=== PATIENT | male | born 1940 | race Caucasian/White ===

== ENCOUNTER → 2020-10-31 10:16 | Outpatient (BNVA) | payer MEDICARE, OTHER, SELFPAY | PROVIDERS: PCP Internal Medicine; Visit Provider Internal Medicine | DX: I48.0 Paroxysmal atrial fibrillation (principal); I63.512 Cerebral infarction due to unspecified occlusion or stenosis of left middle cerebral artery; R94.39 Abnormal result of other cardiovascular function study | CPT/HCPCS: 99212 ==

== ENCOUNTER → 2020-12-01 11:33 | Outpatient (BNVA) | payer MEDICARE, OTHER, SELFPAY | PROVIDERS: PCP Internal Medicine; Visit Provider Urology | DX: N40.1 Benign prostatic hyperplasia with lower urinary tract symptoms (principal); R35.0 Frequency of micturition; R31.0 Gross hematuria; N20.0 Calculus of kidney | CPT/HCPCS: 81002; 99212 ==

== ENCOUNTER → 2021-05-08 10:42 | Outpatient (BNVA) | payer MEDICARE, OTHER, SELFPAY | PROVIDERS: PCP Internal Medicine; Visit Provider Internal Medicine | DX: I48.0 Paroxysmal atrial fibrillation (principal); I63.512 Cerebral infarction due to unspecified occlusion or stenosis of left middle cerebral artery; R94.39 Abnormal result of other cardiovascular function study | CPT/HCPCS: 93005; 99212 ==

== ENCOUNTER 2021-06-25 07:44 | Emergency (ER) | payer MEDICARE, OTHER, SELFPAY ==
[2021-06-25 07:52] VITALS: BP 144/75; PULSE 73; RESP 18; TEMP 35.6; O2SAT 96
[2021-06-25 08:15] VITALS: BP 123/72; PULSE 59; RESP 17; O2SAT 98; BMI 24.3
[2021-06-25] MEDS: Oxymetazoline HCl 0.05 % Nasal 15 ML SPRAY 2 SPRAY NOSTRIL-B (08:20)
[2021-06-25] MEDS: Cocaine HCl 4 % 4 ML SOLUTION TOPICAL (08:20)
--- NOTE | 2021-06-25 08:20 | PC.NURSE ---
Doctor at bedside examining patient. Aftrin instilled in both nares with packing per doctor. Pt tolerated well
--- NOTE | 2021-06-25 08:25 | ED.EPISTAXIS ---
History of Present Illness General Chief Complaint: Epistaxis Stated Complaint: nose bleed Time Seen by Provider: 06/25/21 08:11 Source: patient Mode of arrival: ambulatory Limitations: no limitations History of Present Illness HPI Narrative: patient on eliquis, started with nose bleed yesterday, now with one today Location: Yes right nares Onset/current episode: Yes hour(s) Duration: Yes constant Pertinent past history: Yes hypertension Context: Yes history of previous nose bleed Related Data Home Medications Medication Instructions Recorded Confirmed gabapentin 300 mg capsule 300 mg PO BEDTIME 10/17/20 05/08/21 levothyroxine 50 mcg tablet 50 mcg PO DAILY 10/17/20 05/08/21 multivitamin 1 tab PO DAILY 10/17/20 05/08/21 tramadol 50 mg tablet 50 mg PO Q6H PRN 10/17/20 05/08/21 Previous Rx's Medication Instructions Recorded metoprolol succinate 25 mg 25 mg PO DAILY #90 tab 01/16/21 tablet,extended release 24 hr finasteride 5 mg tablet 5 mg PO DAILY 90 Days #90 tab 02/06/21 apixaban 5 mg tablet (Eliquis) 5 mg PO BID #180 tab 02/15/21 diclofenac sodium 1 % topical gel 4 g TOPICAL QID #3 tube 04/17/21 (Voltaren Arthritis Pain) atorvastatin 40 mg tablet 40 mg PO DAILY #90 tab 06/05/21 tamsulosin 0.4 mg capsule 0.4 mg PO DAILY #30 cap 06/14/21 Allergies Allergy/AdvReac Type Severity Reaction Status Date / Time No Known Allergies Allergy Verified 05/08/21 11:01 [No Known Allergies*] Review of Systems Constitutional: Constitutional: Reports no additional constitutional complaints Eyes: Eyes: Reports no additional eye complaints ENT: Denies dizziness Cardiovascular: Cardiovascular: Reports no additional cardiovascular complaints Respiratory: Respiratory: Reports as per HPI Gastrointestinal: Gastrointestinal: Reports no additional gastrointestinal complaints Musculoskeletal: Musculoskeletal: Reports no additional musculoskeletal complaints Integumentary/Breasts: Skin/Breast: Denies rash Neurologic: Reports system reviewed and no additional complaints, except as documented, Denies dizziness and Denies Sensory deficit (Neuro) Psychiatric: Psychiatric: Denies anxiety PMFSH Past Medical History Medical History Abnormal stress test Anemia BPH (benign prostatic hyperplasia) Cerebrovascular accident GERD (gastroesophageal reflux disease) Gross hematuria Hypercholesterolemia Hypertension Hypothyroid Idiopathic peripheral autonomic neuropathy Low vitamin D level Paroxysmal atrial fibrillation Peripheral vascular disease Renal cyst Renal stones Right renal stone Small bowel obstruction Surgical History History of arthroplasty of right hip History of inguinal hernia repair History of knee replacement procedure of right knee History of prostate surgery History of removal of cyst Family History Family History Father No problems noted. Mother CVD (cardiovascular disease) Social History Social History Alcohol intake: never Patient Tobacco Use Status: Former Tobacco user Second Hand Smoke Exposure: No Use of substances other than those prescribed or required for medical reasons: No Advance Directives: No Advance Directives Information Provided: No Physical Exam Vital Signs: Vital Signs: Last Vital Signs Temp 96.0 F L 06/25/21 07:52 Pulse 56 06/25/21 10:08 Resp 16 06/25/21 10:08 BP 149/72 H 06/25/21 10:08 Pulse Ox 98 06/25/21 10:08 Body Mass Index 24.3 Const: General: healthy appearing Nutritional Appearance: average body habitus Orientation/consciousness: oriented to person and patient oriented x3 Limitations: no limitations HENMT: Other: right nare bleeding Head: Yes normal to inspection Ears: external ears normal Mouth: Normal oral and palatal mucosa present and oropharynx normal Throat: Yes posterior oropharynx normal Eyes: General: appearance normal, both eyes and all related structures Neck: Other: supple Neck: Yes normal visual inspection Chest: Chest palpation & inspection: normal inspection of the chest Resp: Auscultation: clear to auscultation bilaterally Cardio: Jugular venous distension: no JVD Rate: regular rate Rhythm: regular rhythm Heart sounds: S1 normal heart sound present and S2 normal heart sound present GI: Inspection: Yes normal to inspection Palpation (GI): Soft to palpation, nontender and No hepatosplenomegaly present Auscultation: normal bowel sounds : General: Yes no CVA tenderness Back/Spine/Pelvis: Back: no CVA tenderness Skin: General skin exam: no rashes or lesions noted Neuro: General: oriented to person and patient oriented x3 Cranial nerves: Yes CN's II-XII intact bilaterally Motor exam (neuro): 5/5 motor strength present throughout Sensory Exam: No Sensory deficit (Neuro) Extrem: General: Yes normal to inspection Psych: Appearance: grossly normal Course Reevaluation(s) Reevaluation #1: no further bleeding, HCT normal Time: 10:11 MDM - Epistaxis Lab Data Result diagrams: 06/25/21 09:01 Labs: Lab Results 06/25/21 Range/Units 09:01 WBC 8.4 (4.8-10.8) X10*3/uL RBC 4.67 (4.60-5.80) X10*6/uL Hgb 13.4 L (14.0-18.0) g/dl Hct 41.4 L (42-52) % MCV 88.7 (80-98) fL MCH 28.7 (27.0-33.0) pg MCHC 32.4 (31.0-36.0) g/dl RDW 13.6 (11.0-16.0) % Plt Count 167 (160-400) X10*3/uL MPV 11.0 (9.4-12.4) fL Immature Gran % (Auto) 0.2 (0.0-0.4) % Neut % (Auto) 76.5 H (45-73) % Lymph % (Auto) 15.3 L (20-40) % [place] % (Auto) 7.4 (2-11) % Eos % (Auto) 0.2 (0-4) % Baso % (Auto) 0.4 (0-2) % Lymph # (Auto) 1.3 (1.2-4.9) X10*3/uL [place] # (Auto) 0.6 (0.1-1.2) X10*3/uL Eos # (Auto) 0.0 (0.0-0.4) X10*3/uL Baso # (Auto) 0.0 (0.0-0.2) X10*3/uL Abs Immat Gran (auto) 0.02 (0.00-0.03) X10*3/uL Absolute Neuts (auto) 6.4 (2.0-8.3) X10*3/uL Absolute Nucleated RBC 0.000 (0.0-0.012) X10*3/uL Nucleated RBC % (auto) 0.0 (0.0-0.2) /100WBC Procedures Procedure Narrative Procedure Narrative: rhinorocket placed in right nare, tolerated procedure well. Discharge Plan Discharge Clinical Impression: Epistaxis Patient Disposition: Home, Self-Care Instructions: Nosebleed (ED) Additional Instructions: rhinorocket gets removed by ENT Prescriptions: No Action metoprolol succinate 25 mg tablet extended release 24 hr 25 mg PO DAILY Qty: 90 RF: 3 finasteride 5 mg tablet 5 mg PO DAILY 90 Days Qty: 90 RF: 2 Eliquis 5 mg tablet 5 mg PO BID Qty: 180 RF: 1 atorvastatin 40 mg tablet 40 mg PO DAILY Qty: 90 RF: 2 tamsulosin 0.4 mg capsule 0.4 mg PO DAILY Qty: 30 RF: 6 diclofenac sodium [Voltaren Arthritis Pain] 1 % gel 4 g topical QID Qty: 3 RF: 2 multivitamin Tablet 1 tab PO DAILY RF: 0 gabapentin 300 mg capsule 300 mg PO BEDTIME RF: 0 tramadol 50 mg tablet 50 mg PO Q6H PRNRF: 0 levothyroxine 50 mcg tablet 50 mcg PO DAILY RF: 0 Referrals: Po,Alvin Lucia MD [Primary Care Provider] - 10 days Hernandez Burgos [Physician] - 3 days
--- NOTE | 2021-06-25 08:55 | PC.NURSE ---
Doctor at bedside removing nasal pack from both nares. Pt continues to have bleeding from right nare. Doctor applied a rhino rocket to right nare and inflated with normal saline. Pt tolerated well. Pt rinsed mouth and gargled with cold water with doctor at bedside. No post nasal bleeding noted per doctor.
--- NOTE | 2021-06-25 09:04 | PC.NURSE ---
Doctor at bedside examining patient. Afrin and nasal packing done per md.
[2021-06-25 09:24] LABS: MANUAL DIFF FLAG NO
[2021-06-25 09:26] LABS: Basophils Percent Auto 0.4 % (0-2); Eosinophils Percent Auto 0.2 % (0-4); Hematocrit 41.4 % (42-52); Hemoglobin 13.4 g/dl (14.0-18.0); Imm Gran Abs Auto 0.02 X10*3/uL (0.00-0.03); Imm Gran Pct Auto 0.2 % (0.0-0.4); Lymphocytes Absolute Auto 1.3 X10*3/uL (1.2-4.9); Lymphocytes Percent Auto 15.3 % (20-40); Mean Corpuscular HGB Conc 32.4 g/dl (31.0-36.0); Mean Corpuscular Hemoglobin 28.7 pg (27.0-33.0); Mean Corpuscular Volume 88.7 fL (80-98); Monocytes Absolute Auto 0.6 X10*3/uL (0.1-1.2); Monocytes Percent Auto 7.4 % (2-11); Neutrophils Absolute Auto 6.4 X10*3/uL (2.0-8.3); Neutrophils Percent Auto 76.5 % (45-73); Platelet Count 167 X10*3/uL (160-400); Red Blood Count 4.67 X10*6/uL (4.60-5.80); Red Cell Distribution Width 13.6 % (11.0-16.0); White Blood Count 8.4 X10*3/uL (4.8-10.8)
[2021-06-25 10:08] VITALS: BP 149/72; PULSE 56; RESP 16; O2SAT 98
--- NOTE | 2021-06-25 10:11 | PC.NURSE ---
Patient sitting up in bed in no distress. No bleeding noted on rhino packing.
--- NOTE | 2021-06-25 10:38 | PC.NURSE ---
Discharge instructions given to pt who verbalized understanding and denies any questions. Pt is ambulatory to exit with son in no distress
== END 2021-06-25 10:39 | disposition home or self-care (01) ==
PROVIDERS: Emergency Provider Emergency Medicine; PCP Internal Medicine
DX: R04.0 Epistaxis (principal); Z87.891 Personal history of nicotine dependence; Z79.899 Other long term (current) drug therapy
CPT/HCPCS: 36415; 85025; 99284; C9046

== ENCOUNTER 2021-07-25 08:59 | Outpatient (REF) | payer MEDICARE, OTHER, SELFPAY ==
--- NOTE | ~2021-07-25 | US_ITS ---
EXAMINATION: US RETROPERITONEAL LIMITED (RENAL ONLY) CLINICAL INFORMATION: Cyst of kidney, acquired. COMPARISON: CT abdomen and pelvis 04/12/2020. Renal ultrasound 11/25/2019 and 06/16/2019. KUB 08/19/2018 and 07/22/2018. TECHNIQUE: Real-time imaging of the kidneys. FINDINGS: RIGHT KIDNEY: 10.6 x 5.2 x 5.3 cm (SAG x AP x TRV). The kidney is normal in size, contour, and echogenicity. Renal cortical thickness is normal. No focal parenchymal lesions or hydronephrosis. Small echogenic foci within the right kidney measuring 0.3, 0.5, and 0.4 cm. Findings could represent renal stones which would be new when compared to the CT dated 04/12/2020. Alternatively, findings may represent vascular artifact. LEFT KIDNEY: 10.4 x 5.3 x 6.2 cm (SAG x AP x TRV). The kidney is normal in size, contour, and echogenicity. Renal cortical thickness is normal. No calculi or focal parenchymal lesions. No hydronephrosis. US/US renal BI IMPRESSION: 1. Echogenic foci within the right kidney, which may represent development of nonobstructing renal stones versus vascular artifact. No renal stones seen on the CT dated 04/12/2020. 2. No hydronephrosis. 3. No renal parenchymal lesion.
[2021-07-25 10:29] LABS: MANUAL DIFF FLAG NO
[2021-07-25 10:31] LABS: Basophils Percent Auto 0.5 % (0-2); Eosinophils Percent Auto 0.3 % (0-4); Hematocrit 40.2 % (42-52); Imm Gran Abs Auto 0.02 X10*3/uL (0.00-0.03); Imm Gran Pct Auto 0.3 % (0.0-0.4); Lymphocytes Absolute Auto 1.3 X10*3/uL (1.2-4.9); Lymphocytes Percent Auto 19.9 % (20-40); Mean Corpuscular HGB Conc 32.3 g/dl (31.0-36.0); Mean Corpuscular Hemoglobin 27.9 pg (27.0-33.0); Mean Corpuscular Volume 86.3 fL (80-98); Mean Platelet Volume 10.8 fL (9.4-12.4); Monocytes Absolute Auto 0.5 X10*3/uL (0.1-1.2); Monocytes Percent Auto 8.6 % (2-11); Neutrophils Absolute Auto 4.4 X10*3/uL (2.0-8.3); Neutrophils Percent Auto 70.4 % (45-73); Platelet Count 183 X10*3/uL (160-400); Red Blood Count 4.66 X10*6/uL (4.60-5.80); Red Cell Distribution Width 13.5 % (11.0-16.0); White Blood Count 6.3 X10*3/uL (4.8-10.8)
[2021-07-25 11:12] LABS: Alanine Aminotransferase 23 U/L (0-40); Albumin Level 3.9 g/dL (3.5-5.0); Alkaline Phosphatase 86 U/L (39-117); Anion Gap 8 (12-20); Aspartate Amino Transferase 28 U/L (5-37); Blood Urea Nitrogen 14 mg/dL (9-16); Calcium 9.4 mg/dL (8.4-10.2); Carbon Dioxide 30 mmol/L (22-29); Chloride 108 mmol/L (96-108); Cholesterol 124 mg/dL; Estimated Glomerular Filt Rate > 60; Glucose Random 95 mg/dL (60-115); HDL Cholesterol 48 mg/dL; LDL Cholesterol Calculated 66 mg/dl; Potassium 4.6 mmol/L (3.3-5.1); Sodium 141 mmol/L (135-145); Total Protein 6.6 g/dL (6.5-8.0); Triglycerides 51 mg/dL
[2021-07-25 11:32] LABS: Thyroid Stimulating Hormone 2.34 uIU/mL (0.32-4.0)
[2021-07-25 11:38] LABS: Folate > 20.0 ng/mL (> or = 4.0); Vitamin B12 576 pg/mL (200-900)
== END 2021-07-25 09:00 | disposition home or self-care (01) ==
LOC: HO.US 08:59
PROVIDERS: Absent Provider Urology; PCP Internal Medicine; Visit Provider Urology
DX: Z12.5 Encounter for screening for malignant neoplasm of prostate (principal); N20.0 Calculus of kidney; N28.1 Cyst of kidney, acquired; E78.00 Pure hypercholesterolemia, unspecified; E03.9 Hypothyroidism, unspecified; I48.0 Paroxysmal atrial fibrillation; N13.8 Other obstructive and reflux uropathy; N40.1 Benign prostatic hyperplasia with lower urinary tract symptoms
CPT/HCPCS: 36415; 76775; 80053; 80061; 82607; 82746; 84153; 84439; 84443; 85025

== ENCOUNTER → 2021-08-28 10:54 | Outpatient (BNVA) | payer MEDICARE, OTHER, SELFPAY | PROVIDERS: PCP Internal Medicine; Visit Provider Urology | DX: N40.1 Benign prostatic hyperplasia with lower urinary tract symptoms (principal); R35.0 Frequency of micturition; R31.0 Gross hematuria; N20.0 Calculus of kidney | CPT/HCPCS: Q3014 ==

== ENCOUNTER 2021-09-28 11:56 | Outpatient (REF) | payer MEDICARE, OTHER, SELFPAY ==
[2021-09-28 12:02] LABS: MANUAL DIFF FLAG NO
[2021-09-28 12:17] LABS: Basophils Percent Auto 0.4 % (0-2); Eosinophils Percent Auto 0.4 % (0-4); Hematocrit 43.2 % (42.0-52.0); Hemoglobin 13.9 g/dl (14.0-18.0); Imm Gran Abs Auto 0.02 X10*3/uL (0.00-0.03); Imm Gran Pct Auto 0.3 % (0.0-0.4); Immature Retic Fraction 14.6 % (2.3-13.4); Lymphocytes Absolute Auto 1.9 X10*3/uL (1.2-4.9); Lymphocytes Percent Auto 25.6 % (20-40); Mean Corpuscular HGB Conc 32.2 g/dl (31.0-36.0); Mean Corpuscular Hemoglobin 25.8 pg (27.0-33.0); Mean Corpuscular Volume 80.3 fL (80.0-98.0); Mean Platelet Volume 10.8 fL (9.4-12.4); Monocytes Absolute Auto 0.6 X10*3/uL (0.1-1.2); Monocytes Percent Auto 8.5 % (2-11); Neutrophils Absolute Auto 4.8 x10*3/uL (2.0-8.3); Neutrophils Percent Auto 64.8 % (45-73); Platelet Count 184 X10*3/uL (160-400); Red Blood Count 5.38 X10*6/uL (4.60-5.80); Red Cell Distribution Width 15.9 % (11.0-16.0); Retic HGB Equivalent 29.7 pg (30.0-35.0); Reticulocytes Absolute 0.053 X10*6/uL (0.026-0.095); White Blood Count 7.4 X10*3/uL (4.8-10.8)
[2021-09-28 12:57] LABS: Iron 27 mcg/dL (45-160); Percent Iron Saturation 9 % (15-50); Total Iron Binding Capacity 311 mcg/dL (228-428); Unsaturated Iron Binding 284 ug/dL
[2021-09-28 13:17] LABS: Prostate Specific Antigen 1.25 ng/mL (<0.05-4.0)
[2021-09-28 13:19] LABS: Ferritin 13 ng/mL (20-250)
== END 2021-09-28 11:57 | disposition home or self-care (01) ==
LOC: HO.LAB 11:56
PROVIDERS: Urology; PCP Internal Medicine; Visit Provider Internal Medicine
DX: Z12.5 Encounter for screening for malignant neoplasm of prostate (principal); N13.8 Other obstructive and reflux uropathy; N20.0 Calculus of kidney; N40.1 Benign prostatic hyperplasia with lower urinary tract symptoms; D64.9 Anemia, unspecified
CPT/HCPCS: 36415; 82728; 83540; 84153; 85025; 85045

== ENCOUNTER → 2022-05-23 08:48 | Outpatient (BNVA) | payer MEDICARE, OTHER, SELFPAY | PROVIDERS: PCP Internal Medicine; Referring Provider Internal Medicine; Visit Provider Internal Medicine | DX: I48.0 Paroxysmal atrial fibrillation (principal); R94.39 Abnormal result of other cardiovascular function study; Z86.73 Personal history of transient ischemic attack (TIA), and cerebral infarction without residual deficits; Z79.01 Long term (current) use of anticoagulants | CPT/HCPCS: 93005; 99212 ==

== ENCOUNTER 2022-06-04 12:43 | Outpatient (REF) | payer MEDICARE, OTHER, SELFPAY ==
[2022-06-04 13:02] LABS: MANUAL DIFF FLAG NO
[2022-06-04 13:17] LABS: Basophils Percent Auto 0.3 % (0-2); Eosinophils Percent Auto 0.6 % (0-4); Hematocrit 44.5 % (42.0-52.0); Hemoglobin 14.5 g/dl (14.0-18.0); Imm Gran Abs Auto 0.02 X10*3/uL (0.00-0.03); Imm Gran Pct Auto 0.3 % (0.0-0.4); Lymphocytes Absolute Auto 1.8 X10*3/uL (1.2-4.9); Lymphocytes Percent Auto 26.2 % (20-40); Mean Corpuscular HGB Conc 32.6 g/dl (31.0-36.0); Mean Corpuscular Hemoglobin 27.5 pg (27.0-33.0); Mean Corpuscular Volume 84.4 fL (80.0-98.0); Mean Platelet Volume 10.8 fL (9.4-12.4); Monocytes Absolute Auto 0.6 X10*3/uL (0.1-1.2); Monocytes Percent Auto 8.3 % (2-11); Neutrophils Absolute Auto 4.4 x10*3/uL (2.0-8.3); Neutrophils Percent Auto 64.3 % (45-73); Platelet Count 170 X10*3/uL (160-400); Red Blood Count 5.27 X10*6/uL (4.60-5.80); Red Cell Distribution Width 15.9 % (11.0-16.0); White Blood Count 6.8 X10*3/uL (4.8-10.8)
[2022-06-04 13:42] LABS: Alanine Aminotransferase 23 U/L (0-40); Albumin Level 4.1 g/dL (3.5-5.0); Alkaline Phosphatase 90 U/L (39-117); Anion Gap 9 (12-20); Aspartate Amino Transferase 26 U/L (5-37); Bilirubin Total 1.1 mg/dL (0.0-1.0); Blood Urea Nitrogen 17 mg/dL (9-16); Calcium 8.9 mg/dL (8.4-10.2); Carbon Dioxide 27 mmol/L (22-29); Chloride 109 mmol/L (96-108); Cholesterol 119 mg/dL; Estimated Glomerular Filt Rate > 60; Glucose Random 92 mg/dL (60-115); HDL Cholesterol 42 mg/dL; LDL Cholesterol Calculated 63 mg/dl; Potassium 4.5 mmol/L (3.3-5.1); Sodium 140 mmol/L (135-145); Total Protein 6.8 g/dL (6.5-8.0); Triglycerides 73 mg/dL
[2022-06-04 14:04] LABS: Free T4 (Free Thyroxine) 1.12 ng/dL (0.71-1.85); Thyroid Stimulating Hormone 2.81 uIU/mL (0.32-4.0)
[2022-06-04 14:24] LABS: Folate > 20.0 ng/mL (> or = 4.0); Vitamin B12 435 pg/mL (200-900)
== END 2022-06-04 12:44 | disposition home or self-care (01) ==
LOC: HO.LAB 12:43
PROVIDERS: PCP Internal Medicine; Visit Provider Internal Medicine
DX: I48.0 Paroxysmal atrial fibrillation (principal); E78.00 Pure hypercholesterolemia, unspecified
CPT/HCPCS: 36415; 80053; 80061; 82607; 82746; 84439; 84443; 85025

== ENCOUNTER 2022-08-19 09:04 | Outpatient (REF) | payer MEDICARE, OTHER, SELFPAY ==
--- NOTE | ~2022-08-19 | US_ITS ---
EXAMINATION: US RETROPERITONEAL LIMITED (RENAL ONLY) CLINICAL INFORMATION: Calculus of kidney. Occasional right-sided pain. COMPARISON: Renal ultrasound 07/25/2021 and 12/05/2019. CT abdomen and pelvis 04/12/2020. X-ray abdomen KUB 08/19/2018. TECHNIQUE: Real-time imaging of the kidneys. FINDINGS: RIGHT KIDNEY: 11.0 x 4.6 x 5.1 cm (SAG x AP x TRV). The kidney is normal in size, contour, and echogenicity. Renal cortical thickness is normal. No calculi or focal parenchymal lesions. No hydronephrosis. LEFT KIDNEY: 10.3 x 6.4 x 5.8 cm (SAG x AP x TRV). The kidney is normal in size, contour, and echogenicity. Renal cortical thickness is normal. No calculi or focal parenchymal lesions. No hydronephrosis. The left kidney evaluation is limited due to rib shadow and overlying bowel. US/US renal BI IMPRESSION: Unremarkable renal ultrasound. The evaluation of left kidney is limited due to overlying rib shadow and bowel loops.
[2022-08-19 11:18] LABS: Prostate Specific Antigen 1.08 ng/mL (<0.05-4.0)
== END 2022-08-19 09:05 | disposition home or self-care (01) ==
LOC: HO.US 09:04
PROVIDERS: PCP Internal Medicine; Visit Provider Urology
DX: Z12.5 Encounter for screening for malignant neoplasm of prostate (principal); N20.0 Calculus of kidney; N40.1 Benign prostatic hyperplasia with lower urinary tract symptoms; R35.0 Frequency of micturition
CPT/HCPCS: 36415; 76775; 84153

== ENCOUNTER → 2022-09-19 15:08 | Outpatient (BNVA) | payer MEDICARE, OTHER, SELFPAY | PROVIDERS: PCP Internal Medicine; Visit Provider Urology | DX: N40.1 Benign prostatic hyperplasia with lower urinary tract symptoms (principal); R35.0 Frequency of micturition; N28.1 Cyst of kidney, acquired; N20.0 Calculus of kidney | CPT/HCPCS: 51798; 99212 ==

== ENCOUNTER 2022-10-14 13:14 | Outpatient (REF) | payer MEDICARE, OTHER, SELFPAY ==
[2022-10-14 17:51] LABS: Appearance Urine Turbid; Glucose Urine UA Negative (Negative); Leukocyte Esterase Urine Negative (Negative); Nitrite Urine Negative (Negative); Specific Gravity - Urine >= 1.030 (1.005-1.025); UMIC TRIGGER UA YES; Urine Blood Large (3+) (Negative); Urine Ketones Trace mg/dL (Negative); Urine Protein 100 (2+) mg/dL (Neg-Trace)
[2022-10-14 18:00] LABS: Bacteria Urine 1+ (None Seen); Color Urine RED; RBC Urine >20 /HPF (0-2); Squamous Epithelial Cell Urine 0-2 /HPF (0-2); WBC Urine 21-50 /HPF (0-5)
[2022-10-14 18:01] LABS: Hyaline Casts Urine 0-2 /LPF (0-2)
== END 2022-10-14 13:15 | disposition home or self-care (01) ==
LOC: HO.LAB 13:14
PROVIDERS: PCP Internal Medicine; Visit Provider Urology
DX: R31.0 Gross hematuria (principal)
CPT/HCPCS: 81001; 87086

== ENCOUNTER 2023-05-07 08:52 | Outpatient (REF) | payer MEDICARE, OTHER, SELFPAY ==
[2023-05-07 09:02] LABS: MANUAL DIFF FLAG NO
[2023-05-07 10:08] LABS: Basophils Percent Auto 0.3 % (0-2); Eosinophils Absolute Auto 0.1 X10*3/uL (0.0-0.4); Hematocrit 36.9 % (42.0-52.0); Hemoglobin 11.3 g/dl (14.0-18.0); Imm Gran Abs Auto 0.06 X10*3/uL (0.00-0.03); Lymphocytes Absolute Auto 1.6 X10*3/uL (1.2-4.9); Lymphocytes Percent Auto 25.8 % (20-40); Mean Corpuscular HGB Conc 30.6 g/dl (31.0-36.0); Mean Corpuscular Hemoglobin 23.4 pg (27.0-33.0); Mean Corpuscular Volume 76.6 fL (80.0-98.0); Mean Platelet Volume 10.7 fL (9.4-12.4); Monocytes Absolute Auto 0.6 X10*3/uL (0.1-1.2); Monocytes Percent Auto 10.2 % (2-11); Neutrophils Absolute Auto 3.7 x10*3/uL (2.0-8.3); Neutrophils Percent Auto 61.7 % (45-73); Platelet Count 221 X10*3/uL (160-400); Red Blood Count 4.82 X10*6/uL (4.60-5.80); Red Cell Distribution Width 17.7 % (11.0-16.0)
[2023-05-07 11:21] LABS: B Type Natriuretic Peptide 69 pg/mL (<100)
[2023-05-07 11:37] LABS: Alanine Aminotransferase 19 U/L (0-40); Albumin Level 3.8 g/dL (3.5-5.0); Alkaline Phosphatase 99 U/L (39-117); Anion Gap 13 (12-20); Aspartate Amino Transferase 24 U/L (5-37); Bilirubin Total 0.8 mg/dL (0.0-1.0); Blood Urea Nitrogen 19 mg/dL (9-16); Calcium 9.3 mg/dL (8.4-10.2); Carbon Dioxide 25 mmol/L (22-29); Chloride 107 mmol/L (96-108); Cholesterol 112 mg/dL; Estimated Glomerular Filt Rate > 60; Glucose Random 86 mg/dL (60-115); HDL Cholesterol 45 mg/dL; LDL Cholesterol Calculated 60 mg/dl; Potassium 4.2 mmol/L (3.3-5.1); Sodium 141 mmol/L (135-145); Total Protein 6.7 g/dL (6.5-8.0); Triglycerides 37 mg/dL
[2023-05-07 11:57] LABS: Free T4 (Free Thyroxine) 0.96 ng/dL (0.71-1.85); Thyroid Stimulating Hormone 3.62 uIU/mL (0.32-4.0)
[2023-05-07 11:58] LABS: Folate 15.3 ng/mL (> or = 4.0); Prostate Specific Antigen Scr 1.16 ng/mL (<0.05-4.0); Vitamin B12 407 pg/mL (200-900)
== END 2023-05-07 08:53 | disposition home or self-care (01) ==
LOC: HO.LAB 08:52
PROVIDERS: PCP Internal Medicine; Visit Provider Internal Medicine
DX: I48.0 Paroxysmal atrial fibrillation (principal); E78.00 Pure hypercholesterolemia, unspecified; N40.1 Benign prostatic hyperplasia with lower urinary tract symptoms; R35.0 Frequency of micturition; Z12.5 Encounter for screening for malignant neoplasm of prostate
CPT/HCPCS: 36415; 80053; 80061; 82607; 82746; 83880; 84153; 84439; 84443; 85025

== ENCOUNTER 2023-05-16 14:16 | Outpatient (REF) | payer MEDICARE, OTHER, SELFPAY ==
[2023-05-16 14:46] LABS: MANUAL DIFF FLAG NO
[2023-05-16 15:03] LABS: Basophils Percent Auto 0.5 % (0-2); Eosinophils Percent Auto 0.5 % (0-4); Hematocrit 36.4 % (42.0-52.0); Hemoglobin 11.3 g/dl (14.0-18.0); Imm Gran Abs Auto 0.03 X10*3/uL (0.00-0.03); Imm Gran Pct Auto 0.5 % (0.0-0.4); Lymphocytes Absolute Auto 1.5 X10*3/uL (1.2-4.9); Lymphocytes Percent Auto 22.5 % (20-40); Mean Corpuscular Hemoglobin 23.7 pg (27.0-33.0); Mean Corpuscular Volume 76.3 fL (80.0-98.0); Mean Platelet Volume 10.6 fL (9.4-12.4); Monocytes Absolute Auto 0.6 X10*3/uL (0.1-1.2); Monocytes Percent Auto 9.1 % (2-11); Neutrophils Absolute Auto 4.4 x10*3/uL (2.0-8.3); Neutrophils Percent Auto 66.9 % (45-73); Platelet Count 220 X10*3/uL (160-400); Red Blood Count 4.77 X10*6/uL (4.60-5.80); Red Cell Distribution Width 17.3 % (11.0-16.0); White Blood Count 6.6 X10*3/uL (4.8-10.8)
[2023-05-16 16:00] LABS: Iron 25 mcg/dL (45-160); Percent Iron Saturation 9 % (15-50); Total Iron Binding Capacity 293 mcg/dL (228-428); Unsaturated Iron Binding 268 ug/dL
[2023-05-16 16:15] LABS: Ferritin 11 ng/mL (20-250)
[2023-05-16 16:20] LABS: Vitamin B12 527 pg/mL (200-900)
== END 2023-05-16 14:17 | disposition home or self-care (01) ==
LOC: HO.LAB 14:16
PROVIDERS: PCP Internal Medicine; Visit Provider Internal Medicine
DX: D64.9 Anemia, unspecified (principal)
CPT/HCPCS: 36415; 82607; 82728; 83540; 85025

== ENCOUNTER 2023-06-05 09:04 | Outpatient (AMB) | payer MEDICARE, OTHER, SELFPAY ==
--- NOTE | 2023-06-05 09:08 | MHC.OFFVIS ---
Intake Vital Signs 06/05/23 09:09 Height 6 ft 2 in Weight 188 lb 11.451 oz BMI 24.2 BP 110/70 Blood Pressure Location Lt brachial Position Sitting Pulse 68 Intake Visit Reasons: 1 year follow up Intake Note: 1 year follow up w/ EKG Curbing Stonecutter Required: No Accompanied by: Self / Same As Patient Allergies No Known Allergies [No Known Allergies*] Allergy (Verified 06/05/23 09:12) Medication List - Last Reconciled 06/05/23 by Kishan Casanova MD apixaban (Eliquis) 5 mg PO BID atorvastatin 40 mg PO DAILY diclofenac sodium 1% (Voltaren Arthritis Pain) 4 grams topical QID finasteride 5 mg PO DAILY 90 days gabapentin 300 mg PO BEDTIME levothyroxine 50 mcg PO DAILY metoprolol succinate ER 25 mg PO DAILY multivitamin 1 tab PO DAILY sennosides-docusate sodium 8.6-50 mg (Senna Plus) 2 tab-caps (2 x 8.6-50 mg) PO BEDTIME sertraline 25 mg PO QAM tramadol 50 mg PO Q6H PRN HPI HPI Comments History of Present Illness Details Luis Alberto returns for follow-up regarding atrial fibrillation as well as stroke. To recall, he had a stroke after elective hip surgery. Then sent to [facility] but improved spontaneously. Telemetry then had shown atrial fibrillation. Then, started anticoagulation. Overall, he is doing good. No concerns whatsoever. No cardiac symptoms. Seems to be getting along okay. FORMERLY [facility], 1928–1983 Medical History (Updated 05/06/23 @ 11:13 by Alvin Maher MD) Anemia BPH (benign prostatic hyperplasia) Bruise Cerebrovascular accident Conjunctivitis, left eye GERD (gastroesophageal reflux disease) Gross hematuria Hypercholesterolemia Hypertension Hypothyroid Idiopathic peripheral autonomic neuropathy Low vitamin D level Paroxysmal atrial fibrillation Peripheral vascular disease Renal cyst Renal stones Right renal stone Screening for diabetes mellitus Small bowel obstruction Surgical History History of arthroplasty of right hip History of inguinal hernia repair History of knee replacement procedure of right knee History of prostate surgery History of removal of cyst Family History Father No problems noted. Mother CVD (cardiovascular disease) Social History Housing: House Alcohol intake: never Patient Tobacco Use Status: Former Tobacco user Tobacco use type: Cigarette e-Cigarette/Vaping Use: Never Used Second Hand Smoke Exposure: No Current occupational status: retired Cognitive needs: No Hearing needs: No Vision needs: Yes Review of Systems Const Denies weakness ENT Denies dizziness Card Denies chest pain, Denies chest pain with activity, Denies syncope, Denies rapid heart rate, Denies pedal edema, Denies edema, Denies leg edema, Denies lightheadedness, Denies palpitations, Denies dyspnea, Denies dyspnea on exertion and Denies orthopnea Resp Denies cough, Denies dyspnea and Denies dyspnea on exertion GI Denies hematochezia and Denies change in stool character Musc Denies abnormal gait, Denies muscle cramps, Denies muscle weakness, Denies numbness, Denies radiating pain into limb and Denies tingling Neuro Denies abnormal gait, Denies dizziness, Denies syncope, Denies numbness, Denies tingling and Denies weakness Endo Denies palpitations Physical Exam Vital Signs: Last Vital Signs Pulse 68 06/05/23 09:09 BP 110/70 06/05/23 09:09 BMI result Body Mass Index 24.2 Const General: comfortable and no acute distress Orientation/consciousness: patient oriented x3 HEENT Other: Unremarkable Head: Yes normal to inspection Neck Neck: Yes normal visual inspection Chest Chest palpation & inspection: normal inspection of the chest Resp Auscultation: clear to auscultation bilaterally Cardio Palpation: normal PMI Heart sounds: S1 normal heart sound present, S2 normal heart sound present, no gallops, no murmurs and no rubs GI Palpation (GI): Soft to palpation Back/Spine/Pelvis Other: unremarkable Skin General skin exam: no rashes or lesions noted Neuro General: patient oriented x3 Extrem General: Yes normal to inspection Psych Mental Status: mental status grossly normal Office Procedures EKG Details: EKG with sinus rhythm at 68/Min; no significant ST-T changes and otherwise unremarkable. [place]. [id number], Complete Assessment & Plan Assessment & Plan (1) Paroxysmal atrial fibrillation: Comment: February 2019 Code(s): I48.0 - Paroxysmal atrial fibrillation Plan: Continue metoprolol and Eliquis. As it has been a long time, will check Holter/echocardiogram. (2) Cerebrovascular accident: Code(s): I63.9 - Cerebral infarction, unspecified Qualifiers: CVA mechanism: stenosis Laterality of affected vessel: left Precerebral and cerebral artery: middle cerebral artery Qualified Code(s): I63.512 - Cerebral infarction due to unspecified occlusion or stenosis of left middle cerebral artery Plan: No residual deficits. Continue anticoagulation. (3) Abnormal stress test: Code(s): R94.39 - Abnormal result of other cardiovascular function study Plan: In the past, exercise EKG had shown no ischemic changes at peak exercise, but during recovery, there were frequent PVCs and short run of accelerated idioventricular rhythm. Pharmacological stress test had shown normal perfusion and normal gated LVEF. Echocardiogram was also unremarkable. Clinically, he has got absolutely no symptoms. We will continue to monitor. Plan Total time spent including review of data, counseling, documentation, coordination of care-31 minutes. Orders: Orders CA echo transthoracic complete Today I48.0 - Paroxysmal atrial fibrillation ECG 3 day holter monitor Today I48.0 - Paroxysmal atrial fibrillation Coding Level of Care Code Est Pt Level 4 (54073) Diagnoses Paroxysmal atrial fibrillation I48.0 Cerebrovascular accident I63.512 CVA mechanism: stenosis Laterality of affected vessel: left Precerebral and cerebral artery: middle cerebral artery Abnormal stress test R94.39 CPT Codes EKG - CPT: 02388-[id number], Complete ([id number])
[2023-06-05 09:09] VITALS: BP 110/70; PULSE 68; BMI 24.2
== END 2023-06-05 09:36 | disposition home or self-care (01) ==
PROVIDERS: Visit Provider Internal Medicine
DX: I48.0 Paroxysmal atrial fibrillation (principal); I63.512 Cerebral infarction due to unspecified occlusion or stenosis of left middle cerebral artery; R94.39 Abnormal result of other cardiovascular function study
CPT/HCPCS: 93010; 99214

== ENCOUNTER → 2023-06-05 09:04 | Outpatient (BNVA) | payer MEDICARE, OTHER, SELFPAY | PROVIDERS: Visit Provider Internal Medicine | DX: I48.0 Paroxysmal atrial fibrillation (principal); I63.512 Cerebral infarction due to unspecified occlusion or stenosis of left middle cerebral artery; R94.39 Abnormal result of other cardiovascular function study | CPT/HCPCS: 93005; 99212 ==

== ENCOUNTER 2023-06-17 14:33 | Outpatient (AMB) | payer MEDICARE, OTHER, SELFPAY ==
[2023-06-17 14:42] VITALS: BP 128/70; PULSE 75; O2SAT 98; BMI 23.5
--- NOTE | 2023-06-17 14:42 | MHC.PC.OV ---
Vital Signs 06/17/23 14:42 Height 6 ft 2 in Weight 183 lb BMI 23.5 BP 128/70 Blood Pressure Location Lt brachial Position Sitting Pulse 75 Pulse Source Pulse Oximeter Pulse Oximetry (%) 98 Oxygen Delivery Method Room Air Intake Visit Reasons: Follow Up Intake Note: Coughing up phlegm, can't get food down, ends up choking and then it comes up Allergies No Known Allergies [No Known Allergies*] Allergy (Verified 06/17/23 14:42) Medication List - Last Reconciled 06/17/23 by Alvin Maher MD apixaban (Eliquis) 5 mg PO BID ascorbic acid (vitamin C) 500 mg PO DAILY 90 days atorvastatin 40 mg PO DAILY diclofenac sodium 1% (Voltaren Arthritis Pain) 4 grams topical QID ferrous sulfate (Feosol) 325 mg PO DAILY finasteride 5 mg PO DAILY 90 days gabapentin 300 mg PO BEDTIME levothyroxine 50 mcg PO DAILY metoprolol succinate ER 25 mg PO DAILY multivitamin 1 tab PO DAILY sennosides-docusate sodium 8.6-50 mg (Senna Plus) 2 tab-caps (2 x 8.6-50 mg) PO BEDTIME sertraline 25 mg PO QAM tramadol 50 mg PO Q6H PRN Tobacco use date assessed: 02/03/23 Fall risk assessment: No Falls in past year Last assessed Fall Risk: 06/17/23 Dental Screening Dental Screen Date: 06/17/23 Did you have a dental visit in the last 12 months?: Yes Did you have a dental problem in the last 6 months where you did not have access to dental care?: No Was dental information given to patient?: Patient has dentist HPI Follow Up HPI Details 83-year-old male with hypertension atrial fibrillation hypercholesterolemia BPH GERD hypothyroidism last seen in April 2023 patient is here for follow-up. Patient recently followed up with Cardiology CVA after elective hip surgery seen to have atrial fibrillation on anticoagulation advise echocardiogram. Patient had blood work done showing microcytic anemia with iron deficiency. concern about dysphagia- after eating . Patient would like to have this tested. Otherwise worried about son due to do weight PFSH Medical History Anemia BPH (benign prostatic hyperplasia) Bruise Cerebrovascular accident Conjunctivitis, left eye GERD (gastroesophageal reflux disease) Gross hematuria Hypercholesterolemia Hypertension Hypothyroid Idiopathic peripheral autonomic neuropathy Low vitamin D level Paroxysmal atrial fibrillation Peripheral vascular disease Renal cyst Renal stones Right renal stone Screening for diabetes mellitus Small bowel obstruction Surgical History (Reviewed 06/17/23 @ 14:42 by Carmita Mckeon [facility] [address]) History of arthroplasty of right hip History of inguinal hernia repair History of knee replacement procedure of right knee History of prostate surgery History of removal of cyst Family History (Reviewed 06/17/23 @ 14:42 by Carmita Mckeon [facility] [address]) Father No problems noted. Mother CVD (cardiovascular disease) Social History Housing: House Alcohol intake: never Patient Tobacco Use Status: Former Tobacco user Tobacco use type: Cigarette e-Cigarette/Vaping Use: Never Used Second Hand Smoke Exposure: No Current occupational status: retired Cognitive needs: No Hearing needs: No Vision needs: Yes Questionnaire PHQ-9 Over the last 2 weeks, how often have you been bothered by any of the following problems? 1. Little interest or pleasure in doing things: several days 2. Feeling down, depressed, or hopeless: several days 3. Trouble falling or staying asleep, or sleeping too much: several days 4. Feeling tired or having little energy: several days 5. Poor appetite or overeating: several days 6. Feeling bad about yourself - or that you are a failure or have let yourself or your family down: several days 7. Trouble concentrating on things, such as reading the newspaper or watching television: not at all 8. Moving or speaking so slowly that other people could have noticed. Or the opposite - being so fidgety or restless that you have been moving around a lot more than usual: not at all 9. Thoughts that you would be better off or of hurting yourself in some way: not at all Total score: 6 Depression Screening Interpretation: Negative 48688 - PHQ-9 Billing: Yes Source: Developed by Drs. Heri Sawyer, Esmer Oreilly, Apollo Reza and colleagues, with an educational parish from [employer]. Thrive Questionnaire Date Thrive assessed: 02/03/23 AUDIT C Alcohol Use Questionnaire (AUDIT-C) 1. How often do you have a drink containing alcohol?: Never 3. How often do you have six or more drinks on one occasion?: Never Total Score: 0 Score Reviewed/Action Taken: No BRITNI-7 AMB Questionnaire BRITNI-7 Date BRITNI - 7 assessed: 03/06/23 Source: Developed by Drs. Heri Sawyer, Esmer Oreilly, Apollo Reza and colleagues, with an educational parish from [employer]. Physical exam (Primary Care) Vital Signs: Last Vital Signs Pulse 75 06/17/23 14:42 BP 128/70 06/17/23 14:42 Pulse Ox 98 06/17/23 14:42 Oxygen Delivery Method Room Air 06/17/23 14:42 BMI result Body Mass Index 23.5 Tobacco/Smoking Status: Tobacco use Status Tobacco use date assessed 02/03/23 06/17/23 14:48 Patient Tobacco Use Status Former Tobacco user 06/17/23 14:48 Tobacco use type Cigarette 06/17/23 14:48 e-Cigarette/Vaping Use Never Used 06/17/23 14:48 PHQ-9: PHQ-9 Score PHQ-9: Total score 6 06/17/23 14:48 Depression Screening Interpretation: Negative Thrive Assessment: Date of Thrive Assessment Date Thrive assessed 02/03/23 06/17/23 14:48 Const General: alert; No acute distress Eyes Conjunctivae: conjunctivae normal Resp Auscultation: clear to auscultation bilaterally Cardio Rate: regular rate Rhythm: regular rhythm GI Inspection: Yes normal to inspection Extrem General: Yes normal to inspection and No edema Assessment and Plan Assessment & Plan (1) Paroxysmal atrial fibrillation: Comment: February 2019 Code(s): I48.0 - Paroxysmal atrial fibrillation Plan: Continue with anticoagulation (2) Hypertension: Comment: Echo August 2017, EF 60-65% April 2020 EF 60-65% Code(s): I10 - Essential (primary) hypertension Qualifiers: Hypertension type: essential hypertension Qualified Code(s): I10 - Essential (primary) hypertension Plan: Continue with blood pressure medication. Decrease salt intake and exercise patient is taking metoprolol 25 mg once a day (3) Cerebrovascular accident: Code(s): I63.9 - Cerebral infarction, unspecified Qualifiers: CVA mechanism: stenosis Precerebral and cerebral artery: middle cerebral artery Laterality of affected vessel: left Qualified Code(s): I63.512 - Cerebral infarction due to unspecified occlusion or stenosis of left middle cerebral artery Plan: Control the cholesterol, weight, blood pressure (4) Hypercholesterolemia: Code(s): E78.00 - Pure hypercholesterolemia, unspecified Plan: Avoid fried foods, chicken skin, eggs, butter margarine, pastries and meat. Be it pork or beef they have a lot of cholesterol LDL goal of less than 70 and triglyceride less than 150 (5) BPH (benign prostatic hyperplasia): Comment: [employer] December 2010 Code(s): N40.0 - Benign prostatic hyperplasia without lower urinary tract symptoms Qualifiers: Lower urinary tract symptom presence: symptoms present Lower urinary tract symptom detail: urinary frequency Qualified Code(s): N40.1 - Benign prostatic hyperplasia with lower urinary tract symptoms; R35.0 - Frequency of micturition Plan: Continue with finasteride (6) GERD (gastroesophageal reflux disease): Code(s): K21.9 - Gastro-esophageal reflux disease without esophagitis Qualifiers: Esophagitis presence: without esophagitis Qualified Code(s): K21.9 - Gastro-esophageal reflux disease without esophagitis Plan: Avoid the foods that causes that usually spicy foods, tomato products, juices, coffee, soda and foods that your sensitive to. After eating do not lie down, allow 3-4 hours before in lie down. And keep the head of bed above 30 degrees to avoid the acid from going up. (7) Hypothyroid: Code(s): E03.9 - Hypothyroidism, unspecified Qualifiers: Hypothyroidism type: acquired Qualified Code(s): E03.9 - Hypothyroidism, unspecified Plan: Continue with thyroid medication (8) Iron deficiency anemia: Code(s): D50.9 - Iron deficiency anemia, unspecified Plan: Will prescribe iron and vitamin-C (9) Dysphagia: Code(s): R13.10 - Dysphagia, unspecified Orders: Orders FL upper GI series Today R13.10 - Dysphagia, unspecified Medications: New ferrous sulfate (Feosol) 325 mg PO DAILY 90 tabs 2RF D50.9 - Iron deficiency anemia, unspecified ascorbic acid (vitamin C) 500 mg PO DAILY 90 caps 2RF 90 days D50.9 - Iron deficiency anemia, unspecified Coding Level of Care Code Est Pt Level 4 (72904) Diagnoses Paroxysmal atrial fibrillation I48.0 Hypertension I10 Hypertension type: essential hypertension Cerebrovascular accident I63.512 CVA mechanism: stenosis Precerebral and cerebral artery: middle cerebral artery Laterality of affected vessel: left Hypercholesterolemia E78.00 BPH (benign prostatic hyperplasia) N40.1; R35.0 Lower urinary tract symptom presence: symptoms present Lower urinary tract symptom detail: urinary frequency GERD (gastroesophageal reflux disease) K21.9 Esophagitis presence: without esophagitis Hypothyroid E03.9 Hypothyroidism type: acquired Iron deficiency anemia D50.9 Dysphagia R13.10
== END 2023-06-17 15:35 | disposition home or self-care (01) ==
PROVIDERS: PCP Internal Medicine; Visit Provider Internal Medicine
DX: I48.0 Paroxysmal atrial fibrillation (principal); I10 Essential (primary) hypertension; I63.512 Cerebral infarction due to unspecified occlusion or stenosis of left middle cerebral artery; K21.9 Gastro-esophageal reflux disease without esophagitis; E78.00 Pure hypercholesterolemia, unspecified; N40.1 Benign prostatic hyperplasia with lower urinary tract symptoms; R35.0 Frequency of micturition; E03.9 Hypothyroidism, unspecified; D50.9 Iron deficiency anemia, unspecified; R13.10 Dysphagia, unspecified
CPT/HCPCS: 99214

== ENCOUNTER → 2023-06-26 08:48 | Outpatient (BNV) | payer MEDICARE, OTHER, SELFPAY | PROVIDERS: PCP Internal Medicine; Visit Provider Radiology Diagnostic Radiology | DX: R13.10 Dysphagia, unspecified (principal) | CPT/HCPCS: 74246 ==

== ENCOUNTER 2023-06-26 08:49 | Outpatient (REF) | payer MEDICARE, OTHER, SELFPAY ==
--- NOTE | ~2023-06-26 | FL_ITS ---
EXAMINATION: XR FLUOROSCOPY UPPER GI WITH AIR CLINICAL INFORMATION: 83-year-old male complaining of episodic dysphasia to solids. Patient describes symptoms of food getting stuck in upper esophageal region. Patient describes no issues with liquids. COMPARISON: No priors. TECHNIQUE: Standard dual air contrast upper GI examination was performed using real time fluoroscopic guidance during the ingestion of thick and thin barium. FINDINGS: The oral pharyngeal phase demonstrated tongue pumping but was otherwise grossly normal. The hypopharyngeal phase was complicated by extensive pooling in the vallecula bilaterally, and lesser in the piriform sinuses. There was immediate penetration to the level of the true cords, and subsequent small volume subglottic aspiration on thick barium. The patient did not sense nor feel this, and had no urge to cough. Additional swallow with chin tuck attempt demonstrated continued aspiration subglottic to the level of the pawan. At this point the examination was terminated for safety concerns. The patient had no aspiration sensation or cough reflex. Limited images of the esophagus obtained demonstrate no evidence of gross stricture or mass. Limited images of the stomach and duodenal bulb demonstrate no gross abnormality. Gaseous distention of the splenic flexure of the colon was instantly noted with mild left diaphragmatic elevation. Splenic granulomata were noted. The aorta was moderately calcified. FLUOROSCOPY TIME: 2.4 minutes. 30 spot images were obtained. DOSE AREA PRODUCT: 10.504 uGy-m2 (microgray-meter squared) FL/FL upper GI w air IMPRESSION: 1. Silent subglottic aspiration to the level of the pawan on thick barium, at which point the examination was terminated. 2. Limited images of the esophagus, stomach, and duodenal bulb appear normal.
== END 2023-06-26 08:50 | disposition home or self-care (01) ==
LOC: HO.XRAY 08:49
PROVIDERS: PCP Internal Medicine; Visit Provider Internal Medicine
DX: R13.10 Dysphagia, unspecified (principal)
CPT/HCPCS: 74246

== ENCOUNTER → 2023-08-12 14:48 | Outpatient (REF) | payer MEDICARE, OTHER, SELFPAY ==
--- NOTE | 2023-08-12 14:50 | HM_ITS ---
Conclusion: 1. Patient was monitored for total period of 3 days 2. Baseline was normal sinus rhythm with average heart rate of 54 beats per minute 3. No significant pauses noted 4. Frequent sinus bradycardia noted with 74% of time heart rate below 60 beats per minute 5. Occasional PACs and PVCs noted 6. No patient reported events MTDD
== END ==
LOC: HO.CARD 14:48
PROVIDERS: PCP Internal Medicine; Visit Provider Internal Medicine
DX: I48.0 Paroxysmal atrial fibrillation (principal)
CPT/HCPCS: 93242

== ENCOUNTER → 2023-08-12 14:50 | Outpatient (BNV) | payer MEDICARE, OTHER, SELFPAY | PROVIDERS: PCP Internal Medicine; Visit Provider Internal Medicine Cardiovascular Disease | DX: R00.1 Bradycardia, unspecified (principal) | CPT/HCPCS: 93244 ==

== ENCOUNTER → 2023-08-18 14:51 | Outpatient (REF) | payer MEDICARE, OTHER, SELFPAY ==
--- NOTE | 2023-08-18 14:53 | CA_ITS ---
Transthoracic Echocardiogram Patient (Last, First, Middle): Luis Alberto De Paz R Gender: Male Date of : 1940 Age: 83 Procedure Date: 08/18/2023 Procedure Type: Transthoracic Echocardiogram Location: OP Height: 187.96 cm Weight: 82.56 kg BSA: 2.09 m2 Heart Rate: 56 bpm BP: 138 / 70 mmHg Blanker Operator: DARRIUS Referring MD: Kishan Casanova MD Symptoms: I48.0 - Paroxysmal atrial fibrillation Study Quality: Fair ECG Rhythm: Bradycardia Conclusions: - The left ventricular systolic function is normal. The calculated ejection fraction is 67% by biplane method. - There is mild septal asymmetric hypertrophy. - There is mild calcification of the aortic valve. - There is mild mitral annular calcification. Findings Left Ventricle Normal left ventricular cavity size. The left ventricular systolic function is normal. The calculated ejection fraction is 67% by biplane method. There is no evidence of regional wall motion abnormalities. Evidence suggests grade I (mild) diastolic dysfunction. There is mild septal asymmetric hypertrophy. Right Ventricle Mildly increased right ventricular cavity size. There is normal right ventricular systolic function. Atria Both atria are normal in size. Aortic Valve There is a normal trileaflet aortic valve. There is mild calcification of the aortic valve. There is no aortic valve stenosis. There is no aortic valve regurgitation. Mitral Valve There is mild mitral annular calcification. There is mild mitral valve regurgitation. There is no mitral valve stenosis. Pulmonic Valve The pulmonic valve is likely normal. Tricuspid Valve Normal tricuspid valve structure. There is no tricuspid valve regurgitation. Tricuspid regurgitation envelope is inadequate for calculation of right ventricular systolic pressure. Great Vessels The asc aorta is normal in size. Venous The inferior vena cava is normal in size and collapses greater than 50% with inspiration. Pericardium/Pleural There is no evidence of pericardial effusion. Prior Study Comparison No significant change compared to prior study dated: 04/20/2020. Measurements 2D Linear Measurements IVSd: 1.20 0.6-0.9/0.6-1.0 cm LVIDd: 3.40 3.9-5.3/4.2-5.9 cm LVIDd Index: 1.63 2.4-3.2/2.2-3.1 cm/m2 LVIDs: 2.10 2.0-3.6 cm LVPWd: 0.90 0.7-1.1 cm LA Diam: 3.80 2.7-3.8/3.0-4.0 cm LAIDs Index: 1.82 1.5-2.3 cm/m2 LV Mass: 132.15 67-162/88-224 g LV Mass Index: 63.23 43-95/49-115 g/m2 LVOT Diam: 2.10 3.0+(-)1.3 cm 2D Systolic Function EF 4C: 68.60 >55% EF 2C: 62.30 >55% EF BiP: 66.90 >55% Mitral Valve MV Pk E: 0.54 MV PK A: 0.96 MV Decel Time: 349.00 E/A: 0.60 E'Lateral: 6.74 E'Medial: 6.74 E/E' Med: 8.00 E/E' Lat: 8.00 PHT: 102.00 MVA PHT: 2.16 Decel [place]: 1.53 Aortic Valve AoV Pk [place]: 1.29 AoV Mn [place]: 0.91 AoV VTI: 0.32 AoV Pk Grad: 7.00 Aov Mn Grad: 4.00 TEETEE Cont.VTI: 2.69 LVOT LVOT Pk [place]: 1.15 LVOT Mn [place]: 0.77 LVOT VTI: 0.25 LVOT Pk Grad: 5.00 LVOT Mn Grad: 3.00 LVOT Diam: 2.10 LVOT Area: 3.46 Diastolic Function MV Pk E: 0.54 MV Pk A: 0.96 E/A: 0.60 E'Medial: 6.74 E/E' Med: 8.00 E' Laterial: 6.74 E/E' Lat: 8.00 Right Ventricle TAPSE (mm): 23.20 TVS' [place]: 11.70 Tricuspid Valve TR Pk [place]: 1.50 TR Pk Grad: 9.00 Great Vessels Aorta Sinus of Valsalva: 4.00 2.0-3.5 cm Ao Asc: 3.70 2.1-3.4 cm Updated in Other Vendor System with Status of Final Kishan Casanova MD electronically signed on 08/18/2023 4:00:57 PM with status of Final
== END ==
LOC: HO.CARD 14:51
PROVIDERS: PCP Internal Medicine; Visit Provider Internal Medicine
DX: I48.0 Paroxysmal atrial fibrillation (principal)
CPT/HCPCS: 93306

== ENCOUNTER → 2023-08-18 14:53 | Outpatient (BNV) | payer MEDICARE, OTHER, SELFPAY | PROVIDERS: PCP Internal Medicine; Visit Provider Internal Medicine | DX: I34.0 Nonrheumatic mitral (valve) insufficiency (principal); I48.0 Paroxysmal atrial fibrillation | CPT/HCPCS: 93306 ==

== ENCOUNTER 2023-08-19 14:05 | Emergency (ER) | payer MEDICARE, OTHER, SELFPAY ==
--- NOTE | ~2023-08-19 | XR_ITS ---
EXAMINATION: XR SHOULDER, RIGHT CLINICAL INFORMATION: Pain. Fall. COMPARISON: Right shoulder and humerus x-ray 2014 TECHNIQUE: AP external rotation, Grashey, scapular Y, and axillary views of the right shoulder. FINDINGS: No fracture or dislocation. The humeral head appears high with respect to the glenoid questionable for rotator cuff disease. Bone alignment is otherwise normal. There is arthritis at the glenohumeral and acromioclavicular joints with joint space narrowing and osteophyte formation. Soft tissues are unremarkable. XR/XR shoulder RT min 2V IMPRESSION: No fracture or dislocation. Arthritis. High humeral head questionable for rotator cuff disease.
--- NOTE | 2023-08-19 14:14 | ED.GENADULT ---
HPI - General Adult General Chief complaint: Fall Stated complaint: Fall/Shoulder pain leg pain Time Seen by Provider: 08/19/23 15:15 Source: patient, RN notes reviewed and old records reviewed Mode of arrival: ambulatory History of Present Illness HPI narrative: 83-year-old male with a past medical history of hypertension, proximal AFib Eliquis, HLD, idiopathic peripheral autonomic neuropathy, GERD, hypothyroid, PVD, anemia, presenting to the ED complaining of right shoulder pain s/p mechanical fall while moving riding lawnmower [employer]. Admits did not realize hand cloth cutter was in drive and moved causing him to fall. Denies head trauma or LOC has been ambulatory since the incident. Also reports superficial wound to left knee. Denies headache, neck/back pain, nausea/vomiting, CP/SOB. Denies symptoms prior to fall Related Data Home Medications Medication Instructions Recorded Confirmed gabapentin 300 mg capsule 300 mg PO BEDTIME 10/17/20 06/17/23 multivitamin 1 tab PO DAILY 10/17/20 06/17/23 sertraline 25 mg tablet 25 mg PO QAM 02/03/23 06/17/23 Previous Rx's Medication Instructions Recorded diclofenac sodium 1 % topical gel 4 g topical QID #3 tubes 04/17/21 (Voltaren Arthritis Pain) tramadol 50 mg tablet 50 mg PO Q6H PRN pain #30 tabs 09/28/21 finasteride 5 mg tablet 5 mg PO DAILY 90 days #90 tabs 09/19/22 apixaban 5 mg tablet (Eliquis) 5 mg PO BID #180 tabs 11/13/22 levothyroxine 50 mcg tablet 50 mcg PO DAILY #90 tabs 12/13/22 atorvastatin 40 mg tablet 40 mg PO DAILY #90 tabs 02/13/23 metoprolol succinate 25 mg 25 mg PO DAILY #90 tabs 05/23/23 tablet,extended release 24 hr ascorbic acid (vitamin C) 500 mg 500 mg PO DAILY 90 days #90 caps 06/17/23 capsule ferrous sulfate 325 mg (65 mg 325 mg PO DAILY #90 tabs 06/17/23 iron) tablet (Feosol) sennosides 8.6 mg-docusate sodium 2 tab-cap (2 x 8.6-50 mg) PO 08/12/23 50 mg capsule (Senna Plus) BEDTIME #180 caps Allergies Allergy/AdvReac Type Severity Reaction Status Date / Time No Known Allergies Allergy Verified 08/19/23 14:15 [No Known Allergies*] Review of Systems Review of Systems: Constitutional: No Fever, No Chills ENT/Mouth: No Ear Pain, No Nasal Congestion, No sore throat, No Rhinorrhea, No Swallowing Difficulty Cardiovascular: No Chest Pain, No SOB Respiratory: No Cough, No Sputum, No Wheezing Gastrointestinal: No Nausea, No Vomiting, No Diarrhea, No Constipation, No Abdominal pain Musculoskeletal: + joint pain, No Myalgias, No Joint Swelling Skin: No Skin Lesions, No rash Neuro: No Weakness, No Numbness, No Paresthesias, No head trauma, No LOC Yes all other systems are reviewed and are negative Constitutional: Constitutional: Reports as per [facility] Past Medical History Attestation statement: The following information was validated with the patient. Source: old records reviewed Medical History Screening for diabetes mellitus Conjunctivitis, left eye Bruise Renal cyst Renal stones Gross hematuria Cerebrovascular accident Small bowel obstruction Hypertension Paroxysmal atrial fibrillation Right renal stone Hypercholesterolemia Idiopathic peripheral autonomic neuropathy BPH (benign prostatic hyperplasia) GERD (gastroesophageal reflux disease) Hypothyroid Peripheral vascular disease Low vitamin D level Anemia Surgical History History of arthroplasty of right hip History of removal of cyst History of knee replacement procedure of right knee History of prostate surgery History of inguinal hernia repair Family History Family History Father No problems noted. Mother CVD (cardiovascular disease) Social History Social History Housing: House Alcohol intake: never Patient Tobacco Use Status: Former Tobacco user Tobacco use type: Cigarette e-Cigarette/Vaping Use: Never Used Second Hand Smoke Exposure: No Advance Directives: Yes Advance Directives Information Provided: No Advance Directives on File: No Current occupational status: retired Cognitive needs: No Hearing needs: No Vision needs: Yes Physical Exam ED Vital Signs: Vital Signs - 24 hr 08/19/23 14:15 Temperature 98.2 F Pulse Rate 79 Respiratory Rate 18 Blood Pressure 118/80 Pulse Oximetry 96 Oxygen Delivery Method Room Air BMI result Body Mass Index 23.9 Const General: cooperative, healthy appearing and no acute distress Orientation/consciousness: patient oriented x3 Limitations: no limitations HENMT Head: Yes normal to inspection, Yes atraumatic, No Barriga's sign and No raccoon eyes Ears: hearing grossly normal bilaterally General nose exam: Normal external nose present Face and sinus: Yes normal facial exam Eyes General: appearance normal, both eyes and all related structures EOM: EOMs intact bilaterally Neck Neck: Yes normal visual inspection, Yes no meningeal signs, No anterior neck swelling and No torticollis Resp Effort & Inspection: normal respiratory effort and no respiratory distress Cardio Rate: regular rate Back/Spine/Pelvis Other: No midline cervical/thoracic/lumbar spinous tenderness/step-off or deformity Skin Other: Superficial abrasion noted to left posterior knee. Left knee nontender. Full range of motion intact. Neurovascular intact distally Rashes: no rashes Neuro General: patient oriented x3, tone normal, no meningeal signs, no focal motor deficits and CN's II-XI intact bilaterally Cranial nerves: Yes CN's II-XII intact bilaterally Extrem Other: Left shoulder without deformity. +diffusely tender to palpation. No erythema/warmth. Limited ROM secondary to pain. Neurovascular intact distally Course Course Course Narrative: This is an RME: Additional HPI, ROS, PE not included below will be deferred to primary provider. 83 y o male presenting for evaluation of R shoulder pain and L knee pain s/p mechanical fall today. Not on thinners, denies HS, denies LOC. States he fell directly on the R shoulder. Describes a cut behind the L knee, ambulating well. Denies numbness, tingling, dizziness, chest pain, sob, abd pain Plan -- Imaging, [facility] XR shoulder RT min 2V IMPRESSION: No fracture or dislocation. Arthritis. High humeral head questionable for rotator cuff disease. > sling applied for comfort and stability. Recommended close orthopedic follow-up. Offered PT/Case Management however patient not agreeable Results discussed with patient including worrisome signs and symptoms and strict return precautions, and when to return to the emergency department. They verbalized understanding and feel safe for discharge at this time. Medications Administered Discontinued Medications Generic Name Dose Route Start Last Admin Trade Name Freq PRN Reason Stop Dose Admin Acetaminophen 650 mg 08/19/23 15:32 08/19/23 16:56 Acetaminophen 325 Mg Tablet PO 08/19/23 15:33 Not Given ONCE ONE Medical Decision Making Medical Decision Making MDM Narrative: 83-year-old male with a past medical history of hypertension, proximal AFib Eliquis, HLD, idiopathic peripheral autonomic neuropathy, GERD, hypothyroid, PVD, anemia, presenting to the ED complaining of right shoulder pain s/p mechanical fall while moving riding lawnmower [employer]. On exam vital signs stable, NAD, nontoxic appearing, physical exam as above with right shoulder tenderness and decreased ROM secondary to pain. No appreciable deformity. Superficial abrasion noted to left posterior knee. Concern for fracture versus shoulder separation vs tendon/ligamental injury/rotator cuff vs MSK pain. Low suspicion for ICH Plan: X-rays Please refer to course for remaining clinical decision making, interpretation of labs/imaging results, and discussions with consultants and/or family members. Differential Diagnosis Differential Diagnoses: The differential diagnosis associated with the presentation includes As above Admission/Observation Consideration of admission/observation: Escalation of care including admission/observation considered Independent Interpretation I performed an independent interpretation of an: Plain X-Ray Radiology Impression Discussion of test interpretation with radiology: I have reviewed the radiologist's reading. External Record Review External record reviewed: Inpatient record, Office record, Outpatient record, Prior outpatient labs, Prior outpatient radiology, Primary care record and Outside ED record Tests considered The following testing was considered but not selected: As above Prescription Management I considered prescription management with: Pain Medication Discharge Plan Discharge Clinical Impression: Injury of right shoulder Patient Disposition: Home, Self-Care Instructions: How to Use a Sling (ED) Additional Instructions: Your x-ray does not show a fracture, you do have arthritis. There is also suspicion for rotator cuff disease Wear sling for comfort and stability, take off to shower, you may take off to sleep however would wear otherwise until you see forest fire prevention specialist Ice. Take Tylenol for pain FOLLOW-UP WITH [facility]PLICATIONS ANALYST. CALL TOMORROW TO MAKE AN APPOINTMENT Prescriptions: No Action Eliquis 5 mg tablet 5 mg PO BID Qty: 180 3RF levothyroxine 50 mcg tablet 50 mcg PO DAILY Qty: 90 2RF atorvastatin 40 mg tablet 40 mg PO DAILY Qty: 90 2RF metoprolol succinate 25 mg tablet extended release 24 hr 25 mg PO DAILY Qty: 90 3RF Senna Plus 8.6-50 mg capsule 2 tab-cap PO BEDTIME Qty: 180 2RF diclofenac sodium [Voltaren Arthritis Pain] 1 % gel 4 g topical QID Qty: 3 2RF Rx Instructions: apply to single knee, ankle, foot; for foot includes sole/toes/top of foot multivitamin Tablet 1 tab PO DAILY gabapentin 300 mg capsule 300 mg PO BEDTIME tramadol 50 mg tablet 50 mg PO Q6H PRN (Reason: pain) Qty: 30 1RF sertraline 25 mg tablet 25 mg PO QAM ferrous sulfate [Feosol] 325 mg (65 mg iron) tablet 325 mg PO DAILY Qty: 90 2RF ascorbic acid (vitamin C) 500 mg capsule 500 mg PO DAILY 90 Days Qty: 90 2RF finasteride 5 mg tablet 5 mg PO DAILY 90 Days Qty: 90 3RF [place] [facility] [place] [facility] [place]Provider Group] - 3 days Interventions: ED Discharge Assessment Last Done: 08/19/23 17:00 Discharge Date/Time: 08/19/23 17:03
[2023-08-19 14:15] VITALS: BP 118/80; PULSE 79; RESP 18; TEMP 36.8; O2SAT 96; BMI 23.9
== END 2023-08-19 17:03 | disposition home or self-care (01) ==
PROVIDERS: Emergency Provider Emergency Medicine; PCP Internal Medicine
DX: S49.91XA Unspecified injury of right shoulder and upper arm, initial encounter (principal); S80.212A Abrasion, left knee, initial encounter; W28.XXXA Contact with powered lawn mower, initial encounter; I10 Essential (primary) hypertension; I48.0 Paroxysmal atrial fibrillation; E78.00 Pure hypercholesterolemia, unspecified; Z87.891 Personal history of nicotine dependence; Z79.01 Long term (current) use of anticoagulants; Y93.H2 Activity, gardening and landscaping; Y92.9 Unspecified place or not applicable; Y99.9 Unspecified external cause status
CPT/HCPCS: 73030; 99283

== ENCOUNTER 2023-09-04 08:33 | Outpatient (REF) | payer MEDICARE, OTHER, SELFPAY | END 2023-09-04 08:34 | disposition home or self-care (01) | LOC: HO.XRAY 08:33 | PROVIDERS: PCP Internal Medicine; Visit Provider Internal Medicine | DX: Z13.89 Encounter for screening for other disorder (principal) ==

== ENCOUNTER 2023-09-24 13:07 | Outpatient (AMB) | payer MEDICARE, OTHER, SELFPAY ==
--- NOTE | 2023-09-24 13:16 | A.OFFPC_ITS ---
Vital Signs 09/24/23 13:17 Height 6 ft 2 in Weight 183 lb 8 oz BMI 23.6 BP 120/72 Blood Pressure Location Lt brachial Position Sitting Pulse 66 Pulse Source Pulse Oximeter Pulse Oximetry (%) 99 Oxygen Delivery Method Room Air Intake Visit Reasons: dysphagia Intake Note: Patient is here to follow up on dysphagia. Digester Capper Required: No Subsorter: Not Required per policy Accompanied by: Self / Same As Patient Allergies No Known Allergies [No Known Allergies*] Allergy (Verified 09/24/23 13:17) Medication List - Last Reconciled 09/24/23 by Alvin Maher MD apixaban (Eliquis) 5 mg PO BID ascorbic acid (vitamin C) 500 mg PO DAILY 90 days atorvastatin 40 mg PO DAILY diclofenac sodium 1% (Voltaren Arthritis Pain) 4 grams topical QID ferrous sulfate (Feosol) 325 mg PO DAILY finasteride 5 mg PO DAILY 90 days gabapentin 300 mg PO BEDTIME levothyroxine 50 mcg PO DAILY metoprolol succinate ER 25 mg PO DAILY multivitamin 1 tab PO DAILY sennosides-docusate sodium 8.6-50 mg (Senna Plus) 2 tab-caps (2 x 8.6-50 mg) PO BEDTIME sertraline 25 mg PO QAM tramadol 50 mg PO Q6H PRN Tobacco use date assessed: 09/24/23 Fall risk assessment: 1 Fall in past year Last assessed Fall Risk: 09/24/23 Dental Screening Dental Screen Date: 09/24/23 Did you have a dental visit in the last 12 months?: Yes Did you have a dental problem in the last 6 months where you did not have access to dental care?: No Was dental information given to patient?: Patient has dentist HPI dysphagia HPI Details 83-year-old male with a history of CVA a trial fibrillation hypertension hypercholesterolemia GERD BPH hypothyroidism and iron deficiency anemia last seen in June 2023 patient is here for follow-up. Review of the notes August 2023 ER visit for a fall sustaining right shoulder pain this is while moving a riding lawnmower x-ray did not show fracture. Patient had an echocardiogram August also:he left ventricular systolic function is normal. The calculated ejection fraction is 67% by biplane method. - There is mild septal asymmetric hypert rophy. - There is mild calcification of the aor tic valve. - There is mild mitral annular calcifica tion. Holter done Augustatient was monitored for total period of 3 days 2. Baseline was normal sinus rhythm with average heart rate of 54 beats per minute 3. No significant pauses noted 4. Frequent sinus bradycardia noted with 74% of time heart rate below 60 beats per minute 5. Occasional PACs and PVCs noted 6. No patient reported events Patient has complained to me about dysphagia and had a barium swallow done showing:. Silent subglottic aspiration to the level of the pawan on thick barium, at which point the examination was terminated. 2. Limited images of the esophagus, stom ach, and duodenal bulb appear normal. [facility] Medical History Screening for diabetes mellitus Conjunctivitis, left eye Bruise Renal cyst Renal stones Gross hematuria Cerebrovascular accident Small bowel obstruction Hypertension Paroxysmal atrial fibrillation Right renal stone Hypercholesterolemia Idiopathic peripheral autonomic neuropathy BPH (benign prostatic hyperplasia) GERD (gastroesophageal reflux disease) Hypothyroid Peripheral vascular disease Low vitamin D level Anemia Surgical History History of arthroplasty of right hip History of removal of cyst History of knee replacement procedure of right knee History of prostate surgery History of inguinal hernia repair Family History Father No problems noted. Mother CVD (cardiovascular disease) Social History Housing: House Alcohol intake: never Patient Tobacco Use Status: Former Tobacco user Tobacco use type: Cigarette e-Cigarette/Vaping Use: Never Used Second Hand Smoke Exposure: No Current occupational status: retired Cognitive needs: No Hearing needs: No Vision needs: Yes Questionnaire Thrive Questionnaire Date Thrive assessed: 02/03/23 BRITNI-7 AMB Questionnaire BRITNI-7 Date BRITNI - 7 assessed: 03/06/23 Source: Developed by Drs. Heri Sawyer, Esmer Oreilly, Apollo Reza and colleagues, with an educational parish from [employer]. Physical exam (Primary Care) Vital Signs: Last Vital Signs Pulse 66 09/24/23 13:17 BP 120/72 09/24/23 13:17 Pulse Ox 99 09/24/23 13:17 Oxygen Delivery Method Room Air 09/24/23 13:17 BMI result Body Mass Index 23.6 Tobacco/Smoking Status: Tobacco use Status Tobacco use date assessed 09/24/23 09/24/23 13:24 Patient Tobacco Use Status Former Tobacco user 09/24/23 13:24 Tobacco use type Cigarette 09/24/23 13:24 e-Cigarette/Vaping Use Never Used 09/24/23 13:24 Thrive Assessment: Date of Thrive Assessment Date Thrive assessed 02/03/23 09/24/23 13:24 Const General: alert; No acute distress Eyes Conjunctivae: conjunctivae normal Resp Auscultation: clear to auscultation bilaterally Cardio Rate: regular rate Rhythm: regular rhythm GI Inspection: Yes normal to inspection Extrem General: Yes normal to inspection and No edema Office Procedures Flu Questionnaire Does the patient have a severe egg allergy?: No Does the patient have severe life threatening allergies?: No Does the patient have a fever or illness today?: No Has the patient ever had Guillain-Diana Syndrome?: No Has the patient ever had any past reaction to a flu shot?: No Immunizations flu vacc [id number] 6mos up(PF) 60 mcg(15 mcgx4)/0.5 mL IM syringe Performing Provider: Alvin Maher MD Performing Location: [facility] Administered by: Khurram Matute on 09/24/23 13:32 Dose Route Admin Location Dispensed Lot Number Expiration Date NDC Tab Cutting Machine Operator 0.5 mL IM Right Deltoid 0.5 mL [id number] 05/16/24 53040-024-59 [employer] VIS Given Date VIS Provided VIS Publication Date 09/24/23 Single Vaccine 21 Eligibility Eligibility Date Funding Source Not [facility] Eligible 09/24/23 Private Assessment and Plan Assessment & Plan (1) Dysphagia: Comment: Barium swallow June 2023Silent subglottic aspiration to the level of the pawan on thick barium, at which point the examination was terminated. 2. Limited images of the esophagus, stomach, and duodenal bulb appear normal. Code(s): R13.10 - Dysphagia, unspecified Plan: Patient has a rescheduled test for swallow evaluation (2) Hypertension: Comment: Echo August 2017, EF 60-65% April 2020 EF 60-65% Code(s): I10 - Essential (primary) hypertension Qualifiers: Hypertension type: essential hypertension Qualified Code(s): I10 - E ssential (primary) hypertension Plan: Continue with blood pressure medication. Decrease salt intake and exercise patient is taking metoprolol 25 mg once a day (3) Paroxysmal atrial fibrillation: Comment: February 2019 Code(s): I48.0 - Paroxysmal atrial fibrillation Plan: Continue with anticoagulation Eliquis (4) Hypercholesterolemia: Code(s): E78.00 - Pure hypercholesterolemia, unspecified Plan: Avoid fried foods, chicken skin, eggs, butter margarine, pastries and meat. Be it pork or beef they have a lot of cholesterol LDL goal of less than 70 and triglyceride of less than 150 patient is on atorvastatin 40 mg once a day April 2023 last blood work (5) GERD (gastroesophageal reflux disease): Code(s): K21.9 - Gastro-esophageal reflux disease without esophagitis Qualifiers: Esophagitis presence: without esophagitis Qualified Code(s): K21.9 - Gastro-esophageal reflux disease without esophagitis Plan: Avoid the foods that causes that usually spicy foods, tomato products, juices, coffee, soda and foods that your sensitive to. After eating do not lie down, allow 3-4 hours before in lie down. And keep the head of bed above 30 degrees to avoid the acid from going up. April 2023 last blood work (6) Hypothyroid: Code(s): E03.9 - Hypothyroidism, unspecified Qualifiers: Hypothyroidism type: acquired Qualified Code(s): E03.9 - Hypothyroidism, unspecified Plan: Continue with the thyroid medication (7) Bilateral shoulder pain: Code(s): M25.511 - Pain in right shoulder; M25.512 - Pain in left shoulder Plan: refer to ortho and PT to be done Orders: Orders PT Evaluation and Treatment Today M25.511 - Pain in right shoulder, M25.512 - Pain in left shoulder Complete Blood Count Auto Diff Today D50.9 - Iron deficiency anemia, unspecified Comprehensive Met. Panel Today D50.9 - Iron deficiency anemia, unspecified Influenza [id number] Immunization Today Z23 - Encounter for immunization Ferritin Today D50.9 - Iron deficiency anemia, unspecified IRON PROFILE Today D50.9 - Iron deficiency anemia, unspecified Vitamin B12 and Folate Today D50.9 - Iron deficiency anemia, unspecified Reticulocyte Count Today D50.9 - Iron deficiency anemia, unspecified Referrals Orthopedics Referral M25.511 - Pain in right shoulder, M25.512 - Pain in left shoulder Coding Level of Care Code Est Pt Level 4 (25558) Diagnoses Dysphagia R13.10 Essential hypertension I10 Hypertension type: essential hypertension Paroxysmal atrial fibrillation I48.0 Hypercholesterolemia E78.00 Gastroesophageal reflux disease without esophagitis K21.9 Esophagitis presence: without esophagitis Acquired hypothyroidism E03.9 Hypothyroidism type: acquired Bilateral shoulder pain M25.511; M25.512
[2023-09-24 13:17] VITALS: BP 120/72; PULSE 66; O2SAT 99; BMI 23.6
== END 2023-09-24 13:46 | disposition home or self-care (01) ==
PROVIDERS: PCP Internal Medicine; Visit Provider Internal Medicine
DX: R13.10 Dysphagia, unspecified (principal); I10 Essential (primary) hypertension; I48.0 Paroxysmal atrial fibrillation; E78.00 Pure hypercholesterolemia, unspecified; K21.9 Gastro-esophageal reflux disease without esophagitis; E03.9 Hypothyroidism, unspecified; M25.511 Pain in right shoulder; M25.512 Pain in left shoulder; Z23 Encounter for immunization
CPT/HCPCS: 90471; 90686; 99214

== ENCOUNTER 2023-10-08 08:30 | Outpatient (AMB) | payer MEDICARE, OTHER, SELFPAY ==
--- NOTE | 2023-10-08 08:25 | A.OFFVIS_ITS ---
Intake Intake Visit Reasons: 1Y Follow Up Intake Note: Luis Alberto is an 83 year old male who presnets today VIA telehealth for a 1 year f/u Allergies No Known Allergies [No Known Allergies*] Allergy (Verified 09/24/23 13:17) Medication List - Last Reconciled 10/08/23 by Murtaza Mariscal MD apixaban (Eliquis) 5 mg PO BID ascorbic acid (vitamin C) 500 mg PO DAILY 90 days atorvastatin 40 mg PO DAILY diclofenac sodium 1% (Voltaren Arthritis Pain) 4 grams topical QID ferrous sulfate (Feosol) 325 mg PO DAILY finasteride 5 mg PO DAILY 90 days gabapentin 300 mg PO BEDTIME levothyroxine 50 mcg PO DAILY metoprolol succinate ER 25 mg PO DAILY multivitamin 1 tab PO DAILY sennosides-docusate sodium 8.6-50 mg (Senna Plus) 2 tab-caps (2 x 8.6-50 mg) PO BEDTIME sertraline 25 mg PO QAM tramadol 50 mg PO Q6H PRN HPI HPI Comments History of Present Illness Details Luis Alberto is a very pleasant male. He is a patient of Dr Maher. He is seen for the following urologic conditions - lower urinary tract symptoms with dolly turia - nephrolithiasis Telemedicine Evaluation 15 min Consultation [employer] Demetria Video attempted Effective emptying Does have occasional bleeding when doubled up on Eliquis Continue with finasteride - minimal nocturia 12 month follow-up Lower urinary tract symptoms Prior evaluation for gross hematuria with negative workup and cystoscopy Known friable vessels on prostate Current therapy finasteride No recurrence in bleeding Good control of urination with minimal nocturia PSA - 05/06 1.4, 08/07 1.5 Nephrolithiasis Prior ESWL right side Imaging - 08/07 renal ultrasound was small stones on right side - 09/07 renal ultrasound no evidence of stones PFSH Medical History Screening for diabetes mellitus Conjunctivitis, left eye Bruise Renal cyst Renal stones Gross hematuria Cerebrovascular accident Small bowel obstruction Hypertension Paroxysmal atrial fibrillation Right renal stone Hypercholesterolemia Idiopathic peripheral autonomic neuropathy BPH (benign prostatic hyperplasia) GERD (gastroesophageal reflux disease) Hypothyroid Peripheral vascular disease Low vitamin D level Anemia Surgical History History of arthroplasty of right hip History of removal of cyst History of knee replacement procedure of right knee History of prostate surgery History of inguinal hernia repair Family History Father No problems noted. Mother CVD (cardiovascular disease) Housing: House Alcohol intake: never Patient Tobacco Use Status: Former Tobacco user Tobacco use type: Cigarette e-Cigarette/Vaping Use: Never Used Second Hand Smoke Exposure: No Current occupational status: retired Cognitive needs: No Hearing needs: No Vision needs: Yes Review of Systems Const All systems reviewed & are unremarkable except as noted in HPI and below Reports no additional complaints Resp Reports no additional complaints GI Reports no additional complaints Reports as per HPI Musc Reports no additional complaints Physical Exam Telemedicine evaluation Appropriate responses Regular breathing rate and rhythm HEENT Head: Yes normal to inspection Ears: hearing grossly normal bilaterally Eyes General: appearance normal, both eyes and all related structures Neck Neck: Yes normal visual inspection Chest Chest palpation & inspection: normal inspection of the chest Resp Effort & Inspection: normal respiratory effort and able to speak in complete sentences Assessment & Plan Assessment & Plan (1) BPH (benign prostatic hyperplasia): Comment: [employer] December 2010 Code(s): N40.0 - Benign prostatic hyperplasia without lower urinary tract symptoms Qualifiers: Lower urinary tract symptom presence: symptoms present Lower urinary tract symptom detail: urinary frequency Qualified Code(s): N40.1 - Benign prostatic hyperplasia with lower urinary tract symptoms; R35.0 - Frequency of micturition Plan Twelve month follow-up Medications: Refilled finasteride 5 mg PO DAILY 90 days 90 tabs 3RF N40.1 - Benign prostatic hyperplasia with lower urinary tract symptoms, R35.0 - Frequency of micturition Patient Instructions: Imaging studies, laboratory and physical exam results were discussed and reviewed in detail. No major barriers to patient understanding were identified. An opportunity to ask questions regarding the treatment plan was provided. All questions were answered. The patient expressed understanding and agreement with the above treatment plan. The patient is aware they should contact our office by phone for worsening of their current condition or the appearance of new urologic symptoms. Compliance is encouraged with any medications and followup testing that is ordered. It is a privilege to participate in the urologic care of your patient. If you have any questions or concerns regarding treatment for the above conditions, or other urologic issues, please do not hesitate to contact me. The office telephone contact is [phone]. This note is constructed using voice recognition software. While every effort has been made to ensure accuracy tnt powder worker errors may have been included. Yours sincerely, Dr Murtaza Mariscal MD, [facility] - Urology Providers of Expert, Compassionate Care for the Genitourinary System Telehealth Telehealth Location of provider rendering services: practice address Location of patient: address on file Patient Identification confirmed using: Name, : Yes Telehealth method: video Patient verbally consented to treatment: Yes Patient verbally consented to billing insurance company: Yes Patient informed of any privacy concerns related to visit: Yes Coding Level of Care Code Tele Est Pt Level 4 (17502) Diagnoses Benign prostatic hyperplasia with urinary frequency N40.1; R35.0 Lower urinary tract symptom presence: symptoms present Lower urinary tract symptom detail: urinary frequency
== END 2023-10-08 09:28 | disposition home or self-care (01) ==
LOC: HO.HUSH 08:30
PROVIDERS: PCP Internal Medicine; Visit Provider Urology
DX: N40.1 Benign prostatic hyperplasia with lower urinary tract symptoms (principal); R35.0 Frequency of micturition
CPT/HCPCS: 99213

== ENCOUNTER 2023-10-08 14:05 | Outpatient (REF) | payer MEDICARE, OTHER, SELFPAY ==
--- NOTE | ~2023-10-08 | FL_ITS ---
EXAMINATION: Modified Barium Swallows CLINICAL INFORMATION: Dysphagia COMPARISON: None TECHNIQUE: Modified barium swallow was performed under lateral fluoroscopy with patient in standing position. Different consistency of barium was administered by the speech therapist. FINDINGS: There was trace penetration with honey thick liquid. There was deep penetration with nectar thick liquid. There was aspiration with thin liquid. FLUOROSCOPY TIME: 3 minutes 7 seconds Number of Spot Images: 1 DOSE AREA PRODUCT: 1686 uGy-m2 (microgray-meter squared) FL/FL barium swallow modified IMPRESSION: Laryngeal penetration with honey thick and nectar thick liquid. Aspiration was seen with thin liquid. Refer to the speech therapy report for further clarification This procedure was performed by Max Spann PA-C, and supervised by Dr. Chung
--- NOTE | 2023-10-13 11:10 | MHC.SL.IMP ---
Date of Plan of Treatment: 10/08/23 Onset of Symptoms/Illness: 06/26/23 Date Treatment Started: 10/08/23 Admitting Diagnosis: Dysphagia Primary Speech & Language Diagnosis: R13.12 Oropharyngeal Phase Dysphagia Reason for Today's Visit: 13127 Modified Barium Swallow Study Pre-evaluation Dietary Consistencies: Regular Pre-evaluation Liquid Consistency: Thin Pre-evaluation Medication Administration: Whole with Liquid Medical History: Modified Barium Swallow Study Fluoroscopic Evaluation of Swallowing Function CPT Code 54519 Evaluation Year: 2022 Reason for Study: Pt reporting difficulty swallowing. Referring Physician: Alvin Maher MD Evaluating Clinician: Annie Jaramillo MA, CCC-IRONWORKER MACHINE OPERATOR Study Number: 1 Patient Name: Luis Alberto De Paz Status: Outpatient, Ambulatory Age: 83 Gender: Male Medical History Medical History Screening for diabetes mellitus Conjunctivitis, left eye Bruise Renal cyst Renal stones Gross hematuria Cerebrovascular accident Small bowel obstruction Hypertension Paroxysmal atrial fibrillation Right renal stone Hypercholesterolemia Idiopathic peripheral autonomic neuropathy BPH (benign prostatic hyperplasia) GERD (gastroesophageal reflux disease) Hypothyroid Peripheral vascular disease Low vitamin D level Anemia Surgical History History of arthroplasty of right hip History of removal of cyst History of knee replacement procedure of right knee History of prostate surgery History of inguinal hernia repair Current (pre-evaluation) Intake/Diet: Route: PO Diet Grade: Regular Liquid Consistencies: Thin Pain: None reported at time of study SUBJECTIVE: Pt is an 83 year old male referred for a modified barium swallow study by Alvin Maher MD from [facility] in [place]. Pt had an upper G.I. series here at [facility] on 06/26/23 which showed silent aspiration with thick barium as well as extensive pooling in the valleculae and lesser in the pyriforms. Additional swallow with a chin tuck demonstrated continued aspiration on the exam. Pt reports milk tends to ?build up in [his] throat.? Pt?s history includes gross hematuria, cerebrovascular accident, small bowel obstruction, GERD, anemia, and peripheral vascular disease. Oral Motor Exam Facial Symmetry: Symmetrical Mouth Occlusion: Normal Oral-Facial Teeth Characteristics: Intact/Normal Oral-Facial Lip Pucker Description: Normal Oral-Facial Smile (Lips) Description: Normal Oral-Facial Puff Cheeks Description: Normal Tongue Size: Normal Tongue Excursion Description: Normal Tongue Range of Movement Description: Normal Food and Liquid Trials: Oral Impairment: Lip Closure: 1=Interlabial escape; no progression to anterior tip Oral Impairment: Tongue Control During Bolus Hold: Did not test Oral Impairment: Bolus Preparation/Mastication: 1=Slow prolonged chewing/mashing with complete re-collection Oral Impairment: Bolus Transport/Lingual Motion: 3=Repetitive/disorganized tongue motion Oral Impairment: Oral Residue: 2=Residue collection on oral structures Oral Impairment:Initiation of Pharyngeal Swallow: 3=Bolus head in pyriforms Pharyngeal Impairment: Soft Palate Elevation: 0=No bolus between soft palate (SP)/pharyngeal wall (PW) Pharyngeal Impairment: Laryngeal Elevation: 1=Partial thyroid cartilage/arytenoids to epiglottic petiole movement Pharyngeal Impairment: Anterior Hyoid Excursion: 1=Partial anterior movement Pharyngeal Impairment: Epiglottic Movement: 2=No inversion Pharyngeal Impairment: Laryngeal Vestibular Closure:: 1=Incomplete: narrow column air/contrast in laryngeal vestibule Pharyngeal Impairment: Pharyngeal Stripping Wave: 1=Present: diminished Pharyngeal Impairment: Pharyngeal Contraction: Did not test Pharyngeal Impairment: Pharyngoesophageal Segment Openin=Partial distention/partial duration: partial obstruction of flow Pharyngeal Impairment: Tongue Base (TB) Retraction: 2=Narrow column of contrast/air between TB and posterior PW Pharyngeal Impairment: Pharyngeal Residue: 2=Collection of residue within or on pharyngeal structures Pharyngeal Impairment: Esophageal Clearance Upright Position: Did not test Impressions and Recommendations OBJECTIVE: Time-out: performed at 15:00 Evaluation Start: 14:30; Stop: 14:35 Patient Positioning: Standing Viewing Planes: LATERAL ONLY Contrast: MBSImP? Standardized Protocol using commercially prepared, standardized Barium viscosities, including: Varibar? THIN LIQUID (40% w/v, <15 cps) , Varibar? NECTAR (40% w/v, <150-450 cps) , Varibar? THIN HONEY (40% w/v, <800-1800 cps) , 1/2 Shortbread Cookie (1 x1 x.25 ) MBSImP ID: [id number] MBSImP Results: Lip closure for intraoral bolus containment resulted in interlabial escape, without progression to the anterior lip. Tongue control during bolus hold could not be assessed due to logistical reasons not related to physiologic impairment. Bolus preparation and mastication resulted in slow, prolonged chewing/mashing but with complete re-collection. Bolus transport/lingual motion was with repetitive/disorganized motion of the tongue. Oral residue was a collection on oral structures. Initiation of the pharyngeal swallow occurred when the bolus head was in the pyriform sinuses. Soft palate elevation resulted in no bolus between the soft palate and the pharyngeal wall. Laryngeal elevation was decreased, with partial superior movement of the thyroid cartilage/partial approximation of the arytenoids to the epiglottic petiole. Anterior hyoid excursion demonstrated partial anterior movement. Epiglottic movement resulted in no inversion. Laryngeal vestibular closure was incomplete, with a narrow column of air/contrast noted within the laryngeal vestibule at the height of the swallow. Pharyngeal stripping wave was present, but diminished. Pharyngeal contraction could not be determined due to logistical reasons not related to physiologic impairment. Pharyngoesophageal segment opening demonstrated partial distension/partial duration, with partial obstruction of bolus flow. Tongue base retraction allowed a narrow column of contrast or air between the retracted tongue base and the posterior pharyngeal wall. Pharyngeal residue was a collection of residue within or on pharyngeal structures. Esophageal clearance in the upright position could not be assessed due to logistical reasons not related to physiologic impairment. Oral Impairment Score: 9 (absence of score, component 2) Pharyngeal Impairment Score: 11 (absence of score, component 13) Esophageal Impairment Score: --- (absence of score, component 17) Laryngeal Penetration and Aspiration: Both Penetration and Aspiration were observed in today's study. Honey-thick Contrast entered the airway, remained above the vocal folds, and was ejected from the airway. [place]-thick Contrast entered the airway, contacted the vocal folds, and was ejected from the airway. Thin Contrast entered the airway, passed below the vocal folds, and no effort was made to eject. ASSESSMENT: Clinician Assessment: This exam was performed by the radiologist and the speech pathologist. Pt was standing for lateral view and trialed the following consistencies: thin liquid barium (5 mL), nectar thick liquid barium (via teaspoon and cup), honey thick liquid barium (via teaspoon and cup), pureed solid (applesauce mixed with barium paste), regular solid (Dottie Doone cookie coated with barium paste), whole barium pill tablet with sips of nectar thick barium. There was interlabial escape of contrast, but no progression to anterior lip. Posterior lingual motion was disorganized and slowed, characterized by repetitive tongue pumping movements. Mastication was also slow and prolonged. There was mild residue coating the tongue with intake of solids and liquids, which cleared with subsequent swallows. Pharyngeal swallow trigger was significantly delayed, initiated as the bolus head reached the pyriform sinuses. There was no nasopharyngeal reflux. Incomplete laryngeal elevation. Minimal to no epiglottic inversion. Incomplete laryngeal vestibular closure. There was tracheal aspiration with thin liquid during the swallow, to which pt did not elicit a spontaneous, protective cough. Pt was instructed to cough and there was no clearance of contrast from the trachea with a volitional cough. There was deep penetration at least to the level of the vocal folds evident with nectar thick liquid. Again pt did not produce a spontaneous cough. Pt was cued to cough and clear his throat, which did clear contrast from the airway with increased effort. There was an episode of trace penetration above the vocal folds with honey thick liquid, which subsequently cleared. There was mild to moderate pharyngeal pooling, mostly in the valleculae, and to a lesser degree in the pyriforms, on the tongue base, and on the posterior pharyngeal wall. Pharyngeal residue was reduced with multiple dry swallows. Chin tuck position had minimal effect in reducing pharyngeal residue. Pt swallowed whole barium pill tablet with sips of nectar thick barium. There was hang up of tablet in the pyriform, which eventually cleared with additional sips of liquid. Liquid Intake Recommendation: Honey Thick Liquid Intake Strategies: Small Sips, No Straws, Double Swallow Dietary Recommendations: Chopped/Advanced (NDD3) Medication Administration: Crushed with Puree Please contact the pharmacy regarding appropriate crushable or liquid drug formulations that are available whenever modified delivery is recommended. Compensatory Strategies Recommended: Sitting Upright (90 deg), Double Swallow, No Straw, Liquids from Cup, Liquids from Spoon, Small Bites and Sips, Rate of Ingestion Change, Avoid Specific Foods Supervision during eating and or drinking: None Needed Recommendation for Speech Therapy: Outpatient Speech Therapy Text Comment: Intake Recommendations: Route: PO Diet Grade: Chopped/advanced (NDD3) Liquid Consistencies: Honey Post-Study Functional Oral Intake Scale (FOIS): 5- Total oral intake of multiple consistencies requiring special preparation This exam revealed pt to have compromised airway protection, with minimal to no epiglottic inversion and incomplete laryngeal vestibular closure. There was evidence of aspiration with thin liquid, to which pt did not elicit a spontaneous, protective cough. Deep penetration with nectar thick liquid, which pt was eventually able to clear with coughing and throat clearing as cued by the clinician. There was trace penetration above the vocal folds with honey thick liquid, which subsequently cleared. Mild to moderate pharyngeal retention, mostly in the valleculae, was reduced with multiple dry swallows. Pt is at risk for aspiration. He is recommended a modified diet- CHOPPED/ ADVANCED (NDD3) solids with HONEY THICK liquids, as well as the following aspiration precautions to maximize safety: -Cut food into small, bite size pieces -Ensure food is soft, tender, and easy to chew -Moisten food with sauces/gravies, which are at least honey thick and blended in well with food -Take small bites and chew well -Multiple dry swallows between bites -Avoid mixed consistencies (i.e. cereal with milk, soup with solid ingredients); hard to chew solids; sticky, dry, or crunchy textures -Maintain upright position as close to 90 degrees as possible while eating and drinking and for at least 60 minutes afterwards -Ensure daily oral care routine (before first meal and after each subsequent meal) -Liquid by teaspoon or controlled cup -Avoid the use of straws -Avoid consecutive sips Recommend pt to continue monitoring his dysphagia. If there are any changes or worsening of symptoms, consult with pt?s primary care provider, at which point a re-evaluation may be indicated. Pt is recommended follow-up visits with IRONWORKER MACHINE OPERATOR for continued education regarding observations made during today?s exam, risks of aspiration, recommended dietary textures, and safe eating strategies/aspiration precautions. Therapy Recommendations: Therapy will be continued Frequency per Week: 1 Number of Weeks: 4 Chcf Goals: ? The patient will tolerate the least restrictive diet with a safe/efficient swallow to maintain adequate nutrition and hydration. ? The patient and/or family will participate in further education for swallowing goals. Short Term Goals: ? Diet - The patient will tolerate a chopped/advanced (NDD3) diet with honey thick liquids without signs or symptoms of penetration/aspiration. ? Guidelines - The patient will comply with/recall the following guidelines/strategies with no cuing: Honey-thick Liquid, Bolus Volume Change, Rate of Ingestion Change, Additional Swallow(s) per Bolus, No Straws. ? Education - The patient will verbalize/demonstrate understanding of the results of this evaluation, the above recommendations, and the swallowing guidelines. Frequency/Duration: 1x weekly x 4 weeks Date Range for Service Requested: Timeline to reassess: 12 months Clinician - Supplemental, Miscellaneous Communication: It is important to note MBSS objective studies are snapshots in time and Patient function might vary with factors such as time of day or concomitant medical conditions. For this reason, the final treatment plan for this patient should rest with their medical care team. Additional recommendations should be considered with the totality of the Patient in mind. Thank for the opportunity to participate in the care of this patient. If you have any questions about the content of this report, please contact the [facility] at [facility]. Education: Education regarding findings from today's study and plans for therapy were provided to Patient only through Verbal Instruction. Understanding was expressed by the Patient only. Educational Resource Center Teacher Clinician/Clinical Fellow: No Supervisory Statement: N/A Speech Language Pathologist: Annie Jaramillo M.A., CCC-IRONWORKER MACHINE OPERATOR
== END 2023-10-08 14:06 | disposition home or self-care (01) ==
LOC: HO.XRAY 14:05
PROVIDERS: PCP Internal Medicine; Visit Provider Internal Medicine
DX: R13.10 Dysphagia, unspecified (principal)
CPT/HCPCS: 74230; 92611

== ENCOUNTER → 2023-10-08 14:05 | Outpatient (BNV) | payer MEDICARE, OTHER, SELFPAY | PROVIDERS: PCP Internal Medicine; Visit Provider Radiology Diagnostic Radiology | DX: R13.10 Dysphagia, unspecified (principal) | CPT/HCPCS: 74230 ==

== ENCOUNTER 2023-10-11 15:52 | Inpatient (IN) | payer MEDICARE, OTHER, SELFPAY ==
[2023-10-11] VITALS (7 sets, daily range): BP systolic 105–154; BP diastolic 56–75; PULSE 47–64; RESP 12–18; TEMP 36–36.6; O2SAT 96–98; BMI 23.5; BMI 24.1
--- NOTE | ~2023-10-11 | XR_ITS ---
EXAMINATION: XR ABDOMEN KUB CLINICAL INDICATION: Status post volvulus COMPARISON: Abdomen CT from 10/11/2023. KUB from 10/12/2023 at 1:45 AM TECHNIQUE: AP view of the abdomen. FINDINGS: There is contrast material within the colon. The patient recently underwent modified barium swallow on 10/08/2023. Again noted is gaseous distention of the elongated sigmoid colon. It is difficult to precisely measure the size of the sigmoid. It might measure up to roughly 10 cm maximum transverse diameter. Overall, the gaseous distention of colon is improved compared 10/11/2023. This radiographic examination is unable to exclude any residual or recurrent twisting of the distal sigmoid. There is no interval development of pneumatosis intestinalis or pneumoperitoneum. Incidental noted is [id number] osteoarthritis of the left hip, stable position of components of the partially visualized right hip arthroplasty, and dextroscoliosis of the extensively degenerated lumbar spine. XR/XR KUB IMPRESSION: Although there is persistent abnormal gaseous distention of the sigmoid colon, the degree of distention remains improved compared to 10/11/2023, and there is no evidence of pneumoperitoneum.
--- NOTE | ~2023-10-11 | XR_ITS ---
EXAMINATION: XR ABDOMEN KUB CLINICAL INDICATION: Post volvulus after Fleet enema COMPARISON: 10/11/2023 TECHNIQUE: AP view of the abdomen. FINDINGS: Contrast material is present within much of the colon. Gaseous distention of the colon appears overall mildly decreased compared to prior. Moderate residual stool noted. Limited assessment for free air with supine positioning. Lung bases appear well-aerated. Degenerative changes are noted in the spine. Partially visualized right hip arthroplasty hardware. XR/XR KUB IMPRESSION: Contrast material is present within much of the colon. Gaseous distention of the colon appears overall mildly decreased compared to prior.
--- NOTE | ~2023-10-11 | XR_ITS ---
EXAMINATION: XR ABDOMEN KUB CLINICAL INDICATION: History of sigmoid volvulus COMPARISON: TECHNIQUE: AP view of the abdomen. FINDINGS: On previous study, contrast was seen to the splenic flexure. Contrast is now seen in the descending colon Persistently dilated air-filled colonic loops are seen in the upper abdomen, slightly less prominent than on previous study. Few small bowel loops and appendix also contain contrast. Solid visceral outlines are obscured. Phleboliths. Bones are demineralized with degenerative changes rightward scoliosis. Right total hip replacement. Left hip joint narrowing. XR/XR KUB IMPRESSION: Persistent, albeit slightly improved gaseous distention of noncontrast filled sigmoid colon with interval contrast transit descending colon.
--- NOTE | ~2023-10-11 | CT_ITS ---
EXAMINATION: CT ABDOMEN AND PELVIS WITHOUT CONTRAST CLINICAL INFORMATION: Diffuse abdominal distention, constipation versus small bowel obstruction COMPARISON: 04/12/2020 TECHNIQUE: Multidetector volumetric imaging was performed from the superior aspect of the liver through the pubic symphysis. Sagittal and coronal reformatted images were obtained on the technologist's workstation. Oral contrast into colon is residual from bilateral small study [address] examination was performed using dose optimization techniques as appropriate, variously including the following: *Automated exposure control *Adjustment of mA and/or kV according to patient size (this includes techniques or standardized protocols for targeted exams where dose is matched to indication/reason for exam; i.e. extremities or head) *Use of iterative reconstruction technique DLP: 740 mGy-cm FINDINGS: LUNG BASES: The visualized lung bases are unremarkable. LIVER, GALLBLADDER, AND BILIARY TREE: The liver is normal in size, shape, and attenuation. No focal hepatic lesion or biliary ductal dilatation is present. The gallbladder is unremarkable with no evidence of radiopaque gallstones, gallbladder wall thickening, or obvious pericholecystic inflammatory changes. PANCREAS: Unremarkable. SPLEEN: Unremarkable. ADRENAL GLANDS: Unremarkable. KIDNEYS AND URETERS: The kidneys are normal in size, shape, and attenuation. No hydronephrosis, hydroureter, or calculi seen. No perinephric stranding. BLADDER: Evaluation of urinary bladder limited due to shadowing from residual contrast in the colon and shadowing from right hip prosthesis. GASTROINTESTINAL TRACT: Loops of colon are diffusely distended with residual oral contrast In the distal colon. There is large amount of feces in the ascending colon end decompressed rectum. There is residual fluid in the distended stomach. There is no small bowel obstruction. Normal appendix seen. Cecum is distended and there is most likely sigmoid volvulus present, with vascular swirling around.. ABDOMINAL WALL: No significant hernia is appreciated LYMPH NODES: Normal. VASCULAR: Unremarkable. PELVIC VISCERA: Unremarkable. OSSEOUS STRUCTURES: There are multilevel degenerative changes in lumbar spine with dextroscoliosis and patient is status post right hip arthroplasty. CT/CT abdomen pelvis wo IV con IMPRESSION: Sigmoid volvulus. This critical result was discussed with Dr. Hedrick at 6:30 PM on 10/11/2023 and it was ascertained that the content and urgency of the report was understood at the time of direct communication. Fleischner guidelines were followed.
--- NOTE | 2023-10-11 16:43 | ED.GENADULT ---
HPI - General Adult General Chief complaint: Abdominal Pain Stated complaint: abd pain Time Seen by Provider: 10/11/23 18:15 Source: patient and family (Son, Anselmo) Mode of arrival: ambulatory Limitations: no limitations History of Present Illness HPI narrative: 83-year-old male PMH hypertension, atrial fibrillation on apixaban, GERD, anemia, hypothyroidism who presents emergency department for evaluation of 2 days of abdominal distension and no bowel movement. Patient is complaining abdominal pain and points to his epigastric area. He states the pain is an intermittent, sharp pain which is 6 to 8/10 at its worst. Patient states he has had no bowel movement which is unusual for him. He states he feels very distended. Patient denied fever, chills, chest pain, nausea, vomiting, frequency, urgency or dysuria. Related Data Home Medications Medication Instructions Recorded Confirmed gabapentin 300 mg capsule 300 mg PO BEDTIME 10/17/20 10/08/23 multivitamin 1 tab PO DAILY 10/17/20 10/08/23 sertraline 25 mg tablet 25 mg PO QAM 02/03/23 10/08/23 Previous Rx's Medication Instructions Recorded diclofenac sodium 1 % topical gel 4 g topical QID #3 tubes 04/17/21 (Voltaren Arthritis Pain) tramadol 50 mg tablet 50 mg PO Q6H PRN pain #30 tabs 09/28/21 apixaban 5 mg tablet (Eliquis) 5 mg PO BID #180 tabs 11/13/22 levothyroxine 50 mcg tablet 50 mcg PO DAILY #90 tabs 12/13/22 atorvastatin 40 mg tablet 40 mg PO DAILY #90 tabs 02/13/23 metoprolol succinate 25 mg 25 mg PO DAILY #90 tabs 05/23/23 tablet,extended release 24 hr ascorbic acid (vitamin C) 500 mg 500 mg PO DAILY 90 days #90 caps 06/17/23 capsule ferrous sulfate 325 mg (65 mg 325 mg PO DAILY #90 tabs 06/17/23 iron) tablet (Feosol) sennosides 8.6 mg-docusate sodium 2 tab-cap (2 x 8.6-50 mg) PO 08/12/23 50 mg capsule (Senna Plus) BEDTIME #180 caps finasteride 5 mg tablet 5 mg PO DAILY 90 days #90 tabs 10/08/23 Allergies Allergy/AdvReac Type Severity Reaction Status Date / Time No Known Allergies Allergy Verified 10/11/23 16:46 [No Known Allergies*] Review of Systems Review of Systems: Yes all other systems are reviewed and are negative [facility] Past Medical History Medical History Screening for diabetes mellitus Conjunctivitis, left eye Bruise Renal cyst Renal stones Gross hematuria Cerebrovascular accident Small bowel obstruction Hypertension Paroxysmal atrial fibrillation Right renal stone Hypercholesterolemia Idiopathic peripheral autonomic neuropathy BPH (benign prostatic hyperplasia) GERD (gastroesophageal reflux disease) Hypothyroid Peripheral vascular disease Low vitamin D level Anemia Surgical History History of arthroplasty of right hip History of removal of cyst History of knee replacement procedure of right knee History of prostate surgery History of inguinal hernia repair Family History Family History Father No problems noted. Mother CVD (cardiovascular disease) Social History Household Members: Children Housing: House Do you presently have visiting nurse or other home services: No Unable to assess alcohol history related to: Unknown Alcohol intake: never Patient Tobacco Use Status: Former Tobacco user Tobacco use type: Cigarette Smoked in Last 30 Days: No e-Cigarette/Vaping Use: Never Used Patient Interested in Nicotine Replacement: No Patient Given Instructions on How to Stop Smoking: No Second Hand Smoke Exposure: No Use of substances other than those prescribed or required for medical reasons: No Currently Displaying Signs/Symptoms of Drug Intoxication Withdrawal: No Any prior treatment program specific to substance use: No Have you been hit, kicked, punched, or otherwise hurt by someone within the past year? If so, by whom?: No Do you feel safe in your current relationship?: No Current Relationship Is there a partner from a previous relationship who is making you feel unsafe now?: No Are you made to feel afraid or neglected: No Advance Directives: No Advance Directives Information Provided: No Advance Directives on File: No Do you have thoughts of harming others: None Do you have a plan to hurt others: No Plan Recently lost weight without trying: No Eating poorly because of decreased appetite: No Nutrition Risks: No Nutritional Risk Poor oral hygiene: No Current occupational status: retired Cognitive needs: No Hearing needs: No Vision needs: Yes Physical Exam ED Vital Signs: Vital Signs - 24 hr 10/11/23 16:42 10/11/23 19:17 10/11/23 21:38 Temperature 96.8 F 97.9 F 97.1 F Pulse Rate 47 L 48 L 58 Respiratory Rate 16 12 15 Blood Pressure 154/70 H 143/75 H 116/59 L Pulse Oximetry 98 96 97 Oxygen Delivery Method Room Air Room Air Nasal Cannula Oxygen Flow Rate 2 10/11/23 21:43 Temperature Pulse Rate 56 Respiratory Rate 16 Blood Pressure 119/56 L Pulse Oximetry 98 Oxygen Delivery Method Nasal Cannula Oxygen Flow Rate 2 BMI result Body Mass Index 23.5 Vital signs were normal Exam: General: Awake, alert in no distress Head: Normocephalic, atraumatic EENT: PERRL, Lids normal, sclera normal, conjunctiva normal, nose normal , ears normal, throat without erythema or exudates Neck: Supple, no adenopathy, no trachea midline or C-spine tenderness Lung: breath sounds symmetric, no wheezing, rales or rhonchi Chest: symmetric movement, nontender Heart: regular rate and rhythm, normal S1, S2 no murmurs or rubs Abdomen: soft, distended abdomen, diffuse tenderness, with increased tenderness in the left lower quadrant, normal bowel sounds Rectal: No stool or impaction on digital exam Back: no vertebral tenderness, no CVAT Extremities: no deformities, moves all extremities symmetrically Skin: no rashes, no lesion, normal color and warmth Neuro: Awake, alert, oriented, normal speech, cranial nerves intact, moves all extremities symmetrically Psych: Pleasant, cooperative Course Course Course Narrative: RME:?83 yo male with history of hypertension, paroxysmal atrial fibrillation, CVA, GERD, BPH, hypothyroid, anemia, constipation, tubular adenoma of colon presents w/ diffuse abd pain/ bloating that began today. Has not been taking anything for this at home. Last BM 3 days ago. Not passing flatus. Denies fever, N/V. Denies regular ETOH consumption. Denies history of abdominal surgeries. PE: Abdomen firm, diffusely tender to palpation, more so in the epigastric region. No rebound tenderness. Normoactive bowel sounds x4. Plan: Labs, CT Full HPI, ROS and PE to be performed by the primary ED provider. Medications Administered Generic Name Dose Route Start Last Admin Trade Name Freq PRN Reason Stop Dose Admin Sodium Biphosphate/Sodium Phosphate 133 ml 10/11/23 22:31 10/12/23 00:29 Sodium Phosphate,Ralls-Dibasic 133 Ml [place] 133 ml ONCE PRN Administration Consult order Sodium Chloride 3 ml 10/12/23 00:00 10/12/23 00:40 0.9 % Sodium Chloride Flush 3 Ml Syringe IVFLUSH 3 ml QSHIFT MARIANA Administration Discontinued Medications Generic Name Dose Route Start Last Admin Trade Name Freq PRN Reason Stop Dose Admin Sodium Chloride 1,000 mls @ 999 mls/hr 10/11/23 18:46 10/11/23 20:05 Ns IV 10/11/23 19:46 Infused .Q1H1M STA Infusion Morphine Sulfate 4 mg 10/11/23 18:46 10/11/23 19:01 Morphine Sulfate 4 Mg/Ml Cartridge IVPUSH 10/11/23 18:47 4 mg ONCE STA Administration Protocol Ondansetron HCl 4 mg 10/11/23 18:46 10/11/23 19:01 Ondansetron Hcl 4 Mg/2 Ml Vial IVPUSH 10/11/23 18:47 4 mg ONCE ONE Administration Medical Decision Making Medical Decision Making MDM Narrative: 83-year-old male PMH hypertension, atrial fibrillation on apixaban, GERD, anemia, hypothyroidism who presents emergency department for evaluation of 2 days of abdominal distension and no bowel movement. Patient is complaining abdominal pain and points to his epigastric area. He states the pain is an intermittent, sharp pain which is 6 to 8/10 at its worst. Patient states he has had no bowel movement which is unusual for him. Physical exam in did reveal epigastric tenderness and distended abdomen with diminished bowel sounds. 20:38 Patient's laboratory evaluation was unremarkable. CT scan of the abdomen pelvis was consistent with sigmoid volvulus. Patient was treated with normal saline 1 L IV, morphine 4 mg IV and Zofran 4 mg IV. I did discuss the case with Dr. Santiago and with Dr. Mercedes. Dr. Mercedes is going to take the patient to the operating room for endoscopic decompression of the colon. I will discuss admission with the covering hospitalist as well. Differential Diagnosis Differential Diagnoses: The differential diagnosis associated with the presentation includes Differential diagnosis includes was not limited to constipation, obstipation, bowel obstruction, pancreatitis, diverticulitis Admission/Observation Consideration of admission/observation: Escalation of care including admission/observation considered Lab Data [facility] Lab Attestation statement: I reviewed the patient's lab results. See [facility] for my interpretation 10/11/23 17:22 10/11/23 17:22 Labs: Lab Results 10/11/23 10/11/23 Range/Units 17:22 20:26 WBC 10.3 (4.8-10.8) X10*3/uL RBC 5.57 (4.60-5.80) X10*6/uL Hgb 15.7 D (14.0-18.0) g/dl Hct 47.6 D (42.0-52.0) % MCV 85.5 (80.0-98.0) fL MCH 28.2 (27.0-33.0) pg MCHC 33.0 (31.0-36.0) g/dl RDW 18.3 H (11.0-16.0) % Plt Count 202 (160-400) X10*3/uL MPV 10.9 (9.4-12.4) fL Immature Gran % (Auto) 0.2 (0.0-0.4) % Neut % (Auto) 81.2 H (45-73) % Lymph % (Auto) 12.3 L (20-40) % Ralls % (Auto) 5.7 (2-11) % Eos % (Auto) 0.3 (0-4) % Baso % (Auto) 0.3 (0-2) % Lymph # (Auto) 1.3 (1.2-4.9) X10*3/uL Ralls # (Auto) 0.6 (0.1-1.2) X10*3/uL Eos # (Auto) 0.0 (0.0-0.4) X10*3/uL Baso # (Auto) 0.0 (0.0-0.2) X10*3/uL Abs Immat Gran (auto) 0.02 (0.00-0.03) X10*3/uL Absolute Neuts (auto) 8.4 H (2.0-8.3) x10*3/uL Absolute Nucleated RBC 0.000 (0.0-0.012) X10*3/uL Nucleated RBC % (auto) 0.0 (0.0-0.2) /100WBC PT 13.6 H (11.1-13.3) SEC INR 1.1 (0.9-1.1) Sodium 142 (135-145) mmol/L Potassium 3.8 (3.3-5.1) mmol/L Chloride 107 (96-108) mmol/L Carbon Dioxide 28 (22-29) mmol/L Anion Gap 11 L (12-20) BUN 16 (9-16) mg/dL Creatinine 0.95 (0.5-1.4) mg/dL Estim Creat Clear Calc 67.2 Estimated GFR > 60 Random Glucose 114 (60-115) mg/dL Calcium 9.3 (8.4-10.2) mg/dL Magnesium 2.1 (1.6-2.6) mg/dL Total Bilirubin 0.8 (0.0-1.0) mg/dL AST 27 (5-37) U/L ALT 21 (0-40) U/L Alkaline Phosphatase 110 (39-117) U/L Total Protein 7.5 (6.5-8.0) g/dL Albumin 4.3 (3.5-5.0) g/dL Lipase 12 (8-78) U/L Urine Color Yellow Urine Appearance Cloudy Urine pH 5.0 (5.0-9.0) Ur Specific Riva 1.025 (1.005-1.025) Urine Protein Trace (Neg-Trace) mg/dL Urine Glucose (UA) Negative (Negative) mg/dL Urine Ketones Trace (Negative) mg/dL Urine Blood Negative (Negative) Urine Nitrite Negative (Negative) Ur Leukocyte Esterase Negative (Negative) Radiology Impression Discussion of test interpretation with radiology: I have reviewed the radiologist's reading. Radiologist Impression: EXAMINATION: CT ABDOMEN AND PELVIS WITHOUT CONTRAST CLINICAL INFORMATION: Diffuse abdominal distention, constipation versus small bowel obstruction COMPARISON: 04/12/2020 FINDINGS GASTROINTESTINAL TRACT: Loops of colon are diffusely distended with residual oral contrast In the distal colon. There is large amount of feces in the ascending colon end decompressed rectum. There is residual fluid in the distended stomach. There is no small bowel obstruction. Normal appendix seen. Cecum is distended and there is most likely sigmoid volvulus present, with vascular swirling around.. ABDOMINAL WALL: No significant hernia is appreciated LYMPH NODES: Normal. /CT abdomen pelvis wo IV con IMPRESSION: Sigmoid volvulus. Dictated By: Manolo Griffith MD Critical Care Time Critical Care Time Critical Care Time: Yes Total Critical Care Time: 45 Attestation: Critical Care: The patient was critically ill with a high probability of imminent or life threatening deterioration. I spent greater than 30 minutes of discontinuous time evaluating the patient,delivering critical care at the bedside, discussing and evaluating pertinent data with consultants. Critical care time does not include time spent performing separately billable procedures or teaching. Total time spent performing critical care was 45 minutes. Discharge Plan Discharge Clinical Impression: Sigmoid volvulus Patient Disposition: Admitted As Inpatient Interventions: Admission Worksheet (ED) Last Done: 10/11/23 20:58
[2023-10-11 17:26] LABS: MANUAL DIFF FLAG NO
[2023-10-11 17:27] LABS: Basophils Percent Auto 0.3 % (0-2); Eosinophils Percent Auto 0.3 % (0-4); Hematocrit 47.6 % (42.0-52.0); Hemoglobin 15.7 g/dl (14.0-18.0); Imm Gran Abs Auto 0.02 X10*3/uL (0.00-0.03); Imm Gran Pct Auto 0.2 % (0.0-0.4); Lymphocytes Absolute Auto 1.3 X10*3/uL (1.2-4.9); Lymphocytes Percent Auto 12.3 % (20-40); Mean Corpuscular Hemoglobin 28.2 pg (27.0-33.0); Mean Corpuscular Volume 85.5 fL (80.0-98.0); Mean Platelet Volume 10.9 fL (9.4-12.4); Monocytes Absolute Auto 0.6 X10*3/uL (0.1-1.2); Monocytes Percent Auto 5.7 % (2-11); Neutrophils Absolute Auto 8.4 x10*3/uL (2.0-8.3); Neutrophils Percent Auto 81.2 % (45-73); Platelet Count 202 X10*3/uL (160-400); Red Blood Count 5.57 X10*6/uL (4.60-5.80); Red Cell Distribution Width 18.3 % (11.0-16.0); White Blood Count 10.3 X10*3/uL (4.8-10.8)
[2023-10-11 17:32] LABS: INTERNATIONAL NORM RATIO 1.1 (0.9-1.1); Prothrombin Time 13.6 SEC (11.1-13.3)
[2023-10-11 17:40] LABS: Alanine Aminotransferase 21 U/L (0-40); Albumin Level 4.3 g/dL (3.5-5.0); Alkaline Phosphatase 110 U/L (39-117); Anion Gap 11 (12-20); Aspartate Amino Transferase 27 U/L (5-37); Bilirubin Total 0.8 mg/dL (0.0-1.0); Blood Urea Nitrogen 16 mg/dL (9-16); Calcium 9.3 mg/dL (8.4-10.2); Carbon Dioxide 28 mmol/L (22-29); Chloride 107 mmol/L (96-108); Creatinine Clr Calc Pharmacy 67.2; Estimated Glomerular Filt Rate > 60; Glucose Random 114 mg/dL (60-115); Lipase 12 U/L (8-78); Magnesium 2.1 mg/dL (1.6-2.6); Potassium 3.8 mmol/L (3.3-5.1); Sodium 142 mmol/L (135-145); Total Protein 7.5 g/dL (6.5-8.0)
[2023-10-11] MEDS: 0.9 % Sodium Chloride 1,000 ML 999 ML IV (18:57)
[2023-10-11] MEDS: ondansetron HCL 4 MG/2 ML VIAL IVPUSH (19:01)
[2023-10-11] MEDS: Morphine Sulfate 4 MG/ML CARTRIDGE IVPUSH (19:01)
--- NOTE | 2023-10-11 19:21 | PC.NURSE ---
Urinal provided for urine sample.
--- NOTE | 2023-10-11 20:19 | P.CNGI_ITS ---
History of Present Illness Data of Consult Service Date: 10/11/23 Primary Care Provider: Alvin Maher MD HPI Reason for consult: volvulus 43-year-old male PMH hypertension, atrial fibrillation on apixaban, GERD, anemia, hypothyroidism, hip surgery and BPH who I am seeing for assessment for volvulus Patient presents to the hospital with 2 d of worsening abdominal distention and failure to pass stool or gas. Today he noted diffuse moderate sharp 6/10 abdominal pain without any relieving or exacerbating factors. He has never had this before. He denies fever, chills, chest pain, nausea, vomiting, frequency, urgency or dysuria. IMAGING was done and revealed distended bowel with sigmoid volvulus noted, some contrast in rectum suggesting partial obstruction LABS: nml WCC, HGB, renal function Review of Systems 2 Review of Systems: Constitutional : No Weight loss, No Fever, No Chills ENT/Mouth : No sore throat, No Rhinorrhea Eyes: No Swelling, No Redness Cardiovascular : No Chest Pain, No SOB, No Edema Respiratory : No Cough, No Sputum, No Wheezing Gastrointestinal : see HPI Genitourinary : NO Dysuria, No Urinary Frequency, No Hematuria, No Urgency Musculoskeletal : No joint pain, No Myalgias, No Joint Swelling Skin : No Skin Lesions, No rash Neuro : No Weakness, No Numbness, No Dizziness, No Headache Psych : No Anxiety/Panic, No Depression Heme/Lymph: No Bruising, No Lymphadenopathy Endocrine : No Polyuria, No Polydipsia All other systems reviewed and are negative. Yes all other systems are reviewed and are negative [facility] Past Medical History Medical History Screening for diabetes mellitus Conjunctivitis, left eye Bruise Renal cyst Renal stones Gross hematuria Cerebrovascular accident Small bowel obstruction Hypertension Paroxysmal atrial fibrillation Right renal stone Hypercholesterolemia Idiopathic peripheral autonomic neuropathy BPH (benign prostatic hyperplasia) GERD (gastroesophageal reflux disease) Hypothyroid Peripheral vascular disease Low vitamin D level Anemia Family History Family History Father No problems noted. Mother CVD (cardiovascular disease) Surgical History Surgical History History of arthroplasty of right hip History of removal of cyst History of knee replacement procedure of right knee History of prostate surgery History of inguinal hernia repair Social History Housing: House Alcohol intake: never Patient Tobacco Use Status: Former Tobacco user Tobacco use type: Cigarette Smoked in Last 30 Days: No e-Cigarette/Vaping Use: Never Used Second Hand Smoke Exposure: No Use of substances other than those prescribed or required for medical reasons: No Advance Directives: No Advance Directives Information Provided: No Current occupational status: retired Cognitive needs: No Hearing needs: No Vision needs: Yes Meds Allergies Allergy/AdvReac Type Severity Reaction Status Date / Time No Known Allergies Allergy Verified 10/11/23 16:46 [No Known Allergies*] Home Medications Medication Instructions Recorded Confirmed Last Taken Type gabapentin 300 mg capsule 300 mg PO BEDTIME 10/17/20 10/08/23 Unknown History multivitamin 1 tab PO DAILY 10/17/20 10/08/23 Unknown History sertraline 25 mg tablet 25 mg PO QAM 02/03/23 10/08/23 Unknown History Physical Exam 2 Vital Signs: Vital Signs: Last Vital Signs Temp 97.9 F 10/11/23 19:17 Pulse 48 L 10/11/23 19:17 Resp 12 10/11/23 19:17 BP 143/75 H 10/11/23 19:17 Pulse Ox 96 10/11/23 19:17 O2 Del Method Room Air 10/11/23 19:17 BMI result Body Mass Index 23.5 EXAM: GENERAL: The patient is well developed and nontoxic. VITAL SIGNS:see workflow HEENT: Nonicteric sclerae, PERRLA, EOMI. Oropharynx clear. Moist mucous membranes. Conjunctivae appear well perfused. No thyroid mass. CHEST: Chest wall is nontender. HEART: Regular rate and rhythm without murmurs. LUNGS: Clear to auscultation bilaterally. ABDOMEN: Distended, positive bowel sounds, mildly tender, no organomegaly.no flank tenderness SKIN: No rash, no excessive bruising, petechiae, or purpura. NEUROLOGIC: Cranial nerves II-XII intact without motor/sensory deficit. Psych: Appearance: grossly normal Results Labs 10/11/23 17:22 10/11/23 17:22 Labs: Short CBC 10/11/23 Range/Units 17:22 WBC 10.3 (4.8-10.8) X10*3/uL Hgb 15.7 D (14.0-18.0) g/dl Hct 47.6 D (42.0-52.0) % Plt Count 202 (160-400) X10*3/uL BMP 10/11/23 17:22 Sodium 142 Potassium 3.8 Chloride 107 Carbon Dioxide 28 BUN 16 Creatinine 0.95 Calcium 9.3 Liver Function 10/11/23 Range/Units 17:22 Total Bilirubin 0.8 (0.0-1.0) mg/dL AST 27 (5-37) U/L ALT 21 (0-40) U/L Alkaline Phosphatase 110 (39-117) U/L Albumin 4.3 (3.5-5.0) g/dL Imaging CT scan - abdomen: Attestation: I personally reviewed and interpreted this imaging study as follows: (dilated loops of bowel, transition point and twist seen in mid to distal sigmoid on imaging ) Assessment and Plan (1) Volvulus of sigmoid colon: Status: Acute Plan 1/ sigmoid volvulus, no evidence of ischemia at this time, discussed with surgery outbound sales professional as well, first step would be endoscopic decompression PLAN: 1/plan for sigmoidoscopy with GA 2/ hold eliquis 3/ NPO Procedures Date of Service Date of Service: 10/11/23
--- NOTE | 2023-10-11 20:34 | HO.ANESPROP2 ---
HPI - Anesthesia Eval Consult details Narrative: sigmoid volvulus PMFSH Active Problems Active Problems: All Active Problems (Updated 09/24/23 @ 13:32 by Alvin Maher MD) Bilateral shoulder pain (Acute) Dysphagia (Acute) Iron deficiency anemia (Acute) Adult general medical exam (Acute) Tubular adenoma of colon (Acute) Cognitive impairment (Acute) Constipation (Acute) Anemia (Acute) Knee pain, bilateral (Acute) Renal cyst (Acute) Renal stones (Acute) Gross hematuria (Acute) Cerebrovascular accident (Acute) Hypertension (Acute) Paroxysmal atrial fibrillation (Acute) Hypercholesterolemia (Acute) BPH (benign prostatic hyperplasia) (Acute) GERD (gastroesophageal reflux disease) (Acute) Hypothyroid (Acute) Past Medical History Medical History Screening for diabetes mellitus Conjunctivitis, left eye Bruise Renal cyst Renal stones Gross hematuria Cerebrovascular accident Small bowel obstruction Hypertension Paroxysmal atrial fibrillation Right renal stone Hypercholesterolemia Idiopathic peripheral autonomic neuropathy BPH (benign prostatic hyperplasia) GERD (gastroesophageal reflux disease) Hypothyroid Peripheral vascular disease Low vitamin D level Anemia Family History Family History Father No problems noted. Mother CVD (cardiovascular disease) Family history of problems with anesthesia: Unobtainable Surgical History Surgical History History of arthroplasty of right hip History of removal of cyst History of knee replacement procedure of right knee History of prostate surgery History of inguinal hernia repair History of Problems with Anesthesia: Unobtainable Social History Housing: House Alcohol intake: never Patient Tobacco Use Status: Former Tobacco user Tobacco use type: Cigarette e-Cigarette/Vaping Use: Never Used Second Hand Smoke Exposure: No Current occupational status: retired Cognitive needs: No Hearing needs: No Vision needs: Yes Meds Allergies Allergy/AdvReac Type Severity Reaction Status Date / Time No Known Allergies Allergy Verified 10/11/23 16:46 [No Known Allergies*] Home Medications Medication Instructions Recorded Confirmed Last Taken Type gabapentin 300 mg capsule 300 mg PO BEDTIME 10/17/20 10/08/23 Unknown History multivitamin 1 tab PO DAILY 10/17/20 10/08/23 Unknown History sertraline 25 mg tablet 25 mg PO QAM 02/03/23 10/08/23 Unknown History Exam Height,Weight and Vital Signs: Height 6 ft 2 in Weight 83.2 kg Last Vital Signs Temp 97.9 F 10/11/23 19:17 Pulse 48 L 10/11/23 19:17 Resp 12 10/11/23 19:17 BP 143/75 H 10/11/23 19:17 Pulse Ox 96 10/11/23 19:17 O2 Del Method Room Air 10/11/23 19:17 Pertinent Lab Results Pertinent Lab Results: Laboratory Tests 10/11/23 17:22 WBC 10.3 RBC 5.57 Hgb 15.7 D Hct 47.6 D MCV 85.5 MCH 28.2 MCHC 33.0 RDW 18.3 H Plt Count 202 MPV 10.9 Immature Gran % (Auto) 0.2 Neut % (Auto) 81.2 H Lymph % (Auto) 12.3 L [place] % (Auto) 5.7 Eos % (Auto) 0.3 Baso % (Auto) 0.3 Lymph # (Auto) 1.3 [place] # (Auto) 0.6 Eos # (Auto) 0.0 Baso # (Auto) 0.0 Abs Immat Gran (auto) 0.02 Absolute Neuts (auto) 8.4 H Absolute Nucleated RBC 0.000 Nucleated RBC % (auto) 0.0 PT 13.6 H INR 1.1 Sodium 142 Potassium 3.8 Chloride 107 Carbon Dioxide 28 Anion Gap 11 L BUN 16 Creatinine 0.95 Estim Creat Clear Calc 67.2 Estimated GFR > 60 Random Glucose 114 Calcium 9.3 Magnesium 2.1 Total Bilirubin 0.8 AST 27 ALT 21 Alkaline Phosphatase 110 Total Protein 7.5 Albumin 4.3 Lipase 12 Airway Mallampati Class: II TM Dist: >3cm Neck ROM: Full Loose/Missing/Broken Teeth: No Heart: RRR Lungs: CTA Assessment and Plan Assessment Anesthesia Assessment: Anesthesia Plan Discussed and Chart Reviewed Final Anesthetic Review Family History of Problems with Anesthesia: Unobtainable History of Problems with Anesthesia: Unobtainable NPO: No ASA Class: III and Emergency Final Preanesthetic Review: No Changes in Pt Med Stat, Meds/Allgs Chart Reviewed, Consent Obtained/Reviewed and Anes Risks/Benef Reviewed Patient Risk: High Procedure Risk: Low Anesthetic Plan Anesthetic Plan: GA Disposition: Standard PACU
--- NOTE | 2023-10-11 20:35 | MHC.SHP ---
Pre-Procedural Eval Section A Date of Service: 10/11/23 The patient is an INPATIENT: Yes The History & Physical has been completed within 30 days and I have reviewed it.: Yes Section B Chief Complaint: abd pain Allergies: Allergies Allergy/AdvReac Type Severity Reaction Status Date / Time No Known Allergies Allergy Verified 10/11/23 16:46 [No Known Allergies*] Plan Diagnosis/Plan: Unchanged I have reviewed the history and physical and performed a pertinent physical examination on my patient. No changes have occurred unless specified. Time Spent With Patient Time: Total time managing care of this patient today ____ minutes.
--- NOTE | 2023-10-11 20:35 | W.PM.OPN ---
Operative Note Operative Note Date of Service: 10/11/23 Narrative: Operative Information Procedure Description: sigmoidoscopy Indication: rectal bleeding Anesthesia: GA Sigmoidoscopy Instrument: Pediatric colonoscope Colonoscopy Monitoring: Vital signs and clinical assessment, continuous EKG monitoring, Pulse oximetry, Carbon Dioxide monitoring and blood pressure monitoring were done throughout the procedure. Procedure: The patient was placed in the left lateral decubitis position and pre-procedure medications were administered. After a digital rectal examination of the ano-rectum, the video colonoscope was inserted into the rectum and advanced through the colon to the transverse colon. The scope was slowly withdrawn in a retrograde panoramic fashion and the colon mucosa was carefully examined including a retroflexed view of the rectum. Findings and interventions are described below. Procedure Difficulty: easy Findings: Transverse Colon - hard stool noted and dilated bowel, decompressed and air suctioned Descending Colon: hard stool noted, decompressed and air suctioned Sigmoid Colon: At about 30 cm narrowing noted, scope was advanced thru here and hard lumps of stool were seen, Rectum: Retroflexion not done Anorectum - normal Colon preparation: fair Impression and Post Procedure Diagnosis: volvulus posisbly secondary to constipation Plan: NPO KUB tonight and tomorrow morning, rectal tube to keep bowel decompressed, can give a few fleet enemas first Surgical consult AM Above findings were reviewed with the patient and relevant handouts were provided if indicated.
[2023-10-11 20:36] LABS: Appearance Urine Cloudy; Color Urine Yellow; Glucose Urine UA Negative (Negative); Leukocyte Esterase Urine Negative (Negative); Nitrite Urine Negative (Negative); Specific Gravity - Urine 1.025 (1.005-1.025); Urine Blood Negative (Negative); Urine Ketones Trace mg/dL (Negative); Urine Protein Trace mg/dL (Neg-Trace)
--- NOTE | 2023-10-11 21:42 | PC.NURSE ---
Pt arrived to PACU with undocumented #20 angio to Left AC, insertion time unknown.
--- NOTE | 2023-10-11 23:11 | P.HPHOSP_ITS ---
History of Present Illness Date of Service: 10/11/23 Chief Complaint: Abdominal pain 83-year-old male past medical history of hypertension, paroxysmal AFib, hyperlipidemia, GERD, hypothyroidism, history of constipation, comes into the hospital with complaints of abdominal pain. Patient is oriented to self and place but very poor historian, tells me that he has been having abdominal pain for the past 2 days, cannot give me more detail about that, tells me has nausea no vomiting, unclear if he has been having any bowel movements, denies any fever or chills, no chest pain, no urinary symptoms and no lower extremity edema. On arrival to the ED patient hemodynamically stable with no significant abnormal vitals Labs are significant for WBC count 10.3, labs otherwise unremarkable An abdominal pelvic CT was done in the ED which showed sigmoid volvulus Patient was taken to the OR by GI for decompression, patient did well, was admitted to the floor following decompression. Review of Systems 2 Review of Systems: Yes all other systems are reviewed and are negative [facility] Medical History Screening for diabetes mellitus Conjunctivitis, left eye Bruise Renal cyst Renal stones Gross hematuria Cerebrovascular accident Small bowel obstruction Hypertension Paroxysmal atrial fibrillation Right renal stone Hypercholesterolemia Idiopathic peripheral autonomic neuropathy BPH (benign prostatic hyperplasia) GERD (gastroesophageal reflux disease) Hypothyroid Peripheral vascular disease Low vitamin D level Anemia Family History Father No problems noted. Mother CVD (cardiovascular disease) Surgical History History of arthroplasty of right hip History of removal of cyst History of knee replacement procedure of right knee History of prostate surgery History of inguinal hernia repair Household Members: Children Housing: House Do you presently have visiting nurse or other home services: No Unable to assess alcohol history related to: Unknown Alcohol intake: never Patient Tobacco Use Status: Former Tobacco user Tobacco use type: Cigarette Smoked in Last 30 Days: No e-Cigarette/Vaping Use: Never Used Patient Interested in Nicotine Replacement: No Patient Given Instructions on How to Stop Smoking: No Second Hand Smoke Exposure: No Use of substances other than those prescribed or required for medical reasons: No Currently Displaying Signs/Symptoms of Drug Intoxication Withdrawal: No Any prior treatment program specific to substance use: No Have you been hit, kicked, punched, or otherwise hurt by someone within the past year? If so, by whom?: No Do you feel safe in your current relationship?: No Current Relationship Is there a partner from a previous relationship who is making you feel unsafe now?: No Are you made to feel afraid or neglected: No Advance Directives: No Advance Directives Information Provided: No Advance Directives on File: No Do you have thoughts of harming others: None Do you have a plan to hurt others: No Plan Recently lost weight without trying: No Eating poorly because of decreased appetite: No Nutrition Risks: No Nutritional Risk Poor oral hygiene: No Current occupational status: retired Cognitive needs: No Hearing needs: No Vision needs: Yes Meds Allergies Allergy/AdvReac Type Severity Reaction Status Date / Time No Known Allergies Allergy Verified 10/11/23 16:46 [No Known Allergies*] Active Medications: Current Medications Acetaminophen (Acetaminophen Supp 650 Mg Supp.Rect) 650 mg HI Q6H PRN PRN Reason: Pain, Mild (Pain Scale 1-3) Fentanyl (Fentanyl Citrate/Pf 100 Mcg/2 Ml Vial) 25 mcg IVPUSH Q5M PRN; Protocol PRN Reason: Pain, Moderate(Pain Scale 4-6) Morphine Sulfate (Morphine Sulfate 4 Mg/Ml Cartridge) 4 mg IVPUSH Q4H PRN; Protocol PRN Reason: Pain, Severe (Pain Scale 7-10) Ondansetron HCl (Ondansetron Hcl 4 Mg/2 Ml Vial) 4 mg IVPUSH Q8H PRN PRN Reason: Nausea and Vomiting Sodium Biphosphate/Sodium Phosphate (Sodium Phosphate,[place]-Dibasic 133 Ml Enema) 133 ml HI ONCE PRN PRN Reason: Consult order Sodium Chloride (0.9 % Sodium Chloride Flush 3 Ml Syringe) [address] [facility] [place], [place] Medications Medication Instructions Recorded Confirmed Last Taken Type gabapentin 300 mg capsule 300 mg PO BEDTIME 10/17/20 10/08/23 Unknown History multivitamin 1 tab PO DAILY 10/17/20 10/08/23 Unknown History sertraline 25 mg tablet 25 mg PO QAM 02/03/23 10/08/23 Unknown History Physical Exam 2 Vital Signs and Narrative: Vital Signs: Last Vital Signs Temp 97.8 F 10/11/23 21:52 Pulse 57 10/11/23 22:07 Resp 18 10/11/23 22:07 BP 115/60 10/11/23 22:07 Pulse Ox 97 10/11/23 22:07 O2 Del Method Nasal Cannula 10/11/23 22:07 O2 Flow Rate 2 10/11/23 22:07 BMI result Body Mass Index 23.5 Const: Other: Oriented to self and place but not situation General: cooperative and no acute distress Eyes: General: appearance normal, both eyes and all related structures Resp: Effort & Inspection: normal respiratory effort Auscultation: clear to auscultation bilaterally Cardio: Rate: regular rate Rhythm: regular rhythm GI: Other: Abdomen is soft, nontender, no rebound or guarding Palpation (GI): Soft to palpation Auscultation: normal bowel sounds Skin: General skin exam: no rashes or lesions noted Neuro: Cognition (Neuro): normal cognition Extrem: General: Yes normal to inspection and Yes no pedal edema Results Labs 10/11/23 17:22 10/11/23 17:22 Labs: Laboratory Results - last 24 hr 10/11/23 10/11/23 17:22 20:26 MCV 85.5 MCH 28.2 MCHC 33.0 RDW 18.3 H Plt Count 202 MPV 10.9 Immature Gran % (Auto) 0.2 Neut % (Auto) 81.2 H Lymph % (Auto) 12.3 L [place] % (Auto) 5.7 Eos % (Auto) 0.3 Baso % (Auto) 0.3 Lymph # (Auto) 1.3 [place] # (Auto) 0.6 Eos # (Auto) 0.0 Baso # (Auto) 0.0 Abs Immat Gran (auto) 0.02 Absolute Neuts (auto) 8.4 H Absolute Nucleated RBC 0.000 Nucleated RBC % (auto) 0.0 PT 13.6 H INR 1.1 Anion Gap 11 L Estim Creat Clear Calc 67.2 Estimated GFR > 60 Random Glucose 114 Calcium 9.3 Magnesium 2.1 Total Bilirubin 0.8 AST 27 ALT 21 Alkaline Phosphatase 110 Total Protein 7.5 Albumin 4.3 Lipase 12 Urine Color Yellow Urine Appearance Cloudy Urine pH 5.0 Ur Specific [place] 1.025 Urine Protein Trace Urine Glucose (UA) Negative Urine Ketones Trace Urine Blood Negative Urine Nitrite Negative Ur Leukocyte Esterase Negative Imaging Radiologist's Impressions: Impressions Abdomen/Pelvis CT 10/11/23 17:00 IMPRESSION: Sigmoid volvulus. This critical result was discussed with Dr. Hedrick at 6:30 PM on 10/11/2023 and it was ascertained that the content and urgency of the report was understood at the time of direct communication. Fleischner guidelines were followed. Assessment and Plan (1) Sigmoid volvulus: Status: Acute Plan 83-year-old male past medical history of paroxysmal AFib, hyperlipidemia, hypothyroidism comes into the hospital complaints of abdominal pain found to have sigmoid volvulus status post decompression by GI # acute sigmoid volvulus - status post decompression by accredited legal secretary - plan for KUB post decompression as well as in a.m. - patient now doing well, no abdominal pain, abdomen is soft, nontender, no rebound or guarding - GI also recommended placing a Fleet enema as constipation likely the cause of the volvulus - will keep close monitoring - surgery consulted - NPO # paroxysmal AFib - continue apixaban and metoprolol # hypothyroidism -continue levothyroxine # BPH - continue finasteride # hyperlipidemia - continue statin DVT prophylaxis: Early ambulation Quality Stroke Does the patient have a stroke diagnosis?: No VTE Prior VTE?: No VTE Risk Level:: Medical - moderate - high VTE Device Contraindication: N/A - Device Ordered VTE Drug Contraindication: Treatment Not Indicated
[2023-10-12] MEDS: Sodium Phosphate,Mono-Dibasic 133 ML ENEMA PR ×2 (00:29→01:08)
[2023-10-12] MEDS: 0.9 % Sodium Chloride Flush 3 ML SYRINGE IVFLUSH ×4 (00:40→20:11)
[2023-10-12 00:44] VITALS: BP 118/62; PULSE 50; RESP 16; TEMP 36.1; O2SAT 99
--- NOTE | 2023-10-12 03:01 | PC.NURSE ---
after 2 enemas pt had large liquid brown stool. denies pain at this time, abdomen is soft and + bowel sounds.
[2023-10-12 04:00] VITALS: BP 112/74; PULSE 60; RESP 18; TEMP 36.2; O2SAT 100
[2023-10-12 06:20] LABS: MANUAL DIFF FLAG NO
[2023-10-12 06:40] LABS: Basophils Percent Auto 0.4 % (0-2); Eosinophils Percent Auto 0.3 % (0-4); Hematocrit 42.5 % (42.0-52.0); Hemoglobin 13.7 g/dl (14.0-18.0); Imm Gran Abs Auto 0.05 X10*3/uL (0.00-0.03); Imm Gran Pct Auto 0.5 % (0.0-0.4); Lymphocytes Absolute Auto 1.5 X10*3/uL (1.2-4.9); Lymphocytes Percent Auto 15.4 % (20-40); Mean Corpuscular HGB Conc 32.2 g/dl (31.0-36.0); Mean Corpuscular Volume 86.7 fL (80.0-98.0); Mean Platelet Volume 11.5 fL (9.4-12.4); Monocytes Absolute Auto 0.9 X10*3/uL (0.1-1.2); Monocytes Percent Auto 8.9 % (2-11); Neutrophils Absolute Auto 7.4 x10*3/uL (2.0-8.3); Neutrophils Percent Auto 74.5 % (45-73); Platelet Count 168 X10*3/uL (160-400); Red Cell Distribution Width 18.6 % (11.0-16.0)
[2023-10-12 06:41] LABS: Alanine Aminotransferase 16 U/L (0-40); Albumin Level 3.1 g/dL (3.5-5.0); Alkaline Phosphatase 77 U/L (39-117); Anion Gap 8 (12-20); Aspartate Amino Transferase 21 U/L (5-37); Bilirubin Total 0.6 mg/dL (0.0-1.0); Blood Urea Nitrogen 12 mg/dL (9-16); Calcium 8.2 mg/dL (8.4-10.2); Carbon Dioxide 29 mmol/L (22-29); Chloride 110 mmol/L (96-108); Creatinine Clr Calc Pharmacy 81.9; Estimated Glomerular Filt Rate > 60; Glucose Random 97 mg/dL (60-115); Potassium 3.7 mmol/L (3.3-5.1); Sodium 143 mmol/L (135-145); Total Protein 5.3 g/dL (6.5-8.0)
[2023-10-12 07:38] VITALS: BP 105/58; RESP 18; TEMP 36; O2SAT 96
--- NOTE | 2023-10-12 07:51 | PC.NURSE ---
PT AP HR 45, Asymptomatic, MD Michel notified.
[2023-10-12 07:52] VITALS: PULSE 45
--- NOTE | 2023-10-12 09:14 | PHA.MEDREC ---
Pharmacy Consult ? Medication Reconciliation Pharmacy has completed the medication reconciliation. Spoke with patient to confirm medications however there were a few he was unsure about which I added based off of claim history. He was unsure about sertraline, donepezil, ferrous sulfate, and gabapentin. He has recent claim history for these (also verified with [facility]) however the gabapentin was filled last April and [facility] reported last [facility] picker in . I called his son but he does not know any of his medications either.
--- NOTE | 2023-10-12 11:44 | PC.NURSE ---
message for med rec.
--- NOTE | 2023-10-12 11:53 | HO.POSTANES ---
Post Anesthesia Evaluation Post Anesthesia Evaluation Date of Service: 10/12/23 Vital Signs: Vital Signs Temp Pulse Resp BP Pulse Ox O2 Del Method O2 Flow Rate 10/12/23 07:52 45 L 10/12/23 07:38 96.8 F 18 105/58 L 96 Room Air 10/12/23 04:00 97.2 F 60 18 112/74 100 Room Air 10/12/23 00:44 97 F 50 16 118/62 99 Nasal Cannula 2 Anesthesia: General Endotracheal-GETA Mental Status: Awake Pain Control: Satisfactory Nausea/Vomiting: None Hydration: Adequate Anesthesia-Related Issues: No Anes. Related Issues
--- NOTE | 2023-10-12 12:22 | HO.PM.IMPN ---
Subjective Subjective Date of Service: 10/12/23 Interval History: Feels better this a.m. then on presentation however still with some mild abdominal discomfort Review of Systems Denies chest pain Denies shortness of breath Denies nausea vomiting diarrhea Denies fever chills Physical Exam Vital Signs: Vital Signs: Last Vital Signs Temp 96.8 F 10/12/23 07:38 Pulse 45 L 10/12/23 07:52 Resp 18 10/12/23 07:38 BP 105/58 L 10/12/23 07:38 Pulse Ox 96 10/12/23 07:38 O2 Del Method Room Air 10/12/23 07:38 O2 Flow Rate 2 10/12/23 00:44 BMI result Body Mass Index 24.1 Const: Other: No acute distress. Lying comfortably in bed Resp: Other: Clear to auscultation bilaterally no rales rhonchi or wheezes Cardio: Other: No S4; positive S1-S2; no S3 murmurs rubs or gallops GI: Other: Soft nontender nondistended normoactive bowel sounds Extrem: Other: No edema bilaterally Objective Data Active Medications Acetaminophen (Acetaminophen Supp 650 Mg Supp.Rect) 650 mg NV Q6H PRN PRN Reason: Pain, Mild (Pain Scale 1-3) Fentanyl (Fentanyl Citrate/Pf 100 Mcg/2 Ml Vial) 25 mcg IVPUSH Q5M PRN; Protocol PRN Reason: Pain, Moderate(Pain Scale 4-6) Morphine Sulfate (Morphine Sulfate 4 Mg/Ml Cartridge) 4 mg IVPUSH Q4H PRN; Protocol PRN Reason: Pain, Severe (Pain Scale 7-10) Ondansetron HCl (Ondansetron Hcl 4 Mg/2 Ml Vial) 4 mg IVPUSH Q8H PRN PRN Reason: Nausea and Vomiting Sodium Biphosphate/Sodium Phosphate (Sodium Phosphate,[place]-Dibasic 133 Ml Enema) 133 ml NV ONCE PRN PRN Reason: Consult order Last Admin: 10/12/23 01:08 Dose: 133 ml Documented By: CLEMENCIA Sodium Chloride (0.9 % Sodium Chloride Flush 3 Ml Syringe) 3 ml IVFLUSH [facility] Last Admin: 10/12/23 07:14 Dose: 3 ml Documented By: JACQUES Labs 10/12/23 05:42 10/12/23 05:42 Labs: Laboratory Results - last 24 hr 10/11/23 10/11/23 10/12/23 17:22 20:26 05:42 MCV 85.5 86.7 MCH 28.2 28.0 MCHC 33.0 32.2 RDW 18.3 H 18.6 H Plt Count 202 168 MPV 10.9 11.5 Immature Gran % (Auto) 0.2 0.5 H Neut % (Auto) 81.2 H 74.5 H Lymph % (Auto) 12.3 L 15.4 L [place] % (Auto) 5.7 8.9 Eos % (Auto) 0.3 0.3 Baso % (Auto) 0.3 0.4 Lymph # (Auto) 1.3 1.5 Stephens # (Auto) 0.6 0.9 Eos # (Auto) 0.0 0.0 Baso # (Auto) 0.0 0.0 Abs Immat Gran (auto) 0.02 0.05 H Absolute Neuts (auto) 8.4 H 7.4 Absolute Nucleated RBC 0.000 0.000 Nucleated RBC % (auto) 0.0 0.0 PT 13.6 H INR 1.1 Anion Gap 11 L 8 L Estim Creat Clear Calc 67.2 81.9 Estimated GFR > 60 > 60 Random Glucose 114 97 Calcium 9.3 8.2 L D Magnesium 2.1 Total Bilirubin 0.8 0.6 AST 27 21 ALT 21 16 Alkaline Phosphatase 110 77 Total Protein 7.5 5.3 L Albumin 4.3 3.1 L Lipase 12 Urine Color Yellow Urine Appearance Cloudy Urine pH 5.0 Ur Specific [place] 1.025 Urine Protein Trace Urine Glucose (UA) Negative Urine Ketones Trace Urine Blood Negative Urine Nitrite Negative Ur Leukocyte Esterase Negative Assessment and Plan (1) Volvulus of sigmoid colon: Status: Acute (2) Paroxysmal atrial fibrillation: Status: Acute (3) Hypothyroid: Status: Acute Plan 83-year-old male past medical history of paroxysmal AFib, hyperlipidemia, hypothyroidism comes into the hospital complaints of abdominal pain found to have sigmoid volvulus status post decompression by GI. Improved this a.m. with improvement radiologically as well 1.Acute sigmoid volvulus - status post decompression by director semiconductor last evening -KUB this a.m. with improvement -discussed with GI; will advance diet to clears and add MiraLax -follow clinically 2.Paroxysmal AFib -adequate rate control -continue apixaban and metoprolol 3.Hypothyroidism -continue levothyroxine [place] Full Code Requires ongoing hospitalization for monitoring of response to colonoscopic decompression secondary to sigmoid volvulus Quality Stroke Does the patient have a stroke diagnosis?: No VTE Prior VTE?: No VTE Risk Level:: Medical - moderate - high VTE Device Contraindication: N/A - Device Ordered VTE Drug Contraindication: Treatment Not Indicated
[2023-10-12] MEDS: Apixaban 5 MG TABLET PO ×2 (12:49→20:11)
[2023-10-12] MEDS: Finasteride 5 MG TABLET PO (12:49)
[2023-10-12] MEDS: Sertraline HCL 25 MG TABLET PO (12:49)
[2023-10-12] MEDS: polyethylene glycoL 3350 17 GM POWD.PACK PO (12:50)
--- NOTE | 2023-10-12 13:34 | P.PNGI_ITS ---
Subjective Subjective Date of Service: 10/12/23 Interval History: Passing some stool, no abdominal pain hungry no nausea or vomiting Critical Care Time (minutes): 0 Physical Exam 2 Vital Signs: Vital Signs: Last Vital Signs Temp 96.8 F 10/12/23 07:38 Pulse 45 L 10/12/23 07:52 Resp 18 10/12/23 07:38 BP 105/58 L 10/12/23 07:38 Pulse Ox 96 10/12/23 07:38 O2 Del Method Room Air 10/12/23 07:38 O2 Flow Rate 2 10/12/23 00:44 BMI result Body Mass Index 24.1 EXAM: GENERAL: The patient is well developed and nontoxic. VITAL SIGNS:see workflow HEENT: Nonicteric sclerae, PERRLA, EOMI. Oropharynx clear. Moist mucous membranes. Conjunctivae appear well perfused. No thyroid mass. CHEST: Chest wall is nontender. HEART: Regular rate and rhythm without murmurs. LUNGS: Clear to auscultation bilaterally. ABDOMEN: Soft, positive bowel sounds, nontender, no organomegaly.no flank tenderness SKIN: No rash, no excessive bruising, petechiae, or purpura. NEUROLOGIC: Cranial nerves II-XII intact without motor/sensory deficit. Psych: Appearance: grossly normal Objective Data Labs 10/12/23 05:42 10/12/23 05:42 Labs: Laboratory Results - last 24 hr 10/11/23 10/11/23 10/12/23 17:22 20:26 05:42 WBC 10.3 10.0 RBC 5.57 4.90 Hgb 15.7 D 13.7 L Hct 47.6 D 42.5 MCV 85.5 86.7 MCH 28.2 28.0 MCHC 33.0 32.2 RDW 18.3 H 18.6 H Plt Count 202 168 MPV 10.9 11.5 Immature Gran % (Auto) 0.2 0.5 H Neut % (Auto) 81.2 H 74.5 H Lymph % (Auto) 12.3 L 15.4 L [place] % (Auto) 5.7 8.9 Eos % (Auto) 0.3 0.3 Baso % (Auto) 0.3 0.4 Lymph # (Auto) 1.3 1.5 [place] # (Auto) 0.6 0.9 Eos # (Auto) 0.0 0.0 Baso # (Auto) 0.0 0.0 Abs Immat Gran (auto) 0.02 0.05 H Absolute Neuts (auto) 8.4 H 7.4 Absolute Nucleated RBC 0.000 0.000 Nucleated RBC % (auto) 0.0 0.0 PT 13.6 H INR 1.1 Sodium 142 143 Potassium 3.8 3.7 Chloride 107 110 H Carbon Dioxide 28 29 Anion Gap 11 L 8 L BUN 16 12 Creatinine 0.95 0.78 Estim Creat Clear Calc 67.2 81.9 Estimated GFR > 60 > 60 Random Glucose 114 97 Calcium 9.3 8.2 L D Magnesium 2.1 Total Bilirubin 0.8 0.6 AST 27 21 ALT 21 16 Alkaline Phosphatase 110 77 Total Protein 7.5 5.3 L Albumin 4.3 3.1 L Lipase 12 Urine Color Yellow Urine Appearance Cloudy Urine pH 5.0 Ur Specific [place] 1.025 Urine Protein Trace Urine Glucose (UA) Negative Urine Ketones Trace Urine Blood Negative Urine Nitrite Negative Ur Leukocyte Esterase Negative Imaging Abdominal x-ray: Attestation: I personally reviewed and interpreted this imaging study as follows: (Bowels less distended on KUB, barium noted from prior scan ) Procedures Date of Service Date of Service: 10/12/23 Progress Note: A&P Assessment and plan (1) Sigmoid volvulus: Status: Acute Plan 1/ Sigmoid volvulus, passing some stool, abdomen is soft, allow clears, add miralax and dulcolax, advance diet later today or rtomorrow as tolerated, avodi constipation Time Spent With Patient Time: Total time managing care of this patient today ____ minutes. Quality Stroke Does the patient have a stroke diagnosis?: No VTE Prior VTE?: No VTE Risk Level:: Medical - moderate - high VTE Device Contraindication: N/A - Device Ordered VTE Drug Contraindication: Treatment Not Indicated
--- NOTE | 2023-10-12 14:50 | P.HPGS_ITS ---
History of Present Illness History of Present Illness Date of Service: 10/12/23 Chief complaint: Volvulus Narrative: Luis Alberto De Paz is a 83 year old male who came into the emergency room with his abdomen distended and having diffuse discomfort. Workup revealed CT scan she is showing distended colon consistent with sigmoid volvulus. Patient underwent endoscopy decompression and has been doing well. He denies any abdominal pain discomfort passing gas little bit the stool. He says he has been known to have a long colon and with several colonoscopies in the past they have had a hard time getting all the way through. He denies any history of any polyps or tumors or masses this way. He has never had a volvulus or obstruction before. He denies any trauma to the abdomen over the last few days. Review of Systems Review of Systems: Yes all other systems are reviewed and are negative PMFSH Past Medical History Medical History Screening for diabetes mellitus Conjunctivitis, left eye Bruise Renal cyst Renal stones Gross hematuria Cerebrovascular accident Small bowel obstruction Hypertension Paroxysmal atrial fibrillation Right renal stone Hypercholesterolemia Idiopathic peripheral autonomic neuropathy BPH (benign prostatic hyperplasia) GERD (gastroesophageal reflux disease) Hypothyroid Peripheral vascular disease Low vitamin D level Anemia Family History Family History Father No problems noted. Mother CVD (cardiovascular disease) Surgical History Surgical History History of arthroplasty of right hip History of removal of cyst History of knee replacement procedure of right knee History of prostate surgery History of inguinal hernia repair Social History Household Members: Children Housing: House Do you presently have visiting nurse or other home services: No Unable to assess alcohol history related to: Unknown Alcohol intake: never Patient Tobacco Use Status: Former Tobacco user Tobacco use type: Cigarette e-Cigarette/Vaping Use: Never Used Second Hand Smoke Exposure: No Current occupational status: retired Cognitive needs: No Hearing needs: No Vision needs: Yes Meds Allergies Allergy/AdvReac Type Severity Reaction Status Date / Time No Known Allergies Allergy Verified 10/11/23 16:46 [No Known Allergies*] Active Medications: Current Medications Acetaminophen (Acetaminophen Supp 650 Mg Supp.Rect) 650 mg [place] Q6H PRN PRN Reason: Pain, Mild (Pain Scale 1-3) Apixaban (Apixaban 5 Mg Tablet) 5 mg PO BID [facility] Last Admin: 10/12/23 12:49 Dose: 5 mg Atorvastatin Calcium (Atorvastatin Calcium 40 Mg Tablet) 40 mg PO DAILY [facility] Donepezil HCl (Donepezil Hcl 5 Mg Tablet) 5 mg PO BEDTIME [facility] Fentanyl (Fentanyl Citrate/Pf 100 Mcg/2 Ml Vial) 25 mcg IVPUSH Q5M PRN; Protocol PRN Reason: Pain, Moderate(Pain Scale 4-6) Finasteride (Finasteride 5 Mg Tablet) 5 mg PO DAILY [facility] Last Admin: 10/12/23 12:49 Dose: 5 mg Gabapentin (Gabapentin 300 Mg Capsule) 300 mg PO BEDTIME [facility] Levothyroxine Sodium (Levothyroxine Sodium 50 Mcg Tablet) 50 mcg PO DAILY@0630 [facility] Last Admin: 10/12/23 12:51 Dose: Not Given Metoprolol Succinate (Metoprolol Succinate Er 25 Mg Tab.Er.24h) 25 mg PO DAILY [facility]; Protocol Last Admin: 10/12/23 12:49 Dose: Not Given Morphine Sulfate (Morphine Sulfate 4 Mg/Ml Cartridge) 4 mg IVPUSH Q4H PRN; Protocol PRN Reason: Pain, Severe (Pain Scale 7-10) Multivitamins/Vitamin C (Multivitamin Tablet) 1 tab PO DAILY [facility] Ondansetron HCl (Ondansetron Hcl 4 Mg/2 Ml Vial) 4 mg IVPUSH Q8H PRN PRN Reason: Nausea and Vomiting Polyethylene Glycol (Polyethylene Glycol 3350 17 Gm Powd.Pack) 17 gm PO DAILY [facility] Last Admin: 10/12/23 12:50 Dose: 17 gm Senna/Docusate Sodium (Sennosides/Docusate Sodium Tablet) 2 tab PO BEDTIME [facility] Sertraline HCl (Sertraline Hcl 25 Mg Tablet) 25 mg PO DAILY [facility] Last Admin: 10/12/23 12:49 Dose: 25 mg Sodium Biphosphate/Sodium Phosphate (Sodium Phosphate,[place]-Dibasic 133 Ml Enema) 133 ml MI ONCE PRN PRN Reason: Consult order Last Admin: 10/12/23 01:08 Dose: 133 ml Sodium Chloride (0.9 % Sodium Chloride Flush 3 Ml Syringe) 3 ml IVFLUSH QSHIFT [facility] Last Admin: 10/12/23 07:14 Dose: 3 ml Home Medications Medication Instructions Recorded Confirmed Last Taken Type gabapentin 300 mg capsule 300 mg PO BEDTIME 10/17/20 10/12/23 Unknown History multivitamin 1 tab PO DAILY 10/17/20 10/12/23 Unknown History sertraline 25 mg tablet 25 mg PO DAILY 02/03/23 10/12/23 Unknown History donepezil 5 mg tablet 5 mg PO BEDTIME 10/12/23 10/12/23 Unknown History levothyroxine 50 mcg tablet 50 mcg PO DAILY@0630 10/12/23 10/12/23 Unknown History Physical Exam Vital Signs: Vital Signs: Last Vital Signs Temp 96.8 F 10/12/23 07:38 Pulse 45 L 10/12/23 07:52 Resp 18 10/12/23 07:38 BP 105/58 L 10/12/23 07:38 Pulse Ox 96 10/12/23 07:38 O2 Del Method Room Air 10/12/23 07:38 O2 Flow Rate 2 10/12/23 00:44 BMI result Body Mass Index 24.1 Const: General: cooperative, healthy appearing, comfortable and no acute distress GI: Other: Abdomen is soft nondistended nontender active bowel sounds. Results Results Labs: Short CBC 10/11/23 10/12/23 Range/Units 17:22 05:42 WBC 10.3 10.0 (4.8-10.8) X10*3/uL Hgb 15.7 D 13.7 L (14.0-18.0) g/dl Hct 47.6 D 42.5 (42.0-52.0) % Plt Count 202 168 (160-400) X10*3/uL [facility] 10/11/23 10/12/23 17:22 05:42 Sodium 142 143 Potassium 3.8 3.7 Chloride 107 110 H Carbon Dioxide 28 29 BUN 16 12 Creatinine 0.95 0.78 Calcium 9.3 8.2 L D Liver Function 10/11/23 10/12/23 Range/Units 17:22 05:42 Total Bilirubin 0.8 0.6 (0.0-1.0) mg/dL AST 27 21 (5-37) U/L ALT 21 16 (0-40) U/L Alkaline Phosphatase 110 77 (39-117) U/L Albumin 4.3 3.1 L (3.5-5.0) g/dL Urine 10/11/23 Range/Units 20:26 Urine Color Yellow Urine Appearance Cloudy Urine pH 5.0 (5.0-9.0) Ur Specific [place] 1.025 (1.005-1.025) Urine Protein Trace (Neg-Trace) mg/dL Urine Glucose (UA) Negative (Negative) mg/dL Assessment and Plan (1) Volvulus of sigmoid colon: Status: Acute Plan 83-year-old male with a history of a long redundant colon by 2 previous colonoscopies came in yesterday with sigmoid volvulus no evidence of any ischemia etc.. Successfully decompressed endoscopically. Now abdomen is soft benign doing well. At this point there is no indication for any surgical procedure. It was discussed with him that this is strike 1 and that with his known history of this long redundant colon that there could be another episode. He is anticoagulated for his cardiac AFib but is generally stable. I think at this point he does not want any surgery and there is no indication for any urgent surgery. Will urge him to stay on a bowel regimen have regular bowel movement avoid being constipated. If he has another episode then would try to decompress them and then set him up for more urgent the like dived sigmoid colectomy. He understands and agrees with the above plan. Quality Stroke Does the patient have a stroke diagnosis?: No VTE Prior VTE?: No VTE Risk Level:: Medical - moderate - high VTE Device Contraindication: N/A - Device Ordered VTE Drug Contraindication: Treatment Not Indicated Procedures Date of Service Date of Service: 10/12/23
--- NOTE | 2023-10-12 15:20 | MHC.CM.PN ---
PT REPORTS HE DOES HAVE A SON WHO LIVES IN THE HOME WITH HIM, HOWEVER HE STATES HIS SON WORKS, AND HE IS INDEPENDENT WITH CARE PT REPORTS HE HAS NO SERVICES AND ONLY USES HIS CANE PRN PT SAYS HE DOES HAVE A HCP NAMING HIS SON AND DAUGHTER HIS AGENTS, COPY REQUESTED PCP: ARAMIS EDWARD PT STATES HE IS A AND ELIGIBLE FOR SERVICES BUT IS NOT CURRENTLY CONNE[facility]ED TO THE [facility] HE DOES NOT FEEL HE NEEDS SERVICES CM EXPLAINED IT MAY TAKE TIME TO GET APPTS AND BECOME ESTABLISHED SO PT MAY CONSIDER GETTING CONNECTED NOW IN CASE HE NEEDS IT IN THE FUTURE IMM DELIVERED DCP: HOME NO SERVICES VIA FAMILY TRANSPORT
[2023-10-12 15:35] VITALS: BP 108/58; PULSE 55; RESP 18; TEMP 36.4; O2SAT 98
--- NOTE | 2023-10-12 16:53 | PC.NURSE ---
Pt improving, family at bedside, updated, no c/o pain, resp distress, tolerating PO Clears.
[2023-10-12 20:00] VITALS: BP 108/56; PULSE 52; RESP 18; TEMP 36.3; O2SAT 98
[2023-10-12] MEDS: Gabapentin 300 MG CAPSULE PO (20:11)
[2023-10-12] MEDS: Donepezil HCl 5 MG TABLET PO (20:11)
[2023-10-12] MEDS: Sennosides/Docusate Sodium TABLET 2 TAB PO (20:11)
[2023-10-13 03:37] VITALS: BP 148/71; PULSE 52; RESP 18; TEMP 36.2; O2SAT 97
[2023-10-13] MEDS: Levothyroxine Sodium 50 MCG TABLET PO (05:07)
[2023-10-13 05:56] LABS: MANUAL DIFF FLAG NO
[2023-10-13 06:01] LABS: Basophils Percent Auto 0.4 % (0-2); Eosinophils Absolute Auto 0.1 X10*3/uL (0.0-0.4); Eosinophils Percent Auto 1.2 % (0-4); Hematocrit 43.6 % (42.0-52.0); Hemoglobin 14.2 g/dl (14.0-18.0); Imm Gran Abs Auto 0.02 X10*3/uL (0.00-0.03); Imm Gran Pct Auto 0.3 % (0.0-0.4); Lymphocytes Absolute Auto 1.2 X10*3/uL (1.2-4.9); Lymphocytes Percent Auto 18.4 % (20-40); Mean Corpuscular HGB Conc 32.6 g/dl (31.0-36.0); Mean Corpuscular Hemoglobin 28.1 pg (27.0-33.0); Mean Corpuscular Volume 86.3 fL (80.0-98.0); Mean Platelet Volume 10.6 fL (9.4-12.4); Monocytes Absolute Auto 0.7 X10*3/uL (0.1-1.2); Monocytes Percent Auto 10.3 % (2-11); Neutrophils Absolute Auto 4.7 x10*3/uL (2.0-8.3); Neutrophils Percent Auto 69.4 % (45-73); Platelet Count 146 X10*3/uL (160-400); Red Blood Count 5.05 X10*6/uL (4.60-5.80); Red Cell Distribution Width 18.4 % (11.0-16.0); White Blood Count 6.7 X10*3/uL (4.8-10.8)
[2023-10-13 06:19] LABS: Alanine Aminotransferase 18 U/L (0-40); Albumin Level 3.4 g/dL (3.5-5.0); Alkaline Phosphatase 81 U/L (39-117); Anion Gap 10 (12-20); Aspartate Amino Transferase 26 U/L (5-37); Bilirubin Total 0.9 mg/dL (0.0-1.0); Blood Urea Nitrogen 11 mg/dL (9-16); Calcium 8.5 mg/dL (8.4-10.2); Carbon Dioxide 28 mmol/L (22-29); Chloride 109 mmol/L (96-108); Creatinine Clr Calc Pharmacy 79.9; Estimated Glomerular Filt Rate > 60; Glucose Fasting 87 mg/dL (60-99); Potassium 3.9 mmol/L (3.3-5.1); Sodium 143 mmol/L (135-145); Total Protein 5.8 g/dL (6.5-8.0)
[2023-10-13] MEDS: 0.9 % Sodium Chloride Flush 3 ML SYRINGE IVFLUSH (07:22)
[2023-10-13 07:46] VITALS: BP 139/66; PULSE 51; RESP 20; TEMP 36.1; O2SAT 98
--- NOTE | 2023-10-13 08:34 | P.PNGS_ITS ---
Subjective Subjective Date of Service: 10/17/23 Interval history: History reviewed Patient underwent successful colonoscopy for detorsion or volvulus yesterday Denies any abdominal pain currently Says she feels well Physical Exam 2 Vital Signs: Vital Signs: Last Vital Signs Temp 96.9 F 10/13/23 07:46 Pulse 51 10/13/23 07:46 Resp 20 10/13/23 07:46 BP 139/66 10/13/23 07:46 Pulse Ox 98 10/13/23 07:46 O2 Del Method Room Air 10/13/23 07:46 O2 Flow Rate 2 10/12/23 00:44 BMI result Body Mass Index 24.1 Const: General: comfortable and no acute distress Resp: Effort & Inspection: normal respiratory effort Cardio: Rhythm: abnormal rhythm GI: Inspection: No distended Palpation (GI): Soft to palpation, not firm, nontender and no guarding Objective Data Active Medications Acetaminophen (Acetaminophen Supp 650 Mg Supp.Rect) 650 mg HI Q6H PRN PRN Reason: Pain, Mild (Pain Scale 1-3) Apixaban (Apixaban 5 Mg Tablet) 5 mg PO BID [facility] Last Admin: 10/12/23 20:11 Dose: 5 mg Documented By: FABI Atorvastatin Calcium (Atorvastatin Calcium 40 Mg Tablet) 40 mg PO DAILY [facility] Donepezil HCl (Donepezil Hcl 5 Mg Tablet) 5 mg PO BEDTIME [facility] Last Admin: 10/12/23 20:11 Dose: 5 mg Documented By: FABI Fentanyl (Fentanyl Citrate/Pf 100 Mcg/2 Ml Vial) 25 mcg IVPUSH Q5M PRN; Protocol PRN Reason: Pain, Moderate(Pain Scale 4-6) Finasteride (Finasteride 5 Mg Tablet) 5 mg PO DAILY [facility] Last Admin: 10/12/23 12:49 Dose: 5 mg Documented By: JACQUES Gabapentin (Gabapentin 300 Mg Capsule) 300 mg PO BEDTIME [facility] Last Admin: 10/12/23 20:11 Dose: 300 mg Documented By: FABI Levothyroxine Sodium (Levothyroxine Sodium 50 Mcg Tablet) 50 mcg PO DAILY@0630 [facility] Last Admin: 10/13/23 05:07 Dose: 50 mcg Documented By: FABI Metoprolol Succinate (Metoprolol Succinate Er 25 Mg Tab.Er.24h) 25 mg PO DAILY [facility]; Protocol Last Admin: 10/12/23 12:49 Dose: Not Given Documented By: JACQUES Non-Admin Reason: low HR Morphine Sulfate (Morphine Sulfate 4 Mg/Ml Cartridge) 4 mg IVPUSH Q4H PRN; Protocol PRN Reason: Pain, Severe (Pain Scale 7-10) Multivitamins/Vitamin C (Multivitamin Tablet) 1 tab PO DAILY [facility] Ondansetron HCl (Ondansetron Hcl 4 Mg/2 Ml Vial) 4 mg IVPUSH Q8H PRN PRN Reason: Nausea and Vomiting Polyethylene Glycol (Polyethylene Glycol 3350 17 Gm Powd.Pack) 17 gm PO DAILY [facility] Last Admin: 10/12/23 12:50 Dose: 17 gm Documented By: JACQUES Senna/Docusate Sodium (Sennosides/Docusate Sodium Tablet) 2 tab PO BEDTIME [facility] Last Admin: 10/12/23 20:11 Dose: 2 tab Documented By: CASTALE Sertraline HCl (Sertraline Hcl 25 Mg Tablet) 25 mg PO DAILY [facility] Last Admin: 10/12/23 12:49 Dose: 25 mg Documented By: JACQUES Sodium Biphosphate/Sodium Phosphate (Sodium Phosphate,Coffey-Dibasic 133 Ml Enema) 133 ml HI ONCE PRN PRN Reason: Consult order Last Admin: 10/12/23 01:08 Dose: 133 ml Documented By: CLEMENCIA Sodium Chloride (0.9 % Sodium Chloride Flush 3 Ml Syringe) 3 ml IVFLUSH QSHIFT [facility] Last Admin: 10/13/23 07:22 Dose: 3 ml Documented By: DAVID Labs 10/13/23 05:42 10/13/23 05:42 Labs: Laboratory Results - last 24 hr 10/13/23 05:42 MCV 86.3 MCH 28.1 MCHC 32.6 RDW 18.4 H Plt Count 146 L MPV 10.6 Immature Gran % (Auto) 0.3 Neut % (Auto) 69.4 Lymph % (Auto) 18.4 L [place] % (Auto) 10.3 Eos % (Auto) 1.2 Baso % (Auto) 0.4 Lymph # (Auto) 1.2 [place] # (Auto) 0.7 Eos # (Auto) 0.1 Baso # (Auto) 0.0 Abs Immat Gran (auto) 0.02 Absolute Neuts (auto) 4.7 Absolute Nucleated RBC 0.000 Nucleated RBC % (auto) 0.0 Anion Gap 10 L Estim Creat Clear Calc 79.9 Estimated GFR > 60 Fasting Glucose 87 Calcium 8.5 Total Bilirubin 0.9 AST 26 ALT 18 Alkaline Phosphatase 81 Total Protein 5.8 L Albumin 3.4 L Procedures Date of Service Date of Service: 10/17/23 Progress Note: A&P Assessment and plan (1) Sigmoid volvulus: Status: Inactive Assessment and Plan: Status post colonoscopic detorsion Doing well Abdomen soft, benign Had a long discussion with him about risk of recurrent volvulus I explained option of elective sigmoid resection to prevent this He does not want any surgical procedure at this time He says he understands risks of recurrent volvulus He says that he may consider surgery in the future but not during the holidays Time Spent With Patient Time: Total time managing care of this patient today ____ minutes. Quality Stroke Does the patient have a stroke diagnosis?: No VTE Prior VTE?: No VTE Risk Level:: Medical - moderate - high VTE Device Contraindication: N/A - Device Ordered VTE Drug Contraindication: Treatment Not Indicated
[2023-10-13] MEDS: Atorvastatin Calcium 40 MG TABLET PO (08:57)
[2023-10-13] MEDS: polyethylene glycoL 3350 17 GM POWD.PACK PO (08:57)
[2023-10-13] MEDS: Multivitamin TABLET 1 TAB PO (08:57)
[2023-10-13] MEDS: Sertraline HCL 25 MG TABLET PO (08:57)
[2023-10-13] MEDS: Apixaban 5 MG TABLET PO (08:57)
[2023-10-13] MEDS: Finasteride 5 MG TABLET PO (08:57)
--- NOTE | 2023-10-13 11:54 | PM.DS ---
DS: Providers Provider Date of Service: 10/13/23 Date of admission: 10/11/23 21:46 Date of discharge: 10/13/23 Primary care physician: Alvin Maher MD Consults: 10/12/23 05:58 Consult to General Surgery Routine Consulting Provider: [facility] Reason for consultation: Volvulus Has provider been notified: Yes DS: Diagnosis Discharge Diagnosis (1) Sigmoid volvulus: Status: Acute DS: Summary Hospital Course Hospital Course: 83-year-old male past medical history of hypertension, paroxysmal AFib, hyperlipidemia, GERD, hypothyroidism, history of constipation, comes into the hospital with complaints of abdominal pain. Patient is oriented to self and place but very poor historian, tells me that he has been having abdominal pain for the past 2 days, cannot give me more detail about that, tells me has nausea no vomiting, unclear if he has been having any bowel movements, denies any fever or chills, no chest pain, no urinary symptoms and no lower extremity edema. On arrival to the ED patient hemodynamically stable with no significant abnormal vitals Labs are significant for WBC count 10.3, labs otherwise unremarkable An abdominal pelvic CT was done in the ED which showed sigmoid volvulus Patient was taken to the OR by GI for decompression, patient did well, was admitted to the floor following decompression. Hospital [facility] Patient admitted to hospital floor overnight and tolerated advancement of diet. At this time he is medically acceptable for discharge and has been seen by GI who agrees. He will be discharged home to take daily MiraLax and follow-up with GI as scheduled Time Attestation Discharge coordination time: Greater than 30 minutes Quality: Safe Use of Opioids Does Pt have an Active Cancer Diagnosis on the Problem List?: No Quality: Stroke Does the patient have a stroke diagnosis?: No Physical Exam Vital Signs: Vital Signs: Last Vital Signs Temp 96.9 F 10/13/23 07:46 Pulse 51 10/13/23 07:46 Resp 20 10/13/23 07:46 BP 139/66 10/13/23 07:46 Pulse Ox 98 10/13/23 07:46 O2 Del Method Room Air 10/13/23 07:46 O2 Flow Rate 2 10/12/23 00:44 BMI result Body Mass Index 24.1 Const: Other: No acute distress. Lying comfortably in bed Resp: Other: Clear to auscultation bilaterally no rales rhonchi or wheezes Cardio: Other: No S4; positive S1-S2; no S3 murmurs rubs or gallops GI: Other: Soft nontender nondistended normoactive bowel sounds Extrem: Other: No edema bilaterally DS: Data Data Completed and Pending Labs on day of discharge: Laboratory Results - last 24 hr 10/13/23 05:42 WBC 6.7 RBC 5.05 Hgb 14.2 Hct 43.6 MCV 86.3 MCH 28.1 MCHC 32.6 RDW 18.4 H Plt Count 146 L MPV 10.6 Immature Gran % (Auto) 0.3 Neut % (Auto) 69.4 Lymph % (Auto) 18.4 L [place] % (Auto) 10.3 Eos % (Auto) 1.2 Baso % (Auto) 0.4 Lymph # (Auto) 1.2 [place] # (Auto) 0.7 Eos # (Auto) 0.1 Baso # (Auto) 0.0 Abs Immat Gran (auto) 0.02 Absolute Neuts (auto) 4.7 Absolute Nucleated RBC 0.000 Nucleated RBC % (auto) 0.0 Sodium 143 Potassium 3.9 Chloride 109 H Carbon Dioxide 28 Anion Gap 10 L BUN 11 Creatinine 0.80 Estim Creat Clear Calc 79.9 Estimated GFR > 60 Fasting Glucose 87 Calcium 8.5 Total Bilirubin 0.9 AST 26 ALT 18 Alkaline Phosphatase 81 Total Protein 5.8 L Albumin 3.4 L Discharge Plan Discharge Anticipated Discharge Date/Time: 10/13/23 11:49 Patient Disposition: Home, Self-Care Discharge Diagnosis: sigmoid volvulus Referrals: Nestor Cummings MD [Physician] - 2 Weeks Po,Alvin Lucia MD [Primary Care Provider] - 1 Week Discharge Medications: Continued Eliquis 5 mg tablet 5 mg PO BID Qty: 180 3RF atorvastatin 40 mg tablet 40 mg PO DAILY Qty: 90 2RF metoprolol succinate 25 mg tablet extended release 24 hr 25 mg PO DAILY Qty: 90 3RF Senna Plus 8.6-50 mg capsule 2 tab-cap PO BEDTIME Qty: 180 2RF donepezil 5 mg tablet 5 mg PO BEDTIME levothyroxine 50 mcg tablet 50 mcg PO DAILY@0630 multivitamin Tablet 1 tab PO DAILY gabapentin 300 mg capsule 300 mg PO BEDTIME sertraline 25 mg tablet 25 mg PO DAILY ferrous sulfate [Feosol] 325 mg (65 mg iron) tablet 325 mg PO DAILY Qty: 90 2RF finasteride 5 mg tablet 5 mg PO DAILY 90 Days Qty: 90 3RF Discharge Orders: Discharge Order (Routine); Ordered 10/13/23 Ordered By: Last Michel Diet: Advance to usual diet Activity on Discharge: As tolerated Stand Alone Forms: Patient Portal Discharge page Care Plan Goals: Resume all medications as taken prior to hospital Health Concerns: Add MiraLax 15 g daily to your regimen Plan of Treatment: Follow-up with Gastroenterology in 2-3 weeks Assessment: See discharge summary
--- NOTE | 2023-10-13 11:58 | MHC.CM.PN ---
order for home, self-care. CM acknowledge.
== END 2023-10-13 12:25 | disposition home or self-care (01) | DRG 390 ==
LOC: HO.ED 20:58 → HO.EDOVER 21:52 → HO.S3 21:54
PROVIDERS: Internal Medicine Gastroenterology; Physician Assistant Medical; Admitting Provider Internal Medicine; Emergency Provider Emergency Medicine Emergency Medical Services; PCP Internal Medicine; Visit Provider Hospitalist
PROC: 0DJD8ZZ Inspection of Lower Intestinal Tract, Via Natural or Artificial Opening Endoscopic (ICD-10-PCS; CPT 45378; principal; 2023-10-11 21:00)
DX: K56.2 Volvulus (principal); E03.9 Hypothyroidism, unspecified; I10 Essential (primary) hypertension; I48.0 Paroxysmal atrial fibrillation; K59.00 Constipation, unspecified; N40.0 Benign prostatic hyperplasia without lower urinary tract symptoms; Z87.891 Personal history of nicotine dependence; Z79.01 Long term (current) use of anticoagulants; Z79.890 Hormone replacement therapy; Z79.899 Other long term (current) drug therapy
CPT/HCPCS: 36415; 74018; 74176; 74230; 80053; 81003; 83690; 83735; 85025; 85610; 92611; 99285; J2270; J2405; J2704; J3010

== ENCOUNTER → 2023-10-11 17:06 | Outpatient (BNV) | payer MEDICARE, OTHER, SELFPAY | PROVIDERS: Emergency Provider Emergency Medicine Emergency Medical Services; PCP Internal Medicine; Visit Provider Internal Medicine Gastroenterology | DX: K56.2 Volvulus (principal) | CPT/HCPCS: 45337; 99222; 99232 ==

== ENCOUNTER → 2023-10-11 21:46 | Outpatient (BNV) | payer MEDICARE, OTHER, SELFPAY | PROVIDERS: Admitting Provider Internal Medicine; Emergency Provider Emergency Medicine Emergency Medical Services; PCP Internal Medicine; Visit Provider Surgery | DX: K56.2 Volvulus (principal) | CPT/HCPCS: 99222; 99232 ==

== ENCOUNTER → 2023-10-11 21:46 | Outpatient (BNV) | payer MEDICARE, OTHER, SELFPAY | PROVIDERS: Admitting Provider Internal Medicine; Emergency Provider Emergency Medicine Emergency Medical Services; PCP Internal Medicine; Visit Provider Internal Medicine | DX: K56.2 Volvulus (principal) | CPT/HCPCS: 99222; 99232; 99239 ==

== ENCOUNTER 2023-10-23 09:12 | Outpatient (REF) | payer MEDICARE, OTHER, SELFPAY | END 2023-10-23 09:13 | disposition home or self-care (01) | LOC: HO.HOSX 09:12 | PROVIDERS: Visit Provider Orthopaedic Surgery | DX: Z13.89 Encounter for screening for other disorder (principal) ==

== ENCOUNTER 2023-10-29 08:23 | Outpatient (AMB) | payer MEDICARE, OTHER, SELFPAY ==
--- NOTE | 2023-10-29 08:36 | MHC.PC.OV ---
Vital Signs 10/29/23 08:39 Height 6 ft 2 in Weight 81.647 kg BMI 23.1 BP 110/70 Blood Pressure Location Lt brachial Position Sitting Pulse 55 Pulse Source Pulse Oximeter Pulse Oximetry (%) 99 Oxygen Delivery Method Room Air Int[place] [facility] [place] during colonoscopy Intake Note: Patient is here for hospital discharge follow up. [place] was [place] [facility] [place]. 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 Accompanied by: Daughter Allergies No Known Allergies [No Known Allergies*] Allergy (Verified 10/29/23 13:54) Medication List - Last Reconciled 10/29/23 by ABDIAZIZ Aleman apixaban (Eliquis) 5 mg PO BID atorvastatin 40 mg PO DAILY donepezil 5 mg PO BEDTIME ferrous sulfate (Feosol) 325 mg PO DAILY finasteride 5 mg PO DAILY 90 days gabapentin 300 mg PO BEDTIME levothyroxine 50 mcg PO DAILY@0630 metoprolol succinate ER 25 mg PO DAILY multivitamin 1 tab PO DAILY sertraline 25 mg PO DAILY Tobacco use date assessed: 10/29/23 Fall risk assessment: 1 Fall in past year Last assessed Fall Risk: 10/29/23 Dental Screening Dental Screen Date: 10/29/23 Did you have a dental visit in the last 12 months?: Yes Did you have a dental problem in the last 6 months where you did not have access to dental care?: No Was dental information given to patient?: Patient has dentist HPI HPI Comments History of Present Illness Details A 3 year male with history of hypertension, paroxysmal atrial lesion, hyperlipidemia, GERD, hypothyroidism, history of constipation presents to the office today with his daughter Lesvia, for hospital discharge follow-up. The patient is a limited historian secondary to unspecified dementia. He admitted for complaints of abdominal pain with associated nausea but no vomiting. CT of the abdomen/pelvis while in the ED showed sigmoid volvulus. He was taken to the OR by GI for decompression and patient did well and was admitted to the floor following the decompression. During the sigmoidoscopy for decompression, there was noted to be large amounts of hard stool in the descending colon, transverse colon, and sigmoid colon. It was determined that volvulus was secondary to constipation. Following the decompression, he was able to pass some stool and diet was advanced with bowel regimen added with MiraLax and Dulcolax. He was also evaluated by General surgery and discussion was had about risk of recurrent volvulus and the option of elective sigmoid resection was discussed but patient did not wish to pursue any further surgical procedure at that time. He was discharged home on Senokots and was advised to add MiraLax to his daily regimen. Today, the patient reports he ate is unsure of what constipation meds he is taking. He does have Senokot prescribed and his daughter does not believe he is taking the MiraLax. Despite this, the patient denies any further constipation. States he has been experiencing soft stool and occasional watery diarrhea with fecal incontinence. Has needed to wear briefs. He has not yet set a follow-up appointment with Gastroenterology but does have an appoint with General surgery later today. He denies any fevers, chills, abdominal pain, nausea, vomiting, melena, hematochezia. We did discuss diet. The daughter states he follows very particular diet and is very picky eating only some meats, eggs, bread, about 4 vegetables, and fruit. He does drink a large amount of milk and coffee but limited water. [facility] Medical History Sigmoid volvulus Hypothyroid Volvulus of sigmoid colon Screening for diabetes mellitus Conjunctivitis, left eye Bruise Renal cyst Renal stones Gross hematuria Cerebrovascular accident Small bowel obstruction Hypertension Paroxysmal atrial fibrillation Right renal stone Hypercholesterolemia Idiopathic peripheral autonomic neuropathy BPH (benign prostatic hyperplasia) GERD (gastroesophageal reflux disease) Peripheral vascular disease Low vitamin D level Anemia Surgical History History of arthroplasty of right hip History of removal of cyst History of knee replacement procedure of right knee History of prostate surgery History of inguinal hernia repair Family History Father No problems noted. Mother CVD (cardiovascular disease) Social History Household Members: Children Housing: House Do you presently have visiting nurse or other home services: No Unable to assess alcohol history related to: Unknown Alcohol intake: never Patient Tobacco Use Status: Former Tobacco user Tobacco use type: Cigarette e-Cigarette/Vaping Use: Never Used Second Hand Smoke Exposure: No service: Yes Current occupational status: retired Cognitive needs: No Hearing needs: No Vision needs: Yes (glasses) Questionnaire Thrive Questionnaire Date Thrive assessed: 10/12/23 BRITNI-7 AMB Questionnaire BRITNI-7 Date BRITNI - 7 assessed: 03/06/23 Source: Developed by Drs. Heri Sawyer, Esmer Oreilly, Apollo Reza and colleagues, with an educational parish from [employer]. Review of Systems Const All systems reviewed & are unremarkable except as noted in HPI and below Physical exam (Primary Care) Vital Signs: Last Vital Signs Pulse 55 10/29/23 08:39 BP 110/70 10/29/23 08:39 Pulse Ox 99 10/29/23 08:39 Oxygen Delivery Method Room Air 10/29/23 08:39 BMI result Body Mass Index 23.1 Tobacco/Smoking Status: Tobacco use Status Tobacco use date assessed 10/29/23 10/29/23 08:47 Patient Tobacco Use Status Former Tobacco user 10/29/23 08:47 Tobacco use type Cigarette 10/29/23 08:47 e-Cigarette/Vaping Use Never Used 10/29/23 08:47 Thrive Assessment: Date of Thrive Assessment Date Thrive assessed 10/12/23 10/29/23 08:47 Const Other: Constitutional - Awake and Alert, No apparent distress Eyes - PERRLA, EOMI Cardiovascular - S1S2, RRR, No edema Respiratory - Normal lung expansion, Normal respiratory effort, No respiratory distress, CTA bilaterally Gastrointestinal - NT / ND; +BS; No rebound or guarding Extremities - no calf tenderness bilaterally, no swelling Skin - Warm/Dry Neurological - Alert & oriented ro self and place Psychological - Appropriate affect Results Reviewed Results Reviewed: cbc, bmp, ct abd/pelvis, sigmoidoscopy op report, gi consult, surgery consult Assessment and Plan Assessment & Plan (1) Sigmoid volvulus: Code(s): K56.2 - Volvulus Plan: Resolved following decompression during recent hospitalization. Schedule follow up with gastroenterology for colonoscopy. Follow up with Dr. Cummings later today. (2) Constipation: Code(s): K59.00 - Constipation, unspecified Plan: He has not had recurrence of constipation, now has soft stool and diarrhea. DC senna plus, change to senna 17.2mg nightly. Add miralax prn if no bm in 48 hours. Pt will not eat yogurt for probiotics. Recommend probiotic capsule. Recommend increased water intake to at least 48-64 ounces daily. Trial eliminating milk and coffee. Increase fiber intake. Schedule follow up with GI. Medications: New sennosides 17.2 mg PO BEDTIME 90 tabs 0RF Lactobacillus acidophilus 1,000 mmu cells PO DAILY 90 tabs 0RF polyethylene glycol 3350 (Miralax) Take as needed for constipation if no bowel movement in 48 hours 17 grams PO DAILY PRN 238 grams 0RF constipation Coding Level of Care Code New Pt Level 5 (71963) Diagnoses Sigmoid volvulus K56.2 Constipation K59.00 Time Spent (min) 45 Comment time spent reviewing as above, documenting, and discussion w/ pt and daughter re diet and
[2023-10-29 08:39] VITALS: BP 110/70; PULSE 55; O2SAT 99; BMI 23.1
== END 2023-10-29 09:31 | disposition home or self-care (01) ==
PROVIDERS: PCP Internal Medicine; Visit Provider Physician Assistant
DX: K56.2 Volvulus (principal); K59.00 Constipation, unspecified
CPT/HCPCS: 99215

== ENCOUNTER 2023-10-29 13:41 | Outpatient (AMB) | payer MEDICARE, OTHER, SELFPAY ==
--- NOTE | 2023-10-29 13:43 | A.OFFVIS_ITS ---
Intake Vital Signs 10/29/23 13:44 Height 6 ft 2 in Weight 182 lb BMI 23.4 BP 121/75 Blood Pressure Location Rt brachial Position Sitting Pulse 61 Intake Visit Reasons: Sigmoid volvulus, [facility] [place]patient follow up Intake Note: This patient presents for [facility] inpatient follow-up assessment for sigmoid volvulus. Patient c/o; reports no abdominal pain or cramping, reports diarrhea. High Scaler Required: No Accompanied by: Daughter Allergies No Known Allergies [No Known Allergies*] Allergy (Verified 10/29/23 13:54) Medication List - Last Reconciled 10/29/23 by Nestor Cummings MD apixaban (Eliquis) 5 mg PO BID atorvastatin 40 mg PO DAILY donepezil 5 mg PO BEDTIME ferrous sulfate (Feosol) 325 mg PO DAILY finasteride 5 mg PO DAILY 90 days gabapentin 300 mg PO BEDTIME Lactobacillus acidophilus 1,000 mmu cells PO DAILY levothyroxine 50 mcg PO DAILY@0630 metoprolol succinate ER 25 mg PO DAILY multivitamin 1 tab PO DAILY polyethylene glycol 3350 (Miralax) 17 grams PO DAILY PRN sennosides 17.2 mg PO BEDTIME sertraline 25 mg PO DAILY HPI Sigmoid volvulus, [facility] [place] Inpatient follow up HPI0 Details 83-year-old male here for follow-up for his history of sigmoid volvulus. He was admitted to the hospital abdominal pain last 10/11/2023. His CAT scan showed sigmoid volvulus. Decompression the torsion was done with flexible sigmoidoscopy by Dr. Krueger and he has been doing well since then. He denies any GI complaints. He has good oral intake. He has no problems with bowel movements. Review of his records show that his last colonoscopy was in [address] Castellon. He had multiple small polyps at that time and short interval his next colo noscopy was recommended then. However, the patient's had health issues and subsequently around that time so he was unable to have any repeat colonoscopy. [facility], [facility] Medical History Sigmoid volvulus Hypothyroid Volvulus of sigmoid colon Screening for diabetes mellitus Conjunctivitis, left eye Bruise Renal cyst Renal stones Gross hematuria Cerebrovascular accident Small bowel obstruction Hypertension Paroxysmal atrial fibrillation Right renal stone Hypercholesterolemia Idiopathic peripheral autonomic neuropathy BPH (benign prostatic hyperplasia) GERD (gastroesophageal reflux disease) Peripheral vascular disease Low vitamin D level Anemia Surgical History History of arthroplasty of right hip History of removal of cyst History of knee replacement procedure of right knee History of prostate surgery History of inguinal hernia repair Family History Father No problems noted. Mother CVD (cardiovascular disease) Social History Household Members: Children Housing: House Do you presently have visiting nurse or other home services: No Unable to assess alcohol history related to: Unknown Alcohol intake: never Patient Tobacco Use Status: Former Tobacco user Tobacco use type: Cigarette e-Cigarette/Vaping Use: Never Used Second Hand Smoke Exposure: No service: Yes Current occupational status: retired Cognitive needs: No Hearing needs: No Vision needs: Yes (glasses) Review of Systems Const Denies chills and Denies fever(s) Card Denies chest pain, Denies dyspnea and Denies dyspnea on exertion Resp Denies cough, Denies dyspnea and Denies dyspnea on exertion GI Denies hematochezia and Denies change in bowel habits Denies hematuria and Denies difficulty urinating Musc Denies back pain and Denies limited range of motion Neuro Denies focal weakness and Denies convulsions Psych Denies depression and Denies mood swings Physical Exam Const General: comfortable and no acute distress Orientation/consciousness: patient oriented x3 Neck Neck: Yes no lymphadenopathy Resp Auscultation: clear to auscultation bilaterally Cardio Rhythm: regular rhythm GI Palpation (GI): Soft to palpation, nontender and no guarding Neuro General: patient oriented x3 Assessment & Plan Assessment & Plan (1) Sigmoid volvulus: Code(s): K56.2 - Volvulus Plan: He had been admitted for sigmoid volvulus October 11 and this was successfully detorsed with flexible sigmoidoscopy. He has been doing well since then. I had a long discussion with him and his daughter Juany the option of proceeding with sigmoid resection. I discussed the technique of hand assisted laparoscopic sigmoid resection. I reviewed the risks including but not limited to bleeding, infections, bowel injury, anastomotic leak, injury to other organs, inherent risks of anesthesia His daughter Lesvia had concerns about him going for any surgical intervention at this time in view of the risk-benefit ratio. She states that he had a problem with a stroke after wall being on anesthesia in the past. She is hesitant about him going for sigmoid resection. I did inform them that the risk of recurrence may be over 30% based on most studies. Also, the patient polyps in [address] Castellon had recommended a short-term follow-up. I told them that he should consider another colonoscopy and to touch base with Dr. Castellon with regards to this. The patient and her daughter state that he will talk about his options at this time and will get back to me down the line. Coding Level of Care Code New Pt Level 4 (33322) Diagnoses Sigmoid volvulus K56.2
[2023-10-29 13:44] VITALS: BP 121/75; PULSE 61; BMI 23.4
== END 2023-10-29 14:37 | disposition home or self-care (01) ==
PROVIDERS: PCP Internal Medicine; Visit Provider Surgery
DX: K56.2 Volvulus (principal)
CPT/HCPCS: 99214

== ENCOUNTER → 2023-10-29 13:41 | Outpatient (BNVA) | payer MEDICARE, OTHER, SELFPAY | PROVIDERS: PCP Internal Medicine; Visit Provider Surgery | DX: K56.2 Volvulus (principal) | CPT/HCPCS: 99212 ==

== ENCOUNTER 2023-11-04 10:00 | Outpatient (REF) | payer MEDICARE, OTHER, SELFPAY | END 2023-11-04 10:01 | disposition home or self-care (01) | LOC: HO.HOSX 10:00 | PROVIDERS: Visit Provider Orthopaedic Surgery | DX: M25.511 Pain in right shoulder (principal); M25.512 Pain in left shoulder | CPT/HCPCS: 73030; 99212 ==

== ENCOUNTER 2023-11-04 10:47 | Outpatient (AMB) | payer MEDICARE, OTHER, SELFPAY ==
[2023-11-04 10:51] VITALS: BMI 23.4
--- NOTE | 2023-11-04 10:51 | MHC.OFFVIS ---
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 Patient reports he was suppose ot have right shoulder surgery about 5-6 years ago, he deferred and attended PT. Patient left arm pain presented after a fall a few months ago while trying to move his lawn lower in his shed. Patient reports intermittent discomfort in both of his shoulders. He denies any fevers or chills. He has had cortisone injections in the past which gave him minimal relief. Allergies No Known Allergies [No Known Allergies*] Allergy (Verified 11/04/23 11:06) Medication List - Last Reconciled 11/04/23 by Juan Carlos Rothman MD apixaban (Eliquis) 5 mg PO BID atorvastatin 40 mg PO DAILY donepezil 5 mg PO BEDTIME ferrous sulfate (Feosol) 325 mg PO DAILY finasteride 5 mg PO DAILY 90 days gabapentin 300 mg PO BEDTIME Lactobacillus acidophilus 1,000 mmu cells PO DAILY levothyroxine 50 mcg PO DAILY@0630 metoprolol succinate ER 25 mg PO DAILY multivitamin 1 tab PO DAILY polyethylene glycol 3350 (Miralax) 17 grams PO DAILY PRN sennosides 17.2 mg PO BEDTIME sertraline 25 mg PO DAILY [Shoulder Immobilizer bilateral As directed] [facility] Medical History Sigmoid volvulus Hypothyroid Volvulus of sigmoid colon Screening for diabetes mellitus Conjunctivitis, left eye Bruise Renal cyst Renal stones Gross hematuria Cerebrovascular accident Small bowel obstruction Hypertension Paroxysmal atrial fibrillation Right renal stone Hypercholesterolemia Idiopathic peripheral autonomic neuropathy BPH (benign prostatic hyperplasia) GERD (gastroesophageal reflux disease) Peripheral vascular disease Low vitamin D level Anemia Surgical History History of arthroplasty of right hip History of removal of cyst History of knee replacement procedure of right knee History of prostate surgery History of inguinal hernia repair Family History Father No problems noted. Mother CVD (cardiovascular disease) Social History Household Members: Children Housing: House Do you presently have visiting nurse or other home services: No Unable to assess alcohol history related to: Unknown Alcohol intake: never Patient Tobacco Use Status: Former Tobacco user Tobacco use type: Cigarette e-Cigarette/Vaping Use: Never Used Second Hand Smoke Exposure: No service: Yes Current occupational status: retired Cognitive needs: No Hearing needs: No Vision needs: Yes (glasses) Physical Exam Vital Signs: BMI result Body Mass Index 23.4 Const Other: Well-nourished well-developed very friendly male awake alert and oriented x3 in no acute distress Extrem Other: Bilateral upper extremity examination shows good capillary refill, no skin lesions noted, normal sensation light touch Bilateral shoulder examination shows forward flexion to 90 degrees, external rotation to 20 degrees, internal rotation to his back pocket, 3/5 strength with supraspinatus testing, no instability Results Reviewed Results Reviewed: X-rays of the patient's bilateral shoulder show severe glenohumeral joint degenerative changes as well as high riding humeral heads consistent with rotator cuff tear arthropathy Assessment & Plan Assessment & Plan (1) Bilateral shoulder pain: Code(s): M25.511 - Pain in right shoulder; M25.512 - Pain in left shoulder Plan Mr. De Paz presents with bilateral shoulder pains and weakness due to rotator cuff tear arthropathy. I had a lengthy discussion with the patient regarding the treatment options. He wishes to hold off on total shoulder arthroplasty surgery for now. I have no problem with this. He will follow up with Dr. Godwin if he decides to undergo the surgery. Feel free to call me at any time should questions regarding his orthopedic management arise. Thank you very much for asking me to see this very friendly gentleman. I spent 22 minutes in reviewing the patient's records and imaging studies, seeing the patient and documenting in the medical record. Orders: Orders XR shoulder LT min 2V Today M25.512 - Pain in left shoulder Coding Level of Care Code Est Pt Level 2 (19121) Diagnoses Bilateral shoulder pain M25.511; M25.512
== END 2023-11-04 11:34 | disposition home or self-care (01) ==
PROVIDERS: PCP Internal Medicine; Visit Provider Orthopaedic Surgery
DX: M25.511 Pain in right shoulder (principal); M25.512 Pain in left shoulder
CPT/HCPCS: 99213

== ENCOUNTER 2023-12-31 12:06 | Inpatient (IN) | payer MEDICARE, OTHER, SELFPAY ==
[2023-12-31] VITALS (9 sets, daily range): BP systolic 102–164; BP diastolic 55–75; PULSE 48–56; RESP 16–18; TEMP 36.1–37.1; O2SAT 94–97; BMI 23.1
--- NOTE | ~2023-12-31 | CT_ITS ---
EXAMINATION: CT ABDOMEN AND PELVIS WITH CONTRAST CLINICAL INFORMATION: Abdominal pain and distention. History of volvulus. COMPARISON: Previous CT of the abdomen and pelvis most recent September 2020 TECHNIQUE: Multidetector volumetric images were obtained from the superior aspect of the liver through the pubic symphysis following administration 85 mL of Omnipaque 350 intravenous contrast. Sagittal and coronal reformatted images were obtained on the technologist's workstation. Oral contrast: Yes This CT examination was performed using dose optimization techniques as appropriate, variously including the following: *Automated exposure control *Adjustment of mA and/or kV according to patient size (this includes techniques or standardized protocols for targeted exams where dose is matched to indication/reason for exam; i.e. extremities or head) *Use of iterative reconstruction technique DLP: 653 mGy-cm FINDINGS: LUNG BASES: The visualized lung bases are unremarkable. LIVER, GALLBLADDER, AND BILIARY TREE: The liver is normal in size, shape, and attenuation. No focal hepatic lesion. There is mild intrahepatic biliary duct dilatation. The gallbladder is not seen and has presumably been removed. PANCREAS: Unremarkable. SPLEEN: Small splenic calcifications likely related to old granulomatous ADRENAL GLANDS: Unremarkable. KIDNEYS AND URETERS: The kidneys are normal in size, shape, and attenuation. No hydronephrosis, hydroureter, or calculi seen. Small bilateral renal no imaging follow-up recommended. No perinephric stranding. BLADDER: Unremarkable. GASTROINTESTINAL TRACT: There is a sigmoid volvulus with swirling edematous change of the adjacent bowel mesentery. More proximal colon is dilated and filled suggestive of secondary obstruction. Small bowel nondilated. Appendix not seen. There may be a small esophageal hernia. Trace ascites ABDOMINAL WALL: No significant hernia is appreciated. LYMPH NODES: Normal. VASCULAR: Atherosclerotic disease. No aneurysm. PELVIC VISCERA: Prostate gland enlarged OSSEOUS STRUCTURES: Degenerative changes of the spine lordosis. Right hip replacement. Degenerative changes of the left. CT/CT abdomen pelvis w IV con IMPRESSION: Sigmoid volvulus and secondary large bowel obstruction. Small bowel does not appear dilated. Enlarged prostate gland. Atherosclerotic disease. Mild intrahepatic biliary duct dilatation. Extrahepatic bile ducts do not appear dilated and no mass is seen. This could be better evaluated with MR of liver with MRCP. Fleischner guidelines were followed. Findings were communicated to Dr Tanner on 12/31/2023 at 1631 hours
--- NOTE | 2023-12-31 12:40 | ED.GENADULT ---
HPI - General Adult General Chief complaint: Abdominal Pain Stated complaint: Unsteady Weakness Sent by PCP Time Seen by Provider: 12/31/23 13:37 History of Present Illness HPI narrative: 83 yo male with history of hypertension, paroxysmal atrial fibrillation on apixaban, CVA, GERD, BPH, hypothyroid, anemia, constipation, volvulus who presents emergency department for evaluation of abdominal pain and distention. The patient states he has had abdominal distention and bloating for approximately 1 week. He states his last bowel movement was 1 week prior. He states he has been feeling unsteady on his feet . He complains of occasional pain to his left chest but has difficulty describing the pain or how many episodes she is experienced over the past week. The patient was seen on 10/06 for similar abdominal pain at that time he had sigmoid volvulus, admitted to the hospital and had decompression by GI. Colonoscopy was unremarkable except for constipation hard stool which was thought to be the etiology of the patient's volvulus. Related Data Home Medications Medication Instructions Recorded Confirmed gabapentin 300 mg capsule 300 mg PO BEDTIME 10/17/20 12/31/23 multivitamin 1 tab PO DAILY 10/17/20 12/31/23 sertraline 25 mg tablet 25 mg PO DAILY 02/03/23 12/31/23 donepezil 5 mg tablet 5 mg PO BEDTIME 10/12/23 12/31/23 levothyroxine 50 mcg tablet 50 mcg PO DAILY@0630 10/12/23 12/31/23 sennosides 8.6 mg-docusate sodium 2 tab PO BEDTIME 12/31/23 12/31/23 50 mg tablet (Senexon-S) Previous Rx's Medication Instructions Recorded metoprolol succinate 25 mg 25 mg PO DAILY #90 tabs 05/23/23 tablet,extended release 24 hr ferrous sulfate 325 mg (65 mg 325 mg PO DAILY #90 tabs 06/17/23 iron) tablet (Feosol) finasteride 5 mg tablet 5 mg PO DAILY 90 days #90 tabs 10/08/23 Shoulder Immobilizer bilateral #1 ea 10/29/23 atorvastatin 40 mg tablet 40 mg PO DAILY #90 tabs 10/29/23 polyethylene glycol 3350 17 17 g PO DAILY PRN constipation 10/29/23 gram/dose oral powder (Miralax) #238 grams apixaban 5 mg tablet (Eliquis) 5 mg PO BID #180 tabs 12/03/23 Allergies Allergy/AdvReac Type Severity Reaction Status Date / Time No Known Allergies Allergy Verified 12/31/23 12:37 [No Known Allergies*] Review of Systems Review of Systems: Yes all other systems are reviewed and are negative FOR[facility]LY [facility] Past Medical History FOR[facility] Narrative: Social history: He denies tobacco, alcohol and drug use. He is here in the emergency department with his son, Dawood. Medical History Sigmoid volvulus Hypothyroid Volvulus of sigmoid colon Screening for diabetes mellitus Conjunctivitis, left eye Bruise Renal cyst Renal stones Gross hematuria Cerebrovascular accident Small bowel obstruction Hypertension Paroxysmal atrial fibrillation Right renal stone Hypercholesterolemia Idiopathic peripheral autonomic neuropathy BPH (benign prostatic hyperplasia) GERD (gastroesophageal reflux disease) Peripheral vascular disease Low vitamin D level Anemia Surgical History History of arthroplasty of right hip History of removal of cyst History of knee replacement procedure of right knee History of prostate surgery History of inguinal hernia repair Family History Family History Father No problems noted. Mother CVD (cardiovascular disease) Social History Social History Household Members: Family Household Members Other:: son Housing: House Do you presently have visiting nurse or other home services: No Unable to assess alcohol history related to: Unknown Alcohol intake: never Patient Tobacco Use Status: Never used Tobacco Tobacco use type: Cigarette e-Cigarette/Vaping Use: Never Used Second Hand Smoke Exposure: No service: Yes Current occupational status: retired Cognitive needs: No Hearing needs: No Vision needs: Yes (glasses) Physical Exam ED Vital Signs: Vital Signs - 24 hr 12/31/23 12:37 12/31/23 15:25 12/31/23 15:57 Temperature 97 F 97.7 F Pulse Rate 55 56 Respiratory Rate 18 16 16 Blood Pressure 144/67 H 164/75 H Pulse Oximetry 95 97 Oxygen Delivery Method Room Air Room Air 12/31/23 17:52 Temperature 97.8 F Pulse Rate 52 Respiratory Rate 16 Blood Pressure 133/62 Pulse Oximetry 97 Oxygen Delivery Method Room Air BMI result Body Mass Index 23.1 Vital signs were no Exam: General: Awake, alert in no distress Head: Normocephalic, atraumatic EENT: PERRL, Lids normal, sclera normal, conjunctiva normal, nose normal , ears normal, throat without erythema or exudates Neck: Supple, no adenopathy Lung: breath sounds symmetric, no wheezing, rales or rhonchi Chest: symmetric movement, nontender Heart: regular rate and rhythm, normal S1, S2 no murmurs or rubs Abdomen: Distended, tympanitic, diminished bowel sounds mild to moderate diffuse tenderness with no localizing tenderness Rectal: Normal external exam, normal sphincter tone, no impaction, loose stool in the rectum which was brown and Hemoccult Back: no vertebral tenderness, no CVAT Extremities: no deformities, moves all extremities symmetrically Neuro: Awake, alert, oriented, normal speech, cranial nerves intact, moves all extremities symmetrically Psych: Pleasant, cooperative Course Course Course Narrative: Patient complains of worsening abdominal pain over past 3 days He has been constipated for past 3 days He also complains of intermittent chest pain over several weeks but he also has had several episodes in the past 3 days Labs are ordered, EKG ordered This is rapid medical exam done in triage pending full evaluation and dispo by ER provider Medications Administered Generic Name Dose Route Start Last Admin Trade Name Ryanq PRN Reason Stop Dose Admin Atorvastatin Calcium 40 mg 01/01/24 09:00 01/01/24 09:05 Atorvastatin Calcium 40 Mg Tablet PO 40 mg DAILY MARIANA Administration Donepezil HCl 5 mg 12/31/23 21:00 12/31/23 23:20 Donepezil Hcl 5 Mg Tablet PO 5 mg BEDTIME MARIANA Administration Finasteride 5 mg 01/01/24 09:00 01/01/24 09:05 Finasteride 5 Mg Tablet PO 5 mg DAILY MARIANA Administration Gabapentin 300 mg 12/31/23 21:00 12/31/23 23:20 Gabapentin 300 Mg Capsule PO 300 mg BEDTIME MARIANA Administration Sodium Chloride 1,000 mls @ 100 mls/hr 12/31/23 19:00 01/01/24 06:23 Ns IVCONT Not Given .Q10H MARIANA Levothyroxine Sodium 50 mcg 01/01/24 06:00 01/01/24 06:20 Levothyroxine Sodium 50 Mcg Tablet PO 50 mcg DAILY@0600 MARIANA Administration Multivitamins/Vitamin C 1 tab 01/01/24 09:00 01/01/24 09:05 Multivitamin Tablet PO 1 tab DAILY MARIANA Administration Pantoprazole Sodium 40 mg 12/31/23 21:37 01/01/24 06:20 Pantoprazole Sodium 40 Mg/10 Ml Vial IVPUSH 40 mg BID@0630,1630 MARIANA Administration Sertraline HCl 25 mg 01/01/24 09:00 01/01/24 09:05 Sertraline Hcl 25 Mg Tablet PO 25 mg DAILY MARIANA Administration Sodium Chloride 3 ml 01/01/24 00:00 01/01/24 08:20 0.9 % Sodium Chloride Flush 3 Ml Syringe IVFLUSH Not Given QSHIFT MARIANA Discontinued Medications Generic Name Dose Route Start Last Admin Trade Name Freq PRN Reason Stop Dose Admin Sodium Chloride 1,000 mls @ 999 mls/hr 12/31/23 14:26 12/31/23 17:51 Ns IV 12/31/23 15:26 Infused .Q1H1M STA Infusion Prothrombin Complex Concent ( 80 mls @ 480 mls/hr 01/01/24 10:14 01/01/24 10:46 Human) 2,000 unit/ IV IV 01/01/24 10:23 480 mls/hr Miscellaneous Supplies .Q10M ONE Administration Iohexol 100 ml 12/31/23 16:08 12/31/23 16:08 Iohexol 350 Mg/Ml 100 Ml Infus..Btl IV 12/31/23 16:09 85 ml ONCE ONE Administration Metoprolol Succinate 25 mg 01/01/24 09:00 01/01/24 08:20 Metoprolol Succinate Er 25 Mg Tab.Er.24h PO Not Given DAILY MARIANA Protocol Morphine Sulfate 4 mg 12/31/23 14:26 12/31/23 15:57 Morphine Sulfate 4 Mg/Ml Cartridge IVPUSH 12/31/23 14:27 4 mg ONCE STA Administration Protocol Ondansetron HCl 4 mg 12/31/23 14:26 12/31/23 15:58 Ondansetron Hcl 4 Mg/2 Ml Vial IVPUSH 12/31/23 14:27 4 mg ONCE ONE Administration Medical Decision Making Medical Decision Making MDM Narrative: 83 yo male with history of hypertension, paroxysmal atrial fibrillation on apixaban, CVA, GERD, BPH, hypothyroid, anemia, constipation, volvulus who presents emergency department for evaluation of abdominal pain and distention with no bowel movement x1 week. Patient had similar presentation 10/11/2023 and was diagnosed with sigmoid volvulus secondary to constipation and required GI decompression. Vital signs were normal. Abdominal exam did reveal distension with diffuse tenderness and rectal exam revealed no impaction with loose stool which was Hemoccult negative. Differential diagnosis: Includes but is not limited to volvulus, small constipation, pancreatitis, myocardial ischemia, myocardial infarction Following evaluation was ordered: CBC, BMP, liver panel, lipase, urinalysis, EKG, troponin, CT scan of the abdomen pelvis with IV contrast Patient was treated with the following: Normal saline x1 L, morphine 4 mg IV and Zofran 4 mg IV 18:24 My independent interpretation patient's laboratory evaluation is as follows: CBC is normal, glucose elevated 145, LFTs normal. Lipase normal . Troponin was detectable at 2.[address] scan is consistent with sigmoid volvulus. I did discuss the patient's presentation over tiger text with the covering lobsterman, Dr. Castellon who will evaluate the patient in the emergency depart and discuss decompression. 18:02 Dr. Martinez did evaluate the patient in the emergency department for General surgery and discuss the need for surgery to prevent recurrent volvulus. The patient is on Eliquis and will need to be off this medication prior to any consider surgical procedure. I did discuss patient's presentation with Dr. Boswell over tiger text and the admitted to the hospital service 18:50 Patient does have gross hematuria, patient will have a Owusu catheter placed when he comes back from surgical procedure I ordered a PT, INR, PTT and type and screen Admission/Observation Consideration of admission/observation: Escalation of care including admission/observation considered Consult Healthcare Provider Management of the patient was discussed with: Hospitalist (Dr. Boswell) and Research Quality Assurance Specialist (Dr. Castellon and Dr. Cummings) Lab Data MDM Lab Attestation statement: I reviewed the patient's lab results. 01/01/24 08:07 01/01/24 08:07 Labs: Lab Results 12/31/23 12/31/23 12/31/23 Range/Units 13:26 18:50 18:51 WBC 8.2 (4.8-10.8) X10*3/uL RBC 5.61 (4.60-5.80) X10*6/uL Hgb 16.4 (14.0-18.0) g/dl Hct 49.4 (42.0-52.0) % MCV 88.1 (80.0-98.0) fL MCH 29.2 (27.0-33.0) pg MCHC 33.2 (31.0-36.0) g/dl RDW 17.6 H (11.0-16.0) % Plt Count 157 L (160-400) X10*3/uL MPV 11.2 (9.4-12.4) fL Immature Gran % (Auto) 0.2 (0.0-0.4) % Neut % (Auto) 90.4 H (45-73) % Lymph % (Auto) 5.2 L (20-40) % [place] % (Auto) 4.0 (2-11) % Eos % (Auto) 0.0 (0-4) % Baso % (Auto) 0.2 (0-2) % Lymph # (Auto) 0.4 L (1.2-4.9) X10*3/uL [place] # (Auto) 0.3 (0.1-1.2) X10*3/uL Eos # (Auto) 0.0 (0.0-0.4) X10*3/uL Baso # (Auto) 0.0 (0.0-0.2) X10*3/uL Abs Immat Gran (auto) 0.02 (0.00-0.03) X10*3/uL Absolute Neuts (auto) 7.4 (2.0-8.3) x10*3/uL Absolute Nucleated RBC 0.000 (0.0-0.012) X10*3/uL Nucleated RBC % (auto) 0.0 (0.0-0.2) /100WBC Smear Tech's Comments VERIFIED PT 14.5 H (11.1-13.3) SEC INR 1.2 H (0.9-1.1) APTT 33.1 (26.0-36.8) SEC Sodium 144 (135-145) mmol/L Potassium 3.8 (3.3-5.1) mmol/L Chloride 109 H (96-108) mmol/L Carbon Dioxide 27 (22-29) mmol/L Anion Gap 12 (12-20) BUN 19 H (9-16) mg/dL Creatinine 1.09 (0.5-1.4) mg/dL Estim Creat Clear Calc 58.1 Estimated GFR > 60 Random Glucose 145 H (60-115) mg/dL Calcium 9.6 D (8.4-10.2) mg/dL Total Bilirubin 1.1 H (0.0-1.0) mg/dL Direct Bilirubin 0.5 (0.0-0.5) mg/dL AST 33 (5-37) U/L ALT 28 (0-40) U/L Alkaline Phosphatase 96 (39-117) U/L Troponin I High Sens 2.7 (<3.5-35.0) ng/L Total Protein 7.6 (6.5-8.0) g/dL Albumin 4.3 (3.5-5.0) g/dL Lipase 9 (8-78) U/L Urine Color Red A Urine Appearance Turbid Urine pH CONCRETE PIPE MACHINE OPERATOR Ur Specific [place] CONCRETE PIPE MACHINE OPERATOR Urine Protein See Note (Neg-Trace) mg/dL Urine Glucose (UA) See Note (Negative) mg/dL Urine Ketones See Note (Negative) mg/dL Urine Blood See Note (Negative) Urine Nitrite See Note (Negative) Ur Leukocyte Esterase See Note (Negative) Urine RBC >20 H (0-2) /HPF Urine WBC 0-5 (0-5) /HPF Ur Squamous Epith Cells 0-2 (0-2) /HPF Urine Bacteria None Seen (None Seen) Hyaline Casts 0-2 (0-2) /LPF COVID-19 ([place]) Negative (Negative) COVID-19 Clin Com See Note Blood Type O Negative Antibody Screen NEGATIVE Independent Interpretation I performed an independent interpretation of an: EKG Interpretation: My independent interpretation patient's 12 EKG done at 13:19 hours is as follows: Bradycardia with a rate of 50, normal DE interval, prolonged QRS of milliseconds, normal QTC, inverted T-wave of 3, AVF, V1. ST segment depression V2 through V4 compared to EKG dated 01/26/2019 Q-wave abnormalities and 3 and F, new and ST segment depression V2 through V6 are new. Radiology Impression Discussion of test interpretation with radiology: I discussed test interpretation with the radiologist and I have reviewed the radiologist's reading. Radiologist Impression: EXAMINATION: CT ABDOMEN AND PELVIS WITH CONTRAST CLINICAL INFORMATION: Abdominal pain and distention. History of volvulus. COMPARISON: Previous CT of the abdomen and pelvis most recent September 2020 FINDINGS: ..... GASTROINTESTINAL TRACT: There is a sigmoid volvulus with swirling edematous change of the adjacent bowel mesentery. More proximal colon is dilated and filled suggestive of secondary obstruction. Small bowel nondilated. Appendix not seen. There may be a small esophageal hernia. Trace ascites IMPRESSION: Sigmoid volvulus and secondary large bowel obstruction. Small bowel does not appear dilated. Enlarged prostate gland. Atherosclerotic disease. Mild intrahepatic biliary duct dilatation. Extrahepatic bile ducts do not appear dilated and no mass is seen. This could be better evaluated with MR of liver with MRCP. Fleischner guidelines were followed. Findings were communicated to Dr Tanner on 12/31/2023 at 1631 hours Dictated By: Ariana Orellana MD Independent Historian Clinical information obtained from an independent historian. History obtained from or confirmed by: Other (Son) External Record Review External record reviewed: Inpatient record Chronic Conditions Patient?s care impacted by: Hypertension and Other (Chronic atrial fibrillation) Critical Care Time Critical Care Time Critical Care Time: Yes Total Critical Care Time: 45 Attestation: Critical Care: The patient was critically ill with a high probability of imminent or life threatening deterioration. I spent greater than 30 minutes of discontinuous time evaluating the patient,delivering critical care at the bedside, discussing and evaluating pertinent data with consultants. Critical care time does not include time spent performing separately billable procedures or teaching. Total time spent performing critical care was 45 minutes. Discharge Plan Discharge Clinical Impression: Sigmoid volvulus Patient Disposition: Admitted As Inpatient Interventions: Admission Worksheet (ED) Last Done: 01/01/24 07:15 Discharge Date/Time: 12/31/23 18:24
--- NOTE | 2023-12-31 12:44 | ECG_ITS ---
Test Reason : pain Blood Pressure : / mmHG Vent. Rate : 050 BPM Atrial Rate : 050 BPM P-R Int : 188 ms QRS Dur : 100 ms QT Int : 454 ms P-R-T Axes : 052 001 -08 degrees QTc Int : 413 ms Sinus bradycardia with Fusion complexes ST & T wave abnormality, consider inferior ischemia Abnormal ECG When compared with ECG of 29-JAN-2019 10:16, Fusion complexes are now Present Premature atrial complexes are no longer Present Questionable change in QRS axis T wave inversion now evident in Inferior leads Referred By: Blake Pollard Electronically Signed By:Rudi Flynn
[2023-12-31 13:37] LABS: Basophils Percent Auto 0.2 % (0-2); Hematocrit 49.4 % (42.0-52.0); Hemoglobin 16.4 g/dl (14.0-18.0); Imm Gran Abs Auto 0.02 X10*3/uL (0.00-0.03); Imm Gran Pct Auto 0.2 % (0.0-0.4); Lymphocytes Absolute Auto 0.4 X10*3/uL (1.2-4.9); Lymphocytes Percent Auto 5.2 % (20-40); MANUAL DIFF FLAG SCAN; Mean Corpuscular HGB Conc 33.2 g/dl (31.0-36.0); Mean Corpuscular Hemoglobin 29.2 pg (27.0-33.0); Mean Corpuscular Volume 88.1 fL (80.0-98.0); Mean Platelet Volume 11.2 fL (9.4-12.4); Monocytes Absolute Auto 0.3 X10*3/uL (0.1-1.2); Neutrophils Absolute Auto 7.4 x10*3/uL (2.0-8.3); Neutrophils Percent Auto 90.4 % (45-73); Platelet Count 157 X10*3/uL (160-400); Red Blood Count 5.61 X10*6/uL (4.60-5.80); Red Cell Distribution Width 17.6 % (11.0-16.0); SCAN SMEAR FLAG 1; White Blood Count 8.2 X10*3/uL (4.8-10.8)
[2023-12-31 13:47] LABS: COVID-19 Test Negative (Negative); IDNOW Serial# 152EDE1D
[2023-12-31 13:52] LABS: Alanine Aminotransferase 28 U/L (0-40); Albumin Level 4.3 g/dL (3.5-5.0); Alkaline Phosphatase 96 U/L (39-117); Anion Gap 12 (12-20); Aspartate Amino Transferase 33 U/L (5-37); Bilirubin Direct 0.5 mg/dL (0.0-0.5); Bilirubin Total 1.1 mg/dL (0.0-1.0); Blood Urea Nitrogen 19 mg/dL (9-16); Calcium 9.6 mg/dL (8.4-10.2); Carbon Dioxide 27 mmol/L (22-29); Chloride 109 mmol/L (96-108); Creatinine Clr Calc Pharmacy 58.1; Estimated Glomerular Filt Rate > 60; Glucose Random 145 mg/dL (60-115); Lipase 9 U/L (8-78); Potassium 3.8 mmol/L (3.3-5.1); Sodium 144 mmol/L (135-145); Total Protein 7.6 g/dL (6.5-8.0)
[2023-12-31 13:59] LABS: Troponin-I High Sensitivity 2.7 ng/L (<3.5-35.0)
[2023-12-31 14:02] LABS: SLIDE REVIEW VERIFIED
[2023-12-31] MEDS: Morphine Sulfate 4 MG/ML CARTRIDGE IVPUSH (15:57)
[2023-12-31] MEDS: 0.9 % Sodium Chloride 1,000 ML 999 ML IV (15:57)
[2023-12-31] MEDS: ondansetron HCL 4 MG/2 ML VIAL IVPUSH (15:58)
[2023-12-31] MEDS: iohexoL 350 MG/ML 100 ML INFUS..BTL IV (16:08)
--- NOTE | 2023-12-31 18:01 | PM.CNGS ---
History of Present Illness Consult details Consult date: 12/31/23 Narrative: 83-year-old male with multiple medical problems including atrial fibrillation, on Eliquis, brought to the ER because of abdominal pain and distention for about 1 week. He does have a history of sigmoid volvulus and underwent endoscopic detorsion with Dr. Mercedes last September,. His family had wanted to hold off on sigmoid resection thereafter He denies any vomiting. He does state that this last good bowel movement may be about a week ago. He is on Eliquis for atrial fib, and his last dose was last night. Review of Systems Constitutional: Constitutional: Denies chills and Denies fever(s) Cardiovascular: Cardiovascular: Denies chest pain, Denies dyspnea and Denies dyspnea on exertion Respiratory: Respiratory: Denies cough, Denies dyspnea and Denies dyspnea on exertion Gastrointestinal: Gastrointestinal: Denies hematochezia, Denies change in bowel habits and Reports constipation Genitourinary: Genitourinary: Denies hematuria and Denies difficulty urinating Musculoskeletal: Musculoskeletal: Denies back pain and Denies limited range of motion Neurologic: Denies focal weakness and Denies convulsions Psychiatric: Psychiatric: Denies depression and Denies mood swings [facility] Past Medical History Medical History Sigmoid volvulus Hypothyroid Volvulus of sigmoid colon Screening for diabetes mellitus Conjunctivitis, left eye Bruise Renal cyst Renal stones Gross hematuria Cerebrovascular accident Small bowel obstruction Hypertension Paroxysmal atrial fibrillation Right renal stone Hypercholesterolemia Idiopathic peripheral autonomic neuropathy BPH (benign prostatic hyperplasia) GERD (gastroesophageal reflux disease) Peripheral vascular disease Low vitamin D level Anemia Family History Family History Father No problems noted. Mother CVD (cardiovascular disease) Surgical History Surgical History History of arthroplasty of right hip History of removal of cyst History of knee replacement procedure of right knee History of prostate surgery History of inguinal hernia repair Social History Social History Household Members: Family Household Members Other:: son Housing: House Do you presently have visiting nurse or other home services: No Unable to assess alcohol history related to: Unknown Alcohol intake: never Patient Tobacco Use Status: Never used Tobacco Tobacco use type: Cigarette e-Cigarette/Vaping Use: Never Used Second Hand Smoke Exposure: No service: No Current occupational status: retired Cognitive needs: No Hearing needs: No Vision needs: Yes (glasses) Meds Allergies Allergy/AdvReac Type Severity Reaction Status Date / Time No Known Allergies Allergy Verified 12/31/23 12:37 [No Known Allergies*] Home Medications Medication Instructions Recorded Confirmed Last Taken Type gabapentin 300 mg capsule 300 mg PO BEDTIME 10/17/20 12/31/23 Unknown History multivitamin 1 tab PO DAILY 10/17/20 12/31/23 Unknown History sertraline 25 mg tablet 25 mg PO DAILY 02/03/23 12/31/23 Unknown History donepezil 5 mg tablet 5 mg PO BEDTIME 10/12/23 12/31/23 Unknown History levothyroxine 50 mcg tablet 50 mcg PO DAILY@0630 10/12/23 12/31/23 Unknown History sennosides 8.6 mg-docusate sodium 2 tab PO BEDTIME 12/31/23 12/31/23 Unknown History 50 mg tablet (Senexon-S) Physical Exam Vital Signs: Vital Signs: Last Vital Signs Temp 97.8 F 12/31/23 17:52 Pulse 52 12/31/23 17:52 Resp 16 12/31/23 17:52 BP 133/62 12/31/23 17:52 Pulse Ox 97 12/31/23 17:52 O2 Del Method Room Air 12/31/23 17:52 BMI result Body Mass Index 23.1 Const: Other: Actually appears comfortable General: no acute distress Resp: Effort & Inspection: normal respiratory effort Cardio: Rate: regular rate GI: Other: Distended but soft, no guarding or rebound Extrem: General: Yes normal to inspection Results Labs 01/01/24 08:07 01/01/24 08:07 Labs: Abnormal lab results 12/31/23 Range/Units 13:26 RDW 17.6 H (11.0-16.0) % Plt Count 157 L (160-400) X10*3/uL Neut % (Auto) 90.4 H (45-73) % Lymph % (Auto) 5.2 L (20-40) % Lymph # (Auto) 0.4 L (1.2-4.9) X10*3/uL Chloride 109 H (96-108) mmol/L BUN 19 H (9-16) mg/dL Random Glucose 145 H (60-115) mg/dL Total Bilirubin 1.1 H (0.0-1.0) mg/dL Short CBC 12/31/23 Range/Units 13:26 WBC 8.2 (4.8-10.8) X10*3/uL Hgb 16.4 (14.0-18.0) g/dl Hct 49.4 (42.0-52.0) % Plt Count 157 L (160-400) X10*3/uL BMP 12/31/23 13:26 Sodium 144 Potassium 3.8 Chloride 109 H Carbon Dioxide 27 BUN 19 H Creatinine 1.09 Calcium 9.6 D Liver Function 12/31/23 Range/Units 13:26 Total Bilirubin 1.1 H (0.0-1.0) mg/dL Direct Bilirubin 0.5 (0.0-0.5) mg/dL AST 33 (5-37) U/L ALT 28 (0-40) U/L Alkaline Phosphatase 96 (39-117) U/L Albumin 4.3 (3.5-5.0) g/dL All other labs normal. Assessment and Plan (1) Sigmoid volvulus: Status: Acute He comes in because of abdominal distention and some pain for about a week. I have reviewed his CAT scan. This does show sigmoid volvulus again. He has had this problem last September 2023 and he had undergone colonoscopic detorsion at that time Dr. Castellon is going to attempt another detorsion and decompression tonight. He has been on Eliquis so if possible, I would hold off on doing sigmoid resection until after tomorrow. We will hold his Eliquis for now. His exam is otherwise benign and he does not appear toxic. I explained to him and the son that a more permanent treatment would be sigmoid resection with likely stoma in view of his age and multiple comorbidities. He seems to understand the plan well. His son is also at bedside with him. Procedures Date of Service Date of Service: 01/01/24
--- NOTE | 2023-12-31 18:12 | PM.EVENT ---
Event Note Date of Service: 12/31/23 Event Note: GI Consult-Full note dictated-History from patient and son, as well as from the EMR Imp: Recurrent sigmoid volvulus with proximal colonic obstruction in an 83 yo male on Eliquis with chronic constipation and a known redundant sigmoid colon on his previous colonoscopies. Rec: Urgent colonoscopy this evening to attempt decompression. I would recommend eventual surgical intervention during this hospitalization for definitive treatment to hopefully prevent further episodes. Full consent obtained for the colonoscopy, including risks of bleeding and perforation. D/W patient and son, Dawood, in detail. They are comfortable with this plan. D/W Dr. Cummings as well. Thanks. Time Spent With Patient Time: Total time managing care of this patient today ____ minutes.
--- NOTE | 2023-12-31 18:19 | MHC.SHP ---
Pre-Procedural Eval Section A - 24 Hr Update-Section A only Date of Service: 12/31/23 The patient is an INPATIENT: Yes The patient has been examined within 24 hours of the surgical procedure. The History & Physical has been completed within 30 days and I have reviewed it.: Yes Section B - Complete if H&P > 30 days Chief Complaint: Unsteady Weakness Sent by PCP Allergies: Allergies Allergy/AdvReac Type Severity Reaction Status Date / Time No Known Allergies Allergy Verified 12/31/23 12:37 [No Known Allergies*] Plan I have reviewed the history and physical and performed a pertinent physical examination on my patient. No changes have occurred unless specified. Time Spent With Patient Time: Total time managing care of this patient today ____ minutes.
--- NOTE | 2023-12-31 18:28 | HO.ANESPROP2 ---
HPI - Anesthesia Eval Consult details Narrative: Sigmoid volvulus PMF Active Problems Active Problems: All Active Problems (Updated 12/31/23 @ 18:21 by Adama Tanner MD) Sigmoid volvulus (Acute) Sigmoid volvulus (Acute) Constipation (Acute) Hypothyroid (Acute) Left shoulder pain (Acute) Bilateral shoulder pain (Acute) Dysphagia (Acute) Iron deficiency anemia (Acute) Adult general medical exam (Acute) Tubular adenoma of colon (Acute) Cognitive impairment (Acute) Anemia (Acute) Knee pain, bilateral (Acute) Renal cyst (Acute) Renal stones (Acute) Gross hematuria (Acute) Cerebrovascular accident (Acute) Hypertension (Acute) Hypercholesterolemia (Acute) BPH (benign prostatic hyperplasia) (Acute) GERD (gastroesophageal reflux disease) (Acute) Past Medical History Medical History Sigmoid volvulus Hypothyroid Volvulus of sigmoid colon Screening for diabetes mellitus Conjunctivitis, left eye Bruise Renal cyst Renal stones Gross hematuria Cerebrovascular accident Small bowel obstruction Hypertension Paroxysmal atrial fibrillation Right renal stone Hypercholesterolemia Idiopathic peripheral autonomic neuropathy BPH (benign prostatic hyperplasia) GERD (gastroesophageal reflux disease) Peripheral vascular disease Low vitamin D level Anemia Family History Family History Father No problems noted. Mother CVD (cardiovascular disease) Family history of problems with anesthesia: Unobtainable Surgical History Surgical History History of arthroplasty of right hip History of removal of cyst History of knee replacement procedure of right knee History of prostate surgery History of inguinal hernia repair History of Problems with Anesthesia: Unobtainable Social History Social History Household Members: Children Housing: House Do you presently have visiting nurse or other home services: No Unable to assess alcohol history related to: Unknown Alcohol intake: never Patient Tobacco Use Status: Former Tobacco user Tobacco use type: Cigarette e-Cigarette/Vaping Use: Never Used Second Hand Smoke Exposure: No service: Yes Current occupational status: retired Cognitive needs: No Hearing needs: No Vision needs: Yes (glasses) Meds Allergies Allergy/AdvReac Type Severity Reaction Status Date / Time No Known Allergies Allergy Verified 12/31/23 12:37 [No Known Allergies*] Home Medications Medication Instructions Recorded Confirmed Last Taken Type gabapentin 300 mg capsule 300 mg PO BEDTIME 10/17/20 12/31/23 Unknown History multivitamin 1 tab PO DAILY 10/17/20 12/31/23 Unknown History sertraline 25 mg tablet 25 mg PO DAILY 02/03/23 12/31/23 Unknown History donepezil 5 mg tablet 5 mg PO BEDTIME 10/12/23 12/31/23 Unknown History levothyroxine 50 mcg tablet 50 mcg PO DAILY@0630 10/12/23 12/31/23 Unknown History sennosides 8.6 mg-docusate sodium 2 tab PO BEDTIME 12/31/23 12/31/23 Unknown History 50 mg tablet (Senexon-S) Exam Height,Weight and Vital Signs: Height 6 ft 2 in Weight 81.5 kg Last Vital Signs Temp 97.8 F 12/31/23 17:52 Pulse 52 12/31/23 17:52 Resp 16 12/31/23 17:52 BP 133/62 12/31/23 17:52 Pulse Ox 97 12/31/23 17:52 O2 Del Method Room Air 12/31/23 17:52 Pertinent Lab Results Pertinent Lab Results: Laboratory Tests 12/31/23 13:26 WBC 8.2 RBC 5.61 Hgb 16.4 Hct 49.4 MCV 88.1 MCH 29.2 MCHC 33.2 RDW 17.6 H Plt Count 157 L MPV 11.2 Immature Gran % (Auto) 0.2 Neut % (Auto) 90.4 H Lymph % (Auto) 5.2 L [place] % (Auto) 4.0 Eos % (Auto) 0.0 Baso % (Auto) 0.2 Lymph # (Auto) 0.4 L [place] # (Auto) 0.3 Eos # (Auto) 0.0 Baso # (Auto) 0.0 Abs Immat Gran (auto) 0.02 Absolute Neuts (auto) 7.4 Absolute Nucleated RBC 0.000 Nucleated RBC % (auto) 0.0 Smear Tech's Comments VERIFIED Sodium 144 Potassium 3.8 Chloride 109 H Carbon Dioxide 27 Anion Gap 12 BUN 19 H Creatinine 1.09 Estim Creat Clear Calc 58.1 Estimated GFR > 60 Random Glucose 145 H Calcium 9.6 D Total Bilirubin 1.1 H Direct Bilirubin 0.5 AST 33 ALT 28 Alkaline Phosphatase 96 Troponin I High Sens 2.7 Total Protein 7.6 Albumin 4.3 Lipase 9 COVID-19 ([place]) Negative COVID-19 Clin Com See Note Airway Mallampati Class: II TM Dist: >3cm Neck ROM: Full Loose/Missing/Broken Teeth: No Heart: RRR Lungs: CTA Assessment and Plan Assessment Anesthesia Assessment: Anesthesia Plan Discussed and Chart Reviewed Final Anesthetic Review Family History of Problems with Anesthesia: Unobtainable History of Problems with Anesthesia: Unobtainable NPO: Yes ASA Class: III and Emergency Final Preanesthetic Review: No Changes in Pt Med Stat, Meds/Allgs Chart Reviewed, Consent Obtained/Reviewed and Anes Risks/Benef Reviewed Patient Risk: High Procedure Risk: Low Anesthetic Plan Anesthetic Plan: GA Disposition: Standard PACU
--- NOTE | 2023-12-31 19:01 | P.HPHOSP_ITS ---
History of Present Illness Date of Service: 12/31/23 Attending physician on admission: Rob Sow Chief Complaint: abd pain, constipation 83-year-old male with history of paroxysmal atrial fibrillation anticoagulated with Eliquis, hypertension, hyperlipidemia, BPH, idiopathic peripheral neuropathy, history of CVA, hypothyroidism, history of sigmoid volvulus s/p decompression 09/2023 presented to the ED earlier today with his son, Dawood, for evaluation of abdominal distention and pain ongoing for about 1 week. Reports last bowel movement was also about 1 week ago. Pt is oriented to self and place but is a very vague historian. He is on bowel regimen with MiraLax, Senokot. He denies any fevers, chills, nausea, vomiting, melena, hematochezia, dysuria, increased urinary frequency, urgency, shortness of breath. He is reporting intermittent left-sided chest pain that has been ongoing for about a week without any associated shortness of breath, lightheadedness, diaphoresis. He also reports hematuria that started this morning. On arrival, vital signs stable. No leukocytosis. No anemia. Platelets 157. PT/INR pending. Renal function baseline, electrolyte levels normal. Troponin 2.7. Urinalysis pending. Negative for COVID-19. Type and screen pending. EKG shows sinus bradycardia with fusion complexes, rate 50, t wave inversions noted in III, V1, no ROSALVA or depressions. CT abd/pelvis shows sigmoid volvulus and secondary large bowel obstruction. Also seen are enlarged prostate, atherosclerosis, mild intrahepatic biliary duct dilatation. Seen in ED by general surgery recommending admission to hospitalist service. GI to take pt to OR this evening for decompression. Review of Systems 2 Review of Systems: General: No fevers, malaise, unintentional weight loss HEENT: No blurred vision, diplopia. No sore throat, nasal congestion, rhinorrhea, sinus pain, ear pain Cardiovascular: No chest pain, palpitations, or leg edema Respiratory: No shortness of breath, wheezing, cough GI: +abd pain, +abd distension, +constipation. No nausea, vomiting, diarrhea, melena, hematochezia : +hematuria. No dysuria, increased urinary frequency, decreased urinary output MSK: No myalgia, back pain Neuro: No headaches, weakness, paresthesias Skin: No rashes or lesions PMFSH Medical History Sigmoid volvulus Hypothyroid Volvulus of sigmoid colon Screening for diabetes mellitus Conjunctivitis, left eye Bruise Renal cyst Renal stones Gross hematuria Cerebrovascular accident Small bowel obstruction Hypertension Paroxysmal atrial fibrillation Right renal stone Hypercholesterolemia Idiopathic peripheral autonomic neuropathy BPH (benign prostatic hyperplasia) GERD (gastroesophageal reflux disease) Peripheral vascular disease Low vitamin D level Anemia Family History Father No problems noted. Mother CVD (cardiovascular disease) Surgical History History of arthroplasty of right hip History of removal of cyst History of knee replacement procedure of right knee History of prostate surgery History of inguinal hernia repair Social History Household Members: Children Housing: House Do you presently have visiting nurse or other home services: No Unable to assess alcohol history related to: Unknown Alcohol intake: never Patient Tobacco Use Status: Former Tobacco user Tobacco use type: Cigarette e-Cigarette/Vaping Use: Never Used Second Hand Smoke Exposure: No Advance Directives: No Advance Directives Information Provided: Yes Nutrition Risks: Acute nausea or vomiting x1 week service: Yes Current occupational status: retired Cognitive needs: No Hearing needs: No Vision needs: Yes (glasses) Meds Allergies Allergy/AdvReac Type Severity Reaction Status Date / Time No Known Allergies Allergy Verified 12/31/23 12:37 [No Known Allergies*] Home Medications Medication Instructions Recorded Confirmed Last Taken Type gabapentin 300 mg capsule 300 mg PO BEDTIME 10/17/20 12/31/23 Unknown History multivitamin 1 tab PO DAILY 10/17/20 12/31/23 Unknown History sertraline 25 mg tablet 25 mg PO DAILY 02/03/23 12/31/23 Unknown History donepezil 5 mg tablet 5 mg PO BEDTIME 10/12/23 12/31/23 Unknown History levothyroxine 50 mcg tablet 50 mcg PO DAILY@0630 10/12/23 12/31/23 Unknown History sennosides 8.6 mg-docusate sodium 2 tab PO BEDTIME 12/31/23 12/31/23 Unknown History 50 mg tablet (Senexon-S) Physical Exam 2 Vital Signs and Narrative: Vital Signs: Last Vital Signs Temp 97.8 F 12/31/23 17:52 Pulse 52 12/31/23 17:52 Resp 16 12/31/23 17:52 BP 133/62 12/31/23 17:52 Pulse Ox 97 12/31/23 17:52 O2 Del Method Room Air 12/31/23 17:52 BMI result Body Mass Index 23.1 Constitutional - Awake and Alert, No apparent distress Eyes - PERRLA, EOMI Cardiovascular - S1S2, RRR, No edema Respiratory - Normal lung expansion, Normal respiratory effort, No respiratory distress, CTA bilaterally Gastrointestinal - significant lower abd distension with mild ttp across lower abd no guarding or rebound. Hypoactive bowel soungs Genitourinary - kushal hematuria without clots noted in urinal Extremities - no calf tenderness bilaterally, no swelling Skin - Warm/Dry Neurological - Alert & oriented to self and place Psychological - Appropriate affect Results Labs 12/31/23 13:26 12/31/23 13:26 Labs: Laboratory Results - last 24 hr 12/31/23 13:26 MCV 88.1 MCH 29.2 MCHC 33.2 RDW 17.6 H Plt Count 157 L MPV 11.2 Immature Gran % (Auto) 0.2 Neut % (Auto) 90.4 H Lymph % (Auto) 5.2 L [place] % (Auto) 4.0 Eos % (Auto) 0.0 Baso % (Auto) 0.2 Lymph # (Auto) 0.4 L [place] # (Auto) 0.3 Eos # (Auto) 0.0 Baso # (Auto) 0.0 Abs Immat Gran (auto) 0.02 Absolute Neuts (auto) 7.4 Absolute Nucleated RBC 0.000 Nucleated RBC % (auto) 0.0 Smear Tech's Comments VERIFIED Anion Gap 12 Estim Creat Clear Calc 58.1 Estimated GFR > 60 Random Glucose 145 H Calcium 9.6 D Total Bilirubin 1.1 H Direct Bilirubin 0.5 AST 33 ALT 28 Alkaline Phosphatase 96 Troponin I High Sens 2.7 Total Protein 7.6 Albumin 4.3 Lipase 9 COVID-19 ([place]) Negative COVID-19 Clin Com See Note Imaging Radiologist's Impressions: Impressions Abdomen/Pelvis CT 12/31/23 16:18 IMPRESSION: Sigmoid volvulus and secondary large bowel obstruction. Small bowel does not appear dilated. Enlarged prostate gland. Atherosclerotic disease. Mild intrahepatic biliary duct dilatation. Extrahepatic bile ducts do not appear dilated and no mass is seen. This could be better evaluated with MR of liver with MRCP. Fleischner guidelines were followed. Findings were communicated to Dr Tanner on 12/31/2023 at 1631 hours Assessment and Plan (1) Sigmoid volvulus: Status: Acute (2) Gross hematuria: Status: Acute Plan 83-year-old male with history of paroxysmal atrial fibrillation anticoagulated with Eliquis, hypertension, hyperlipidemia, BPH, idiopathic peripheral neuropathy, history of CVA, hypothyroidism, history of sigmoid volvulus s/p decompression 09/2023 admitted for recurrent sigmoid volvulus. #Sigmoid volvulus -recurrent, causing large bowel obstruction -GI to decompress in OR this evening -KUB post decompression post-operatively -general surgery consult -keep NPO for now -hold eliquis #Kushal hematuria -UA with red urine, pigment obscured remainder of results -no clots, enlarged prostate as well as sigmoid volvulus on ct -dawn catheter placed -urology consult -hold eliquis. follow cbc. t&s and INR pending # paroxysmal AFib - continue metoprolol -hold apixiban # hypothyroidism -continue levothyroxine # BPH - continue finasteride # hyperlipidemia - continue statin DVT prophylaxis: Early ambulation, SCPs. Hold eliquis due to above Full code Pt requires inpt stay at least 2 midnight sfor management of sigmoid volvulus with large bowel obstruction requiring decompression and possible sigmoid resection with expert consultation. Quality Stroke Does the patient have a stroke diagnosis?: No VTE Prior VTE?: No VTE Risk Level:: Medical - moderate - high VTE Device Contraindication: N/A - Device Ordered VTE Drug Contraindication: Treatment Not Indicated
[2023-12-31 19:11] LABS: INTERNATIONAL NORM RATIO 1.2 (0.9-1.1); Prothrombin Time 14.5 SEC (11.1-13.3)
[2023-12-31 19:13] LABS: Partial Thromboplastin Time 33.1 SEC (26.0-36.8)
[2023-12-31 19:22] LABS: Appearance Urine Turbid; Color Urine Red
--- NOTE | 2023-12-31 19:22 | PC.NURSE ---
Pt brought to OR, admitting provider at bedside with OR staff.
--- NOTE | 2023-12-31 19:34 | PHA.MEDREC ---
Pharmacy Consult ? Medication Reconciliation Pharmacy has completed the medication reconciliation. Confirmed medicaitons with patient's son. He beleives patient is on donepezil but not 100% sure. Quin Luna, PharmD
--- NOTE | 2023-12-31 19:38 | PM.EVENT ---
Event Note Date of Service: 01/01/24 Event Note: successful colonoscopic detorsion and decompression done by Dr Castellon pt tolerated the procedure well abd soft, not distended anymore Fr [address] in the sigmoid to hopefully prevent re-volvulus I had a long discussion again with son Dawood about sigmoid resection likely stoma as more permanent treatment I explained the risks including but not limited to bleeding, infections, staple line leak with anastomosis, OK, CVA Dawood says he will talke to the rest of the family tonight and we will revisit in AM Hold Marina valerio does was last night Time Spent With Patient Time: Total time managing care of this patient today ____ minutes.
[2023-12-31 19:39] LABS: Bacteria Urine None Seen (None Seen); Hyaline Casts Urine 0-2 /LPF (0-2); RBC Urine >20 /HPF (0-2); Squamous Epithelial Cell Urine 0-2 /HPF (0-2); UACC Culture Trigger NO; UMIC TRIGGER UACC YES; WBC Urine 0-5 /HPF (0-5)
--- NOTE | 2023-12-31 19:46 | P.BOP_ITS ---
Brief Operative Note Date of Service: 12/31/23 Pre-op diagnosis: Sigmoid volvulus Post-op diagnosis: same Procedure: Flexible sigmoidoscopy with decompression of colon with placement of an 18Fr NG tube to just past the sigmoid twist Surgeon: Heri Castellon MD Anesthesia: MAC Was an [employer]ing Machinist used for this Procedure?: No Estimated blood loss (mL): 0 Pathology: none sent Condition: stable Disposition: PACU
--- NOTE | 2023-12-31 19:49 | PM.EVENT ---
Event Note Date of Service: 12/31/23 Event Note: GI-Full note dictated Findings: 1. Sigmoid Twist at between 20-25cm. Tissue appeared pink and viable. 2. Scope passed easily into the proximal, very dilated colon with solid and thick liquid stool. Tissue appeared pink and viable as well. Sucked out as much air as possible with good effect on the abdominal exam with significant decrease in distention. 3. I passed an 18Fr NG alongside the scope until I saw the end go past the sigmoid twist . The scope was removed, leaving the NG tube in place. 4. Abdominal exam was much softer, NT, and no longer tympanitic after the procedure. Dr. Cummings was present and is aware of the findings. Plan: Observe overnight, NPO, supportive care, probable surgery tomorrow for sigmoid resection. D/W son, Dawood, in detail. Thanks Time Spent With Patient Time: Total time managing care of this patient today ____ minutes.
[2023-12-31 20:50] LABS: MANUAL DIFF FLAG NO
[2023-12-31 20:53] LABS: Hematocrit 42.2 % (42.0-52.0); Hemoglobin 13.8 g/dl (14.0-18.0); Imm Gran Abs Auto 0.03 X10*3/uL (0.00-0.03); Imm Gran Pct Auto 0.4 % (0.0-0.4); Lymphocytes Absolute Auto 0.7 X10*3/uL (1.2-4.9); Lymphocytes Percent Auto 9.1 % (20-40); Mean Corpuscular HGB Conc 32.7 g/dl (31.0-36.0); Mean Corpuscular Volume 88.7 fL (80.0-98.0); Mean Platelet Volume 10.6 fL (9.4-12.4); Monocytes Absolute Auto 0.5 X10*3/uL (0.1-1.2); Monocytes Percent Auto 5.7 % (2-11); Neutrophils Absolute Auto 6.7 x10*3/uL (2.0-8.3); Neutrophils Percent Auto 84.8 % (45-73); Platelet Count 131 X10*3/uL (160-400); Red Blood Count 4.76 X10*6/uL (4.60-5.80); Red Cell Distribution Width 17.5 % (11.0-16.0); White Blood Count 7.9 X10*3/uL (4.8-10.8)
--- NOTE | 2023-12-31 20:53 | CONS_ITS ---
DATE OF SERVICE: 12/31/2023 REASON FOR CONSULTATION: Sigmoid volvulus. HISTORY OF PRESENT ILLNESS: This has been obtained from the patient, his son, and the medical record. The patient is an 83-year-old male, well known to me from previous colonoscopies. He has had previous colonoscopies with me, with most recent one back in 2017, for removal of multiple polyps. His colonoscopies have always been difficult due to a redundant sigmoid colon. He has had a longstanding history of chronic constipation. This past September, he developed a sigmoid volvulus that was decompressed by Dr. Mercedes. At that time, Dr. Cummings had recommended surgery, but the patient opted to hold off on that. The patient presents to the ER today with increasing abdominal distention and some discomfort. He has not had a bowel movement in about a week. His abdomen has been progressively distended. There has been no vomiting. There has been no hematochezia nor melena. He denies any urinary symptoms. At the present time, he has some discomfort if he pushes on the abdomen, but denies any pain otherwise. MEDICATIONS: At home include; Eliquis, atorvastatin, donepezil, iron, finasteride, gabapentin, levothyroxine, metoprolol, multivitamins, MiraLAX, Senokot and sertraline. PAST MEDICAL HISTORY: Right knee replacement. They think, he had some type of hip surgery. Colon polyps. Sigmoid volvulus as above. History of a TIA. Kidney stones. Hyperlipidemia. Autonomic neuropathy. Enlarged prostate. Gastroesophageal reflux. Hypothyroidism. Peripheral vascular disease. Hypertension. Paroxysmal atrial fibrillation. Chronic constipation. SOCIAL HISTORY: He is a . He lives with a son. He does not smoke nor use any significant amounts of alcohol. FAMILY HISTORY: Noncontributory. REVIEW OF SYSTEMS: CONSTITUTIONAL: He has been eating fairly well at home up until this problem. CARDIAC: No chest pain. PULMONARY: No coughing or hemoptysis. GI: As above. URINARY: No dysuria. No hematuria. NEUROLOGIC: No headache or seizures. PHYSICAL EXAMINATION: GENERAL: The patient is a pleasant, alert, elderly male, in no distress. SKIN: Warm and dry. Nonjaundiced. HEENT: Anicteric sclerae. Moist mucous membranes. NECK: Supple without lymphadenopathy. CARDIAC: Normal S1, S2. ABDOMEN: Obviously distended. Bowel sounds are diminished. There is some mild diffuse tenderness but without mass, rebound, or guarding. The abdomen is tympanitic. EXTREMITIES: Reveal some mild pedal edema. LABORATORY DATA: Normal CBC including white blood cell count of 8.2, hemoglobin 16.4, platelet count of 157,000. Normal electrolytes. BUN 19, creatinine 1.1. Normal LFTs and lipase. CT scan of his abdomen and pelvis from this afternoon describes a sigmoid volvulus with a swirling, edematous change in the bowel mesentery with proximal colon dilatation. The small bowel appeared to be nondilated. IMPRESSION: Given the patient's clinical history and workup, this seems quite consistent with a recurrent sigmoid volvulus in relation to his known redundant sigmoid colon and chronic constipation. Given the urgency of the situation, he will undergo colonoscopy this evening, despite him having taken Eliquis up until last night to try to decompress the colon and hopefully prevent any ischemia. Full consent has been obtained from the patient and his son for this, including risks of bleeding and perforation. I would recommend eventual surgical treatment of the problem, so as to prevent further episodes. I did advise the patient and his son to definitively think about this, such that it would be best to do it during this hospitalization. Full consent has been obtained for the colonoscopy, including risks of bleeding and perforation. The procedure will be done with monitored anesthesia care. This has been discussed in detail with the patient and his son, Dawood. They are comfortable with the plan. Dr. Cummings has seen the patient as well. Thank you for the consultation. MD TANYA Villagran/JOSTIN / [id number]
--- NOTE | 2023-12-31 22:08 | OP_ITS ---
DATE OF SERVICE: 12/31/2023 SURGEON: Heri Castlelon MD INDICATIONS: The patient presents for evaluation of sigmoid volvulus. Full consent has been obtained from the patient and his son for the procedure, including risks of bleeding and perforation. PREOPERATIVE DIAGNOSIS: Sigmoid volvulus. POSTOPERATIVE DIAGNOSIS: Sigmoid volvulus. PROCEDURE PERFORMED: Flexible sigmoidoscopy to 40 cm. ESTIMATED BLOOD LOSS: COMPLICATIONS: ANESTHESIA: Monitored anesthesia care. ASSISTANTS: SPECIMENS: DESCRIPTION OF PROCEDURE: The patient was placed in the left lateral decubitus position. The digital rectal exam revealed some external hemorrhoids. The Olympus video pediatric colonoscope was entered into the rectum and advanced to approximately 20 cm. At this level, I could see a distinct puckering and twist of the colonic folds. The tissue was pink and viable. The scope easily passed this into the more proximal bowel, which was extremely dilated and full of liquid and thick stool. There was no bleeding. The tissue looked viable in this area as well. I sucked out as much air as possible, which led to good decompression with a much improved abdominal exam as well. I could not advance much further than 40 cm due to all the retained stool. I tried to suck as much air as possible. I then passed an 18-[place] NG tube alongside the scope until I could see it come into the area just beyond the sigmoid twist. The scope was then slowly withdrawn leaving the NG tube in place. All the tissue distal to the sigmoid twist appeared pink and viable as well. The scope was withdrawn from the patient. The abdominal exam remained soft, less tympanitic, and nontender. He was transferred to the recovery area in stable condition. IMPRESSION: Sigmoid volvulus. PLAN: The patient will be observed overnight. He will be kept n.p.o. He will remain on supportive care. He most likely will have surgery tomorrow for sigmoid resection given that this is the 2nd episode within a short time span and this most certainly would continue to recur in the future without more definitive treatment. This has been discussed with the son, Dawood, in detail. This has been discussed with Dr. Cummings as well. MD TANYA Villagran/JOSTIN / [id number]
[2023-12-31] MEDS: 0.9 % Sodium Chloride 1,000 ML 100 ML IVCONT (23:20)
[2023-12-31] MEDS: Pantoprazole Sodium 40 MG/10 ML VIAL IVPUSH (23:20)
[2023-12-31] MEDS: Donepezil HCl 5 MG TABLET PO (23:20)
[2023-12-31] MEDS: Gabapentin 300 MG CAPSULE PO (23:20)
[2024-01-01] VITALS (16 sets, daily range): BP systolic 101–131; BP diastolic 50–60; PULSE 39–54; RESP 16–18; TEMP 36.2–37.1; O2SAT 92–100
[2024-01-01] MEDS: Pantoprazole Sodium 40 MG/10 ML VIAL IVPUSH ×2 (06:20→17:23)
[2024-01-01] MEDS: Levothyroxine Sodium 50 MCG TABLET PO (06:20)
--- NOTE | 2024-01-01 08:36 | PM.EVENT ---
Event Note Date of Service: 01/01/24 Event Note: Patient comfortable No events overnight However, his heart rate goes down to the high 30s when he is sleeping Abdomen soft and benign I had a long discussion with him about his volvulus This is his 2nd admission requiring endoscopic decompression and detorsion I explained to him and his family that the permanent treatment would be sigmoid resection but he will likely have a colostomy I explained the technique of this procedure - laparotomy, sigmoid resection, end colostomy I reviewed the risks including but not limited to bleeding, infections, bowel injury, staple line leak with an anastomosis, blood clots, pneumonia, CVA, heart attack, as well as the benefits and alternatives The patient says that he is giving his consent I have discussed this with his son Dawood as well who states that he agrees to proceed I have talked to Dr. Rodo Bearden about his hematuria and she states that she will see him Plan has been discussed with the hospitalist service - he is medically stable to proceed Last dose of Eliquis was Friday night Time Spent With Patient Time: Total time managing care of this patient today ____ minutes.
--- NOTE | 2024-01-01 09:01 | HO.PM.IMPN ---
Subjective Subjective Date of Service: 01/01/24 Interval History: abd pain improving, gross hematuria Physical Exam Vital Signs: Vital Signs: Last Vital Signs Temp 97.8 F 01/01/24 07:05 Pulse 39 L 01/01/24 07:05 Resp 18 01/01/24 07:05 BP 119/60 01/01/24 07:05 Pulse Ox 96 01/01/24 07:05 O2 Del Method Room Air 01/01/24 07:05 BMI result Body Mass Index 23.1 General: AO X 3, no acute distress Resp: CTA bilateral, no accessory muscles used CVS: S1,S2,RRR GI: soft, some tenderness, non distended Neuro: motor grossly intact, alert Psych: appropriate affect, appropriate insight gross hematuria in dawn Objective Data Active Medications Acetaminophen (Acetaminophen 325 Mg Tablet) 650 mg PO Q6H PRN PRN Reason: Pain, Mild (Pain Scale 1-3) Atorvastatin Calcium (Atorvastatin Calcium 40 Mg Tablet) 40 mg PO DAILY [facility] Donepezil HCl (Donepezil Hcl 5 Mg Tablet) 5 mg PO BEDTIME [facility] Last Admin: 12/31/23 23:20 Dose: 5 mg Documented By: YAYO Finasteride (Finasteride 5 Mg Tablet) 5 mg PO DAILY [facility] Gabapentin (Gabapentin 300 Mg Capsule) 300 mg PO BEDTIME [facility] Last Admin: 12/31/23 23:20 Dose: 300 mg Documented By: YAYO Sodium Chloride (Ns) 1,000 mls @ 100 mls/hr IVCONT .Q10H [facility] Last Admin: 01/01/24 06:23 Dose: Not Given Documented By: YAYO Non-Admin Reason: IV Running Levothyroxine Sodium (Levothyroxine Sodium 50 Mcg Tablet) 50 mcg PO DAILY@0600 [facility] Last Admin: 01/01/24 06:20 Dose: 50 mcg Documented By: YAYO Multivitamins/Vitamin C (Multivitamin Tablet) 1 tab PO DAILY [facility] Ondansetron HCl (Ondansetron Hcl 4 Mg/2 Ml Vial) 4 mg IVPUSH Q8H PRN PRN Reason: Nausea and Vomiting Ondansetron HCl (Ondansetron Hcl 4 Mg/2 Ml Vial) 4 mg IVPUSH ONCE PRN PRN Reason: Nausea and Vomiting Pantoprazole Sodium (Pantoprazole Sodium 40 Mg/10 Ml Vial) 40 mg IVPUSH BID@0630,1630 [facility] Last Admin: 01/01/24 06:20 Dose: 40 mg Documented By: YAYO Polyethylene Glycol (Polyethylene Glycol 3350 17 Gm Powd.Pack) 17 gm PO DAILY PRN PRN Reason: constipation Senna (Sennosides 8.6 Mg Tablet) 17.2 mg PO BEDTIME PRN PRN Reason: Constipation Sertraline HCl (Sertraline Hcl 25 Mg Tablet) 25 mg PO DAILY [facility] Sodium Chloride (0.9 % Sodium Chloride Flush 3 Ml Syringe) 3 ml IVFLUSH QSHIFT [facility] Last Admin: 01/01/24 08:20 Dose: Not Given Documented By: LAURIE Non-Admin Reason: IV Running Labs 12/31/23 20:42 12/31/23 13:26 Labs: Laboratory Results - last 24 hr 12/31/23 12/31/23 12/31/23 13:26 18:50 18:51 MCV 88.1 MCH 29.2 MCHC 33.2 RDW 17.6 H Plt Count 157 L MPV 11.2 Immature Gran % (Auto) 0.2 Neut % (Auto) 90.4 H Lymph % (Auto) 5.2 L [place] % (Auto) 4.0 Eos % (Auto) 0.0 Baso % (Auto) 0.2 Lymph # (Auto) 0.4 L [place] # (Auto) 0.3 Eos # (Auto) 0.0 Baso # (Auto) 0.0 Abs Immat Gran (auto) 0.02 Absolute Neuts (auto) 7.4 Absolute Nucleated RBC 0.000 Nucleated RBC % (auto) 0.0 Smear Tech's Comments VERIFIED PT 14.5 H INR 1.2 H APTT 33.1 Anion Gap 12 Estim Creat Clear Calc 58.1 Estimated GFR > 60 Random Glucose 145 H Calcium 9.6 D Total Bilirubin 1.1 H Direct Bilirubin 0.5 AST 33 ALT 28 Alkaline Phosphatase 96 Troponin I High Sens 2.7 Total Protein 7.6 Albumin 4.3 Lipase 9 Urine Color Red A Urine Appearance Turbid Urine pH [employer]LOADER Ur Specific [place] [employer] Urine Protein See Note Urine Glucose (UA) See Note Urine Ketones See Note Urine Blood See Note Urine Nitrite See Note Ur Leukocyte Esterase See Note Urine RBC >20 H Urine WBC 0-5 Ur Squamous Epith Cells 0-2 Urine Bacteria None Seen Hyaline Casts 0-2 COVID-19 ([place]) Negative COVID-19 Clin Com See Note Blood Type O Negative Antibody Screen NEGATIVE 12/31/23 20:42 MCV 88.7 MCH 29.0 MCHC 32.7 RDW 17.5 H Plt Count 131 L MPV 10.6 Immature Gran % (Auto) 0.4 Neut % (Auto) 84.8 H Lymph % (Auto) 9.1 L [place] % (Auto) 5.7 Eos % (Auto) 0.0 Baso % (Auto) 0.0 Lymph # (Auto) 0.7 L [place] # (Auto) 0.5 Eos # (Auto) 0.0 Baso # (Auto) 0.0 Abs Immat Gran (auto) 0.03 Absolute Neuts (auto) 6.7 Absolute Nucleated RBC 0.000 Nucleated RBC % (auto) 0.0 Smear Tech's Comments PT INR APTT Anion Gap Estim Creat Clear Calc Estimated GFR Random Glucose Calcium Total Bilirubin Direct Bilirubin AST ALT Alkaline Phosphatase Troponin I High Sens Total Protein Albumin Lipase Urine Color Urine Appearance Urine pH Ur Specific [place] Urine Protein Urine Glucose (UA) Urine Ketones Urine Blood Urine Nitrite Ur Leukocyte Esterase Urine RBC Urine WBC Ur Squamous Epith Cells Urine Bacteria Hyaline Casts COVID-19 ([facility]) COVID-19 Clin Com Blood Type Antibody Screen Assessment and Plan (1) Sigmoid volvulus: Status: Acute Plan 83M PMH paroxysmal afib, htn, hld, bph, history of cva, hypothryoid, sigmoid volvulus, alzheimers dementia presented with abd pain, 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, also noted to have gross hematuria acute recurrent sigmoid volvulus plan for surgery acute hematuria holding eliquis continue dawn gu eval monitot hgb paroxysmal afib complicated by sinus bradycardia holding metoprolol and aricept asymptomatic to yandel holding eliquis monitor hypothryoid synthroid bph proscar hld statin dvt prophylaxis - mechanical due to hematuria full code reason for continued hospitalization:hematuria, plan for surgery Quality Stroke Does the patient have a stroke diagnosis?: No VTE Prior VTE?: No VTE Risk Level:: Medical - moderate - high VTE Device Contraindication: N/A - Device Ordered VTE Drug Contraindication: Treatment Not Indicated
[2024-01-01 09:04] LABS: MANUAL DIFF FLAG NO
[2024-01-01] MEDS: Atorvastatin Calcium 40 MG TABLET PO (09:05)
[2024-01-01] MEDS: Multivitamin TABLET 1 TAB PO (09:05)
[2024-01-01] MEDS: Sertraline HCL 25 MG TABLET PO (09:05)
[2024-01-01] MEDS: Finasteride 5 MG TABLET PO (09:05)
[2024-01-01 09:08] LABS: Basophils Percent Auto 0.2 % (0-2); Eosinophils Percent Auto 0.1 % (0-4); Hemoglobin 13.9 g/dl (14.0-18.0); Imm Gran Abs Auto 0.03 X10*3/uL (0.00-0.03); Imm Gran Pct Auto 0.3 % (0.0-0.4); Lymphocytes Absolute Auto 0.9 X10*3/uL (1.2-4.9); Lymphocytes Percent Auto 8.8 % (20-40); Mean Corpuscular HGB Conc 33.1 g/dl (31.0-36.0); Mean Corpuscular Hemoglobin 29.1 pg (27.0-33.0); Mean Corpuscular Volume 88.1 fL (80.0-98.0); Mean Platelet Volume 11.7 fL (9.4-12.4); Monocytes Percent Auto 8.9 % (2-11); Neutrophils Absolute Auto 8.7 x10*3/uL (2.0-8.3); Neutrophils Percent Auto 81.7 % (45-73); Platelet Count 126 X10*3/uL (160-400); Red Blood Count 4.77 X10*6/uL (4.60-5.80); Red Cell Distribution Width 17.7 % (11.0-16.0); White Blood Count 10.6 X10*3/uL (4.8-10.8)
[2024-01-01 09:20] LABS: Anion Gap 11 (12-20); Blood Urea Nitrogen 15 mg/dL (9-16); Calcium 8.7 mg/dL (8.4-10.2); Carbon Dioxide 25 mmol/L (22-29); Chloride 112 mmol/L (96-108); Creatinine Clr Calc Pharmacy 82.3; Estimated Glomerular Filt Rate > 60; Glucose Random 82 mg/dL (60-115); Potassium 3.5 mmol/L (3.3-5.1); Sodium 144 mmol/L (135-145)
--- NOTE | 2024-01-01 09:44 | P.CONAN_ITS ---
HPI - Anesthesia Eval Consult details Narrative: 83 yo male patient for exploratory laparotomy, sigmoid resection, colostomy PMFSH Active Problems Active Problems: All Active Problems (Updated 01/01/24 @ 09:55 by Carmel Farfan MD) Recurrent Sigmoid volvulus. S/p detorsion 09/2023 and 12/31/2023 Constipation (Acute) Hypothyroid (Acute) Left shoulder pain (Acute) Bilateral shoulder pain (Acute) Dysphagia (Acute) Iron deficiency anemia (Acute) Adult general medical exam (Acute) Tubular adenoma of colon (Acute) Cognitive impairment (Acute) Anemia (Acute) Knee pain, bilateral (Acute) Renal cyst (Acute) Renal stones (Acute) Gross hematuria (Acute) H/o TIA about 4 years ago Hypertension (Acute) Hypercholesterolemia (Acute) BPH (benign prostatic hyperplasia) (Acute) GERD (gastroesophageal reflux disease) (Acute) PVD Past Medical History Medical History Sigmoid volvulus Hypothyroid Volvulus of sigmoid colon Screening for diabetes mellitus Conjunctivitis, left eye Bruise Renal cyst Renal stones Gross hematuria Cerebrovascular accident Small bowel obstruction Hypertension Paroxysmal atrial fibrillation Right renal stone Hypercholesterolemia Idiopathic peripheral autonomic neuropathy BPH (benign prostatic hyperplasia) GERD (gastroesophageal reflux disease) Peripheral vascular disease Low vitamin D level Anemia Family History Family History Father No problems noted. Mother CVD (cardiovascular disease) Family history of problems with anesthesia: No Surgical History Surgical History History of arthroplasty of right hip History of removal of cyst History of knee replacement procedure of right knee History of prostate surgery History of inguinal hernia repair History of Problems with Anesthesia: No Social History Social History Household Members: Family Household Members Other:: son Housing: House Do you presently have visiting nurse or other home services: No Unable to assess alcohol history related to: Unknown Alcohol intake: never Patient Tobacco Use Status: Former Tobacco user Tobacco use type: Cigarette e-Cigarette/Vaping Use: Never Used Second Hand Smoke Exposure: No service: Yes Current occupational status: retired Cognitive needs: No Hearing needs: No Vision needs: Yes (glasses) Meds Allergies Allergy/AdvReac Type Severity Reaction Status Date / Time No Known Allergies Allergy Verified 12/31/23 12:37 [No Known Allergies*] Active Medications: Current Medications Acetaminophen (Acetaminophen 325 Mg Tablet) 650 mg PO Q6H PRN PRN Reason: Pain, Mild (Pain Scale 1-3) Atorvastatin Calcium (Atorvastatin Calcium 40 Mg Tablet) 40 mg PO DAILY [facility] Last Admin: 01/01/24 09:05 Dose: 40 mg Donepezil HCl (Donepezil Hcl 5 Mg Tablet) 5 mg PO BEDTIME [facility] Last Admin: 12/31/23 23:20 Dose: 5 mg Finasteride (Finasteride 5 Mg Tablet) 5 mg PO DAILY [facility] Last Admin: 01/01/24 09:05 Dose: 5 mg Gabapentin (Gabapentin 300 Mg Capsule) 300 mg PO BEDTIME [facility] Last Admin: 12/31/23 23:20 Dose: 300 mg Sodium Chloride (Ns) 1,000 mls @ 100 mls/hr IVCONT .Q10H [facility] Last Admin: 01/01/24 06:23 Dose: Not Given Levothyroxine Sodium (Levothyroxine Sodium 50 Mcg Tablet) 50 mcg PO DAILY@0600 [facility] Last Admin: 01/01/24 06:20 Dose: 50 mcg Multivitamins/Vitamin C (Multivitamin Tablet) 1 tab PO DAILY [facility] Last Admin: 01/01/24 09:05 Dose: 1 tab Ondansetron HCl (Ondansetron Hcl 4 Mg/2 Ml Vial) 4 mg IVPUSH Q8H PRN PRN Reason: Nausea and Vomiting Ondansetron HCl (Ondansetron Hcl 4 Mg/2 Ml Vial) 4 mg IVPUSH ONCE PRN PRN Reason: Nausea and Vomiting Pantoprazole Sodium (Pantoprazole Sodium 40 Mg/10 Ml Vial) 40 mg IVPUSH BID@0630,1630 [facility] Last Admin: 01/01/24 06:20 Dose: 40 mg Polyethylene Glycol (Polyethylene Glycol 3350 17 Gm Powd.Pack) 17 gm PO DAILY PRN PRN Reason: constipation Senna (Sennosides 8.6 Mg Tablet) 17.2 mg PO BEDTIME PRN PRN Reason: Constipation Sertraline HCl (Sertraline Hcl 25 Mg Tablet) 25 mg PO DAILY [facility] Last Admin: 01/01/24 09:05 Dose: 25 mg Sodium Chloride (0.9 % Sodium Chloride Flush 3 Ml Syringe) 3 ml IVFLUSH QSHIFT [facility] Last Admin: 01/01/24 08:20 Dose: Not Given Home Medications Medication Instructions Recorded Confirmed Last Taken Type gabapentin 300 mg capsule 300 mg PO BEDTIME 10/17/20 12/31/23 Unknown History multivitamin 1 tab PO DAILY 10/17/20 12/31/23 Unknown History sertraline 25 mg tablet 25 mg PO DAILY 02/03/23 12/31/23 Unknown History donepezil 5 mg tablet 5 mg PO BEDTIME 10/12/23 12/31/23 Unknown History levothyroxine 50 mcg tablet 50 mcg PO DAILY@0630 10/12/23 12/31/23 Unknown History sennosides 8.6 mg-docusate sodium 2 tab PO BEDTIME 12/31/23 12/31/23 Unknown History 50 mg tablet (Senexon-S) Exam Height,Weight and Vital Signs: Height 6 ft 2 in Weight 81.5 kg Last Vital Signs Temp 97.8 F 01/01/24 07:05 Pulse 39 L 01/01/24 07:05 Resp 18 01/01/24 07:05 BP 119/60 01/01/24 07:05 Pulse Ox 96 01/01/24 07:05 O2 Del Method Room Air 01/01/24 07:05 Temp Pulse Resp BP Pulse Ox O2 Del Method 98.8 F 50 16 106/57 L 95 Room Air 01/01/24 10:20 01/01/24 10:20 01/01/24 10:20 01/01/24 10:20 01/01/24 10:20 01/01/24 10:20 Pertinent Lab Results Pertinent Lab Results: Laboratory Tests 12/31/23 12/31/23 12/31/23 13:26 18:50 18:51 WBC 8.2 RBC 5.61 Hgb 16.4 Hct 49.4 MCV 88.1 MCH 29.2 MCHC 33.2 RDW 17.6 H Plt Count 157 L MPV 11.2 Immature Gran % (Auto) 0.2 Neut % (Auto) 90.4 H Lymph % (Auto) 5.2 L [place] % (Auto) 4.0 Eos % (Auto) 0.0 Baso % (Auto) 0.2 Lymph # (Auto) 0.4 L [place] # (Auto) 0.3 Eos # (Auto) 0.0 Baso # (Auto) 0.0 Abs Immat Gran (auto) 0.02 Absolute Neuts (auto) 7.4 Absolute Nucleated RBC 0.000 Nucleated RBC % (auto) 0.0 Smear Tech's Comments VERIFIED PT 14.5 H INR 1.2 H APTT 33.1 Sodium 144 Potassium 3.8 Chloride 109 H Carbon Dioxide 27 Anion Gap 12 BUN 19 H Creatinine 1.09 Estim Creat Clear Calc 58.1 Estimated GFR > 60 Random Glucose 145 H Calcium 9.6 D Total Bilirubin 1.1 H Direct Bilirubin 0.5 AST 33 ALT 28 Alkaline Phosphatase 96 Troponin I High Sens 2.7 Total Protein 7.6 Albumin 4.3 Lipase 9 Urine Color Red A Urine Appearance Turbid Urine pH PHYSICIAN OFFICE NURSE Ur Specific [place] PHYSICIAN OFFICE NURSE Urine Protein See Note Urine Glucose (UA) See Note Urine Ketones See Note Urine Blood See Note Urine Nitrite See Note Ur Leukocyte Esterase See Note Urine RBC >20 H Urine WBC 0-5 Ur Squamous Epith Cells 0-2 Urine Bacteria None Seen Hyaline Casts 0-2 COVID-19 ([place]) Negative COVID-19 Clin Com See Note Blood Type O Negative Antibody Screen NEGATIVE 12/31/23 01/01/24 20:42 08:07 WBC 7.9 10.6 RBC 4.76 4.77 Hgb 13.8 L 13.9 L Hct 42.2 42.0 MCV 88.7 88.1 MCH 29.0 29.1 MCHC 32.7 33.1 RDW 17.5 H 17.7 H Plt Count 131 L 126 L MPV 10.6 11.7 Immature Gran % (Auto) 0.4 0.3 Neut % (Auto) 84.8 H 81.7 H Lymph % (Auto) 9.1 L 8.8 L [place] % (Auto) 5.7 8.9 Eos % (Auto) 0.0 0.1 Baso % (Auto) 0.0 0.2 Lymph # (Auto) 0.7 L 0.9 L [place] # (Auto) 0.5 1.0 Eos # (Auto) 0.0 0.0 Baso # (Auto) 0.0 0.0 Abs Immat Gran (auto) 0.03 0.03 Absolute Neuts (auto) 6.7 8.7 H Absolute Nucleated RBC 0.000 0.000 Nucleated RBC % (auto) 0.0 0.0 Smear Tech's Comments PT INR APTT Sodium 144 Potassium 3.5 Chloride 112 H Carbon Dioxide 25 Anion Gap 11 L BUN 15 Creatinine 0.77 Estim Creat Clear Calc 82.3 Estimated GFR > 60 Random Glucose 82 Calcium 8.7 D Total Bilirubin Direct Bilirubin AST ALT Alkaline Phosphatase Troponin I High Sens Total Protein Albumin Lipase Urine Color Urine Appearance Urine pH Ur Specific [place] Urine Protein Urine Glucose (UA) Urine Ketones Urine Blood Urine Nitrite Ur Leukocyte Esterase Urine RBC Urine WBC Ur Squamous Epith Cells Urine Bacteria Hyaline Casts COVID-19 ([facility]) COVID-19 Clin Com Blood Type Antibody Screen Airway Mallampati Class: II TM Dist: >3cm Neck ROM: Full Loose/Missing/Broken Teeth: Yes (Denies broken or loose teeth) Heart: RRR Lungs: CTAB Assessment and Plan Assessment Anesthesia Assessment: Anesthesia Plan Discussed and Chart Reviewed Final Anesthetic Review Family History of Problems with Anesthesia: No History of Problems with Anesthesia: No NPO: Yes ASA Class: III and Emergency Final Preanesthetic Review: No Changes in Pt Med Stat, Meds/Allgs Chart Reviewed, Consent Obtained/Reviewed and Anes Risks/Benef Reviewed Patient Risk: Intermediate Procedure Risk: Intermediate Assessment/Block/Sedation in SS: Assess/Block/Sedation-SS Anesthetic Plan Anesthetic Plan: GA Disposition: Standard PACU and Inp. Admit - Standard Bed
--- NOTE | 2024-01-01 10:15 | PM.UROCN ---
History of Present Illness Consult details Consult date: 01/01/24 Requesting physician: Nestor Cummings Narrative: 83 yo male with history of hypertension, paroxysmal atrial fibrillation on apixaban, CVA, GERD, BPH, hypothyroid, anemia, constipation, volvulus who presents emergency department for evaluation of abdominal pain and distention. The patient states he has had abdominal distention and bloating for approximately 1 week. He states his last bowel movement was 1 week prior. The patient has been followed by Dr. Mariscal for BPH and is on proscar, last visit 09/2023. 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 Patient is also on blood thinner. The patient is reported to have had gross hematuria after dawn insertion. CTAP: KIDNEYS AND URETERS: The kidneys are normal in size, shape, and attenuation. No hydronephrosis, hydroureter, or calculi seen. Small bilateral renal no imaging follow-up recommended. No perinephric stranding. BLADDER: Unremarkable. Review of Systems Review of Systems: 10 point ROS negative other than stated in [facility] Past Medical History Medical History Sigmoid volvulus Hypothyroid Volvulus of sigmoid colon Screening for diabetes mellitus Conjunctivitis, left eye Bruise Renal cyst Renal stones Gross hematuria Cerebrovascular accident Small bowel obstruction Hypertension Paroxysmal atrial fibrillation Right renal stone Hypercholesterolemia Idiopathic peripheral autonomic neuropathy BPH (benign prostatic hyperplasia) GERD (gastroesophageal reflux disease) Peripheral vascular disease Low vitamin D level Anemia Family History Family History Father No problems noted. Mother CVD (cardiovascular disease) Surgical History Surgical History History of arthroplasty of right hip History of removal of cyst History of knee replacement procedure of right knee History of prostate surgery History of inguinal hernia repair Social History Social History Household Members: Family Household Members Other:: son Housing: House Do you presently have visiting nurse or other home services: No Unable to assess alcohol history related to: Unknown Alcohol intake: never Patient Tobacco Use Status: Former Tobacco user Tobacco use type: Cigarette e-Cigarette/Vaping Use: Never Used Second Hand Smoke Exposure: No service: Yes Current occupational status: retired Cognitive needs: No Hearing needs: No Vision needs: Yes (glasses) Meds Allergies Allergy/AdvReac Type Severity Reaction Status Date / Time No Known Allergies Allergy Verified 12/31/23 12:37 [No Known Allergies*] Active Medications: Current Medications Acetaminophen (Acetaminophen 325 Mg Tablet) 650 mg PO Q6H PRN PRN Reason: Pain, Mild (Pain Scale 1-3) Atorvastatin Calcium (Atorvastatin Calcium 40 Mg Tablet) 40 mg PO DAILY COUNT INCLUDES THE [facility] Last Admin: 01/01/24 09:05 Dose: 40 mg Donepezil HCl (Donepezil Hcl 5 Mg Tablet) 5 mg PO BEDTIME COUNT INCLUDES THE [facility] Last Admin: 12/31/23 23:20 Dose: 5 mg Finasteride (Finasteride 5 Mg Tablet) 5 mg PO DAILY COUNT INCLUDES THE [facility] Last Admin: 01/01/24 09:05 Dose: 5 mg Gabapentin (Gabapentin 300 Mg Capsule) 300 mg PO BEDTIME COUNT INCLUDES THE [facility] Last Admin: 12/31/23 23:20 Dose: 300 mg Sodium Chloride (Ns) 1,000 mls @ 100 mls/hr IVCONT .Q10H COUNT INCLUDES THE [facility] Last Admin: 01/01/24 06:23 Dose: Not Given Prothrombin Complex Concent ( Human) 2,000 unit/ IV Miscellaneous Supplies 80 mls @ 480 mls/hr IV .Q10M ONE Stop: 01/01/24 10:23 Levothyroxine Sodium (Levothyroxine Sodium 50 Mcg Tablet) 50 mcg PO DAILY@0600 COUNT INCLUDES THE [facility] Last Admin: 01/01/24 06:20 Dose: 50 mcg Multivitamins/Vitamin C (Multivitamin Tablet) 1 tab PO DAILY COUNT INCLUDES THE [facility] Last Admin: 01/01/24 09:05 Dose: 1 tab Ondansetron HCl (Ondansetron Hcl 4 Mg/2 Ml Vial) 4 mg IVPUSH Q8H PRN PRN Reason: Nausea and Vomiting Ondansetron HCl (Ondansetron Hcl 4 Mg/2 Ml Vial) 4 mg IVPUSH ONCE PRN PRN Reason: Nausea and Vomiting Pantoprazole Sodium (Pantoprazole Sodium 40 Mg/10 Ml Vial) 40 mg IVPUSH BID@0630,1630 COUNT INCLUDES THE [facility] Last Admin: 01/01/24 06:20 Dose: 40 mg Polyethylene Glycol (Polyethylene Glycol 3350 17 Gm Powd.Pack) 17 gm PO DAILY PRN PRN Reason: constipation Senna (Sennosides 8.6 Mg Tablet) 17.2 mg PO BEDTIME PRN PRN Reason: Constipation Sertraline HCl (Sertraline Hcl 25 Mg Tablet) 25 mg PO DAILY COUNT INCLUDES THE [facility] Last Admin: 01/01/24 09:05 Dose: 25 mg Sodium Chloride (0.9 % Sodium Chloride Flush 3 Ml Syringe) 3 ml IVFLUSH QSHIFT COUNT INCLUDES THE [facility] Last Admin: 01/01/24 08:20 Dose: Not Given Home Medications Medication Instructions Recorded Confirmed Last Taken Type gabapentin 300 mg capsule 300 mg PO BEDTIME 10/17/20 12/31/23 Unknown History multivitamin 1 tab PO DAILY 10/17/20 12/31/23 Unknown History sertraline 25 mg tablet 25 mg PO DAILY 02/03/23 12/31/23 Unknown History donepezil 5 mg tablet 5 mg PO BEDTIME 10/12/23 12/31/23 Unknown History levothyroxine 50 mcg tablet 50 mcg PO DAILY@0630 10/12/23 12/31/23 Unknown History sennosides 8.6 mg-docusate sodium 2 tab PO BEDTIME 12/31/23 12/31/23 Unknown History 50 mg tablet (Senexon-S) Physical Exam Vital Signs: Vital Signs: Last Vital Signs Temp 97.8 F 01/01/24 07:05 Pulse 39 L 01/01/24 07:05 Resp 18 01/01/24 07:05 BP 119/60 01/01/24 07:05 Pulse Ox 96 01/01/24 07:05 O2 Del Method Room Air 01/01/24 07:05 BMI result Body Mass Index 23.1 Const: General: healthy appearing, no acute distress and well developed Orientation/consciousness: patient oriented x3 HEENT: Head: Yes normocephalic and Yes atraumatic Eyes: Conjunctivae: conjunctivae normal Neck: Neck: Yes normal visual inspection Chest: Chest palpation & inspection: normal inspection of the chest Resp: Effort & Inspection: normal respiratory effort GI: Inspection: Yes normal to inspection Palpation (GI): Soft to palpation : Other: dawn in place, gross hematuria no clots Penis: normal penis Scrotum: scrotum normal Skin: General skin exam: no rashes or lesions noted Neuro: General: patient oriented x3 Extrem: General: No pedal edema Psych: Appearance: grossly normal Affect: normal affect Results Labs 01/01/24 08:07 01/01/24 08:07 Labs: Abnormal lab results 12/31/23 12/31/23 12/31/23 Range/Units 13:26 18:50 20:42 Hgb 13.8 L (14.0-18.0) g/dl RDW 17.6 H 17.5 H (11.0-16.0) % Plt Count 157 L 131 L (160-400) X10*3/uL Neut % (Auto) 90.4 H 84.8 H (45-73) % Lymph % (Auto) 5.2 L 9.1 L (20-40) % Lymph # (Auto) 0.4 L 0.7 L (1.2-4.9) X10*3/uL Absolute Neuts (auto) (2.0-8.3) x10*3/uL PT 14.5 H (11.1-13.3) SEC INR 1.2 H (0.9-1.1) Chloride 109 H (96-108) mmol/L Anion Gap (12-20) BUN 19 H (9-16) mg/dL Random Glucose 145 H (60-115) mg/dL Total Bilirubin 1.1 H (0.0-1.0) mg/dL Urine Color Red A Urine RBC >20 H (0-2) /HPF 01/01/24 Range/Units 08:07 Hgb 13.9 L (14.0-18.0) g/dl RDW 17.7 H (11.0-16.0) % Plt Count 126 L (160-400) X10*3/uL Neut % (Auto) 81.7 H (45-73) % Lymph % (Auto) 8.8 L (20-40) % Lymph # (Auto) 0.9 L (1.2-4.9) X10*3/uL Absolute Neuts (auto) 8.7 H (2.0-8.3) x10*3/uL PT (11.1-13.3) SEC INR (0.9-1.1) Chloride 112 H (96-108) mmol/L Anion Gap 11 L (12-20) BUN (9-16) mg/dL Random Glucose (60-115) mg/dL Total Bilirubin (0.0-1.0) mg/dL Urine Color Urine RBC (0-2) /HPF Short CBC 12/31/23 12/31/23 01/01/24 Range/Units 13:26 20:42 08:07 WBC 8.2 7.9 10.6 (4.8-10.8) X10*3/uL Hgb 16.4 13.8 L 13.9 L (14.0-18.0) g/dl Hct 49.4 42.2 42.0 (42.0-52.0) % Plt Count 157 L 131 L 126 L (160-400) X10*3/uL BMP 12/31/23 01/01/24 13:26 08:07 Sodium 144 144 Potassium 3.8 3.5 Chloride 109 H 112 H Carbon Dioxide 27 25 BUN 19 H 15 Creatinine 1.09 0.77 Calcium 9.6 D 8.7 D Liver Function 12/31/23 Range/Units 13:26 Total Bilirubin 1.1 H (0.0-1.0) mg/dL Direct Bilirubin 0.5 (0.0-0.5) mg/dL AST 33 (5-37) U/L ALT 28 (0-40) U/L Alkaline Phosphatase 96 (39-117) U/L Albumin 4.3 (3.5-5.0) g/dL Urine 12/31/23 Range/Units 18:50 Urine Color Red A Urine Appearance Turbid Urine pH CARDIAC NURSE PRACTITIONER Ur Specific [place] CARDIAC NURSE PRACTITIONER Urine Protein See Note (Neg-Trace) mg/dL Urine Glucose (UA) See Note (Negative) mg/dL Imaging Abdomen CT scan report/results: report reviewed and image reviewed CT scan - pelvis: report reviewed and image reviewed Additional studies: Date of Service: 12/31/23 EXAMINATION: CT ABDOMEN AND PELVIS WITH CONTRAST CLINICAL INFORMATION: Abdominal pain and distention. History of volvulus. COMPARISON: Previous CT of the abdomen and pelvis most recent September 2020 TECHNIQUE: Multidetector volumetric images were obtained from the superior aspect of the liver through the pubic symphysis following administration 85 mL of Omnipaque 350 intravenous contrast. Sagittal and coronal reformatted images were obtained on the technologist's workstation. Oral contrast: Yes This CT examination was performed using dose optimization techniques as appropriate, variously including the following: *Automated exposure control *Adjustment of mA and/or kV according to patient size (this includes techniques or standardized protocols for targeted exams where dose is matched to indication/reason for exam; i.e. extremities or head) *Use of iterative reconstruction technique DLP: 653 mGy-cm FINDINGS: LUNG BASES: The visualized lung bases are unremarkable. LIVER, GALLBLADDER, AND BILIARY TREE: The liver is normal in size, shape, and attenuation. No focal hepatic lesion. There is mild intrahepatic biliary duct dilatation. The gallbladder is not seen and has presumably been removed. PANCREAS: Unremarkable. SPLEEN: Small splenic calcifications likely related to old granulomatous ADRENAL GLANDS: Unremarkable. KIDNEYS AND URETERS: The kidneys are normal in size, shape, and attenuation. No hydronephrosis, hydroureter, or calculi seen. Small bilateral renal no imaging follow-up recommended. No perinephric stranding. BLADDER: Unremarkable. GASTROINTESTINAL TRACT: There is a sigmoid volvulus with swirling edematous change of the adjacent bowel mesentery. More proximal colon is dilated and filled suggestive of secondary obstruction. Small bowel nondilated. Appendix not seen. There may be a small esophageal hernia. Trace ascites ABDOMINAL WALL: No significant hernia is appreciated. LYMPH NODES: Normal. VASCULAR: Atherosclerotic disease. No aneurysm. PELVIC VISCERA: Prostate gland enlarged OSSEOUS STRUCTURES: Degenerative changes of the spine lordosis. Right hip replacement. Degenerative changes of the left. IMPRESSION: Sigmoid volvulus and secondary large bowel obstruction. Small bowel does not appear dilated. Enlarged prostate gland. Atherosclerotic disease. Mild intrahepatic biliary duct dilatation. Extrahepatic bile ducts do not appear dilated and no mass is seen. This could be better evaluated with MR of liver with MRCP. Fleischner guidelines were followed. Assessment and Plan (1) BPH (benign prostatic hyperplasia): Status: Acute (2) Gross hematuria: Status: Acute (3) Prostate varices: Status: Acute Plan No contraindication for General surgery procedure While under anesthesia, cystoscopy fulguration, evaluate and evacuate blood clots as needed discussed with the patient. Consent obtained. Procedures Date of Service Date of Service: 01/01/24
--- NOTE | 2024-01-01 10:30 | PC.NURSE ---
Patient in preop. Last dose of eliquis was yesterday morning at around 9am per patient as he took his meds before coming to the ED. Dr. Cummings and Dr. Naheed goode.
--- NOTE | 2024-01-01 10:44 | PM.EVENT ---
Event Note Date of Service: 01/01/24 Event Note: pt seen by Urology for kushal hematuria - cystoscopy after sigmoid resection planned nurse reported that last dose of Eliquis was yesterday morning - will give Kcentra Colonoscopic detorsion last night seen - it appears that the sigmoid seemed to re-volvulize while the scope was being withdrawn at level 20 cm pt says he understands the planned procedure as well as the risks involved I reviewed the above with his daughter Katerina at [phone] and son Dawood who is at bedside they state that they understand the plan well they understand the risks of bleeding, infections, CVA, MS, bloodclots, pneumonia They understand that he has mutiple comorbid conditions which impact his perioperative risks Time Spent With Patient Time: Total time managing care of this patient today ____ minutes.
[2024-01-01] MEDS: Hum Prothrombin Cplx(PCC)4Fact 2,000 UNIT in Container,Empty 0 ML 480 UNIT IV (10:46)
--- NOTE | 2024-01-01 12:08 | HO.POSTANES ---
Post Anesthesia Evaluation Post Anesthesia Evaluation Date of Service: 01/01/24 Vital Signs: Vital Signs Temp Pulse Resp BP Pulse Ox O2 Del Method 01/01/24 10:20 98.8 F 50 16 106/57 L 95 Room Air 01/01/24 07:05 97.8 F 39 L 18 119/60 96 Room Air 01/01/24 03:11 98.6 F 46 L 18 101/55 L 96 Room Air Anesthesia: Monitored Mental Status: Awake Pain Control: Satisfactory (Uncomfortable in lower abdomen ) Nausea/Vomiting: None Hydration: Adequate Anesthesia-Related Issues: No Anes. Related Issues
--- NOTE | 2024-01-01 12:24 | P.OP_ITS ---
Operative Note Operative Note Date of Service: 01/01/24 Narrative: Preop diagnosis: Sigmoid volvulus Postop diagnosis: Sigmoid volvulus Procedure: Laparotomy via low midline incision, sigmoid resection, end colostomy Surgeon: Nestor Cummings MD executive sales assistant: ABDIAZIZ Mojica The patient is an 83-year-old male was had recurrent sigmoid volvulus and actually was admitted last night because of another episode. He underwent successful colonoscopic detorsion and decompression with Dr. Castellon. I then schedule him for sigmoid resection today with end-colostomy. He understood the technique of the procedure as well as the risks, benefits, and alternatives. His family was involved with the decision making He was brought to the operating room. He was placed supine under general anesthesia via endotracheal tube. The abdomen was prepped and draped in the usual sterile fashion. A surgical time-out was done. The patient received Cefotan 2 g IV preoperatively. The patient already had a catheter was of his gross hematuria I made the short low midline incision using a blade 15. This was carried down through the full-thickness of the skin subcutaneous fat down to the fascia. The fascia was incised. The peritoneum was entered. Hunter retractors were applied on the abdominal wall. Immediately, we noted the very distended sigmoid. This was actually still volvulized. I gradually placed my left hand under and the entire mobilize long segment of sigmoid and by doing so, as able to lift this entire segment up into the field. This was a very long redundant sigmoid. It was still twisted so I had to detorse this. This entire segment was very edematous. The accompanying mesentery was very edematous as well. I chose my point of transection proximal distal. I chose the distal sigmoid as my point of transection so we did not have to do anymore mobilization of the rectosigmoid. I incised the peritoneum and created a mesenteric window. This part of the colon was actually very edematous with distension as well so I used the MARIELENA 80 mm stapler. I positioned the MARIELENA 80 mm stapler across this and this was fired to transect the distal sigmoid. I chose my point point of transection in the proximal sigmoid as well. I created a mesenteric of the window and this was transected using a MARIELENA 60 mm stapler. I marked the planned line of transection along the accompanying mesentery with electrocautery. I used the LigaSure to divide across the mesentery all the way until the entire long segment was completely transected. This measured more than 2 ft approximately. I chose the location of the stoma opening on the left lower quadrant avoiding any skin creases. I excised a discoid piece of skin. I carried down the incision through the subcutaneous fat and incised the anterior rectus sheath. I used muscle-splitting and divided the posterior sheath. I dilated this stoma opening to accommodate 3 fingers. I pulled up the proximal sigmoid through the stoma opening using a Kwabena. I had to mobilize more of the proximal sigmoid by dividing its attachments along the white line of Toldt in the left pelvis. I made sure that there was no twisting of this stoma limb. I then proceeded to examine the pelvis in the area of dissection. There was note of good hemostasis along the divided mesentery as well as the staple lines. There was 1 point of the staple line at the rectosigmoid pouch that had some oozing so I placed a [id number] stitch on this area for hemostasis Once hemostasis was confirmed, I proceeded then irrigate. I suctioned out the irrigant fluid. Again we continue to observe and there was no bleeding seen. There was no evidence of any bowel injury and the surrounding small bowel loops I then proceeded to close the fascia with running Maxon 1 stitch Skin closure was achieved with skin hamilton I then proceeded to mature the colostomy. The stoma limb appeared viable and well vascularized. I excised the staple line with electrocautery. I applied a circumferential row of Polysorb 3-0 sutures to the thickness of the wall of the colon to the subdermal layer. Multiple sutures were placed I then inserted my finger through the stoma and I was able to go past the fascial level without any difficulty confirming patency The area was infiltrated with Marcaine 0.5% for postop analgesia. The stoma appliance was positioned. Dressings were applied. The procedure was completed The patient tolerated procedure well. There were no immediate complications. Initial and final counts of sponges and instruments were correct. Estimated blood loss was about 75 cc. The patient was then positioned for the cystoscopy to be done by Dr. Eve Bearden in view of his kushal hematuria. That procedure will be dictated separately.
--- NOTE | 2024-01-01 13:29 | W.PM.OPN ---
Operative Note Operative Note Date of Service: 01/01/24 Narrative: PREOP DIAGNOSIS: GROSS HEMATURIA POSTOP DIAGNOSIS: GROSS HEMATURIA, PROSTATIC VARICES PROCEDURE: CYSTOSCOPY EVACUATION BLADDER CLOTS, FULGURATION SURGEON: Jose Nelson MD ANESTHESIA: General Findings: Bladder- no suspicious lesions, bleeding at the prostate near the bladder neck, Details of procedure: The patient was brought into the operating room and had a sigmoid resection and colostomy with Dr. Cummings which will be dictated separately. The patient was stable and under anesthesia, he was repositioned into lithotomy position, prepped and draped in the usual sterile fashion. Time-out was done per protocol. Antibiotics were administered previously and was verified. The 22 fr cystoscope was passed under direct visualization. The bulbous urethra was within normal limits. The prostatic urethra was noted to have trilobar enlargement with brisk bleeding noted at the right lateral lobe of the prostate near the bladder neck and minimal bleeding/oozing at the 6 'oclock position of the bladder neck. The bladder had clots. The Ellik evacuator was used to irrigate out significant clot material. The 24 fr resectoscope was then passed under direct visualization. The roller ball attachement was used to fulgurate the bleeding areas. A [address] catheter 30 cc balloon was passed without difficulty. CBI was started in the OR with normal saline. The patient was brought out of anesthesia and taken to recovery in stable condition. Complications: None Drains: [address] catheter 40 mL sterile water placed into the balloon, dawn placed on minimal tension in the OR.
--- NOTE | 2024-01-01 13:36 | MHC.CM.PN ---
IMM 01/01. Pt self-care, lives at home with his son. Pts son will transport him home. Pt would like a HCP made, started filling one out, but pt needed to get his daughters number and address, will revisit pt after his procedure to finish filling HCP out with him. PCP: Dr. Esquivel Po
[2024-01-01] MEDS: HYDROmorphone HCl 0.5 MG/0.5 ML SYRINGE IVPUSH (14:35)
[2024-01-01] MEDS: 0.9 % Sodium Chloride 1,000 ML 100 ML IVCONT (15:37)
--- NOTE | 2024-01-01 16:32 | PM.EVENT ---
Event Note Date of Service: 01/02/24 Event Note: s/p sigmoid resection, colostomy seen postop seems to have good pain control stoma viable urine output clear - had cystoscopy as well CBI running pain mgt family updated Time Spent With Patient Time: Total time managing care of this patient today ____ minutes.
[2024-01-01] MEDS: Acetaminophen 1,000 MG/100 ML PIGGYBACK 400 MG IV (18:02)
[2024-01-01] MEDS: Donepezil HCl 5 MG TABLET PO (20:27)
[2024-01-01] MEDS: Gabapentin 300 MG CAPSULE PO (20:28)
[2024-01-01] MEDS: oxyCODONE HCl Immed Release 5 MG TABLET 10 MG PO (20:34)
[2024-01-02] VITALS (7 sets, daily range): BP systolic 94–165; BP diastolic 51–81; PULSE 53–76; RESP 14–19; TEMP 35.8–36.8; O2SAT 96–99
[2024-01-02] MEDS: Acetaminophen 1,000 MG/100 ML PIGGYBACK 400 MG IV (02:09)
[2024-01-02] MEDS: 0.9 % Sodium Chloride 1,000 ML 100 ML IVCONT ×2 (02:09→12:19)
[2024-01-02 06:24] LABS: Hematocrit 39.8 % (42.0-52.0); Hemoglobin 13.4 g/dl (14.0-18.0); Mean Corpuscular HGB Conc 33.7 g/dl (31.0-36.0); Mean Corpuscular Hemoglobin 29.3 pg (27.0-33.0); Mean Corpuscular Volume 87.1 fL (80.0-98.0); Mean Platelet Volume 11.6 fL (9.4-12.4); Platelet Count 117 X10*3/uL (160-400); Red Blood Count 4.57 X10*6/uL (4.60-5.80); Red Cell Distribution Width 17.6 % (11.0-16.0); White Blood Count 10.8 X10*3/uL (4.8-10.8)
[2024-01-02 06:28] LABS: Anion Gap 9 (12-20); Blood Urea Nitrogen 14 mg/dL (9-16); Carbon Dioxide 26 mmol/L (22-29); Chloride 109 mmol/L (96-108); Creatinine Clr Calc Pharmacy 85.6; Estimated Glomerular Filt Rate > 60; Glucose Fasting 101 mg/dL (60-99); Potassium 3.7 mmol/L (3.3-5.1); Sodium 140 mmol/L (135-145)
[2024-01-02] MEDS: Pantoprazole Sodium 40 MG/10 ML VIAL IVPUSH ×2 (06:28→15:56)
[2024-01-02] MEDS: Levothyroxine Sodium 50 MCG TABLET PO (06:28)
[2024-01-02] MEDS: Atorvastatin Calcium 40 MG TABLET PO (07:49)
[2024-01-02] MEDS: Finasteride 5 MG TABLET PO (07:49)
[2024-01-02] MEDS: Multivitamin TABLET 1 TAB PO (07:49)
[2024-01-02] MEDS: Sertraline HCL 25 MG TABLET PO (07:49)
[2024-01-02] MEDS: 0.9 % Sodium Chloride Flush 3 ML SYRINGE IVFLUSH ×3 (07:50→20:08)
--- NOTE | 2024-01-02 08:15 | P.PNUR_ITS ---
Subjective Subjective Date of Service: 01/02/24 Patient reports: no new complaints Interval history: s/p cysto evacuation of blood clots fulguration of bleeding varices, prostate urine clear, CBI stopped this AM Physical Exam 2 Vital Signs: Vital Signs: Last Vital Signs Temp 96.5 F L 01/02/24 07:00 Pulse 53 01/02/24 07:00 Resp 18 01/02/24 07:00 BP 119/58 L 01/02/24 07:00 Pulse Ox 96 01/02/24 07:00 O2 Del Method Room Air 01/02/24 07:00 O2 Flow Rate 5 01/01/24 14:31 BMI result Body Mass Index 23.1 Urology Results Labs 01/02/24 05:41 01/02/24 05:41 Labs: Laboratory Results - last 24 hr 01/01/24 01/02/24 08:07 05:41 WBC 10.6 10.8 RBC 4.77 4.57 L Hgb 13.9 L 13.4 L Hct 42.0 39.8 L MCV 88.1 87.1 MCH 29.1 29.3 MCHC 33.1 33.7 RDW 17.7 H 17.6 H Plt Count 126 L 117 L MPV 11.7 11.6 Immature Gran % (Auto) 0.3 Neut % (Auto) 81.7 H Lymph % (Auto) 8.8 L [place] % (Auto) 8.9 Eos % (Auto) 0.1 Baso % (Auto) 0.2 Lymph # (Auto) 0.9 L [place] # (Auto) 1.0 Eos # (Auto) 0.0 Baso # (Auto) 0.0 Abs Immat Gran (auto) 0.03 Absolute Neuts (auto) 8.7 H Absolute Nucleated RBC 0.000 0.000 Nucleated RBC % (auto) 0.0 0.0 Sodium 144 140 Potassium 3.5 3.7 Chloride 112 H 109 H Carbon Dioxide 25 26 Anion Gap 11 L 9 L BUN 15 14 Creatinine 0.77 0.74 Estim Creat Clear Calc 82.3 85.6 Estimated GFR > 60 > 60 Random Glucose 82 Fasting Glucose 101 H Calcium 8.7 D 8.0 L D Progress Note: A&P Assessment and plan (1) Prostate varices: Status: Acute (2) BPH (benign prostatic hyperplasia): Status: Acute (3) Gross hematuria: Status: Acute Plan Hematuria resolved D/C CBI pt is on proscar. Recommend add flomax 0.4 mg daily recommend voiding trial tomorrow I spoke with the pt's son and daughter this morning regarding urology plan Time Spent With Patient Time: Total time managing care of this patient today ____ minutes. Progress Note: Quality Stroke Does the patient have a stroke diagnosis?: No
--- NOTE | 2024-01-02 08:25 | PM.PNGS ---
Subjective Subjective Date of Service: 01/02/24 <Hattie Mojica PA-C - Last Filed: 01/02/24 08:29> 01/02/24 <Nestor Cummings MD - Last Filed: 01/02/24 09:59> Interval history: Feels ok. Sore at incision site. Tolerating sips of water. Has not been OOB yet. <Hattie Mojica PA-C - Last Filed: 01/02/24 08:29> Physical Exam Vital Signs: Vital Signs: Last Vital Signs Temp 96.5 F L 01/02/24 07:00 Pulse 53 01/02/24 07:00 Resp 18 01/02/24 07:00 BP 119/58 L 01/02/24 07:00 Pulse Ox 96 01/02/24 07:00 O2 Del Method Room Air 01/02/24 07:00 O2 Flow Rate 5 01/01/24 14:31 BMI result Body Mass Index 23.1 <Hattie Mojica PA-C - Last Filed: 01/02/24 08:29> Const: General: comfortable, no acute distress and alert <Hattie Mojica PA-C - Last Filed: 01/02/24 08:29> Orientation/consciousness: patient oriented x3 <Hattie Mojica PA-C - Last Filed: 01/02/24 08:29> Resp: Effort & Inspection: normal respiratory effort <Hattie Mojica PA-C - Last Filed: 01/02/24 08:29> GI: Other: ostomy pink <Hattie Mojica PA-C - Last Filed: 01/02/24 08:29> Inspection: No distended and Yes incision (dressing c/d/i) <SUMI Prakash Last Filed: 01/02/24 08:29> Palpation (GI): Soft to palpation, Tenderness to palpation present (GI) (mild incisional), no guarding and not rigid <SUMI Prakash Last Filed: 01/02/24 08:29> : Other: CBI in place, urine straw colored <SUMI Prakash Last Filed: 01/02/24 08:29> Skin: General skin exam: no rashes or lesions noted and no jaundice <Hattie Mojica PA-C - Last Filed: 01/02/24 08:29> Neuro: General: patient oriented x3 and moves all extremities <Hattie Mojica PA-C - Last Filed: 01/02/24 08:29> Objective Data Active Medications Acetaminophen (Acetaminophen 325 Mg Tablet) 650 mg PO Q6H PRN PRN Reason: Pain, Mild (Pain Scale 1-3) Atorvastatin Calcium (Atorvastatin Calcium 40 Mg Tablet) 40 mg PO DAILY [facility] Last Admin: 01/02/24 07:49 Dose: 40 mg Documented By: COREY Donepezil HCl (Donepezil Hcl 5 Mg Tablet) 5 mg PO BEDTIME [facility] Last Admin: 01/01/24 20:27 Dose: 5 mg Documented By: YAYO Finasteride (Finasteride 5 Mg Tablet) 5 mg PO DAILY [facility] Last Admin: 01/02/24 07:49 Dose: 5 mg Documented By: COREY Gabapentin (Gabapentin 300 Mg Capsule) 300 mg PO BEDTIME [facility] Last Admin: 01/01/24 20:28 Dose: 300 mg Documented By: YAYO Hydromorphone HCl (Hydromorphone Hcl 0.5 Mg/0.5 Ml Syringe) 0.5 mg IVPUSH Q5M PRN; Protocol PRN Reason: Pain, Severe (Pain Scale 7-10) Last Admin: 01/01/24 14:35 Dose: 0.5 mg Documented By: ILIANA Sodium Chloride (Ns) 1,000 mls @ 100 mls/hr IVCONT .Q10H [facility] Last Admin: 01/02/24 02:09 Dose: 100 mls/hr Documented By: YAYO Levothyroxine Sodium (Levothyroxine Sodium 50 Mcg Tablet) 50 mcg PO DAILY@0600 [facility] Last Admin: 01/02/24 06:28 Dose: 50 mcg Documented By: RAMÍREZ Morphine Sulfate (Morphine Sulfate 4 Mg/Ml Cartridge) 3 mg IVPUSH Q3H PRN; Protocol PRN Reason: Pain, Severe (Pain Scale 7-10) Multivitamins/Vitamin C (Multivitamin Tablet) 1 tab PO DAILY [facility] Last Admin: 01/02/24 07:49 Dose: 1 tab Documented By: COREY Ondansetron HCl (Ondansetron Hcl 4 Mg/2 Ml Vial) 4 mg IVPUSH Q8H PRN PRN Reason: Nausea and Vomiting Ondansetron HCl (Ondansetron Hcl 4 Mg/2 Ml Vial) 4 mg IVPUSH ONCE PRN PRN Reason: Nausea and Vomiting Oxycodone HCl (Oxycodone Hcl Immed Release 5 Mg Tablet) 10 mg PO Q4H PRN PRN Reason: Pain, Moderate(Pain Scale 4-6) Last Admin: 01/01/24 20:34 Dose: 10 mg Documented By: YAYO Pantoprazole Sodium (Pantoprazole Sodium 40 Mg/10 Ml Vial) 40 mg IVPUSH BID@0630,1630 [facility] Last Admin: 01/02/24 06:28 Dose: 40 mg Documented By: RAMÍREZ Polyethylene Glycol (Polyethylene Glycol 3350 17 Gm Powd.Pack) 17 gm PO DAILY PRN PRN Reason: constipation Senna (Sennosides 8.6 Mg Tablet) 17.2 mg PO BEDTIME PRN PRN Reason: Constipation Sertraline HCl (Sertraline Hcl 25 Mg Tablet) 25 mg PO DAILY [facility] Last Admin: 01/02/24 07:49 Dose: 25 mg Documented By: COREY Sodium Chloride (0.9 % Sodium Chloride Flush 3 Ml Syringe) 3 ml IVFLUSH QSHIFT [facility] Last Admin: 01/02/24 07:50 Dose: 3 ml Documented By: COREY <Hattie Mojica PA-C - Last Filed: 01/02/24 08:29> Labs CBC & Chem 7: 01/02/24 05:41 01/02/24 05:41 <Hattie Mojica PA-C - Last Filed: 01/02/24 08:29> Labs: Laboratory Results - last 24 hr 01/01/24 01/02/24 08:07 05:41 MCV 88.1 87.1 MCH 29.1 29.3 MCHC 33.1 33.7 RDW 17.7 H 17.6 H Plt Count 126 L 117 L MPV 11.7 11.6 Immature Gran % (Auto) 0.3 Neut % (Auto) 81.7 H Lymph % (Auto) 8.8 L [place] % (Auto) 8.9 Eos % (Auto) 0.1 Baso % (Auto) 0.2 Lymph # (Auto) 0.9 L [place] # (Auto) 1.0 Eos # (Auto) 0.0 Baso # (Auto) 0.0 Abs Immat Gran (auto) 0.03 Absolute Neuts (auto) 8.7 H Absolute Nucleated RBC 0.000 0.000 Nucleated RBC % (auto) 0.0 0.0 Anion Gap 11 L 9 L Estim Creat Clear Calc 82.3 85.6 Estimated GFR > 60 > 60 Random Glucose 82 Fasting Glucose 101 H Calcium 8.7 D 8.0 L D <Hattie Mojica PA-C - Last Filed: 01/02/24 08:29> Procedures Date of Service Date of Service: 01/02/24 <Hattie Mojica PA-C - Last Filed: 01/02/24 08:29> 01/02/24 <Nestor Cummings MD - Last Filed: 01/02/24 09:59> Progress Note: A&P Assessment and plan (1) Sigmoid volvulus: Status: Acute <Hattie Mojica PA-C - Last Filed: 01/02/24 08:29> Assessment and Plan: comfortable good pain control stoma viable, no stools yet clear liquids OOB incentive spirometry looks well seen and examined independently Dawn in, urine clear - Urology ffup family updated <Nestor Cummings MD - Last Filed: 01/02/24 09:59> Assessment and Plan: POD #1 s/p Laparotomy via low midline incision, sigmoid resection, end colostomy for sigmoid volvulus. Doing well post op. VSS. Abd exam benign with appropriate post op tenderness, ostomy viable appearing. Cont clear liquids for now until evidence of GI function. Strongly encouraged OOB/ambulation and IS use. Patient comfortable with plan. Hematuria resolved, s/p CYSTOSCOPY EVACUATION BLADDER CLOTS, FULGURATION. Will discuss with urology timeline for dawn. <Hattie Mojica PA-C - Last Filed: 01/02/24 08:29> Time Spent With Patient Time: Total time managing care of this patient today ____ minutes. <Hattie Mojica PA-C - Last Filed: 01/02/24 08:29> Quality Stroke Does the patient have a stroke diagnosis?: No <Hattie Mojica PA-C - Last Filed: 01/02/24 08:29> VTE Prior VTE?: No <Hattie Mojica PA-C - Last Filed: 01/02/24 08:29> VTE Risk Level:: Medical - moderate - high <Hattie Mojica PA-C - Last Filed: 01/02/24 08:29> VTE Device Contraindication: N/A - Device Ordered <Hattie Mojica PA-C - Last Filed: 01/02/24 08:29> VTE Drug Contraindication: Treatment Not Indicated <Hattie Mojica PA-C - Last Filed: 01/02/24 08:29>
--- NOTE | 2024-01-02 08:45 | HO.POSTANES ---
Post Anesthesia Evaluation Post Anesthesia Evaluation Date of Service: 01/02/24 Vital Signs: Vital Signs Temp Pulse Resp BP Pulse Ox O2 Del Method 01/02/24 07:00 96.5 F L 53 18 119/58 L 96 Room Air 01/02/24 03:55 98.2 F 57 14 94/51 L 01/01/24 23:42 97.6 F 51 16 104/52 L 92 Anesthesia: General Endotracheal-GETA Mental Status: Awake Pain Control: Satisfactory Nausea/Vomiting: None Hydration: Adequate Anesthesia-Related Issues: No Anes. Related Issues
--- NOTE | 2024-01-02 10:29 | HO.PM.IMPN ---
Subjective Subjective Date of Service: 01/02/24 Interval History: minimal pain, no stool yet, hematuria resolved Physical Exam Vital Signs: Vital Signs: Last Vital Signs Temp 96.5 F L 01/02/24 07:00 Pulse 53 01/02/24 07:00 Resp 18 01/02/24 07:00 BP 119/58 L 01/02/24 07:00 Pulse Ox 96 01/02/24 07:00 O2 Del Method Room Air 01/02/24 07:00 O2 Flow Rate 5 01/01/24 14:31 BMI result Body Mass Index 23.1 Const: General: comfortable, no acute distress and alert Orientation/consciousness: patient oriented x3 Resp: Effort & Inspection: normal respiratory effort GI: Other: ostomy pink Inspection: No distended and Yes incision (dressing c/d/i) Palpation (GI): Soft to palpation, Tenderness to palpation present (GI) (mild incisional), no guarding and not rigid : Other: CBI in place, urine straw colored Skin: General skin exam: no rashes or lesions noted and no jaundice Neuro: General: patient oriented x3 and moves all extremities Objective Data Active Medications Acetaminophen (Acetaminophen 325 Mg Tablet) 650 mg PO Q6H PRN PRN Reason: Pain, Mild (Pain Scale 1-3) Atorvastatin Calcium (Atorvastatin Calcium 40 Mg Tablet) 40 mg PO DAILY [facility] Last Admin: 01/02/24 07:49 Dose: 40 mg Documented By: COREY Donepezil HCl (Donepezil Hcl 5 Mg Tablet) 5 mg PO BEDTIME [facility] Last Admin: 01/01/24 20:27 Dose: 5 mg Documented By: YAYO Finasteride (Finasteride 5 Mg Tablet) 5 mg PO DAILY [facility] Last Admin: 01/02/24 07:49 Dose: 5 mg Documented By: COREY Gabapentin (Gabapentin 300 Mg Capsule) 300 mg PO BEDTIME [facility] Last Admin: 01/01/24 20:28 Dose: 300 mg Documented By: YAYO Hydromorphone HCl (Hydromorphone Hcl 0.5 Mg/0.5 Ml Syringe) 0.5 mg IVPUSH Q5M PRN; Protocol PRN Reason: Pain, Severe (Pain Scale 7-10) Last Admin: 01/01/24 14:35 Dose: 0.5 mg Documented By: ILIANA Sodium Chloride (Ns) 1,000 mls @ 100 mls/hr IVCONT .Q10H [facility] Last Admin: 01/02/24 02:09 Dose: 100 mls/hr Documented By: YAYO Levothyroxine Sodium (Levothyroxine Sodium 50 Mcg Tablet) 50 mcg PO DAILY@0600 [facility] Last Admin: 01/02/24 06:28 Dose: 50 mcg Documented By: RAMÍREZ Morphine Sulfate (Morphine Sulfate 4 Mg/Ml Cartridge) 3 mg IVPUSH Q3H PRN; Protocol PRN Reason: Pain, Severe (Pain Scale 7-10) Multivitamins/Vitamin C (Multivitamin Tablet) 1 tab PO DAILY [facility] Last Admin: 01/02/24 07:49 Dose: 1 tab Documented By: COREY Ondansetron HCl (Ondansetron Hcl 4 Mg/2 Ml Vial) 4 mg IVPUSH Q8H PRN PRN Reason: Nausea and Vomiting Ondansetron HCl (Ondansetron Hcl 4 Mg/2 Ml Vial) 4 mg IVPUSH ONCE PRN PRN Reason: Nausea and Vomiting Oxycodone HCl (Oxycodone Hcl Immed Release 5 Mg Tablet) 10 mg PO Q4H PRN PRN Reason: Pain, Moderate(Pain Scale 4-6) Last Admin: 01/01/24 20:34 Dose: 10 mg Documented By: YAYO Pantoprazole Sodium (Pantoprazole Sodium 40 Mg/10 Ml Vial) 40 mg IVPUSH BID@0630,1630 [facility] Last Admin: 01/02/24 06:28 Dose: 40 mg Documented By: RAMÍREZ Polyethylene Glycol (Polyethylene Glycol 3350 17 Gm Powd.Pack) 17 gm PO DAILY PRN PRN Reason: constipation Senna (Sennosides 8.6 Mg Tablet) 17.2 mg PO BEDTIME PRN PRN Reason: Constipation Sertraline HCl (Sertraline Hcl 25 Mg Tablet) 25 mg PO DAILY [facility] Last Admin: 01/02/24 07:49 Dose: 25 mg Documented By: COREY Sodium Chloride (0.9 % Sodium Chloride Flush 3 Ml Syringe) 3 ml IVFLUSH QSHIFT [facility] Last Admin: 01/02/24 07:50 Dose: 3 ml Documented By: HO.WILLIAC Labs 01/02/24 05:41 01/02/24 05:41 Labs: Laboratory Results - last 24 hr 01/02/24 05:41 MCV 87.1 MCH 29.3 MCHC 33.7 RDW 17.6 H Plt Count 117 L MPV 11.6 Absolute Nucleated RBC 0.000 Nucleated RBC % (auto) 0.0 Anion Gap 9 L Estim Creat Clear Calc 85.6 Estimated GFR > 60 Fasting Glucose 101 H Calcium 8.0 L D Assessment and Plan (1) Sigmoid volvulus: Status: Acute Plan 83M PMH paroxysmal afib, htn, hld, bph, 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), hypothryoid, sigmoid volvulus, alzheimers dementia presented with abd pain, 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, also noted to have gross hematuria 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 clears management per surgery acute hematuria resolved holding eliquis s/p cystoscopy 01/01/24 gu following monitot hgb paroxysmal afib complicated by sinus bradycardia holding metoprolol and aricept asymptomatic to yandel holding eliquis monitor hypothryoid synthroid bph proscar hld statin dvt prophylaxis - mechanical due to hematuria full code reason for continued hospitalization: awaiting return of gi function Quality Stroke Does the patient have a stroke diagnosis?: No VTE Prior VTE?: No VTE Risk Level:: Medical - moderate - high VTE Device Contraindication: N/A - Device Ordered VTE Drug Contraindication: Treatment Not Indicated
--- NOTE | 2024-01-02 11:13 | MHC.CM.PN ---
HCP completed with pt, now on file.
[2024-01-02] MEDS: Acetaminophen 325 MG TABLET 650 MG PO (11:47)
--- NOTE | 2024-01-02 11:48 | MHC.CM.PN ---
EMR reviewed and per MD rounds, pt is not medically cleared for D/C as pt still acute. PT evaluated pt and recommended STR. This CM met with pt and his daughter/HCP Lesvia at bedside to discuss. Their first choice is [facility], they state they've had very good experiences there in the past. They would not like [facility]. Pts daughter Lesvia would like to be updated with D/C plan. Referral placed to [facility] in [facility]. CM will continue to follow.
--- NOTE | 2024-01-02 14:23 | PM.NEUROCN ---
History of Present Illness Data of Consult Service Date: 01/02/24 Primary Care Provider: Alvin Maher MD HPI Reason for consult: Hand weakness 83 years old man with underlying history of left middle cerebral artery stenosis, dementia, and atrial fibrillation who was going through some abdominal surgery. Apparently his daughter noted that he had difficulty using his left hand and arm and this consultation was requested. He stated that he was doing fine. He had bilateral rotator cuff type of problems and difficulty using his shoulders. There was no new numbness or tingling. Review of Systems Review of Systems: No neck pain numbness or tingling. [facility] Past Medical History Medical History Sigmoid volvulus Hypothyroid Volvulus of sigmoid colon Screening for diabetes mellitus Conjunctivitis, left eye Bruise Renal cyst Renal stones Gross hematuria Cerebrovascular accident Small bowel obstruction Hypertension Paroxysmal atrial fibrillation Right renal stone Hypercholesterolemia Idiopathic peripheral autonomic neuropathy BPH (benign prostatic hyperplasia) GERD (gastroesophageal reflux disease) Peripheral vascular disease Low vitamin D level Anemia Family History Family History Father No problems noted. Mother CVD (cardiovascular disease) Surgical History Surgical History History of arthroplasty of right hip History of removal of cyst History of knee replacement procedure of right knee History of prostate surgery History of inguinal hernia repair Social History Social History Household Members: Family Household Members Other:: son Housing: House Do you presently have visiting nurse or other home services: No Unable to assess alcohol history related to: Unknown Alcohol intake: never Patient Tobacco Use Status: Never used Tobacco Tobacco use type: Cigarette e-Cigarette/Vaping Use: Never Used Second Hand Smoke Exposure: No service: No Current occupational status: retired Cognitive needs: No Hearing needs: No Vision needs: Yes (glasses) Meds Allergies Allergy/AdvReac Type Severity Reaction Status Date / Time No Known Allergies Allergy Verified 12/31/23 12:37 [No Known Allergies*] Active Medications: Current Medications Acetaminophen (Acetaminophen 325 Mg Tablet) 650 mg PO Q6H PRN PRN Reason: Pain, Mild (Pain Scale 1-3) Last Admin: 01/02/24 11:47 Dose: 650 mg Atorvastatin Calcium (Atorvastatin Calcium 40 Mg Tablet) 40 mg PO DAILY [facility] Last Admin: 01/02/24 07:49 Dose: 40 mg Donepezil HCl (Donepezil Hcl 5 Mg Tablet) 5 mg PO BEDTIME [facility] Last Admin: 01/01/24 20:27 Dose: 5 mg Finasteride (Finasteride 5 Mg Tablet) 5 mg PO DAILY [facility] Last Admin: 01/02/24 07:49 Dose: 5 mg Gabapentin (Gabapentin 300 Mg Capsule) 300 mg PO BEDTIME [facility] Last Admin: 01/01/24 20:28 Dose: 300 mg Hydromorphone HCl (Hydromorphone Hcl 0.5 Mg/0.5 Ml Syringe) 0.5 mg IVPUSH Q5M PRN; Protocol PRN Reason: Pain, Severe (Pain Scale 7-10) Last Admin: 01/01/24 14:35 Dose: 0.5 mg Sodium Chloride (Ns) 1,000 mls @ 100 mls/hr IVCONT .Q10H [facility] Last Admin: 01/02/24 12:19 Dose: 100 mls/hr Levothyroxine Sodium (Levothyroxine Sodium 50 Mcg Tablet) 50 mcg PO DAILY@0600 [facility] Last Admin: 01/02/24 06:28 Dose: 50 mcg Morphine Sulfate (Morphine Sulfate 4 Mg/Ml Cartridge) 3 mg IVPUSH Q3H PRN; Protocol PRN Reason: Pain, Severe (Pain Scale 7-10) Multivitamins/Vitamin C (Multivitamin Tablet) 1 tab PO DAILY [facility] Last Admin: 01/02/24 07:49 Dose: 1 tab Ondansetron HCl (Ondansetron Hcl 4 Mg/2 Ml Vial) 4 mg IVPUSH Q8H PRN PRN Reason: Nausea and Vomiting Ondansetron HCl (Ondansetron Hcl 4 Mg/2 Ml Vial) 4 mg IVPUSH ONCE PRN PRN Reason: Nausea and Vomiting Oxycodone HCl (Oxycodone Hcl Immed Release 5 Mg Tablet) 10 mg PO Q4H PRN PRN Reason: Pain, Moderate(Pain Scale 4-6) Last Admin: 01/01/24 20:34 Dose: 10 mg Pantoprazole Sodium (Pantoprazole Sodium 40 Mg/10 Ml Vial) 40 mg IVPUSH BID@0630,1630 [facility] Last Admin: 01/02/24 06:28 Dose: 40 mg Polyethylene Glycol (Polyethylene Glycol 3350 17 Gm Powd.Pack) 17 gm PO DAILY PRN PRN Reason: constipation Senna (Sennosides 8.6 Mg Tablet) 17.2 mg PO BEDTIME PRN PRN Reason: Constipation Sertraline HCl (Sertraline Hcl 25 Mg Tablet) 25 mg PO DAILY [facility] Last Admin: 01/02/24 07:49 Dose: 25 mg Sodium Chloride (0.9 % Sodium Chloride Flush 3 Ml Syringe) 3 ml IVFLUSH QSHIFT [facility] Last Admin: 01/02/24 07:50 Dose: 3 ml Home Medications Medication Instructions Recorded Confirmed Last Taken Type gabapentin 300 mg capsule 300 mg PO BEDTIME 10/17/20 12/31/23 Unknown History multivitamin 1 tab PO DAILY 10/17/20 12/31/23 Unknown History sertraline 25 mg tablet 25 mg PO DAILY 02/03/23 12/31/23 Unknown History donepezil 5 mg tablet 5 mg PO BEDTIME 10/12/23 12/31/23 Unknown History levothyroxine 50 mcg tablet 50 mcg PO DAILY@0630 10/12/23 12/31/23 Unknown History sennosides 8.6 mg-docusate sodium 2 tab PO BEDTIME 12/31/23 12/31/23 Unknown History 50 mg tablet (Senexon-S) Physical Exam Vital Signs: Vital Signs: Last Vital Signs Temp 97.7 F 01/02/24 11:12 Pulse 76 01/02/24 11:24 Resp 18 01/02/24 11:12 BP 128/60 01/02/24 11:24 Pulse Ox 99 01/02/24 11:24 O2 Del Method Room Air 01/02/24 11:12 O2 Flow Rate 5 01/01/24 14:31 BMI result Body Mass Index 23.1 Neuro: Other: He is alert and awake with normal spontaneity of speech fluency comprehension and affect. We knew each other and he recognize me right away. Face was symmetrical. Visual carbone are full. There was no pronator drift. He was not able to lift his arms beyond 90 degrees complaining of shoulder discomfort. Hand strength was full. Arthritic changes were noted in hands. Deep tendon reflexes are absent with flexor plantars. Results Labs 01/02/24 05:41 01/02/24 05:41 Labs: Short CBC 01/02/24 Range/Units 05:41 WBC 10.8 (4.8-10.8) X10*3/uL Hgb 13.4 L (14.0-18.0) g/dl Hct 39.8 L (42.0-52.0) % Plt Count 117 L (160-400) X10*3/uL BMP 01/02/24 05:41 Sodium 140 Potassium 3.7 Chloride 109 H Carbon Dioxide 26 BUN 14 Creatinine 0.74 Calcium 8.0 L D Assessment and Plan (1) Hand weakness: Status: Acute 83 years old man with underlying history of left middle cerebral artery stenosis and atrial fibrillation also has bilateral shoulder syndrome resulting in decrease in range of motion and pain was noted to have left arm and hand weakness yesterday. Today he was doing fine with no change in his baseline hand or arm function. He might have another transient ischemic attack or and ischemic lesion but in overall scheme of things, I would continue treating him in the same manner and address to his medical issues. Overall description and presentation was not suggestive of peripheral nerve problem. Procedures Date of Service Date of Service: 01/02/24
--- NOTE | 2024-01-02 15:33 | PM.EVENT ---
Event Note Date of Service: 01/02/24 Event Note: Seen on afternoon rounds States he is comfortable Good urine output -nonbloody Abdomen soft Stoma viable but no significant output he had He had been out of bed to the recliner Incentive spirometry Pain management Clear liquids Okay to restart anticoagulation 48 hours after surgery if okay with Urology Time Spent With Patient Time: Total time managing care of this patient today ____ minutes.
[2024-01-02] MEDS: Donepezil HCl 5 MG TABLET PO (20:08)
[2024-01-02] MEDS: Gabapentin 300 MG CAPSULE PO (20:08)
[2024-01-02] MEDS: oxyCODONE HCl Immed Release 5 MG TABLET 10 MG PO (20:08)
[2024-01-03] VITALS (7 sets, daily range): BP systolic 124–160; BP diastolic 63–82; PULSE 55–68; RESP 16–18; TEMP 36.1–36.5; O2SAT 93–97; BMI 23.1
[2024-01-03] MEDS: oxyCODONE HCl Immed Release 5 MG TABLET 10 MG PO ×4 (02:37→20:07)
[2024-01-03] MEDS: Pantoprazole Sodium 40 MG/10 ML VIAL IVPUSH ×2 (05:53→16:55)
[2024-01-03] MEDS: Levothyroxine Sodium 50 MCG TABLET PO (05:53)
[2024-01-03 07:40] LABS: Hemoglobin 14.1 g/dl (14.0-18.0); Mean Corpuscular HGB Conc 33.6 g/dl (31.0-36.0); Mean Corpuscular Hemoglobin 29.2 pg (27.0-33.0); Mean Platelet Volume 11.3 fL (9.4-12.4); Platelet Count 128 X10*3/uL (160-400); Red Blood Count 4.83 X10*6/uL (4.60-5.80); Red Cell Distribution Width 17.4 % (11.0-16.0); White Blood Count 8.1 X10*3/uL (4.8-10.8)
[2024-01-03 07:47] LABS: Anion Gap 9 (12-20); Blood Urea Nitrogen 10 mg/dL (9-16); Calcium 7.9 mg/dL (8.4-10.2); Carbon Dioxide 27 mmol/L (22-29); Chloride 108 mmol/L (96-108); Creatinine Clr Calc Pharmacy 86.8; Estimated Glomerular Filt Rate > 60; Glucose Fasting 78 mg/dL (60-99); Potassium 3.6 mmol/L (3.3-5.1); Sodium 140 mmol/L (135-145)
[2024-01-03] MEDS: Atorvastatin Calcium 40 MG TABLET PO (07:52)
[2024-01-03] MEDS: 0.9 % Sodium Chloride Flush 3 ML SYRINGE IVFLUSH ×3 (07:52→20:08)
[2024-01-03] MEDS: Multivitamin TABLET 1 TAB PO (07:52)
[2024-01-03] MEDS: Sertraline HCL 25 MG TABLET PO (07:52)
[2024-01-03] MEDS: Finasteride 5 MG TABLET PO (07:52)
--- NOTE | 2024-01-03 09:15 | P.PNIM_ITS ---
Subjective Subjective Date of Service: 01/03/24 Interval History: no complaints Physical Exam 2 Vital Signs: Vital Signs: Last Vital Signs Temp 97.3 F 01/03/24 07:24 Pulse 57 01/03/24 07:24 Resp 16 01/03/24 07:24 BP 160/79 H 01/03/24 07:24 Pulse Ox 95 01/03/24 07:24 O2 Del Method Room Air 01/03/24 07:24 O2 Flow Rate 5 01/01/24 14:31 BMI result Body Mass Index 23.1 Neuro: Other: He is alert and awake with normal spontaneity of speech fluency comprehension and affect. We knew each other and he recognize me right away. Face was symmetrical. Visual carbone are full. There was no pronator drift. He was not able to lift his arms beyond 90 degrees complaining of shoulder discomfort. Hand strength was full. Arthritic changes were noted in hands. Deep tendon reflexes are absent with flexor plantars. Objective Data Active Medications Acetaminophen (Acetaminophen 325 Mg Tablet) 650 mg PO Q6H PRN PRN Reason: Pain, Mild (Pain Scale 1-3) Last Admin: 01/02/24 11:47 Dose: 650 mg Documented By: COREY Atorvastatin Calcium (Atorvastatin Calcium 40 Mg Tablet) 40 mg PO DAILY [facility] Last Admin: 01/03/24 07:52 Dose: 40 mg Documented By: PRAMOD Donepezil HCl (Donepezil Hcl 5 Mg Tablet) 5 mg PO BEDTIME [facility] Last Admin: 01/02/24 20:08 Dose: 5 mg Documented By: JAMI Finasteride (Finasteride 5 Mg Tablet) 5 mg PO DAILY [facility] Last Admin: 01/03/24 07:52 Dose: 5 mg Documented By: PRAMOD Gabapentin (Gabapentin 300 Mg Capsule) 300 mg PO BEDTIME [facility] Last Admin: 01/02/24 20:08 Dose: 300 mg Documented By: JAMI Hydromorphone HCl (Hydromorphone Hcl 0.5 Mg/0.5 Ml Syringe) 0.5 mg IVPUSH Q5M PRN; Protocol PRN Reason: Pain, Severe (Pain Scale 7-10) Last Admin: 01/01/24 14:35 Dose: 0.5 mg Documented By: ILIANA Levothyroxine Sodium (Levothyroxine Sodium 50 Mcg Tablet) 50 mcg PO DAILY@0600 [facility] Last Admin: 01/03/24 05:53 Dose: 50 mcg Documented By: LEANN Morphine Sulfate (Morphine Sulfate 4 Mg/Ml Cartridge) 3 mg IVPUSH Q3H PRN; Protocol PRN Reason: Pain, Severe (Pain Scale 7-10) Multivitamins/Vitamin C (Multivitamin Tablet) 1 tab PO DAILY [facility] Last Admin: 01/03/24 07:52 Dose: 1 tab Documented By: PRAMOD Ondansetron HCl (Ondansetron Hcl 4 Mg/2 Ml Vial) 4 mg IVPUSH Q8H PRN PRN Reason: Nausea and Vomiting Ondansetron HCl (Ondansetron Hcl 4 Mg/2 Ml Vial) 4 mg IVPUSH ONCE PRN PRN Reason: Nausea and Vomiting Oxycodone HCl (Oxycodone Hcl Immed Release 5 Mg Tablet) 10 mg PO Q4H PRN PRN Reason: Pain, Moderate(Pain Scale 4-6) Last Admin: 01/03/24 07:52 Dose: 10 mg Documented By: PRAMOD Pantoprazole Sodium (Pantoprazole Sodium 40 Mg/10 Ml Vial) 40 mg IVPUSH BID@0630,1630 [facility] Last Admin: 01/03/24 05:53 Dose: 40 mg Documented By: LEANN Polyethylene Glycol (Polyethylene Glycol 3350 17 Gm Powd.Pack) 17 gm PO DAILY PRN PRN Reason: constipation Senna (Sennosides 8.6 Mg Tablet) 17.2 mg PO BEDTIME PRN PRN Reason: Constipation Sertraline HCl (Sertraline Hcl 25 Mg Tablet) 25 mg PO DAILY [facility] Last Admin: 01/03/24 07:52 Dose: 25 mg Documented By: PRAMOD Sodium Chloride (0.9 % Sodium Chloride Flush 3 Ml Syringe) 3 ml IVFLUSH QSHIFT [facility] Last Admin: 01/03/24 07:52 Dose: 3 ml Documented By: PRAMOD Labs 01/03/24 07:07 01/03/24 07:07 Labs: Laboratory Results - last 24 hr 01/03/24 07:07 MCV 87.0 MCH 29.2 MCHC 33.6 RDW 17.4 H Plt Count 128 L MPV 11.3 Absolute Nucleated RBC 0.000 Nucleated RBC % (auto) 0.0 Anion Gap 9 L Estim Creat Clear Calc 86.8 Estimated GFR > 60 Fasting Glucose 78 Calcium 7.9 L Assessment and Plan (1) Sigmoid volvulus: Status: Acute Plan 83M PMH paroxysmal afib, htn, hld, bph, 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), hypothryoid, sigmoid volvulus, alzheimers dementia presented with abd pain, 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, also noted to have gross hematuria 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 on clears management per surgery acute hematuria resolved holding eliquis on more day s/p cystoscopy 01/01/24 now off cbi voiding trial paroxysmal afib complicated by sinus bradycardia holding metoprolol and aricept asymptomatic to yandel holding eliquis - restart 01/04/24 monitor hypothryoid synthroid bph proscar hld statin dvt prophylaxis - mechanical due to hematuria full code reason for continued hospitalization: awaiting return of gi function Quality Stroke Does the patient have a stroke diagnosis?: No VTE Prior VTE?: No VTE Risk Level:: Medical - moderate - high VTE Device Contraindication: N/A - Device Ordered VTE Drug Contraindication: Treatment Not Indicated
--- NOTE | 2024-01-03 09:32 | P.PNGS_ITS ---
Subjective Subjective Date of Service: 01/03/24 Interval history: He says he feels well Pain well controlled Good urine output No events reported Denies nausea or vomiting Physical Exam 2 Vital Signs: Vital Signs: Last Vital Signs Temp 97.3 F 01/03/24 07:24 Pulse 57 01/03/24 07:24 Resp 16 01/03/24 07:24 BP 160/79 H 01/03/24 07:24 Pulse Ox 95 01/03/24 07:24 O2 Del Method Room Air 01/03/24 07:24 O2 Flow Rate 5 01/01/24 14:31 BMI result Body Mass Index 23.1 Const: General: comfortable and no acute distress Resp: Effort & Inspection: normal respiratory effort Cardio: Rate: regular rate GI: Other: Stoma viable, no stool or gas yet Palpation (GI): Soft to palpation, not firm and no guarding Objective Data Active Medications Acetaminophen (Acetaminophen 325 Mg Tablet) 650 mg PO Q6H PRN PRN Reason: Pain, Mild (Pain Scale 1-3) Last Admin: 01/02/24 11:47 Dose: 650 mg Documented By: COREY Atorvastatin Calcium (Atorvastatin Calcium 40 Mg Tablet) 40 mg PO DAILY [facility] Last Admin: 01/03/24 07:52 Dose: 40 mg Documented By: PRAMOD Donepezil HCl (Donepezil Hcl 5 Mg Tablet) 5 mg PO BEDTIME [facility] Last Admin: 01/02/24 20:08 Dose: 5 mg Documented By: JAMI Finasteride (Finasteride 5 Mg Tablet) 5 mg PO DAILY [facility] Last Admin: 01/03/24 07:52 Dose: 5 mg Documented By: PRAMOD Gabapentin (Gabapentin 300 Mg Capsule) 300 mg PO BEDTIME [facility] Last Admin: 01/02/24 20:08 Dose: 300 mg Documented By: JAMI Hydromorphone HCl (Hydromorphone Hcl 0.5 Mg/0.5 Ml Syringe) 0.5 mg IVPUSH Q5M PRN; Protocol PRN Reason: Pain, Severe (Pain Scale 7-10) Last Admin: 01/01/24 14:35 Dose: 0.5 mg Documented By: ILIANA Levothyroxine Sodium (Levothyroxine Sodium 50 Mcg Tablet) 50 mcg PO DAILY@0600 [facility] Last Admin: 01/03/24 05:53 Dose: 50 mcg Documented By: LEANN Morphine Sulfate (Morphine Sulfate 4 Mg/Ml Cartridge) 3 mg IVPUSH Q3H PRN; Protocol PRN Reason: Pain, Severe (Pain Scale 7-10) Multivitamins/Vitamin C (Multivitamin Tablet) 1 tab PO DAILY [facility] Last Admin: 01/03/24 07:52 Dose: 1 tab Documented By: PRAMOD Ondansetron HCl (Ondansetron Hcl 4 Mg/2 Ml Vial) 4 mg IVPUSH Q8H PRN PRN Reason: Nausea and Vomiting Ondansetron HCl (Ondansetron Hcl 4 Mg/2 Ml Vial) 4 mg IVPUSH ONCE PRN PRN Reason: Nausea and Vomiting Oxycodone HCl (Oxycodone Hcl Immed Release 5 Mg Tablet) 10 mg PO Q4H PRN PRN Reason: Pain, Moderate(Pain Scale 4-6) Last Admin: 01/03/24 07:52 Dose: 10 mg Documented By: PRAMOD Pantoprazole Sodium (Pantoprazole Sodium 40 Mg/10 Ml Vial) 40 mg IVPUSH BID@0630,1630 [facility] Last Admin: 01/03/24 05:53 Dose: 40 mg Documented By: LEANN Polyethylene Glycol (Polyethylene Glycol 3350 17 Gm Powd.Pack) 17 gm PO DAILY PRN PRN Reason: constipation Senna (Sennosides 8.6 Mg Tablet) 17.2 mg PO BEDTIME PRN PRN Reason: Constipation Sertraline HCl (Sertraline Hcl 25 Mg Tablet) 25 mg PO DAILY [facility] Last Admin: 01/03/24 07:52 Dose: 25 mg Documented By: PRAMOD Sodium Chloride (0.9 % Sodium Chloride Flush 3 Ml Syringe) 3 ml IVFLUSH QSHIFT [facility] Last Admin: 01/03/24 07:52 Dose: 3 ml Documented By: PRAMOD Labs 01/03/24 07:07 01/03/24 07:07 Labs: Laboratory Results - last 24 hr 01/03/24 07:07 MCV 87.0 MCH 29.2 MCHC 33.6 RDW 17.4 H Plt Count 128 L MPV 11.3 Absolute Nucleated RBC 0.000 Nucleated RBC % (auto) 0.0 Anion Gap 9 L Estim Creat Clear Calc 86.8 Estimated GFR > 60 Fasting Glucose 78 Calcium 7.9 L Procedures Date of Service Date of Service: 01/03/24 Progress Note: A&P Assessment and plan (1) Sigmoid volvulus: Status: Acute Assessment and Plan: Status post sigmoid resection, colostomy Clinically looks well Tolerating clear liquids No significant output from colostomy yet Will put on a trial of full liquids Out of bed to chair Good urine output Time Spent With Patient Time: Total time managing care of this patient today ____ minutes. Quality Stroke Does the patient have a stroke diagnosis?: No VTE Prior VTE?: No VTE Risk Level:: Medical - moderate - high VTE Device Contraindication: N/A - Device Ordered VTE Drug Contraindication: Treatment Not Indicated
--- NOTE | 2024-01-03 15:29 | PC.NURSE ---
Dr caballero contacted via tiger text at 15:26 about pt with serosanguinous urine output after Dr. Cummings made an observation. No clots visible at this time. Dr Caballero aware will continue with clamped CBI.
--- NOTE | 2024-01-03 15:43 | PM.EVENT ---
Event Note Date of Service: 01/03/24 Event Note: he says he feels well has been on recliner abd soft stoma viable but not stool yet on full liquids urine with clots, blood will restart IVF nurse instructed to update Urology family updated Time Spent With Patient Time: Total time managing care of this patient today ____ minutes.
[2024-01-03] MEDS: Lactated Ringers 1,000 ML 60 ML IVCONT (15:56)
--- NOTE | 2024-01-03 16:14 | PC.NURSE ---
Per Dr Cummings verbal order at 1545 CBI was restarted on pt after being clamped throughout day. Urology notified per Dr. Cummings request.
[2024-01-03] MEDS: Gabapentin 300 MG CAPSULE PO (20:07)
[2024-01-03] MEDS: Donepezil HCl 5 MG TABLET PO (20:07)
[2024-01-04 03:51] VITALS: BP 157/74; PULSE 53; RESP 14; TEMP 36.6; O2SAT 98
[2024-01-04] MEDS: oxyCODONE HCl Immed Release 5 MG TABLET 10 MG PO ×3 (05:39→17:44)
[2024-01-04] MEDS: Levothyroxine Sodium 50 MCG TABLET PO (05:39)
[2024-01-04 07:08] LABS: Hemoglobin 14.7 g/dl (14.0-18.0); PLT CLUMP 1
[2024-01-04 07:10] LABS: Hematocrit 43.9 % (42.0-52.0); Mean Corpuscular HGB Conc 33.5 g/dl (31.0-36.0); Mean Corpuscular Volume 86.6 fL (80.0-98.0); Mean Platelet Volume 10.9 fL (9.4-12.4); Red Blood Count 5.07 X10*6/uL (4.60-5.80); Red Cell Distribution Width 17.1 % (11.0-16.0)
[2024-01-04 07:11] LABS: Platelet Count 139 X10*3/uL (160-400); White Blood Count 6.8 X10*3/uL (4.8-10.8)
[2024-01-04 07:14] VITALS: BP 143/73; PULSE 53; RESP 18; TEMP 36.2; O2SAT 97
[2024-01-04 07:20] LABS: Anion Gap 10 (12-20); Blood Urea Nitrogen 10 mg/dL (9-16); Calcium 8.1 mg/dL (8.4-10.2); Carbon Dioxide 27 mmol/L (22-29); Chloride 106 mmol/L (96-108); Creatinine Clr Calc Pharmacy 94.3; Estimated Glomerular Filt Rate > 60; Glucose Fasting 82 mg/dL (60-99); Potassium 3.5 mmol/L (3.3-5.1); Sodium 139 mmol/L (135-145)
[2024-01-04] MEDS: Atorvastatin Calcium 40 MG TABLET PO (08:58)
[2024-01-04] MEDS: Acetaminophen 325 MG TABLET 650 MG PO ×2 (08:58→21:33)
[2024-01-04] MEDS: Multivitamin TABLET 1 TAB PO (08:58)
[2024-01-04] MEDS: Sertraline HCL 25 MG TABLET PO (08:58)
[2024-01-04] MEDS: Lactated Ringers 1,000 ML 60 ML IVCONT (08:59)
[2024-01-04] MEDS: 0.9 % Sodium Chloride Flush 3 ML SYRINGE IVFLUSH (08:59)
[2024-01-04] MEDS: Finasteride 5 MG TABLET PO (08:59)
--- NOTE | 2024-01-04 09:09 | HO.PM.IMPN ---
Subjective Subjective Date of Service: 01/04/24 Interval History: hematuria yesterday, cleared with cbi no stool Physical Exam Vital Signs: Vital Signs: Last Vital Signs Temp 97.2 F 01/04/24 07:14 Pulse 53 01/04/24 07:14 Resp 18 01/04/24 07:14 BP 143/73 H 01/04/24 07:14 Pulse Ox 97 01/04/24 07:14 O2 Del Method Room Air 01/04/24 07:14 O2 Flow Rate 5 01/01/24 14:31 BMI result Body Mass Index 23.1 Const: General: comfortable and no acute distress Resp: Effort & Inspection: normal respiratory effort Cardio: Rate: regular rate GI: Other: Stoma viable, no stool or gas yet Palpation (GI): Soft to palpation, not firm and no guarding Objective Data Active Medications Acetaminophen (Acetaminophen 325 Mg Tablet) 650 mg PO Q6H PRN PRN Reason: Pain, Mild (Pain Scale 1-3) Last Admin: 01/04/24 08:58 Dose: 650 mg Documented By: PRAMOD Atorvastatin Calcium (Atorvastatin Calcium 40 Mg Tablet) 40 mg PO DAILY [facility] Last Admin: 01/04/24 08:58 Dose: 40 mg Documented By: PRAMOD Donepezil HCl (Donepezil Hcl 5 Mg Tablet) 5 mg PO BEDTIME [facility] Last Admin: 01/03/24 20:07 Dose: 5 mg Documented By: TANNER Finasteride (Finasteride 5 Mg Tablet) 5 mg PO DAILY [facility] Last Admin: 01/04/24 08:59 Dose: 5 mg Documented By: PRAMOD Gabapentin (Gabapentin 300 Mg Capsule) 300 mg PO BEDTIME [facility] Last Admin: 01/03/24 20:07 Dose: 300 mg Documented By: TANNER Hydromorphone HCl (Hydromorphone Hcl 0.5 Mg/0.5 Ml Syringe) 0.5 mg IVPUSH Q5M PRN; Protocol PRN Reason: Pain, Severe (Pain Scale 7-10) Last Admin: 01/01/24 14:35 Dose: 0.5 mg Documented By: ILIANA Lactated Ringer's (Lr) 1,000 mls @ 60 mls/hr IVCONT .[id number] [facility] Last Admin: 02/18/24 08:59 Dose: 60 mls/hr Documented By: PRAMOD Levothyroxine Sodium (Levothyroxine Sodium 50 Mcg Tablet) 50 mcg PO DAILY@0600 [facility] Last Admin: 01/04/24 05:39 Dose: 50 mcg Documented By: GABE Morphine Sulfate (Morphine Sulfate 4 Mg/Ml Cartridge) 3 mg IVPUSH Q3H PRN; Protocol PRN Reason: Pain, Severe (Pain Scale 7-10) Multivitamins/Vitamin C (Multivitamin Tablet) 1 tab PO DAILY [facility] Last Admin: 01/04/24 08:58 Dose: 1 tab Documented By: PRAMOD Ondansetron HCl (Ondansetron Hcl 4 Mg/2 Ml Vial) 4 mg IVPUSH Q8H PRN PRN Reason: Nausea and Vomiting Ondansetron HCl (Ondansetron Hcl 4 Mg/2 Ml Vial) 4 mg IVPUSH ONCE PRN PRN Reason: Nausea and Vomiting Oxycodone HCl (Oxycodone Hcl Immed Release 5 Mg Tablet) 10 mg PO Q4H PRN PRN Reason: Pain, Moderate(Pain Scale 4-6) Last Admin: 01/04/24 05:39 Dose: 10 mg Documented By: GABE Polyethylene Glycol (Polyethylene Glycol 3350 17 Gm Powd.Pack) 17 gm PO DAILY PRN PRN Reason: constipation Senna (Sennosides 8.6 Mg Tablet) 17.2 mg PO BEDTIME PRN PRN Reason: Constipation Sertraline HCl (Sertraline Hcl 25 Mg Tablet) 25 mg PO DAILY [facility] Last Admin: 01/04/24 08:58 Dose: 25 mg Documented By: PRAMOD Sodium Chloride (0.9 % Sodium Chloride Flush 3 Ml Syringe) 3 ml IVFLUSH QSHIFT [facility] Last Admin: 01/04/24 08:59 Dose: 3 ml Documented By: PRAMOD Labs 01/04/24 06:47 01/04/24 06:47 Labs: Laboratory Results - last 24 hr 01/04/24 06:47 MCV 86.6 MCH 29.0 MCHC 33.5 RDW 17.1 H Plt Count 139 L MPV 10.9 Absolute Nucleated RBC 0.000 Nucleated RBC % (auto) 0.0 Anion Gap 10 L Estim Creat Clear Calc 94.3 Estimated GFR > 60 Fasting Glucose 82 Calcium 8.1 L Assessment and Plan (1) Sigmoid volvulus: Status: Acute Plan 83M PMH paroxysmal afib, htn, hld, bph, 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), hypothryoid, sigmoid volvulus, alzheimers dementia presented with abd pain, 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, also noted to have gross hematuria 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 on liquids management per surgery acute hematuria recurred 01/03/24, now cleared after cbi hold cbi will hold off on restarting eliquis for now s/p cystoscopy 01/01/24 paroxysmal afib complicated by sinus bradycardia holding metoprolol and aricept asymptomatic to yandel holding eliquis monitor hypothryoid synthroid bph proscar hld statin dvt prophylaxis - mechanical due to hematuria full code reason for continued hospitalization: awaiting return of gi function Quality Stroke Does the patient have a stroke diagnosis?: No VTE Prior VTE?: No VTE Risk Level:: Medical - moderate - high VTE Device Contraindication: N/A - Device Ordered VTE Drug Contraindication: Treatment Not Indicated
--- NOTE | 2024-01-04 10:01 | PC.NURSE ---
Dr Sow gave verbal order @ approximately 0900 to clamp cbi.
--- NOTE | 2024-01-04 10:39 | P.PNGS_ITS ---
Subjective Subjective Date of Service: 01/04/24 Interval history: He states he feels well Good pain control Tolerating full liquids Physical Exam 2 Vital Signs: Vital Signs: Last Vital Signs Temp 97.2 F 01/04/24 07:14 Pulse 53 01/04/24 07:14 Resp 18 01/04/24 07:14 BP 143/73 H 01/04/24 07:14 Pulse Ox 97 01/04/24 07:14 O2 Del Method Room Air 01/04/24 07:14 O2 Flow Rate 5 01/01/24 14:31 BMI result Body Mass Index 23.1 Const: Other: Looks well General: comfortable and no acute distress Resp: Effort & Inspection: normal respiratory effort Cardio: Rate: regular rate GI: Other: Incision clean and dry Stoma viable but no significant output yet Inspection: No distended Palpation (GI): Soft to palpation, not firm and no guarding Objective Data Active Medications Acetaminophen (Acetaminophen 325 Mg Tablet) 650 mg PO Q6H PRN PRN Reason: Pain, Mild (Pain Scale 1-3) Last Admin: 01/04/24 08:58 Dose: 650 mg Documented By: PRAMOD Atorvastatin Calcium (Atorvastatin Calcium 40 Mg Tablet) 40 mg PO DAILY [facility] Last Admin: 01/04/24 08:58 Dose: 40 mg Documented By: PRAMOD Donepezil HCl (Donepezil Hcl 5 Mg Tablet) 5 mg PO BEDTIME [facility] Last Admin: 01/03/24 20:07 Dose: 5 mg Documented By: TANNER Finasteride (Finasteride 5 Mg Tablet) 5 mg PO DAILY [facility] Last Admin: 01/04/24 08:59 Dose: 5 mg Documented By: PRAMOD Gabapentin (Gabapentin 300 Mg Capsule) 300 mg PO BEDTIME [facility] Last Admin: 01/03/24 20:07 Dose: 300 mg Documented By: TANNER Hydromorphone HCl (Hydromorphone Hcl 0.5 Mg/0.5 Ml Syringe) 0.5 mg IVPUSH Q5M PRN; Protocol PRN Reason: Pain, Severe (Pain Scale 7-10) Last Admin: 01/01/24 14:35 Dose: 0.5 mg Documented By: ILIANA Lactated Ringer's (Lr) 1,000 mls @ 60 mls/hr IVCONT .[id number] [facility] Last Admin: 01/04/24 08:59 Dose: 60 mls/hr Documented By: PRAMOD Levothyroxine Sodium (Levothyroxine Sodium 50 Mcg Tablet) 50 mcg PO DAILY@0600 [facility] Last Admin: 01/04/24 05:39 Dose: 50 mcg Documented By: GABE Morphine Sulfate (Morphine Sulfate 4 Mg/Ml Cartridge) 3 mg IVPUSH Q3H PRN; Protocol PRN Reason: Pain, Severe (Pain Scale 7-10) Multivitamins/Vitamin C (Multivitamin Tablet) 1 tab PO DAILY [facility] Last Admin: 01/04/24 08:58 Dose: 1 tab Documented By: PRAMOD Ondansetron HCl (Ondansetron Hcl 4 Mg/2 Ml Vial) 4 mg IVPUSH Q8H PRN PRN Reason: Nausea and Vomiting Ondansetron HCl (Ondansetron Hcl 4 Mg/2 Ml Vial) 4 mg IVPUSH ONCE PRN PRN Reason: Nausea and Vomiting Oxycodone HCl (Oxycodone Hcl Immed Release 5 Mg Tablet) 10 mg PO Q4H PRN PRN Reason: Pain, Moderate(Pain Scale 4-6) Last Admin: 01/04/24 05:39 Dose: 10 mg Documented By: GABE Polyethylene Glycol (Polyethylene Glycol 3350 17 Gm Powd.Pack) 17 gm PO DAILY PRN PRN Reason: constipation Senna (Sennosides 8.6 Mg Tablet) 17.2 mg PO BEDTIME PRN PRN Reason: Constipation Sertraline HCl (Sertraline Hcl 25 Mg Tablet) 25 mg PO DAILY [facility] Last Admin: 01/04/24 08:58 Dose: 25 mg Documented By: PRAMOD Sodium Chloride (0.9 % Sodium Chloride Flush 3 Ml Syringe) 3 ml IVFLUSH QSHIFT [facility] Last Admin: 01/04/24 08:59 Dose: 3 ml Documented By: PRAMOD Labs 01/04/24 06:47 01/04/24 06:47 Labs: Laboratory Results - last 24 hr 01/04/24 06:47 MCV 86.6 MCH 29.0 MCHC 33.5 RDW 17.1 H Plt Count 139 L MPV 10.9 Absolute Nucleated RBC 0.000 Nucleated RBC % (auto) 0.0 Anion Gap 10 L Estim Creat Clear Calc 94.3 Estimated GFR > 60 Fasting Glucose 82 Calcium 8.1 L Procedures Date of Service Date of Service: 01/04/24 Progress Note: A&P Assessment and plan (1) Sigmoid volvulus: Status: Acute Assessment and Plan: Status post sigmoid resection, colostomy Clinically doing very well No significant output from stoma yet Will keep on full liquid diet Await return of GI function Exam very benign Urine was bloody yesterday but this seems to have cleared up - anticoagulation held for now Family updated Encouraged to get out of bed Time Spent With Patient Time: Total time managing care of this patient today ____ minutes. Quality Stroke Does the patient have a stroke diagnosis?: No VTE Prior VTE?: No VTE Risk Level:: Medical - moderate - high VTE Device Contraindication: N/A - Device Ordered VTE Drug Contraindication: Treatment Not Indicated
[2024-01-04 11:08] VITALS: BP 143/71; PULSE 56; RESP 18; TEMP 36.6; O2SAT 96
[2024-01-04 15:24] VITALS: BP 121/66; PULSE 56; RESP 17; TEMP 36.2; O2SAT 95
[2024-01-04 20:00] VITALS: BP 154/73; PULSE 68; RESP 18; TEMP 36.6; O2SAT 95
[2024-01-04] MEDS: Donepezil HCl 5 MG TABLET PO (21:29)
[2024-01-04] MEDS: Gabapentin 300 MG CAPSULE PO (21:29)
[2024-01-04 23:06] VITALS: BP 140/74; PULSE 55; RESP 18; TEMP 36.5; O2SAT 95
[2024-01-05] MEDS: 0.9 % Sodium Chloride Flush 3 ML SYRINGE IVFLUSH ×4 (01:21→19:39)
[2024-01-05] MEDS: Lactated Ringers 1,000 ML 60 ML IVCONT (01:23)
[2024-01-05 04:00] VITALS: BP 155/78; PULSE 55; RESP 18; TEMP 36.5; O2SAT 95
[2024-01-05] MEDS: Levothyroxine Sodium 50 MCG TABLET PO (06:09)
[2024-01-05 07:10] LABS: Hematocrit 47.9 % (42.0-52.0); Hemoglobin 16.4 g/dl (14.0-18.0); Mean Corpuscular HGB Conc 34.2 g/dl (31.0-36.0); Mean Corpuscular Hemoglobin 29.3 pg (27.0-33.0); Mean Corpuscular Volume 85.7 fL (80.0-98.0); Mean Platelet Volume 10.8 fL (9.4-12.4); Platelet Count 173 X10*3/uL (160-400); Red Blood Count 5.59 X10*6/uL (4.60-5.80); Red Cell Distribution Width 16.6 % (11.0-16.0); White Blood Count 7.1 X10*3/uL (4.8-10.8)
[2024-01-05 07:20] LABS: Anion Gap 12 (12-20); Blood Urea Nitrogen 8 mg/dL (9-16); Calcium 8.8 mg/dL (8.4-10.2); Carbon Dioxide 27 mmol/L (22-29); Chloride 105 mmol/L (96-108); Creatinine Clr Calc Pharmacy 86.4; Estimated Glomerular Filt Rate > 60; Glucose Fasting 87 mg/dL (60-99); Potassium 3.5 mmol/L (3.3-5.1); Sodium 140 mmol/L (135-145)
[2024-01-05 07:37] VITALS: BP 139/79; PULSE 78; RESP 20; TEMP 36.2; O2SAT 98
--- NOTE | 2024-01-05 08:41 | PM.PNGS ---
Subjective Subjective Date of Service: 01/05/24 Interval history: feels well tolerating full liquids denies signfiicant pain no events reported Physical Exam Vital Signs: Vital Signs: Last Vital Signs Temp 97.1 F 01/05/24 07:37 Pulse 78 01/05/24 07:37 Resp 20 01/05/24 07:37 BP 139/79 01/05/24 07:37 Pulse Ox 98 01/05/24 07:37 O2 Del Method Room Air 01/05/24 07:37 O2 Flow Rate 5 01/01/24 14:31 BMI result Body Mass Index 23.1 Const: Other: looks well General: comfortable and no acute distress Resp: Effort & Inspection: normal respiratory effort Cardio: Rate: regular rate GI: Other: stoma viable, no signficant output yet Inspection: No distended Palpation (GI): Soft to palpation, not firm, nontender and no guarding Objective Data Active Medications Acetaminophen (Acetaminophen 325 Mg Tablet) 650 mg PO Q6H PRN PRN Reason: Pain, Mild (Pain Scale 1-3) Last Admin: 01/04/24 21:33 Dose: 650 mg Documented By: LALA Atorvastatin Calcium (Atorvastatin Calcium 40 Mg Tablet) 40 mg PO DAILY [facility] Last Admin: 01/04/24 08:58 Dose: 40 mg Documented By: PRAMOD Donepezil HCl (Donepezil Hcl 5 Mg Tablet) 5 mg PO BEDTIME [facility] Last Admin: 01/04/24 21:29 Dose: 5 mg Documented By: LALA Finasteride (Finasteride 5 Mg Tablet) 5 mg PO DAILY [facility] Last Admin: 01/04/24 08:59 Dose: 5 mg Documented By: PRAMOD Gabapentin (Gabapentin 300 Mg Capsule) 300 mg PO BEDTIME [facility] Last Admin: 01/04/24 21:29 Dose: 300 mg Documented By: LALA Hydromorphone HCl (Hydromorphone Hcl 0.5 Mg/0.5 Ml Syringe) 0.5 mg IVPUSH Q5M PRN; Protocol PRN Reason: Pain, Severe (Pain Scale 7-10) Last Admin: 01/01/24 14:35 Dose: 0.5 mg Documented By: ILIANA Lactated Ringer's (Lr) 1,000 mls @ 60 mls/hr IVCONT .[id number] [facility] Last Admin: 01/05/24 01:23 Dose: 60 mls/hr Documented By: ROHIT Levothyroxine Sodium (Levothyroxine Sodium 50 Mcg Tablet) 50 mcg PO DAILY@0600 [facility] Last Admin: 01/05/24 06:09 Dose: 50 mcg Documented By: ROHIT Morphine Sulfate (Morphine Sulfate 4 Mg/Ml Cartridge) 3 mg IVPUSH Q3H PRN; Protocol PRN Reason: Pain, Severe (Pain Scale 7-10) Multivitamins/Vitamin C (Multivitamin Tablet) 1 tab PO DAILY [facility] Last Admin: 01/04/24 08:58 Dose: 1 tab Documented By: PRAMOD Ondansetron HCl (Ondansetron Hcl 4 Mg/2 Ml Vial) 4 mg IVPUSH Q8H PRN PRN Reason: Nausea and Vomiting Ondansetron HCl (Ondansetron Hcl 4 Mg/2 Ml Vial) 4 mg IVPUSH ONCE PRN PRN Reason: Nausea and Vomiting Oxycodone HCl (Oxycodone Hcl Immed Release 5 Mg Tablet) 10 mg PO Q4H PRN PRN Reason: Pain, Moderate(Pain Scale 4-6) Last Admin: 01/04/24 17:44 Dose: 10 mg Documented By: PRAMOD Polyethylene Glycol (Polyethylene Glycol 3350 17 Gm Powd.Pack) 17 gm PO DAILY PRN PRN Reason: constipation Senna (Sennosides 8.6 Mg Tablet) 17.2 mg PO BEDTIME PRN PRN Reason: Constipation Sertraline HCl (Sertraline Hcl 25 Mg Tablet) 25 mg PO DAILY [facility] Last Admin: 01/04/24 08:58 Dose: 25 mg Documented By: PRAMOD Sodium Chloride (0.9 % Sodium Chloride Flush 3 Ml Syringe) 3 ml IVFLUSH QSHIFT [facility] Last Admin: 01/05/24 01:21 Dose: 3 ml Documented By: ROHIT Labs 01/05/24 06:37 01/05/24 06:37 Labs: Laboratory Results - last 24 hr 01/05/24 06:37 MCV 85.7 MCH 29.3 MCHC 34.2 RDW 16.6 H Plt Count 173 MPV 10.8 Absolute Nucleated RBC 0.000 Nucleated RBC % (auto) 0.0 Anion Gap 12 Estim Creat Clear Calc 86.4 Estimated GFR > 60 Fasting Glucose 87 Calcium 8.8 D Procedures Date of Service Date of Service: 01/05/24 Progress Note: A&P Assessment and plan (1) Sigmoid volvulus: Status: Acute Assessment and Plan: s/p sigmoid resection, colostomy looks well abd remains very benign still no output from stoma await return of GI function urine a little blood tinged today OOB to recliner stay on full liquids for now family updated Time Spent With Patient Time: Total time managing care of this patient today ____ minutes. Quality Stroke Does the patient have a stroke diagnosis?: No VTE Prior VTE?: No VTE Risk Level:: Medical - moderate - high VTE Device Contraindication: N/A - Device Ordered VTE Drug Contraindication: Treatment Not Indicated
[2024-01-05] MEDS: Sertraline HCL 25 MG TABLET PO (09:11)
[2024-01-05] MEDS: Atorvastatin Calcium 40 MG TABLET PO (09:11)
[2024-01-05] MEDS: Finasteride 5 MG TABLET PO (09:11)
[2024-01-05] MEDS: Multivitamin TABLET 1 TAB PO (09:11)
--- NOTE | 2024-01-05 09:53 | HO.PM.IMPN ---
Subjective Subjective Date of Service: 01/05/24 Interval History: a bit of hematuria, no stool Physical Exam Vital Signs: Vital Signs: Last Vital Signs Temp 97.1 F 01/05/24 07:37 Pulse 78 01/05/24 07:37 Resp 20 01/05/24 07:37 BP 139/79 01/05/24 07:37 Pulse Ox 98 01/05/24 07:37 O2 Del Method Room Air 01/05/24 07:37 O2 Flow Rate 5 01/01/24 14:31 BMI result Body Mass Index 23.1 Const: Other: looks well General: comfortable and no acute distress Resp: Effort & Inspection: normal respiratory effort Cardio: Rate: regular rate GI: Other: stoma viable, no signficant output yet Inspection: No distended Palpation (GI): Soft to palpation, not firm, nontender and no guarding Objective Data Active Medications Acetaminophen (Acetaminophen 325 Mg Tablet) 650 mg PO Q6H PRN PRN Reason: Pain, Mild (Pain Scale 1-3) Last Admin: 01/04/24 21:33 Dose: 650 mg Documented By: LALA Atorvastatin Calcium (Atorvastatin Calcium 40 Mg Tablet) 40 mg PO DAILY [facility] Last Admin: 01/05/24 09:11 Dose: 40 mg Documented By: VANE Donepezil HCl (Donepezil Hcl 5 Mg Tablet) 5 mg PO BEDTIME [facility] Last Admin: 01/04/24 21:29 Dose: 5 mg Documented By: LALA Finasteride (Finasteride 5 Mg Tablet) 5 mg PO DAILY [facility] Last Admin: 01/05/24 09:11 Dose: 5 mg Documented By: VANE Gabapentin (Gabapentin 300 Mg Capsule) 300 mg PO BEDTIME [facility] Last Admin: 01/04/24 21:29 Dose: 300 mg Documented By: LALA Hydromorphone HCl (Hydromorphone Hcl 0.5 Mg/0.5 Ml Syringe) 0.5 mg IVPUSH Q5M PRN; Protocol PRN Reason: Pain, Severe (Pain Scale 7-10) Last Admin: 01/01/24 14:35 Dose: 0.5 mg Documented By: ILIANA Lactated Ringer's (Lr) 1,000 mls @ 60 mls/hr IVCONT .[id number] [facility] Last Admin: 01/05/24 01:23 Dose: 60 mls/hr Documented By: ROHIT Levothyroxine Sodium (Levothyroxine Sodium 50 Mcg Tablet) 50 mcg PO DAILY@0600 [facility] Last Admin: 01/05/24 06:09 Dose: 50 mcg Documented By: ROHIT Morphine Sulfate (Morphine Sulfate 4 Mg/Ml Cartridge) 3 mg IVPUSH Q3H PRN; Protocol PRN Reason: Pain, Severe (Pain Scale 7-10) Multivitamins/Vitamin C (Multivitamin Tablet) 1 tab PO DAILY [facility] Last Admin: 01/05/24 09:11 Dose: 1 tab Documented By: VANE Ondansetron HCl (Ondansetron Hcl 4 Mg/2 Ml Vial) 4 mg IVPUSH Q8H PRN PRN Reason: Nausea and Vomiting Ondansetron HCl (Ondansetron Hcl 4 Mg/2 Ml Vial) 4 mg IVPUSH ONCE PRN PRN Reason: Nausea and Vomiting Oxycodone HCl (Oxycodone Hcl Immed Release 5 Mg Tablet) 10 mg PO Q4H PRN PRN Reason: Pain, Moderate(Pain Scale 4-6) Last Admin: 01/04/24 17:44 Dose: 10 mg Documented By: PRAMOD Polyethylene Glycol (Polyethylene Glycol 3350 17 Gm Powd.Pack) 17 gm PO DAILY PRN PRN Reason: constipation Senna (Sennosides 8.6 Mg Tablet) 17.2 mg PO BEDTIME PRN PRN Reason: Constipation Sertraline HCl (Sertraline Hcl 25 Mg Tablet) 25 mg PO DAILY [facility] Last Admin: 01/05/24 09:11 Dose: 25 mg Documented By: VANE Sodium Chloride (0.9 % Sodium Chloride Flush 3 Ml Syringe) 3 ml IVFLUSH QSHIFT [facility] Last Admin: 01/05/24 09:11 Dose: 3 ml Documented By: VANE Labs 01/05/24 06:37 01/05/24 06:37 Labs: Laboratory Results - last 24 hr 01/05/24 06:37 MCV 85.7 MCH 29.3 MCHC 34.2 RDW 16.6 H Plt Count 173 MPV 10.8 Absolute Nucleated RBC 0.000 Nucleated RBC % (auto) 0.0 Anion Gap 12 Estim Creat Clear Calc 86.4 Estimated GFR > 60 Fasting Glucose 87 Calcium 8.8 D Assessment and Plan (1) Sigmoid volvulus: Status: Acute Plan 83M PMH paroxysmal afib, htn, hld, bph, 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), hypothryoid, sigmoid volvulus, alzheimers dementia presented with abd pain, 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, also noted to have gross hematuria 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 on liquids management per surgery acute hematuria on and off will hold off on restarting eliquis for now s/p cystoscopy 01/01/24 - prostatic varices paroxysmal afib complicated by sinus bradycardia holding metoprolol and aricept asymptomatic to yandel holding eliquis monitor hypothryoid synthroid bph proscar hld statin dvt prophylaxis - mechanical due to hematuria full code reason for continued hospitalization: awaiting return of gi function Quality Stroke Does the patient have a stroke diagnosis?: No VTE Prior VTE?: No VTE Risk Level:: Medical - moderate - high VTE Device Contraindication: N/A - Device Ordered VTE Drug Contraindication: Treatment Not Indicated
[2024-01-05] MEDS: oxyCODONE HCl Immed Release 5 MG TABLET 10 MG PO (10:31)
[2024-01-05 11:06] VITALS: BP 140/78; PULSE 69; RESP 20; TEMP 36.6; O2SAT 96
--- NOTE | 2024-01-05 13:17 | PC.NURSE ---
remove dawn per md lovett, patient due to void 01/05 1900
--- NOTE | 2024-01-05 13:50 | P.PNUR_ITS ---
Subjective Subjective Date of Service: 01/05/24 Patient reports: no new complaints Interval history: S/P cysto evacuation of blood clots fulguration of bleeding varices, prostate 01/01/24. urine clear, off CBI. Physical Exam 2 Vital Signs: Vital Signs: Last Vital Signs Temp 97.8 F 01/05/24 11:06 Pulse 69 01/05/24 11:06 Resp 20 01/05/24 11:06 BP 140/78 H 01/05/24 11:06 Pulse Ox 96 01/05/24 11:06 O2 Del Method Room Air 01/05/24 07:37 O2 Flow Rate 5 01/01/24 14:31 BMI result Body Mass Index 23.1 Const: Other: sitting up in a chair General: cooperative, healthy appearing, comfortable and no acute distress Orientation/consciousness: oriented to person and oriented to place HEENT: Head: Yes normal to inspection Neck: Neck: Yes normal visual inspection Resp: Effort & Inspection: normal respiratory effort Cardio: Jugular venous distension: no JVD Neuro: General: oriented to person and oriented to place Extrem: General: Yes no pedal edema Urology Results Labs 01/05/24 06:37 01/05/24 06:37 Labs: Laboratory Results - last 24 hr 01/05/24 06:37 WBC 7.1 RBC 5.59 Hgb 16.4 Hct 47.9 MCV 85.7 MCH 29.3 MCHC 34.2 RDW 16.6 H Plt Count 173 MPV 10.8 Absolute Nucleated RBC 0.000 Nucleated RBC % (auto) 0.0 Sodium 140 Potassium 3.5 Chloride 105 Carbon Dioxide 27 Anion Gap 12 BUN 8 L Creatinine 0.72 Estim Creat Clear Calc 86.4 Estimated GFR > 60 Fasting Glucose 87 Calcium 8.8 D Progress Note: A&P Assessment and plan (1) Prostate varices: Status: Acute (2) BPH (benign prostatic hyperplasia): Status: Acute (3) Gross hematuria: Status: Acute Plan Hematuria resolved D/C CBI pt is on proscar. Recommend add flomax 0.4 mg daily recommend voiding trial Time Spent With Patient Time: Total time managing care of this patient today ____ minutes. Progress Note: Quality Stroke Does the patient have a stroke diagnosis?: No
[2024-01-05 16:00] VITALS: BP 124/70; PULSE 65; RESP 20; TEMP 36.8; O2SAT 96
[2024-01-05] MEDS: HYDROmorphone HCl 0.5 MG/0.5 ML SYRINGE IVPUSH (18:07)
[2024-01-05] MEDS: Gabapentin 300 MG CAPSULE PO (19:38)
[2024-01-05] MEDS: Tamsulosin HCL 0.4 MG CAPSULE PO (19:38)
[2024-01-05] MEDS: Donepezil HCl 5 MG TABLET PO (19:38)
[2024-01-05] MEDS: Morphine Sulfate 4 MG/ML CARTRIDGE 3 MG IVPUSH (19:44)
[2024-01-05 20:00] VITALS: BP 111/74; PULSE 72; RESP 18; TEMP 36.2; O2SAT 97
[2024-01-05 23:22] VITALS: BP 150/74; PULSE 54; RESP 18; TEMP 36.8; O2SAT 97
[2024-01-06] VITALS (8 sets, daily range): BP systolic 132–145; BP diastolic 64–80; PULSE 56–80; RESP 16–20; TEMP 36.1–37.1; O2SAT 93–98
[2024-01-06 06:42] LABS: Hematocrit 45.2 % (42.0-52.0); Hemoglobin 15.4 g/dl (14.0-18.0); Mean Corpuscular HGB Conc 34.1 g/dl (31.0-36.0); Mean Corpuscular Hemoglobin 29.1 pg (27.0-33.0); Mean Corpuscular Volume 85.3 fL (80.0-98.0); Mean Platelet Volume 10.6 fL (9.4-12.4); Platelet Count 195 X10*3/uL (160-400); Red Cell Distribution Width 16.6 % (11.0-16.0); White Blood Count 5.9 X10*3/uL (4.8-10.8)
[2024-01-06] MEDS: Levothyroxine Sodium 50 MCG TABLET PO (06:47)
[2024-01-06 06:57] LABS: Anion Gap 12 (12-20); Blood Urea Nitrogen 10 mg/dL (9-16); Calcium 8.7 mg/dL (8.4-10.2); Carbon Dioxide 25 mmol/L (22-29); Chloride 106 mmol/L (96-108); Creatinine Clr Calc Pharmacy 91.5; Estimated Glomerular Filt Rate > 60; Glucose Fasting 91 mg/dL (60-99); Potassium 3.5 mmol/L (3.3-5.1); Sodium 139 mmol/L (135-145)
--- NOTE | 2024-01-06 08:33 | HO.PM.IMPN ---
Subjective Subjective Date of Service: 01/06/24 Interval History: no stool reported through stoma successful voiding trial with punch colored urine Physical Exam Vital Signs: Vital Signs: Last Vital Signs Temp 97.1 F 01/06/24 07:13 Pulse 60 01/06/24 07:13 Resp 20 01/06/24 07:13 BP 145/77 H 01/06/24 07:13 Pulse Ox 97 01/06/24 07:13 O2 Del Method Room Air 01/06/24 07:13 O2 Flow Rate 5 01/01/24 14:31 BMI result Body Mass Index 23.1 General: AO X 3, no acute distress Resp: CTA bilateral, no accessory muscles used CVS: S1,S2,RRR Neuro: motor grossly intact, alert Psych: appropriate affect, appropriate insight Objective Data Active Medications Acetaminophen (Acetaminophen 325 Mg Tablet) 650 mg PO Q6H PRN PRN Reason: Pain, Mild (Pain Scale 1-3) Last Admin: 01/04/24 21:33 Dose: 650 mg Documented By: LALA Atorvastatin Calcium (Atorvastatin Calcium 40 Mg Tablet) 40 mg PO DAILY [facility] Last Admin: 01/05/24 09:11 Dose: 40 mg Documented By: VANE Donepezil HCl (Donepezil Hcl 5 Mg Tablet) 5 mg PO BEDTIME [facility] Last Admin: 01/05/24 19:38 Dose: 5 mg Documented By: TANNER Finasteride (Finasteride 5 Mg Tablet) 5 mg PO DAILY [facility] Last Admin: 01/05/24 09:11 Dose: 5 mg Documented By: VANE Gabapentin (Gabapentin 300 Mg Capsule) 300 mg PO BEDTIME [facility] Last Admin: 01/05/24 19:38 Dose: 300 mg Documented By: TANNER Hydromorphone HCl (Hydromorphone Hcl 0.5 Mg/0.5 Ml Syringe) 0.5 mg IVPUSH Q5M PRN; Protocol PRN Reason: Pain, Severe (Pain Scale 7-10) Last Admin: 01/05/24 18:07 Dose: 0.5 mg Documented By: VANE Levothyroxine Sodium (Levothyroxine Sodium 50 Mcg Tablet) 50 mcg PO DAILY@0600 [facility] Last Admin: 01/06/24 06:47 Dose: 50 mcg Documented By: HO.ARMSTRH Morphine Sulfate (Morphine Sulfate 4 Mg/Ml Cartridge) 3 mg IVPUSH Q3H PRN; Protocol PRN Reason: Pain, Severe (Pain Scale 7-10) Last Admin: 01/05/24 19:44 Dose: 3 mg Documented By: TANNER Multivitamins/Vitamin C (Multivitamin Tablet) 1 tab PO DAILY [facility] Last Admin: 01/05/24 09:11 Dose: 1 tab Documented By: VANE Ondansetron HCl (Ondansetron Hcl 4 Mg/2 Ml Vial) 4 mg IVPUSH Q8H PRN PRN Reason: Nausea and Vomiting Ondansetron HCl (Ondansetron Hcl 4 Mg/2 Ml Vial) 4 mg IVPUSH ONCE PRN PRN Reason: Nausea and Vomiting Oxycodone HCl (Oxycodone Hcl Immed Release 5 Mg Tablet) 10 mg PO Q4H PRN PRN Reason: Pain, Moderate(Pain Scale 4-6) Last Admin: 01/05/24 10:31 Dose: 10 mg Documented By: VANE Polyethylene Glycol (Polyethylene Glycol 3350 17 Gm Powd.Pack) 17 gm PO DAILY PRN PRN Reason: constipation Senna (Sennosides 8.6 Mg Tablet) 17.2 mg PO BEDTIME PRN PRN Reason: Constipation Sertraline HCl (Sertraline Hcl 25 Mg Tablet) 25 mg PO DAILY [facility] Last Admin: 01/05/24 09:11 Dose: 25 mg Documented By: VANE Sodium Chloride (0.9 % Sodium Chloride Flush 3 Ml Syringe) [address] [facility] Last Admin: 01/05/24 19:39 Dose: 3 ml Documented By: TANNER Tamsulosin HCl (Tamsulosin Hcl 0.4 Mg Capsule) 0.4 mg PO BEDTIME [facility] Last Admin: 01/05/24 19:38 Dose: 0.4 mg Documented By: TANNER Labs 01/06/24 05:58 01/06/24 05:58 Labs: Laboratory Results - last 24 hr 01/06/24 05:58 MCV 85.3 MCH 29.1 MCHC 34.1 RDW 16.6 H Plt Count 195 MPV 10.6 Absolute Nucleated RBC 0.000 Nucleated RBC % (auto) 0.0 Anion Gap 12 Estim Creat Clear Calc 91.5 Estimated GFR > 60 Fasting Glucose 91 Calcium 8.7 Assessment and Plan (1) Sigmoid volvulus: Status: Acute Plan 83M PMH paroxysmal afib, htn, hld, bph, 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), hypothryoid, sigmoid volvulus, alzheimers dementia presented with abd pain, 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, also noted to have gross hematuria 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 on full liquids no stool yet management per surgery acute hematuria s/p cystoscopy 01/01/24 - evacuation of blood clots fulguration of bleeding varices successful voiding trial 01/05/24 holding eliquis, follow up to determine when to rechallenge with eliquis paroxysmal afib complicated by sinus bradycardia holding metoprolol and aricept asymptomatic to yandel holding eliquis monitor hypothryoid synthroid bph proscar hld statin dvt prophylaxis - mechanical due to hematuria full code reason for continued hospitalization: awaiting return of gi function Quality Stroke Does the patient have a stroke diagnosis?: No VTE Prior VTE?: No VTE Risk Level:: Medical - moderate - high VTE Device Contraindication: N/A - Device Ordered VTE Drug Contraindication: Treatment Not Indicated
--- NOTE | 2024-01-06 08:40 | P.PNGS_ITS ---
Subjective Subjective Date of Service: 01/06/24 <Hattie Mojica PA-C - Last Filed: 01/06/24 08:44> 01/06/24 <Nestor Cummings MD - Last Filed: 01/06/24 09:06> Interval history: Tolerating full liquids. OOB and ambulating with walker. Ostomy now with output. <Hattie Mojica PA-C - Last Filed: 01/06/24 08:44> Physical Exam 2 Vital Signs: Vital Signs: Last Vital Signs Temp 97.1 F 01/06/24 07:13 Pulse 60 01/06/24 07:13 Resp 20 01/06/24 07:13 BP 145/77 H 01/06/24 07:13 Pulse Ox 97 01/06/24 07:13 O2 Del Method Room Air 01/06/24 07:13 O2 Flow Rate 5 01/01/24 14:31 BMI result Body Mass Index 23.1 <Hattie Mojica PA-C - Last Filed: 01/06/24 08:44> Const: General: comfortable, no acute distress and alert <Hattie Mojica PA-C - Last Filed: 01/06/24 08:44> Orientation/consciousness: patient oriented x3 <Hattie Mojica PA-C - Last Filed: 01/06/24 08:44> Resp: Effort & Inspection: normal respiratory effort <Hattie Mojica PA-C - Last Filed: 01/06/24 08:44> GI: Other: ostomy pink, now with soft stool output <Hattie Mojica PA-C - Last Filed: 01/06/24 08:44> Inspection: No distended and Yes incision (clean) <Hattie Mojica PA-C - Last Filed: 01/06/24 08:44> Palpation (GI): Soft to palpation, Tenderness to palpation present (GI) (mild incisional), no guarding and not rigid <SUMI Prakash Last Filed: 01/06/24 08:44> Percussion: Yes normal to percussion <Hattie Mojica PA-C - Last Filed: 01/06/24 08:44> Skin: General skin exam: no rashes or lesions noted <Hattie Mojica PA-C - Last Filed: 01/06/24 08:44> Neuro: General: patient oriented x3 <Hattie Mojica PA-C - Last Filed: 01/06/24 08:44> Objective Data Active Medications Acetaminophen (Acetaminophen 325 Mg Tablet) 650 mg PO Q6H PRN PRN Reason: Pain, Mild (Pain Scale 1-3) Last Admin: 01/04/24 21:33 Dose: 650 mg Documented By: LALA Atorvastatin Calcium (Atorvastatin Calcium 40 Mg Tablet) 40 mg PO DAILY [facility] Last Admin: 01/05/24 09:11 Dose: 40 mg Documented By: VANE Donepezil HCl (Donepezil Hcl 5 Mg Tablet) 5 mg PO BEDTIME [facility] Last Admin: 01/05/24 19:38 Dose: 5 mg Documented By: TANNER Finasteride (Finasteride 5 Mg Tablet) 5 mg PO DAILY [facility] Last Admin: 01/05/24 09:11 Dose: 5 mg Documented By: VANE Gabapentin (Gabapentin 300 Mg Capsule) 300 mg PO BEDTIME [facility] Last Admin: 01/05/24 19:38 Dose: 300 mg Documented By: TANNER Hydromorphone HCl (Hydromorphone Hcl 0.5 Mg/0.5 Ml Syringe) 0.5 mg IVPUSH Q5M PRN; Protocol PRN Reason: Pain, Severe (Pain Scale 7-10) Last Admin: 01/05/24 18:07 Dose: 0.5 mg Documented By: VANE Levothyroxine Sodium (Levothyroxine Sodium 50 Mcg Tablet) 50 mcg PO DAILY@0600 [facility] Last Admin: 01/06/24 06:47 Dose: 50 mcg Documented By: EDINSON Morphine Sulfate (Morphine Sulfate 4 Mg/Ml Cartridge) 3 mg IVPUSH Q3H PRN; Protocol PRN Reason: Pain, Severe (Pain Scale 7-10) Last Admin: 01/05/24 19:44 Dose: 3 mg Documented By: TANNER Multivitamins/Vitamin C (Multivitamin Tablet) 1 tab PO DAILY [facility] Last Admin: 01/05/24 09:11 Dose: 1 tab Documented By: VANE Ondansetron HCl (Ondansetron Hcl 4 Mg/2 Ml Vial) 4 mg IVPUSH Q8H PRN PRN Reason: Nausea and Vomiting Ondansetron HCl (Ondansetron Hcl 4 Mg/2 Ml Vial) 4 mg IVPUSH ONCE PRN PRN Reason: Nausea and Vomiting Oxycodone HCl (Oxycodone Hcl Immed Release 5 Mg Tablet) 10 mg PO Q4H PRN PRN Reason: Pain, Moderate(Pain Scale 4-6) Last Admin: 01/05/24 10:31 Dose: 10 mg Documented By: VANE Polyethylene Glycol (Polyethylene Glycol 3350 17 Gm Powd.Pack) 17 gm PO DAILY PRN PRN Reason: constipation Senna (Sennosides 8.6 Mg Tablet) 17.2 mg PO BEDTIME PRN PRN Reason: Constipation Sertraline HCl (Sertraline Hcl 25 Mg Tablet) 25 mg PO DAILY [facility] Last Admin: 01/05/24 09:11 Dose: 25 mg Documented By: VANE Sodium Chloride (0.9 % Sodium Chloride Flush 3 Ml Syringe) [facility] Last Admin: 01/05/24 19:39 Dose: 3 ml Documented By: TANNER Tamsulosin HCl (Tamsulosin Hcl 0.4 Mg Capsule) 0.4 mg PO BEDTIME [facility] Last Admin: 01/05/24 19:38 Dose: 0.4 mg Documented By: TANNER <Hattie Mojica PA-C - Last Filed: 01/06/24 08:44> Labs CBC & Chem 7: 01/06/24 05:58 01/06/24 05:58 <Hattie Mojica PA-C - Last Filed: 01/06/24 08:44> Labs: Laboratory Results - last 24 hr 01/06/24 05:58 MCV 85.3 MCH 29.1 MCHC 34.1 RDW 16.6 H Plt Count 195 MPV 10.6 Absolute Nucleated RBC 0.000 Nucleated RBC % (auto) 0.0 Anion Gap 12 Estim Creat Clear Calc 91.5 Estimated GFR > 60 Fasting Glucose 91 Calcium 8.7 <Hattie Mojica PA-C - Last Filed: 01/06/24 08:44> Procedures Date of Service Date of Service: 01/06/24 <Hattie Mojica PA-C - Last Filed: 01/06/24 08:44> 01/06/24 <Nestor Cummings MD - Last Filed: 01/06/24 09:06> Progress Note: A&P Assessment and plan (1) Sigmoid volvulus: Status: Acute <Hattie Mojica PA-C - Last Filed: 01/06/24 08:44> Assessment and Plan: feels well looks comfortable sitting on recliner abd soft stoma with some stool says he is passing small amounts of flatus via stoma diet as tolerated seen and examined independently <Nestor Cummings MD - Last Filed: 01/06/24 09:06> Assessment and Plan: s/p sigmoid resection, colostomy for recurrent sigmoid volvulus Doing well post op, now with colostomy output Advance to solid diet OOB/ambulation, PT <Hattie Mojica PA-C - Last Filed: 01/06/24 08:44> Time Spent With Patient Time: Total time managing care of this patient today ____ minutes. <Hattie Mojica PA-C - Last Filed: 01/06/24 08:44> Quality Stroke Does the patient have a stroke diagnosis?: No <Hattie Mojica PA-C - Last Filed: 01/06/24 08:44> VTE Prior VTE?: No <Hattie Mojica PA-C - Last Filed: 01/06/24 08:44> VTE Risk Level:: Medical - moderate - high <Hattie Mojica PA-C - Last Filed: 01/06/24 08:44> VTE Device Contraindication: N/A - Device Ordered <Hattie Mojica PA-C - Last Filed: 01/06/24 08:44> VTE Drug Contraindication: Treatment Not Indicated <Hattie Mojica PA-C - Last Filed: 01/06/24 08:44>
[2024-01-06] MEDS: Sertraline HCL 25 MG TABLET PO (09:38)
[2024-01-06] MEDS: 0.9 % Sodium Chloride Flush 3 ML SYRINGE IVFLUSH ×3 (09:38→19:58)
[2024-01-06] MEDS: Multivitamin TABLET 1 TAB PO (09:38)
[2024-01-06] MEDS: Finasteride 5 MG TABLET PO (09:38)
[2024-01-06] MEDS: Atorvastatin Calcium 40 MG TABLET PO (09:38)
--- NOTE | 2024-01-06 10:37 | MHC.CM.PN ---
EMR reviewed and per MD rounds, pt is not medically cleared for D/C due to awaiting return of bowel functions. [facility] continues to follow for pts D/C. Per pts daughter/HCP Lesvia's request, this CM called and provided an updated to her.
--- NOTE | 2024-01-06 16:38 | HO.OSTOMY ---
Wound Consult: Initial 84yr old?male admitted to [facility] on 12/31/23 18:57 - See progress notes and H&P for detailed history.? Ostomy consult placed for new colostomy creation assessment and teaching. Patient agreeable to assessment and photo documentation.? Colostomy creation on 01/01/[address] Cummings. Red moist stoma with crease noted at 11m o'clock and flush stoma Arrival to patients room his son is visiting and both are agreeable to teaching. Upon entry into patient's room, He is sitting in he recliner chair, he alert and awake but appears confused and is referring to being in the kitchen and cooking. His son reports he was watching cooking shows and is confused. He reports he and his sister are concerned with him coming back home as he lived with his son Dawood and is alone most of the day while he is at work. Currently the patient is set for d/c when appropriate to Residential Facility both children are aware of this. The patient offers no complaints and denies pain at this time. ?We began by discussing general knowledge about the Colostomy and questions they had. ?The patient is not appropriate for teaching as there is concern for understanding and retention however his son was able to listen and ask questions and the patient did participate at different times. The patient did follow along with the conversation and asked appropriate questions at times such as inquiring where he would obtain supplies for home when he is ready for discharge - we discussed home delivery that Dr. Cummings office would help set up at that time. We discussed opening and closing the ostomy pouch. He was able to independently provide a return demonstration on an empty pouch after practicing a few times. ?He had not yet emptied his pouch. ?We discussed the importance of emptying pouch when 1/3 to 1/2 full, how to empty pouch. With an empty Coloplast pouch he performed a second demonstration. ? He and his son were educated on when to contact quality control assessor/Dr Cummings's office/seek emergency medical treatment. Reviewed some of the written education with patient and son and left at bedside for further review. Son will bring to his home and he and his sister will review. Pouch was assessed, he was noted to be leaking at 9 o'clock with thick pasty black-brown stool. He was agreeable to a pouch change. The patient was educated on the importance of cutting the appropriate pouch size. The peristomal tissue is noted for mild scattered pink erythema no warmth noted and remains intact. ? Midline incision is clean and VIVIEN - no oozing or dehiscence noted. ?He was changed into a Coloplast # [id number], 1 Piece cut to fit (35 x 25 Oval), MCJ intact, Stoma red / pink and moist. Stoma is flush to the skin and will benefit from Convex pouching in the future. ?He is noted to have a crease at 11 o'clock which when sitting likely puckers the pouch and I suspect will lead to more frequent leaking since his stoma is nearly flush to his abd. Convexity pouches not available inpatient however patient and son instructed how to obtain samples from suppliers such as coloplast and [facility]. He observed the pouch change but did not participate today. ?They had some questions that led to further discussion. ?After the pouch was changed he was able to open close on the pouch attached to his abdomen with some coaching. ?He reported having no questions at this time. ?He will need continued teaching which will be provided overtime through the facility he goes to. ?All questions and concerns addressed at this time. Next teaching session goals: Demonstrate when to empty - 1/3 - 1/2 full Demonstrate open and close independently Assist in Emptying Pouch when appropriate We discussed the following steps: 1. Empty pouch before pouch change 2. Remove pouch using push/pull technique from top to bottom 3. Cleanse stoma and skin with tap water only - no soap or baby wipes 4. Pat dry 5. Measure stoma and cut new pouch no more than 1/8 inch larger than stoma and no smaller than stoma 6. Press the new pouch into place and hold for several minutes (close pouch tail) 7. Empty pouch when 1/3 to 1/2 full 8. Change pouch twice weekly on a schedule (for example, every Friday and ) and as needed for any leaking (feels like intense itch or burn at edge of stoma) 9. May order pre-cut pouches (already cut to size of stoma) once stoma measures the same size consistently after approximately 12 weeks. ?
[2024-01-06] MEDS: oxyCODONE HCl Immed Release 5 MG TABLET 10 MG PO (19:58)
[2024-01-06] MEDS: Donepezil HCl 5 MG TABLET PO (19:58)
[2024-01-06] MEDS: Tamsulosin HCL 0.4 MG CAPSULE PO (19:58)
[2024-01-06] MEDS: Acetaminophen 325 MG TABLET 650 MG PO (19:58)
[2024-01-06] MEDS: Gabapentin 300 MG CAPSULE PO (19:58)
[2024-01-07 03:52] VITALS: BP 150/83; PULSE 54; RESP 18; TEMP 37.1; O2SAT 98
[2024-01-07] MEDS: Levothyroxine Sodium 50 MCG TABLET PO (05:22)
[2024-01-07 07:48] VITALS: BP 133/71; PULSE 59; RESP 18; TEMP 36.7; O2SAT 98
--- NOTE | 2024-01-07 08:40 | PM.PNGS ---
Subjective Subjective Date of Service: 01/07/24 Interval history: feels well tolerating diet stoma with good output urine a little tinged Physical Exam Vital Signs: Vital Signs: Last Vital Signs Temp 98.0 F 01/07/24 07:48 Pulse 59 01/07/24 07:48 Resp 18 01/07/24 07:48 BP 133/71 01/07/24 07:48 Pulse Ox 98 01/07/24 07:48 O2 Del Method Room Air 01/07/24 07:48 O2 Flow Rate 5 01/01/24 14:31 BMI result Body Mass Index 23.1 Const: General: comfortable and no acute distress Resp: Effort & Inspection: normal respiratory effort Cardio: Rate: regular rate GI: Other: colostomy functioning well incision clean Palpation (GI): Soft to palpation, not firm, Tenderness to palpation present (GI) and no guarding Objective Data Active Medications Acetaminophen (Acetaminophen 325 Mg Tablet) 650 mg PO Q6H PRN PRN Reason: Pain, Mild (Pain Scale 1-3) Last Admin: 01/06/24 19:58 Dose: 650 mg Documented By: JAMI Atorvastatin Calcium (Atorvastatin Calcium 40 Mg Tablet) 40 mg PO DAILY [facility] Last Admin: 01/06/24 09:38 Dose: 40 mg Documented By: EMILY Donepezil HCl (Donepezil Hcl 5 Mg Tablet) 5 mg PO BEDTIME [facility] Last Admin: 01/06/24 19:58 Dose: 5 mg Documented By: JAMI Finasteride (Finasteride 5 Mg Tablet) 5 mg PO DAILY [facility] Last Admin: 01/06/24 09:38 Dose: 5 mg Documented By: EMILY Gabapentin (Gabapentin 300 Mg Capsule) 300 mg PO BEDTIME [facility] Last Admin: 01/06/24 19:58 Dose: 300 mg Documented By: JAMI Hydromorphone HCl (Hydromorphone Hcl 0.5 Mg/0.5 Ml Syringe) 0.5 mg IVPUSH Q5M PRN; Protocol PRN Reason: Pain, Severe (Pain Scale 7-10) Last Admin: 01/05/24 18:07 Dose: 0.5 mg Documented By: VANE Levothyroxine Sodium (Levothyroxine Sodium 50 Mcg Tablet) 50 mcg PO DAILY@0600 [facility] Last Admin: 01/07/24 05:22 Dose: 50 mcg Documented By: JAMI Morphine Sulfate (Morphine Sulfate 4 Mg/Ml Cartridge) 3 mg IVPUSH Q3H PRN; Protocol PRN Reason: Pain, Severe (Pain Scale 7-10) Last Admin: 01/05/24 19:44 Dose: 3 mg Documented By: TANNER Multivitamins/Vitamin C (Multivitamin Tablet) 1 tab PO DAILY [facility] Last Admin: 01/06/24 09:38 Dose: 1 tab Documented By: EMILY Ondansetron HCl (Ondansetron Hcl 4 Mg/2 Ml Vial) 4 mg IVPUSH Q8H PRN PRN Reason: Nausea and Vomiting Ondansetron HCl (Ondansetron Hcl 4 Mg/2 Ml Vial) 4 mg IVPUSH ONCE PRN PRN Reason: Nausea and Vomiting Oxycodone HCl (Oxycodone Hcl Immed Release 5 Mg Tablet) 10 mg PO Q4H PRN PRN Reason: Pain, Moderate(Pain Scale 4-6) Last Admin: 01/06/24 19:58 Dose: 10 mg Documented By: JAMI Polyethylene Glycol (Polyethylene Glycol 3350 17 Gm Powd.Pack) 17 gm PO DAILY PRN PRN Reason: constipation Senna (Sennosides 8.6 Mg Tablet) 17.2 mg PO BEDTIME PRN PRN Reason: Constipation Sertraline HCl (Sertraline Hcl 25 Mg Tablet) 25 mg PO DAILY [facility] Last Admin: 01/06/24 09:38 Dose: 25 mg Documented By: EMILY Sodium Chloride (0.9 % Sodium Chloride Flush 3 Ml Syringe) [facility] Last Admin: 01/06/24 19:58 Dose: 3 ml Documented By: JAMI Tamsulosin HCl (Tamsulosin Hcl 0.4 Mg Capsule) 0.4 mg PO BEDTIME [facility] Last Admin: 01/06/24 19:58 Dose: 0.4 mg Documented By: JAMI Labs 01/06/24 05:58 01/06/24 05:58 Procedures Date of Service Date of Service: 01/07/24 Progress Note: A&P Assessment and plan (1) Sigmoid volvulus: Status: Acute Assessment and Plan: s/p sigmoid resection, colostomy good stoma output tolerating diet ok to dc to SNF from surgical standpoint plan to dc hamilton in office Urology ffup Time Spent With Patient Time: Total time managing care of this patient today ____ minutes. Quality Stroke Does the patient have a stroke diagnosis?: No VTE Prior VTE?: No VTE Risk Level:: Medical - moderate - high VTE Device Contraindication: N/A - Device Ordered VTE Drug Contraindication: Treatment Not Indicated
[2024-01-07] MEDS: Multivitamin TABLET 1 TAB PO (09:04)
[2024-01-07] MEDS: Sertraline HCL 25 MG TABLET PO (09:04)
[2024-01-07] MEDS: 0.9 % Sodium Chloride Flush 3 ML SYRINGE IVFLUSH (09:04)
[2024-01-07] MEDS: Finasteride 5 MG TABLET PO (09:04)
[2024-01-07] MEDS: Atorvastatin Calcium 40 MG TABLET PO (09:05)
--- NOTE | 2024-01-07 09:18 | MHC.CM.PN ---
Second IMM given 01/07. Pt is medically [facility] at 1pm. Pt and his daughter/HCP aware and in agreement with plan.
--- NOTE | 2024-01-07 12:31 | P.DS_ITS ---
DS: Providers Provider Date of Service: 01/07/24 Date of admission: 12/31/23 18:57 Primary care physician: Alvin Maher MD Consults: 12/31/23 18:19 Consult to Gastroenterology Stat Consulting Provider: Heri Castellon Reason for consultation: Sigmoid volvulus Has provider been notified: Yes Consult to General Surgery Stat Consulting Provider: [facility] [place] General Surgeons Reason for consultation: Sigmoid volvulus Has provider been notified: Yes 12/31/23 18:52 Consult to Urology Routine Consulting Provider: Jose Nelson Reason for consultation: kushal hematuria 12/31/23 18:57 Consult to Gastroenterology Routine Consulting Provider: Heri Castellon Reason for consultation: volvulus Consult to General Surgery Routine Consulting Provider: [facility] General Surgeons Reason for consultation: volvulus 01/02/24 10:16 Consult to Neurology Stat Consulting Provider: [facility] Reason for consultation: pt daughter concerned that patient is not using L hand as usual, Hx of CVA Has provider been notified: Yes 01/06/24 13:34 Consult to Ostomy Care Routine DS: Diagnosis Discharge Diagnosis (1) Sigmoid volvulus: Status: Acute (2) Hand weakness: Status: Acute (3) Prostate varices: Status: Acute (4) BPH (benign prostatic hyperplasia): Status: Acute (5) Hematuria: Status: Acute DS: Summary Hospital Course Hospital Course: Admission note HPI 83-year-old male with history of paroxysmal atrial fibrillation anticoagulated with Eliquis, hypertension, hyperlipidemia, BPH, idiopathic peripheral neuropathy, history of CVA, hypothyroidism, history of sigmoid volvulus s/p decompression 09/2023 presented to the ED earlier today with his son, Dawood, for evaluation of abdominal distention and pain ongoing for about 1 week. Reports last bowel movement was also about 1 week ago. Pt is oriented to self and place but is a very vague historian. He is on bowel regimen with MiraLax, Senokot. He denies any fevers, chills, nausea, vomiting, melena, hematochezia, dysuria, increased urinary frequency, urgency, shortness of breath. He is reporting intermittent left-sided chest pain that has been ongoing for about a week without any associated shortness of breath, lightheadedness, diaphoresis. He also reports hematuria that started this morning. On arrival, vital signs stable. No leukocytosis. No anemia. Platelets 157. PT/INR pending. Renal function baseline, electrolyte levels normal. Troponin 2.7. Urinalysis pending. Negative for COVID-19. Type and screen pending. EKG shows sinus bradycardia with fusion complexes, rate 50, t wave inversions noted in III, V1, no ROSALVA or depressions. CT abd/pelvis shows sigmoid volvulus and secondary large bowel obstruction. Also seen are enlarged prostate, atherosclerosis, mild intrahepatic biliary duct dilatation. Seen in ED by gen eral surgery recommending admission to hospitalist service. GI to take pt to OR this evening for decompression. Hospital course # Acute recurrent sigmoid volvulus he underwent surgery with dr Cummings. s/p colostomy 01/01/24 and started on full liquids that was upgraded to regular diet. no stool yet management per surgery # Acute hematuria seen by dr Nelson from Urology who did cystoscopy 01/01/24 - evacuation of blood clots fulguration of bleeding prostatic varices. successful voiding trial 01/05/24 and removal of dawn. holding eliquis until next Friday per urology. Urine clearing up. follow up as oupateint. # paroxysmal afib complicated by sinus bradycardia responded partially to holding MEtoprolol as HR improved to 60s. No pauses noted. was asymptomatic to yandel. To follow with surgery as outpaitent with dr Cummings Restart Eliquis after 2 days Discontinue Metoprolol XL , monitor heart rate at home To follow with Urology as needed for blood in urine The patient will likely need less than 30 days in SNF. Time Attestation Discharge coordination time: Greater than 30 minutes Quality: Safe Use of Opioids Does Pt have an Active Cancer Diagnosis on the Problem List?: No Quality: Stroke Does the patient have a stroke diagnosis?: No Physical Exam Vital Signs: Vital Signs: Last Vital Signs Temp 98.0 F 01/07/24 07:48 Pulse 59 01/07/24 07:48 Resp 18 01/07/24 07:48 BP 133/71 01/07/24 07:48 Pulse Ox 98 01/07/24 07:48 O2 Del Method Room Air 01/07/24 07:48 O2 Flow Rate 5 01/01/24 14:31 BMI result Body Mass Index 23.1 Const: Other: General: AO X 3, no acute distress Resp: CTA bilateral, no accessory muscles used CVS: S1,S2,RRR Neuro: motor grossly intact, alert Psych: appropriate affect, appropriate insight DS: Data Data Completed and Pending Completed studies during hospitalization [Text1]: Pending at discharge 01/01/24 12:15 Surgical [PTH] Routine Procedures Drainage of Descending Colon with Drainage Device, Via Natural or Artificial Opening Endoscopic (10/11/23) Drainage of Transverse Colon with Drainage Device, Via Natural or Artificial Opening Endoscopic (10/11/23) Imaging Chest x-ray: Radiologist's impression: ITS Impressions Abdomen/Pelvis CT 12/31/23 16:18 IMPRESSION: Sigmoid volvulus and secondary large bowel obstruction. Small bowel does not appear dilated. Enlarged prostate gland. Atherosclerotic disease. Mild intrahepatic biliary duct dilatation. Extrahepatic bile ducts do not appear dilated and no mass is seen. This could be better evaluated with MR of liver with MRCP. Fleischner guidelines were followed. Findings were communicated to Dr Tanner on 12/31/2023 at 1631 hours Discharge Plan Discharge Anticipated Discharge Date/Time: 01/07/24 12:04 Patient Disposition: Xfer SNF Discharge Diagnosis: Hand weakness Sigmoid volvulus Referrals: [facility] [Outside] - 1 Week Nestor Cummings MD [Physician] - 2 Weeks Po,Alvin Lucia MD [Primary Care Provider] - 1 Week Discharge Medications: New tamsulosin 0.4 mg Capsule 0.4 mg PO BEDTIME Qty: 90 0RF Continued atorvastatin 40 mg tablet 40 mg PO DAILY Qty: 90 2RF (DME) Shoulder Immobilizer bilateral See Rx Instructions .Route .MEDSUPPLY Qty: 1 0RF Rx Instructions: As directed donepezil 5 mg tablet 5 mg PO BEDTIME levothyroxine 50 mcg tablet 50 mcg PO DAILY@0630 sennosides-docusate sodium [Senexon-S] 8.6-50 mg tablet 2 tab PO BEDTIME multivitamin Tablet 1 tab PO DAILY gabapentin 300 mg capsule 300 mg PO BEDTIME sertraline 25 mg tablet 25 mg PO DAILY ferrous sulfate [Feosol] 325 mg (65 mg iron) tablet 325 mg PO DAILY Qty: 90 2RF polyethylene glycol 3350 [Miralax] 17 gram/dose powder 17 g PO DAILY PRN (Reason: constipation) Qty: 238 0RF Rx Instructions: Take as needed for constipation if no bowel movement in 48 hours finasteride 5 mg tablet 5 mg PO DAILY 90 Days Qty: 90 3RF Held Eliquis 5 mg tablet 5 mg PO BID Qty: 180 3RF Hold Instructions: Resume on 01/10/24. Discontinued metoprolol succinate 25 mg tablet extended release 24 hr 25 mg PO DAILY Qty: 90 3RF Discharge Orders: Discharge Order (Routine); Ordered 01/07/24 Ordered By: Concepcion Stanford Diet: Advance to usual diet Activity on Discharge: As tolerated Stand Alone Forms: Patient Portal Discharge page Activity Restrictions/Additional Instructions: If the incision area is tender, you may apply an ice pack for short intervals (No more than 20 minutes on, followed by at least 20 minutes off). Do not apply heat. Do not use creams, lotions, or topical antibiotics. These can cause infec tion or allergic reaction. Ok to shower. You have hamilton closing your incision and these will be removed approximately 10-14 days after surgery. NO HEAVY LIFTING (>10lbs) or strenuous activity. Follow up in office in 2 weeks. ([phone]) COLOSTOMY CARE: coloplast #[id number] apply to colostomy every 3-4 days and as needed. Call Your Doctor If: -Your temperature exceeds 101.5? F -You experience excessive pain or swelling -You have an unexpected reaction to medication -You have excessive bleeding -You experience continued vomiting/nausea -Your incision begins to separate -Your incision shows signs of infection such as increased redness, swelling, excessive pain, drainage (light blood or clear fluid is normal) or heat Care Plan Goals: Read below Health Concerns: Read below Plan of Treatment: Read below Assessment: To follow with surgery as outpaitent with dr Emiliano Gray after 2 days Discontinue Metoprolol XL , monitor heart rate at home To follow with Urology as needed for blood in urine
== END 2024-01-07 13:11 | disposition skilled nursing facility (03) | DRG 330 ==
LOC: HO.ED 14:08 → HO.SSS 18:24 → HO.EDOVER 19:07 → HO.IMC 19:47
PROVIDERS: Internal Medicine; Physician Assistant Medical; Surgery; Urology; Admitting Provider Physician Assistant; Emergency Provider Emergency Medicine Emergency Medical Services; PCP Internal Medicine; Visit Provider Student in an Organized Health Care Education/Training Program
PROC: 0DJD8ZZ Inspection of Lower Intestinal Tract, Via Natural or Artificial Opening Endoscopic (ICD-10-PCS; CPT 45378; principal; 2023-12-31 18:30)
PROC: 0D1N0Z4 Bypass Sigmoid Colon to Cutaneous, Open Approach (ICD-10-PCS; CPT 49000; principal; 2024-01-01 10:30)
PROC: 0W3R8ZZ Control Bleeding in Genitourinary Tract, Via Natural or Artificial Opening Endoscopic (ICD-10-PCS; 2024-01-01 10:30)
DX: K56.2 Volvulus (principal); Q43.8 Other specified congenital malformations of intestine; I48.0 Paroxysmal atrial fibrillation; R31.0 Gross hematuria; E78.5 Hyperlipidemia, unspecified; N40.0 Benign prostatic hyperplasia without lower urinary tract symptoms; I86.8 Varicose veins of other specified sites; R00.1 Bradycardia, unspecified; G60.9 Hereditary and idiopathic neuropathy, unspecified; K59.09 Other constipation; E03.9 Hypothyroidism, unspecified; I10 Essential (primary) hypertension; Z20.822 Contact with and (suspected) exposure to COVID-19; Z79.01 Long term (current) use of anticoagulants; Z79.890 Hormone replacement therapy; Z79.899 Other long term (current) drug therapy
CPT/HCPCS: 36415; 74177; 80048; 80076; 81001; 81003; 83690; 84484; 85025; 85027; 85610; 85730; 86850; 86900; 86901; 87635; 88307; 93005; 97116; 97162; 99285; C1758; C9113; J0131; J0665; J1100; J1170; J1596; J2270; J2405; J2704; J3010; J7120; J7168; Q9967

== ENCOUNTER → 2023-12-31 12:44 | Outpatient (BNV) | payer MEDICARE, OTHER, SELFPAY | PROVIDERS: Admitting Provider Physician Assistant; Emergency Provider Emergency Medicine Emergency Medical Services; PCP Internal Medicine; Visit Provider Internal Medicine Cardiovascular Disease | DX: R07.9 Chest pain, unspecified (principal) | CPT/HCPCS: 93010 ==

== ENCOUNTER → 2023-12-31 18:57 | Outpatient (BNV) | payer MEDICARE, OTHER, SELFPAY | PROVIDERS: Admitting Provider Physician Assistant; Emergency Provider Emergency Medicine Emergency Medical Services; PCP Internal Medicine; Visit Provider Surgery | DX: K56.2 Volvulus (principal) | CPT/HCPCS: 44143; 99024; 99223; 99499 ==

== ENCOUNTER → 2023-12-31 18:57 | Outpatient (BNV) | payer MEDICARE, OTHER, SELFPAY | PROVIDERS: Admitting Provider Physician Assistant; Emergency Provider Emergency Medicine Emergency Medical Services; PCP Internal Medicine; Visit Provider Psychiatry & Neurology Neurology | DX: R29.898 Other symptoms and signs involving the musculoskeletal system (principal) | CPT/HCPCS: 99222 ==

== ENCOUNTER → 2023-12-31 18:57 | Outpatient (BNV) | payer MEDICARE, OTHER, SELFPAY | PROVIDERS: Admitting Provider Physician Assistant; Emergency Provider Emergency Medicine Emergency Medical Services; PCP Internal Medicine; Visit Provider Urology | DX: I86.8 Varicose veins of other specified sites (principal); N40.0 Benign prostatic hyperplasia without lower urinary tract symptoms; R31.0 Gross hematuria | CPT/HCPCS: 52001; 99222; 99232 ==

== ENCOUNTER → 2023-12-31 18:57 | Outpatient (BNV) | payer MEDICARE, OTHER, SELFPAY | PROVIDERS: Admitting Provider Physician Assistant; Emergency Provider Emergency Medicine Emergency Medical Services; PCP Internal Medicine; Visit Provider Physician Assistant | DX: K56.2 Volvulus (principal); R31.0 Gross hematuria; R29.898 Other symptoms and signs involving the musculoskeletal system; I86.8 Varicose veins of other specified sites; N40.0 Benign prostatic hyperplasia without lower urinary tract symptoms | CPT/HCPCS: 99223; 99232; 99233; 99238 ==

== ENCOUNTER 2024-01-22 11:59 | Outpatient (AMB) | payer MEDICARE, OTHER, SELFPAY ==
--- NOTE | 2024-01-22 12:48 | MHC.OFFVIS ---
Intake Vital Signs 01/22/24 13:01 Weight 166 lb BP 118/71 Blood Pressure Location Rt brachial Position Sitting Pulse 61 Intake Visit Reasons: post sigmoid resection, end colostomy Intake Note: This patient presents for a post-op assessment status post laparotomy via low midline incision, sigmoid resection and end colostomy. Pt c/o; reports no complaints at this time. DOS: 01/01/2024 laparotomy via low midline incision, sigmoid resection and end colostomy. Senior Branch Manager Required: No Accompanied by: Son Allergies No Known Allergies [No Known Allergies*] Allergy (Verified 01/22/24 13:02) HPI post sigmoid resection, end colostomy HPI Details 84-year-old male here for a postop visit. He would underwent sigmoid resection with an end-colostomy for sigmoid volvulus last January 01, 2024. He is doing well postoperatively. He has good oral intake. He has good stoma function. He admits to still having periodic hematuria. He still is a long term. [facility] Medical History (Updated 01/22/24 @ 13:14 by Nestor Cummings MD) Sigmoid volvulus Prostate varices BPH (benign prostatic hyperplasia) Hypothyroid Volvulus of sigmoid colon Screening for diabetes mellitus Conjunctivitis, left eye Bruise Renal cyst Renal stones Gross hematuria Cerebrovascular accident Small bowel obstruction Hypertension Paroxysmal atrial fibrillation Right renal stone Hypercholesterolemia Idiopathic peripheral autonomic neuropathy BPH (benign prostatic hyperplasia) GERD (gastroesophageal reflux disease) Peripheral vascular disease Low vitamin D level Anemia Surgical History Hx of surgical procedure (~01/01/24) History of arthroplasty of right hip History of removal of cyst History of knee replacement procedure of right knee History of prostate surgery History of inguinal hernia repair Family History Father No problems noted. Mother CVD (cardiovascular disease) Social History Household Members: Family Household Members Other:: son Housing: House Do you presently have visiting nurse or other home services: No Unable to assess alcohol history related to: Unknown Alcohol intake: never Patient Tobacco Use Status: Never used Tobacco Tobacco use type: Cigarette e-Cigarette/Vaping Use: Never Used Second Hand Smoke Exposure: No service: No Current occupational status: retired Cognitive needs: No Hearing needs: No Vision needs: Yes (glasses) Review of Systems Const Denies chills and Denies fever(s) Card Denies chest pain, Denies dyspnea and Denies dyspnea on exertion Resp Denies cough, Denies dyspnea and Denies dyspnea on exertion GI Details: Has colostomy Denies hematochezia and Denies change in bowel habits Reports hematuria and Denies difficulty urinating Musc Denies back pain and Denies limited range of motion Neuro Denies focal weakness and Denies convulsions Psych Denies depression and Denies mood swings Physical Exam Vital Signs: Last Vital Signs Pulse 61 01/22/24 13:01 BP 118/71 01/22/24 13:01 Const Other: Using walker General: comfortable and no acute distress Resp Effort & Inspection: normal respiratory effort GI Other: Colostomy in the left side, midline incision well healed Palpation (GI): Soft to palpation, not firm and nontender Assessment & Plan Assessment & Plan (1) Sigmoid volvulus: Code(s): K56.2 - Volvulus Plan: Status post sigmoid resection, end colostomy for sigmoid volvulus. He is doing very well postoperatively. His incision is well healed. I removed all his skin hamilton. He stoma is functioning well. He still has some recurrent hematuria so I instructed him to make sure he has a follow-up with Dr. Mariscal of Urology. He can follow-up with us on a p.r.n. basis. His son was with him during the visit. Coding Level of Care Code Global (84782) Diagnoses Sigmoid volvulus K56.2
[2024-01-22 13:01] VITALS: BP 118/71; PULSE 61
== END 2024-01-22 13:08 | disposition home or self-care (01) ==
PROVIDERS: PCP Internal Medicine; Visit Provider Surgery
DX: K56.2 Volvulus (principal)
CPT/HCPCS: 99024

== ENCOUNTER → 2024-01-22 11:59 | Outpatient (BNVA) | payer MEDICARE, OTHER, SELFPAY | PROVIDERS: PCP Internal Medicine; Visit Provider Surgery | DX: Z09 Encounter for follow-up examination after completed treatment for conditions other than malignant neoplasm (principal); Z87.19 Personal history of other diseases of the digestive system; Z98.890 Other specified postprocedural states | CPT/HCPCS: 99212 ==

== ENCOUNTER 2024-02-03 10:12 | Outpatient (AMB) | payer MEDICARE, OTHER, SELFPAY ==
[2024-02-03 10:17] VITALS: BP 118/78; PULSE 67; O2SAT 99; BMI 21.3
--- NOTE | 2024-02-03 10:17 | A.OFFPC_ITS ---
Vital Signs 02/03/24 10:17 Height 6 ft 2 in Weight 166 lb 0.4 oz BMI 21.3 BP 118/78 Blood Pressure Location Lt brachial Position Sitting Pulse 67 Pulse Source Pulse Oximeter Pulse Oximetry (%) 99 Oxygen Delivery Method Room Air Intake Visit Reasons: Left rehab AMA Intake Note: Patient is here for hospital discharge follow up. [facility] due to post surgery s/p new colostomy on 01/08/24 and was discharged 02/02/24 Machine Set Up Operator Required: No Allergies No Known Allergies [No Known Allergies*] Allergy (Verified 02/03/24 10:17) Tobacco use date assessed: 02/03/24 Fall risk assessment: No Falls in past year Last assessed Fall Risk: 02/03/24 Dental Screening Dental Screen Date: 02/03/24 HPI Left rehab AMA HPI Details 84-year-old male with a history of hyper tension atrial fibrillation hypercholesterolemia GERD hypothyroid last seen in September 2023. Patient was in the hospital in December 2023 for sigmoid volvulus had colonic detorsion and decompression then had sigmoid resection Review of the notes has seen the surgeon post sigmoid resection end colostomy for sigmoid volvulus 01/01/2024. Concern about hematuria. Patient also had bilateral shoulder pain seen by orthopedics due to rotator cuff tear arthropathy option of surgery being held off. Patient was seen here in the office in October for follow-up. Sigmoid volvulus secondary to constipation.. September notes also Urology follow-up for hematuria nephrolithiasis history of ESWL under urology.. Patient wishes to get the colostomy reversed but I think was told to him that they are not going for that procedure. Discussed with the patient to get in touch with the surgeon on this problem. But otherwise he is doing fine the just needs some help on the colostomy management. [facility] Medical History (Updated 02/03/24 @ 10:45 by Alvin Maher MD) Paroxysmal atrial fibrillation Sigmoid volvulus Prostate varices BPH (benign prostatic hyperplasia) Hypothyroid Volvulus of sigmoid colon Screening for diabetes mellitus Conjunctivitis, left eye Bruise Renal cyst Renal stones Gross hematuria Cerebrovascular accident Small bowel obstruction Hypertension Right renal stone Hypercholesterolemia Idiopathic peripheral autonomic neuropathy BPH (benign prostatic hyperplasia) GERD (gastroesophageal reflux disease) Peripheral vascular disease Low vitamin D level Anemia Surgical History Hx of surgical procedure (~01/01/24) History of arthroplasty of right hip History of removal of cyst History of knee replacement procedure of right knee History of prostate surgery History of inguinal hernia repair Family History Father No problems noted. Mother CVD (cardiovascular disease) Social History Household Members: Family Household Members Other:: son Housing: House Do you presently have visiting nurse or other home services: No Unable to assess alcohol history related to: Unknown Alcohol intake: never Patient Tobacco Use Status: Never used Tobacco Tobacco use type: Cigarette e-Cigarette/Vaping Use: Never Used Second Hand Smoke Exposure: No service: No Current occupational status: retired Cognitive needs: No Hearing needs: No Vision needs: Yes (glasses) Questionnaire Thrive Questionnaire Date Thrive assessed: 01/01/24 AUDIT C Alcohol Use Questionnaire (AUDIT-C) 1. How often do you have a drink containing alcohol?: Never 3. How often do you have six or more drinks on one occasion?: Never Total Score: 0 Score Reviewed/Action Taken: No BRITNI-7 AMB Questionnaire BRITNI-7 Date BRITNI - 7 assessed: 02/03/24 Source: Developed by Drs. Heri Sawyer, Esmer Oreilly, Apollo Reza and colleagues, with an educational parish from [employer]. Physical exam (Primary Care) Vital Signs: Last Vital Signs Pulse 67 02/03/24 10:17 BP 118/78 02/03/24 10:17 Pulse Ox 99 02/03/24 10:17 Oxygen Delivery Method Room Air 02/03/24 10:17 BMI result Body Mass Index 21.3 Tobacco/Smoking Status: Tobacco use Status Tobacco use date assessed 02/03/24 02/03/24 10:18 Patient Tobacco Use Status Never used Tobacco 02/03/24 10:18 Tobacco use type Cigarette 02/03/24 10:18 e-Cigarette/Vaping Use Never Used 02/03/24 10:18 Thrive Assessment: Date of Thrive Assessment Date Thrive assessed 01/01/24 02/03/24 10:18 Const General: alert; No acute distress Eyes Conjunctivae: conjunctivae normal Resp Auscultation: clear to auscultation bilaterally Cardio Rate: regular rate Rhythm: regular rhythm GI Other: Soft Nontender on exam of abdomen right lower quadrant with ostomy site Extrem General: Yes normal to inspection and No edema Assessment and Plan Assessment & Plan (1) Sigmoid volvulus: Comment: Dr. Cummings sigmoid resection end colostomy Code(s): K56.2 - Volvulus Plan: Patient continues to follow-up with Gastroenterology and the surgeon. (2) Hematuria: Code(s): R31.9 - Hematuria, unspecified Plan: Patient has a history of nephrolithiasis and follows up with urology (3) Hypothyroid: Code(s): E03.9 - Hypothyroidism, unspecified Qualifiers: Hypothyroidism type: acquired Qualified Code(s): E03.9 - Hypothyroidism, unspecified Plan: Continue with thyroid medication (4) Constipation: Code(s): K59.00 - Constipation, unspecified Plan: Three rules for constipation 1. Diet need to have a high fiber diet less of meat 2. Increase oral fluids 3. Exercise (5) Bilateral shoulder pain: Code(s): M25.511 - Pain in right shoulder; M25.512 - Pain in left shoulder Plan: Patient follows up with orthopedics planned surgery also. (6) Hypercholesterolemia: Code(s): E78.00 - Pure hypercholesterolemia, unspecified Plan: Avoid fried foods, chicken skin, eggs, butter margarine, pastries and meat. Be it pork or beef they have a lot of cholesterol LDL goal of less than 70 and triglyceride of less than 150. (7) BPH (benign prostatic hyperplasia): Comment: [employer] December 2010 Code(s): N40.0 - Benign prostatic hyperplasia without lower urinary tract symptoms Qualifiers: Lower urinary tract symptom presence: symptoms present Lower urinary tract symptom detail: urinary frequency Qualified Code(s): N40.1 - Benign prostatic hyperplasia with lower urinary tract symptoms; R35.0 - Frequency of micturition Plan: Follows up with urology on finasteride and tamsulosin (8) GERD (gastroesophageal reflux disease): Code(s): K21.9 - Gastro-esophageal reflux disease without esophagitis Qualifiers: Esophagitis presence: without esophagitis Qualified Code(s): K21.9 - Gastro-esophageal reflux disease without esophagitis Plan: Avoid the foods that causes that usually spicy foods, tomato products, juices, coffee, soda and foods that your sensitive to. After eating do not lie down, allow 3-4 hours before in lie down. And keep the head of bed above 30 degrees to avoid the acid from going up. (9) Paroxysmal atrial fibrillation: Comment: February 2019 Code(s): I48.0 - Paroxysmal atrial fibrillation Plan: Continuing on anticoagulation Orders: Orders Comprehensive Met. Panel 3 Months E78.00 - Pure hypercholesterolemia, unspecified Free T4 (Free Thyroxine) 3 Months E78.00 - Pure hypercholesterolemia, unspecified Thyroid Stimulating Hormone 3 Months E78.00 - Pure hypercholesterolemia, unspecified AMB Urinalysis Automated Today R31.9 - Hematuria, unspecified, Z13.9 - Encounter for screening, unspecified Complete Blood Count Auto Diff 3 Months E78.00 - Pure hypercholesterolemia, unspecified Lipid Panel 3 Months E78.00 - Pure hypercholesterolemia, unspecified Vitamin B12 and Folate 3 Months E78.00 - Pure hypercholesterolemia, unspecified Coding Level of Care Code Est Pt Level 4 (61661) Diagnoses Sigmoid volvulus K56.2 Hematuria R31.9 Acquired hypothyroidism E03.9 Hypothyroidism type: acquired Constipation K59.00 Bilateral shoulder pain M25.511; M25.512 Hypercholesterolemia E78.00 Benign prostatic hyperplasia with urinary frequency N40.1; R35.0 Lower urinary tract symptom presence: symptoms present Lower urinary tract symptom detail: urinary frequency Gastroesophageal reflux disease without esophagitis K21.9 Esophagitis presence: without esophagitis Paroxysmal atrial fibrillation I48.0
== END 2024-02-03 11:14 | disposition home or self-care (01) ==
PROVIDERS: PCP Internal Medicine; Visit Provider Internal Medicine
DX: K56.2 Volvulus (principal); R31.9 Hematuria, unspecified; E03.9 Hypothyroidism, unspecified; I48.0 Paroxysmal atrial fibrillation; K59.00 Constipation, unspecified; M25.511 Pain in right shoulder; M25.512 Pain in left shoulder; E78.00 Pure hypercholesterolemia, unspecified; N40.1 Benign prostatic hyperplasia with lower urinary tract symptoms; R35.0 Frequency of micturition; K21.9 Gastro-esophageal reflux disease without esophagitis
CPT/HCPCS: 81003; 99214

== ENCOUNTER 2024-02-05 18:49 | Emergency (ER) | payer MEDICARE, OTHER, SELFPAY ==
--- NOTE | 2024-02-05 19:03 | ED.GENADULT ---
HPI - General Adult General Chief complaint: General Medical Stated complaint: colostomy bag leaking Time Seen by Provider: 02/05/24 19:42 Source: patient, family, RN notes reviewed and old records reviewed Mode of arrival: ambulatory Limitations: no limitations History of Present Illness HPI narrative: 84-year-old male presents for evaluation of ?my colostomy is leaking. ? Patient had a laparotomy with sigmoid resection and end colostomy on 01/01/2024 He was recently discharged home from rehab back home Apparently the patient has run out of colostomy supplies He denies any abdominal pain, rectal pain, fevers, chills His colostomy appears to be working properly Related Data Home Medications Medication Instructions Recorded Confirmed gabapentin 300 mg capsule 300 mg PO BEDTIME 10/17/20 12/31/23 multivitamin 1 tab PO DAILY 10/17/20 12/31/23 sertraline 25 mg tablet 25 mg PO DAILY 02/03/23 12/31/23 donepezil 5 mg tablet 5 mg PO BEDTIME 10/12/23 12/31/23 levothyroxine 50 mcg tablet 50 mcg PO DAILY@0630 10/12/23 12/31/23 sennosides 8.6 mg-docusate sodium 2 tab PO BEDTIME 12/31/23 12/31/23 50 mg tablet (Senexon-S) Previous Rx's Medication Instructions Recorded ferrous sulfate 325 mg (65 mg 325 mg PO DAILY #90 tabs 06/17/23 iron) tablet (Feosol) finasteride 5 mg tablet 5 mg PO DAILY 90 days #90 tabs 10/08/23 Shoulder Immobilizer bilateral #1 ea 10/29/23 atorvastatin 40 mg tablet 40 mg PO DAILY #90 tabs 10/29/23 polyethylene glycol 3350 17 17 g PO DAILY PRN constipation 10/29/23 gram/dose oral powder (Miralax) #238 grams apixaban 5 mg tablet (Eliquis) 5 mg PO BID #180 tabs 12/03/23 tamsulosin 0.4 mg capsule 0.4 mg PO BEDTIME #90 caps 01/07/24 Allergies Allergy/AdvReac Type Severity Reaction Status Date / Time No Known Allergies Allergy Verified 02/05/24 19:05 [No Known Allergies*] Review of Systems Constitutional: Constitutional: Denies chills and Denies fever(s) ENT: Denies sore throat Cardiovascular: Cardiovascular: Denies chest pain and Denies dyspnea Respiratory: Respiratory: Denies cough and Denies dyspnea Gastrointestinal: Gastrointestinal: Denies abdominal pain Musculoskeletal: Musculoskeletal: Denies back pain Integumentary/Breasts: Skin/Breast: Denies rash PMFSH Past Medical History Medical History (Updated 02/05/24 @ 19:57 by Max Otero) Paroxysmal atrial fibrillation Sigmoid volvulus Prostate varices BPH (benign prostatic hyperplasia) Hypothyroid Volvulus of sigmoid colon Screening for diabetes mellitus Conjunctivitis, left eye Bruise Renal cyst Renal stones Gross hematuria Cerebrovascular accident Small bowel obstruction Hypertension Right renal stone Hypercholesterolemia Idiopathic peripheral autonomic neuropathy BPH (benign prostatic hyperplasia) GERD (gastroesophageal reflux disease) Peripheral vascular disease Low vitamin D level Anemia Surgical History Hx of surgical procedure (~01/01/24) History of arthroplasty of right hip History of removal of cyst History of knee replacement procedure of right knee History of prostate surgery History of inguinal hernia repair Family History Family History Father No problems noted. Mother CVD (cardiovascular disease) Social History Social History Household Members: Family Household Members Other:: son Housing: House Do you presently have visiting nurse or other home services: No Unable to assess alcohol history related to: Unknown Alcohol intake: never Patient Tobacco Use Status: Never used Tobacco Tobacco use type: Cigarette e-Cigarette/Vaping Use: Never Used Second Hand Smoke Exposure: No Advance Directives: Yes Advance Directives on File: Yes Advance Directives Date on File: 01/08/24 service: No Current occupational status: retired Cognitive needs: No Hearing needs: No Vision needs: Yes (glasses) Physical Exam ED Vital Signs: Vital Signs - 24 hr 02/05/24 19:05 Temperature 97.8 F Pulse Rate 57 Respiratory Rate 18 Blood Pressure 142/77 H Pulse Oximetry 97 Oxygen Delivery Method Room Air BMI result Body Mass Index 21.3 Const General: healthy appearing, comfortable, no acute distress, alert and awake Nutritional Appearance: well nourished Orientation/consciousness: patient oriented x3 HENMT Head: Yes normocephalic and Yes atraumatic Eyes Eyelids: Yes eyelids normal Conjunctivae: conjunctivae normal Sclerae: sclerae normal Corneas: corneas normal Pupils: Equal, round and reactive pupils present EOM: EOMs intact bilaterally Neck Neck: Yes full ROM Resp Effort & Inspection: normal respiratory effort, able to speak in complete sentences and not labored GI Other: Healthy-appearing stoma in the left lower quadrant Inspection: No distended Palpation (GI): Soft to palpation, not firm, nontender, no guarding and not rigid Skin General skin exam: elasticity normal Neuro General: patient oriented x3 Cranial nerves: Yes CN's II-XII intact bilaterally, Yes Equal, round and reactive pupils present and Yes Bilaterally intact EOM present Cognition (Neuro): normal cognition Extrem Other: Moving all extremities well without any obvious deformities Course Course Course Narrative: This is an RME: Additional HPI, ROS, PE not included below will be deferred to primary provider. 84 yo m hx of cognative impariment, anemia, gerd, bph presenting w/ Leaking colostomy bag, no supplies at home. Medical Decision Making Medical Decision Making MDM Narrative: Patient has no complaints but is seeking a replacement for his colostomy bag. He will have a colostomy bag applied. The area was cleaned. He will be discharged to follow-up with outpatient providers. 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 Differential Diagnosis Differential Diagnoses: The differential diagnosis associated with the presentation includes Colostomy Hardware failure Sigmoid volvulus Discharge Plan Discharge Clinical Impression: Colostomy care Patient Disposition: Home, Self-Care Instructions: Colostomy Care (ED) Additional Instructions: Follow-up with your general surgeon as needed Return for new or worsening symptoms Prescriptions: No Action atorvastatin 40 mg tablet 40 mg PO DAILY Qty: 90 2RF (DME) Shoulder Immobilizer bilateral See Rx Instructions .Route .MEDSUPPLY Qty: 1 0RF Rx Instructions: As directed Eliquis 5 mg tablet 5 mg PO BID Qty: 180 3RF Hold Instructions: Resume on 01/10/24. donepezil 5 mg tablet 5 mg PO BEDTIME levothyroxine 50 mcg tablet 50 mcg PO DAILY@0630 sennosides-docusate sodium [Senexon-S] 8.6-50 mg tablet 2 tab PO BEDTIME tamsulosin 0.4 mg Capsule 0.4 mg PO BEDTIME Qty: 90 0RF multivitamin Tablet 1 tab PO DAILY gabapentin 300 mg capsule 300 mg PO BEDTIME sertraline 25 mg tablet 25 mg PO DAILY ferrous sulfate [Feosol] 325 mg (65 mg iron) tablet 325 mg PO DAILY Qty: 90 2RF polyethylene glycol 3350 [Miralax] 17 gram/dose powder 17 g PO DAILY PRN (Reason: constipation) Qty: 238 0RF Rx Instructions: Take as needed for constipation if no bowel movement in 48 hours finasteride 5 mg tablet 5 mg PO DAILY 90 Days Qty: 90 3RF
[2024-02-05 19:05] VITALS: BP 142/77; PULSE 57; RESP 18; TEMP 36.6; O2SAT 97; BMI 21.3
[2024-02-05 20:28] VITALS: BP 00/00; PULSE 0; RESP 16; TEMP -17.7; TEMP 0
== END 2024-02-05 20:29 | disposition home or self-care (01) ==
PROVIDERS: Emergency Provider Internal Medicine; PCP Internal Medicine
DX: K94.03 Colostomy malfunction (principal)
CPT/HCPCS: 99282

== ENCOUNTER 2024-03-10 13:48 | Outpatient (AMB) | payer MEDICARE, OTHER, SELFPAY ==
[2024-03-10 13:50] VITALS: BP 112/72; PULSE 65; O2SAT 97; BMI 21.1
--- NOTE | 2024-03-10 13:50 | A.OFFVIS_ITS ---
Intake Vital Signs 03/10/24 13:50 Height 6 ft 2 in Weight 164 lb 0.8 oz BMI 21.1 BP 112/72 Blood Pressure Location Lt brachial Position Sitting Pulse 65 Pulse Source Pulse Oximeter Pulse Oximetry (%) 97 Oxygen Delivery Method Room Air Intake Visit Reasons: [facility] G0439 Intake Note: Patient is here for an Annual Wellness Visit. 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 Allergies No Known Allergies [No Known Allergies*] Allergy (Verified 03/10/24 13:50) Medication List - Last Reconciled 03/10/24 by Alvin Maher MD apixaban (Eliquis) 5 mg PO BID atorvastatin 40 mg PO DAILY donepezil 5 mg PO BEDTIME ferrous sulfate (Feosol) 325 mg PO DAILY finasteride 5 mg PO DAILY 90 days gabapentin 300 mg PO BEDTIME levothyroxine 50 mcg PO DAILY@0630 multivitamin 1 tab PO DAILY polyethylene glycol 3350 (Miralax) 17 grams PO DAILY PRN sennosides-docusate sodium 8.6-50 mg (Senexon-S) 2 tabs PO BEDTIME sertraline 25 mg PO DAILY [Shoulder Immobilizer bilateral As directed] tamsulosin 0.4 mg PO BEDTIME HPI SWV G0439 HPI Details 84-year-old male with a history of atria l fibrillation GERD BPH hypercholesterolemia hypothyroidism and the most recent 1 having sigmoid volvulus coming in for annual well visit last seen in January 2024. Patient had a history of sigmoid resection with end colostomy December 2023. ER visit for colostomy bag leaking. 2 weeks ago fall and before that fall [facility] Medical History (Updated 03/10/24 @ 15:20 by Alvin Maher MD) Paroxysmal atrial fibrillation Sigmoid volvulus Prostate varices BPH (benign prostatic hyperplasia) Hypothyroid Volvulus of sigmoid colon Screening for diabetes mellitus Conjunctivitis, left eye Bruise Renal cyst Renal stones Gross hematuria Cerebrovascular accident Small bowel obstruction Hypertension Right renal stone Hypercholesterolemia Idiopathic peripheral autonomic neuropathy BPH (benign prostatic hyperplasia) GERD (gastroesophageal reflux disease) Peripheral vascular disease Low vitamin D level Anemia Surgical History Hx of surgical procedure (~01/01/24) History of arthroplasty of right hip History of removal of cyst History of knee replacement procedure of right knee History of prostate surgery History of inguinal hernia repair Family History Father No problems noted. Mother CVD (cardiovascular disease) Social History Household Members: Family Household Members Other:: son Housing: House Do you presently have visiting nurse or other home services: No Unable to assess alcohol history related to: Unknown Alcohol intake: never Patient Tobacco Use Status: Never used Tobacco Tobacco use type: Cigarette e-Cigarette/Vaping Use: Never Used Second Hand Smoke Exposure: No Advance Directives Date on File: 01/08/24 service: No Current occupational status: retired Cognitive needs: No Hearing needs: No Vision needs: Yes (glasses) Questionnaire Medicare Wellness Checkup What is your age?: 80 or older What gender do you identify with?: male During the past 4 weeks, how much have you been bothered by emotional problems such as feeling anxious, depressed, irritable, sad or downhearted, and blue?: slightly During the past 4 weeks, has your physical & emotional health limited your social activities with family, friends, neighbors, or groups?: slightly During the past 4 weeks, how much bodily pain have you generally had?: mild pain During the past 4 weeks, was someone available to help you if you needed & wanted help?: yes, as much as I wanted During the past 4 weeks, what was the hardest physical activity you could do for at least 2 minutes?: moderate Can you get to places out of walking distance without help? (For eg., can you travel alone on buses, taxis or drive your car?): Yes Can you go shopping for groceries or clothes without someone's help?: Yes Can you prepare your own meals?: Yes Can you do your housework without help?: Yes Because of any health problems, do you need the help of another person with your personal care needs such as eating, bathing, dressing or getting around the house?: No Can you handle your own money without help?: Yes During the past 4 weeks, how would you rate your health in general?: fair During the past 4 weeks how have things been going for you?: good & bad parts about equal Are you having difficulties driving your car?: not applicable, I don't use a car Do you always fasten your seat belt when you are in a car?: yes, usually During past 4 weeks, have you been bothered by the following: never: Falling or dizzy when standing up, Trouble eating well?, Teeth or denture problems?, Problems using the telephone? and Tiredness or fatigue? Have you fallen 2 or more times in the past year?: No Are you afraid of falling?: Yes Are you a smoker?: no During the past 4 weeks, how many drinks of wine, beer, or other alcoholic b everages did you have?: no alcohol at all Do you exercise for about 20 minutes 3 or more times a week?: no, I usually do not exercise this much Have you been given information to help with the following?: no: Hazards in your house that might hurt you? and no: Keeping track of your medications? How often do you have trouble taking medicines the way you have been told to take them?: I always take medicine as prescribed How confident are you that you can control & manage most of your health problems?: somewhat confident What is your race?: White PHQ-9 Over the last 2 weeks, how often have you been bothered by any of the following problems? 1. Little interest or pleasure in doing things: not at all 2. Feeling down, depressed, or hopeless: not at all 3. Trouble falling or staying asleep, or sleeping too much: not at all 4. Feeling tired or having little energy: several days 5. Poor appetite or overeating: not at all 6. Feeling bad about yourself - or that you are a failure or have let yourself or your family down: not at all 7. Trouble concentrating on things, such as reading the newspaper or watching television: not at all 8. Moving or speaking so slowly that other people could have noticed. Or the opposite - being so fidgety or restless that you have been moving around a lot more than usual: not at all 9. Thoughts that you would be better off or of hurting yourself in some way: not at all Total score: 1 Depression Screening Interpretation: Negative Depression Screening Done: Yes 13244 - PHQ-9 Billing: Yes Source: Developed by Drs. Heri Sawyer, Esmer Oreilly, Apollo Reza and colleagues, with an educational parish from [employer]. Review of Systems Const Denies poor appetite and Denies weakness Eyes Denies no additional complaints ENT Reports Normal hearing present, Denies dizziness, Denies nasal congestion, Denies tinnitus and Denies sore throat Card Denies chest pain, Denies syncope, Denies rapid heart rate and Denies dyspnea Resp Denies cough and Denies dyspnea GI Denies change in stool character, Reports constipation, Denies diarrhea, Denies nausea and Denies vomiting Denies dysuria and Denies urinary frequency Neuro Reports Normal hearing present, Denies confusion, Denies dizziness, Denies synco pe and Denies weakness Psych Denies confusion Physical Exam Vital Signs: Last Vital Signs Pulse 65 03/10/24 13:50 BP 112/72 03/10/24 13:50 Pulse Ox 97 03/10/24 13:50 Oxygen Delivery Method Room Air 03/10/24 13:50 BMI result Body Mass Index 21.1 Const General: No confusion Orientation/consciousness: No confusion HEENT Other: impacted cerumen bialteral Head: Yes normocephalic Ears: external ears normal Face and sinus: Yes normal facial exam Mouth: moist mucous membranes Throat: Yes tonsils normal Eyes Conjunctivae: conjunctivae normal Pupils: Equal, round and reactive pupils present and Pupil accommodation reflex normal Direct Ophthalmoscopy: normal light reflex Neck Neck: No lymphadenopathy Thyroid: Thyroid normal Chest Chest palpation & inspection: normal inspection of the chest Resp Effort & Inspection: normal respiratory effort and no audible wheezes Auscultation: clear to auscultation bilaterally, no crackles, no wheezes and lung sounds not diminished Cardio Rate: regular rate Rhythm: regular rhythm Peripheral pulses: radial pulses present and dorsalis pedis present GI Palpation (GI): no masses Auscultation: normal bowel sounds and normoactive bowel sounds Rectal Exam - Male: Yes deferred Skin General skin exam: no rashes or lesions noted Rashes: no rashes Neuro General: No confusion Cranial nerves: Yes Equal, round and reactive pupils present and Yes Normal hearing present Cognition (Neuro): normal cognition Gait exam (Neuro): Normal gait present Motor exam (neuro): 5/5 motor strength present throughout Deep tendon reflexes (DTR's): Right brachioradialis reflex intensity grade: 2+, Left brachioradialis reflex intensity grade: 2+, Right patellar reflex intensity grade: 2+ and Left patellar reflex intensity grade: 2+ Extrem General: No edema Office Procedures Cerumen Removal From which ear canal was the cerumen removed: bilateral Removal: otoscope w/curette and cerumen loop/spoon Notes: patient tolerated procedure well, no complications and ear canal clear [id number] Wax Removal by Spoon/Curette Assessment & Plan Assessment & Plan (1) Medicare annual wellness visit, subsequent: Code(s): Z00.00 - Encounter for general adult medical examination without abnormal findings Plan: Keep well hydrated, have adequate sleep, eat healthy and keep active (2) Paroxysmal atrial fibrillation: Comment: February 2019 Code(s): I48.0 - Paroxysmal atrial fibrillation Plan: Continue with anticoagulation with Eliquis and blood work twice a day year. (3) Sigmoid volvulus: Comment: Dr. Cummings sigmoid resection end colostomy Code(s): K56.2 - Volvulus Plan: Presently and colostomy (4) Hypothyroid: Code(s): E03.9 - Hypothyroidism, unspecified Qualifiers: Hypothyroidism type: acquired Qualified Code(s): E03.9 - Hypothyroidism, unspecified Plan: Continue with thyroid medication (5) Hypercholesterolemia: Code(s): E78.00 - Pure hypercholesterolemia, unspecified Plan: Avoid fried foods, chicken skin, eggs, butter margarine, pastries and meat. Be it pork or beef they have a lot of cholesterol on atorvastatin 40 mg once a day (6) BPH (benign prostatic hyperplasia): Comment: [employer] December 2010 Code(s): N40.0 - Benign prostatic hyperplasia without lower urinary tract symptoms Qualifiers: Lower urinary tract symptom presence: symptoms present Lower urinary tract symptom detail: urinary frequency Qualified Code(s): N40.1 - Benign prostatic hyperplasia with lower urinary tract symptoms; R35.0 - Frequency of micturition Plan: On tamsulosin (7) GERD (gastroesophageal reflux disease): Code(s): K21.9 - Gastro-esophageal reflux disease without esophagitis Qualifiers: Esophagitis presence: without esophagitis Qualified Code(s): K21.9 - Gastro-esophageal reflux disease without esophagitis Plan: Avoid the foods that causes that usually spicy foods, tomato products, juices, coffee, soda and foods that your sensitive to. After eating do not lie down, allow 3-4 hours before in lie down. And keep the head of bed above 30 degrees to avoid the acid from going up. (8) Cerebrovascular accident: Code(s): I63.9 - Cerebral infarction, unspecified Qualifiers: CVA mechanism: stenosis Precerebral and cerebral artery: middle cerebral artery Laterality of affected vessel: left Qualified Code(s): I63.512 - Cerebral infarction due to unspecified occlusion or stenosis of left middle cerebral artery Plan: Control the cholesterol, weight, blood pressure (9) Bilateral shoulder pain: Code(s): M25.511 - Pain in right shoulder; M25.512 - Pain in left shoulder Qualifiers: Chronicity: chronic Qualified Code(s): M25.511 - Pain in right shoulder; M25.512 - Pain in left shoulder; G89.29 - Other chronic pain Plan: Patient is referred to Orthopedics (10) Gait instability: Code(s): R26.81 - Unsteadiness on feet Plan: Patient was referred for physical therapy (11) Impacted cerumen of both ears: Code(s): H61.23 - Impacted cerumen, bilateral Plan: scoop used no irrigation TM intact Orders: Orders Comprehensive Met. Panel Today E78.00 - Pure hypercholesterolemia, unspecified Free T4 (Free Thyroxine) Today E78.00 - Pure hypercholesterolemia, unspecified Lipid Panel Today E78.00 - Pure hypercholesterolemia, unspecified PT Evaluation and Treatment Today R26.81 - Unsteadiness on feet Complete Blood Count Auto Diff Today E78.00 - Pure hypercholesterolemia, unspecified Thyroid Stimulating Hormone Today E78.00 - Pure hypercholesterolemia, unspecified Vitamin B12 and Folate Today E78.00 - Pure hypercholesterolemia, unspecified Magnesium Today E78.00 - Pure hypercholesterolemia, unspecified Referrals Orthopedics Referral M25.511 - Pain in right shoulder, M25.512 - Pain in left shoulder Quality Reporting (2019) Depression/Bipolar (159/160/161/177) PHQ-9: Total score: 1 Coding Level of Care Code Medicare Subsequent (G0439) Diagnoses Medicare annual wellness visit, subsequent Z00.00 Paroxysmal atrial fibrillation I48.0 Sigmoid volvulus K56.2 Acquired hypothyroidism E03.9 Hypothyroidism type: acquired Hypercholesterolemia E78.00 Benign prostatic hyperplasia with urinary frequency N40.1; R35.0 Lower urinary tract symptom presence: symptoms present Lower urinary tract symptom detail: urinary frequency Gastroesophageal reflux disease without esophagitis K21.9 Esophagitis presence: without esophagitis Cerebrovascular accident (CVA) due to stenosis of left middle cerebral artery I63.512 CVA mechanism: stenosis Precerebral and cerebral artery: middle cerebral artery Laterality of affected vessel: left Chronic pain of both shoulders M25.511; M25.512; G89.29 Chronicity: chronic Gait instability R26.81 Impacted cerumen of both ears H61.23 CPT Codes Office Procedure - CPT: 00653-Ixt Wax Removal by Spoon/Curette ([id number])
== END 2024-03-10 15:46 | disposition home or self-care (01) ==
PROVIDERS: Visit Provider Internal Medicine
DX: H61.23 Impacted cerumen, bilateral (principal)
CPT/HCPCS: 69210; G0439

== ENCOUNTER 2024-03-27 20:19 | Emergency (ER) | payer MEDICARE, OTHER, SELFPAY ==
[2024-03-27 20:59] VITALS: BP 129/69; PULSE 52; RESP 16; TEMP 35.6; O2SAT 100; BMI 21.2
--- NOTE | 2024-03-27 22:53 | ED.GENADULT ---
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 ? Patient reports that he has no bags at home he presents without any dressing or bag covering his colostomy He has no abdominal pain, vomiting, diarrhea Denies any fevers, chills Related Data Home Medications ?Medication ?Instructions ?Recorded ?Confirmed gabapentin 300 mg capsule 300 mg PO BEDTIME 10/17/20 03/10/24 multivitamin 1 tab PO DAILY 10/17/20 03/10/24 sertraline 25 mg tablet 25 mg PO DAILY 02/03/23 03/10/24 donepezil 5 mg tablet 5 mg PO BEDTIME 10/12/23 03/10/24 levothyroxine 50 mcg tablet 50 mcg PO DAILY@0630 10/12/23 03/10/24 sennosides 8.6 mg-docusate sodium 2 tab PO BEDTIME 12/31/23 03/10/24 50 mg tablet (Senexon-S) Previous Rx's ?Medication ?Instructions ?Recorded finasteride 5 mg tablet 5 mg PO DAILY 90 days #90 tabs 10/08/23 Shoulder Immobilizer bilateral #1 ea 10/29/23 atorvastatin 40 mg tablet 40 mg PO DAILY #90 tabs 10/29/23 polyethylene glycol 3350 17 17 g PO DAILY PRN constipation 10/29/23 gram/dose oral powder (Miralax) #238 grams apixaban 5 mg tablet (Eliquis) 5 mg PO BID #180 tabs 12/03/23 tamsulosin 0.4 mg capsule 0.4 mg PO BEDTIME #90 caps 01/07/24 ferrous sulfate 325 mg (65 mg 325 mg PO DAILY #90 tabs 02/27/24 iron) tablet (Feosol) Allergies Allergy/AdvReac Type Severity Reaction Status Date / Time No Known Allergies Allergy Verified 03/27/24 21:01 [No Known Allergies*] Review of Systems Constitutional: Constitutional: Denies body ache(s), Denies chills and Denies fever(s) Cardiovascular: Cardiovascular: Denies chest pain Gastrointestinal: Gastrointestinal: Denies abdominal pain, Denies hematochezia, Denies loose stools, Denies nausea and Denies vomiting PMFSH Past Medical History Medical History (Updated 03/27/24 @ 22:54 by Max Otero) Paroxysmal atrial fibrillation Sigmoid volvulus Prostate varices BPH (benign prostatic hyperplasia) Hypothyroid Volvulus of sigmoid colon Screening for diabetes mellitus Conjunctivitis, left eye Bruise Renal cyst Renal stones Gross hematuria Cerebrovascular accident Small bowel obstruction Hypertension Right renal stone Hypercholesterolemia Idiopathic peripheral autonomic neuropathy BPH (benign prostatic hyperplasia) GERD (gastroesophageal reflux disease) Peripheral vascular disease Low vitamin D level Anemia Surgical History Hx of surgical procedure (~01/01/24) History of arthroplasty of right hip History of removal of cyst History of knee replacement procedure of right knee History of prostate surgery History of inguinal hernia repair Family History Family History Father No problems noted. Mother CVD (cardiovascular disease) Social History Social History Household Members: Family Household Members Other:: son Housing: House Do you presently have visiting nurse or other home services: No Unable to assess alcohol history related to: Unknown Alcohol intake: never Patient Tobacco Use Status: Never used Tobacco Tobacco use type: Cigarette e-Cigarette/Vaping Use: Never Used Second Hand Smoke Exposure: No Advance Directives: Yes Advance Directives on File: Yes Advance Directives Date on File: 01/08/24 Do you have a plan to hurt others: No Plan service: No Current occupational status: retired Cognitive needs: No Hearing needs: No Vision needs: Yes (glasses) Physical Exam ED Vital Signs: Vital Signs - 24 hr 03/27/24 20:59 Temperature 96.1 F L Pulse Rate 52 Respiratory Rate 16 Blood Pressure 129/69 Pulse Oximetry 100 Oxygen Delivery Method Room Air BMI result Body Mass Index 21.2 Const General: healthy appearing, comfortable, no acute distress, alert and awake Nutritional Appearance: well nourished Orientation/consciousness: patient oriented x3 HENMT Head: Yes normocephalic and Yes atraumatic Eyes Eyelids: Yes eyelids normal Conjunctivae: conjunctivae normal Sclerae: sclerae normal Corneas: corneas normal Pupils: Equal, round and reactive pupils present EOM: EOMs intact bilaterally Neck Neck: Yes full ROM Resp Effort & Inspection: normal respiratory effort, able to speak in complete sentences and not labored GI Other: Colostomy in place in the left lower quadrant. Stoma is healthy appearing, Inspection: No distended Palpation (GI): Soft to palpation, not firm, nontender, no guarding and not rigid Skin General skin exam: elasticity normal Neuro General: patient oriented x3 Cranial nerves: Yes Equal, round and reactive pupils present and Yes Bilaterally intact EOM present Cognition (Neuro): normal cognition Extrem Other: Moving all extremities well without any obvious deformities Medical Decision Making Medical Decision Making [facility] Narrative: Patient's stoma was cleaned, a new dressing was applied and the patient was given 1 extra bag. He will follow-up with his outpatient providers for further resources Differential Diagnosis Differential Diagnoses: The differential diagnosis associated with the presentation includes Colostomy in place Medication noncompliance Sigmoid volvulus Diarrhea Discharge Plan Discharge Clinical Impression: Colostomy in place Patient Disposition: Home, Self-Care Instructions: Colostomy Care (ED) Additional Instructions: Follow-up with your primary doctor return for new or worsening issues Prescriptions: No Action atorvastatin 40 mg tablet 40 mg PO DAILY Qty: 90 2RF (DME) Shoulder Immobilizer bilateral See Rx Instructions .Route .MEDSUPPLY Qty: 1 0RF Rx Instructions: As directed Eliquis 5 mg tablet 5 mg PO BID Qty: 180 3RF Hold Instructions: Resume on 01/10/24. ferrous sulfate [Feosol] 325 mg (65 mg iron) tablet 325 mg PO DAILY Qty: 90 2RF donepezil 5 mg tablet 5 mg PO BEDTIME levothyroxine 50 mcg tablet 50 mcg PO DAILY@0630 sennosides-docusate sodium [Senexon-S] 8.6-50 mg tablet 2 tab PO BEDTIME tamsulosin 0.4 mg Capsule 0.4 mg PO BEDTIME Qty: 90 0RF multivitamin Tablet 1 tab PO DAILY gabapentin 300 mg capsule 300 mg PO BEDTIME sertraline 25 mg tablet 25 mg PO DAILY polyethylene glycol 3350 [Miralax] 17 gram/dose powder 17 g PO DAILY PRN (Reason: constipation) Qty: 238 0RF Rx Instructions: Take as needed for constipation if no bowel movement in 48 hours finasteride 5 mg tablet 5 mg PO DAILY 90 Days Qty: 90 3RF Print Language: Occitan
[2024-03-27 23:09] VITALS: BP 134/55; PULSE 60; RESP 16; TEMP 35.8; O2SAT 96
[2024-03-27 23:11] VITALS: BP 125/88; PULSE 63; RESP 16; TEMP 35.8; O2SAT 96
== END 2024-03-27 23:12 | disposition home or self-care (01) ==
PROVIDERS: Emergency Provider Emergency Medicine; PCP Internal Medicine
DX: Z43.3 Encounter for attention to colostomy (principal)
CPT/HCPCS: 99282

== ENCOUNTER 2024-04-30 12:13 | Outpatient (REF) | payer MEDICARE, OTHER, SELFPAY ==
--- NOTE | ~2024-04-30 | XR_ITS ---
EXAMINATION: XR RIGHT WRIST XR RIGHT HIP XR RIGHT SHOULDER CLINICAL INFORMATION: Injury of right wrist. COMPARISON: X-rays of the pelvis and right hip in April of 2019. X-rays of the right shoulder August of 2023. TECHNIQUE: 4 views of the right wrist. 2 views of the right hip. 4 views of the right shoulder. FINDINGS: RIGHT WRIST: 1st carpometacarpal joint severe osteoarthritis with severe joint space narrowing, subluxation, prominent marginal osteophytes and possible loose bodies. There are 2 small ossific densities ulnar to the distal ulna, just proximal to the base of the ulnar styloid. Mild arthrosis of the distal radioulnar joint. Mild osteoarthritis of the 1st metacarpophalangeal joint. No fracture or acute abnormality. RIGHT HIP: There is a right total hip arthroplasty with the components in the usual and unchanged position. No periprosthetic fracture or suspicious area of lucency. There is some heterotopic ossification surrounding the femoral neck region, slightly more conspicuous compared to prior. Arterial calcification noted. RIGHT SHOULDER: The humeral head is subluxed cephalad, nearly abutting the undersurface the acromion, likely related to rotator cuff tear. Glenohumeral joint: [id number] osteoarthritis with prominent marginal osteophytes on both sides of the joint. Several osseous fragments overlie the inferior aspect of the joint, likely reflecting loose bodies. Acromioclavicular joint: There is moderate osteoarthritis. Overall no change compared with x-ray August 2023. XR/XR shoulder RT min 2V IMPRESSION: No acute abnormality. RIGHT WRIST: Severe osteoarthritis of the 1st carpometacarpal joint. RIGHT SHOULDER: Cephalad subluxation of the humeral head, likely related to rotator cuff tear. [id number] osteoarthritis of the glenohumeral joint, unchanged. Probable loose bodies not seen previously. RIGHT HIP: Right total hip arthroplasty without change or complication. Heterotopic ossification slightly more conspicuous compared with prior.
== END 2024-04-30 12:14 | disposition home or self-care (01) ==
LOC: HO.XRAY 12:13
PROVIDERS: Absent Provider Internal Medicine; PCP Internal Medicine; Visit Provider Orthopaedic Surgery
DX: M25.551 Pain in right hip (principal); S49.91XA Unspecified injury of right shoulder and upper arm, initial encounter; S69.91XA Unspecified injury of right wrist, hand and finger(s), initial encounter
CPT/HCPCS: 73030; 73100; 73502

== ENCOUNTER 2024-05-27 10:46 | Outpatient (AMB) | payer MEDICARE, OTHER, SELFPAY ==
[2024-05-27 10:49] VITALS: BP 122/70; PULSE 59; O2SAT 98; BMI 21.7
--- NOTE | 2024-05-27 10:49 | MHC.PC.OV ---
Vital Signs 05/27/24 10:49 Height 6 ft 2 in Weight 169 lb BMI 21.7 BP 122/70 Blood Pressure Location Lt brachial Position Sitting Pulse 59 Pulse Source Pulse Oximeter Pulse Oximetry (%) 98 Oxygen Delivery Method Room Air Intake Visit Reasons: gait instability Allergies No Known Allergies [No Known Allergies*] Allergy (Verified 05/27/24 10:49) Tobacco use date assessed: 02/03/24 Fall risk assessment: 1 Fall in past year Last assessed Fall Risk: 05/27/24 Dental Screening Dental Screen Date: 02/03/24 HPI gait instability HPI Details 84-year-old male with atrial fibrillation hypothyroid hypercholesterolemia BPH GERD history of CVA gait instability last seen in February for wellness exam. The notes had some x-rays done in 4RIGHT WRIST: Severe osteoarthritis of the 1st carpometacarpal joint. RIGHT SHOULDER: Cephalad subluxation of the humeral head, likely related to rotator cuff tear. [id number] osteoarthritis of the glenohumeral joint, unchanged. Probable loose bodies not seen previously. RIGHT HIP: Right total hip arthroplasty without change or complication. Heterotopic ossification slightly more conspicuous compared with prior. ER visit for bag leaking in 03/2024. Daughters with the patient right now in very frustrated as father's not getting any help as she tells me that VNA has not come to the house to help patient with the colostomy bag. Patient has been having a lot of leakage as he has some cognitive issues and so has not been attaching it properly. Patient does have son with him at home but has not been very helpful also. Presently with the colostomy bag improperly attached will send to the surgeon's office for addressing this. Otherwise reminded about the blood work that needs to be done. As for the fall shoulder problem hip problem risk problem advised physical therapy but because of transportation issues has not be able to go. [facility] Medical History (Updated 04/20/24 @ 17:32 by Alvin Maher MD) Paroxysmal atrial fibrillation Sigmoid volvulus Prostate varices BPH (benign prostatic hyperplasia) Hypothyroid Volvulus of sigmoid colon Screening for diabetes mellitus Conjunctivitis, left eye Bruise Renal cyst Renal stones Gross hematuria Cerebrovascular accident Small bowel obstruction Hypertension Right renal stone Hypercholesterolemia Idiopathic peripheral autonomic neuropathy BPH (benign prostatic hyperplasia) GERD (gastroesophageal reflux disease) Peripheral vascular disease Low vitamin D level Anemia Surgical History Hx of surgical procedure (~01/01/24) History of arthroplasty of right hip History of removal of cyst History of knee replacement procedure of right knee History of prostate surgery History of inguinal hernia repair Family History Father No problems noted. Mother CVD (cardiovascular disease) Social History Household Members: Family Household Members Other:: son Housing: House Do you presently have visiting nurse or other home services: No Unable to assess alcohol history related to: Unknown Alcohol intake: never Patient Tobacco Use Status: Never used Tobacco Tobacco use type: Cigarette e-Cigarette/Vaping Use: Never Used Second Hand Smoke Exposure: No Advance Directives Date on File: 01/08/24 service: No Current occupational status: retired Cognitive needs: No Hearing needs: No Vision needs: Yes (glasses) Questionnaire PHQ-9 Over the last 2 weeks, how often have you been bothered by any of the following problems? 1. Little interest or pleasure in doing things: not at all 2. Feeling down, depressed, or hopeless: not at all 3. Trouble falling or staying asleep, or sleeping too much: not at all 4. Feeling tired or having little energy: several days 5. Poor appetite or overeating: not at all 6. Feeling bad about yourself - or that you are a failure or have let yourself or your family down: not at all 7. Trouble concentrating on things, such as reading the newspaper or watching television: not at all 8. Moving or speaking so slowly that other people could have noticed. Or the opposite - being so fidgety or restless that you have been moving around a lot more than usual: not at all 9. Thoughts that you would be better off or of hurting yourself in some way: not at all Total score: 1 Depression Screening Interpretation: Negative Depression Screening Done: Yes 54065 - PHQ-9 Billing: Yes Source: Developed by Drs. Heri Sawyer, Esmer Oreilly, Apollo Reza and colleagues, with an educational parish from [employer]. Thrive Questionnaire Date Thrive assessed: 01/01/24 AUDIT C Alcohol Use Questionnaire (AUDIT-C) 1. How often do you have a drink containing alcohol?: Never 3. How often do you have six or more drinks on one occasion?: Never Total Score: 0 Score Reviewed/Action Taken: No BRITNI-7 AMB Questionnaire BRITNI-7 Date BRITNI - 7 assessed: 02/03/24 Source: Developed by Drs. Heri Sawyer, Esmer Oreilly, Apollo Reza and colleagues, with an educational parish from [employer]. Physical exam (Primary Care) Vital Signs: Last Vital Signs Pulse 59 05/27/24 10:49 BP 122/70 05/27/24 10:49 Pulse Ox 98 05/27/24 10:49 Oxygen Delivery Method Room Air 05/27/24 10:49 BMI result Body Mass Index 21.7 Tobacco/Smoking Status: Tobacco use Status Tobacco use date assessed 02/03/24 05/27/24 10:50 Patient Tobacco Use Status Never used Tobacco 05/27/24 10:50 Tobacco use type Cigarette 05/27/24 10:50 e-Cigarette/Vaping Use Never Used 05/27/24 10:50 PHQ-9: PHQ-9 Score PHQ-9: Total score 1 05/27/24 10:58 Depression Screening Interpretation: Negative Thrive Assessment: Date of Thrive Assessment Date Thrive assessed 01/01/24 05/27/24 10:50 Const General: alert; No acute distress Eyes Conjunctivae: conjunctivae normal Resp Auscultation: clear to auscultation bilaterally Cardio Rate: regular rate Rhythm: regular rhythm GI Inspection: Yes normal to inspection Extrem General: Yes normal to inspection and No edema Assessment and Plan Assessment & Plan (1) Fall: Code(s): W19.XXXA - Unspecified fall, initial encounter Plan: option of getting PT done (2) Right shoulder injury: Comment: April 2024 Code(s): S49.91XA - Unspecified injury of right shoulder and upper arm, initial encounter (3) Right wrist injury: Comment: 04/2024 Code(s): S69.91XA - Unspecified injury of right wrist, hand and finger(s), initial encounter (4) Right hip pain: Comment: 04/2024 Code(s): M25.551 - Pain in right hip (5) Paroxysmal atrial fibrillation: Comment: February 2019 Code(s): I48.0 - Paroxysmal atrial fibrillation Plan: Continue with anticoagulation (6) Sigmoid volvulus: Comment: Dr. Cummings sigmoid resection end colostomy Code(s): K56.2 - Volvulus Plan: Patient has to have the VNA fixing the colostomy bag. PAtient is advised to go to the general surgery office to have this fixed right now. will call a different VNA to help at home (7) Cognitive impairment: Code(s): R41.89 - Other symptoms and signs involving cognitive functions and awareness Plan: Supportive treatment on donepezil (8) Hypercholesterolemia: Code(s): E78.00 - Pure hypercholesterolemia, unspecified Plan: Avoid fried foods, chicken skin, eggs, butter margarine, pastries and meat. Be it pork or beef they have a lot of cholesterol on atorvastatin last blood work was 05/06/2023 (9) BPH (benign prostatic hyperplasia): Comment: [facility] December 2010 Code(s): N40.0 - Benign prostatic hyperplasia without lower urinary tract symptoms Qualifiers: Lower urinary tract symptom presence: symptoms present Lower urinary tract symptom detail: urinary frequency Qualified Code(s): N40.1 - Benign prostatic hyperplasia with lower urinary tract symptoms; R35.0 - Frequency of micturition Plan: Continue with tamsulosin (10) GERD (gastroesophageal reflux disease): Code(s): K21.9 - Gastro-esophageal reflux disease without esophagitis Qualifiers: Esophagitis presence: without esophagitis Qualified Code(s): K21.9 - Gastro-esophageal reflux disease without esophagitis Plan: Avoid the foods that causes that usually spicy foods, tomato products, juices, coffee, soda and foods that your sensitive to. After eating do not lie down, allow 3-4 hours before in lie down. And keep the head of bed above 30 degrees to avoid the acid from going up. Coding Level of Care Code Est Pt Level 4 (18704) Diagnoses Fall W19.XXXA Right shoulder injury S49.91XA Right wrist injury S69.91XA Right hip pain M25.551 Paroxysmal atrial fibrillation I48.0 Sigmoid volvulus K56.2 Cognitive impairment R41.89 Hypercholesterolemia E78.00 Benign prostatic hyperplasia with urinary frequency N40.1; R35.0 Lower urinary tract symptom presence: symptoms present Lower urinary tract symptom detail: urinary frequency Gastroesophageal reflux disease without esophagitis K21.9 Esophagitis presence: without esophagitis
== END 2024-05-27 11:45 | disposition home or self-care (01) ==
PROVIDERS: PCP Internal Medicine; Visit Provider Internal Medicine
DX: S49.91XA Unspecified injury of right shoulder and upper arm, initial encounter (principal); S69.91XA Unspecified injury of right wrist, hand and finger(s), initial encounter; W19.XXXA Unspecified fall, initial encounter; M25.551 Pain in right hip; I48.0 Paroxysmal atrial fibrillation; K56.2 Volvulus; R41.89 Other symptoms and signs involving cognitive functions and awareness; E78.00 Pure hypercholesterolemia, unspecified; N40.1 Benign prostatic hyperplasia with lower urinary tract symptoms; R35.0 Frequency of micturition; K21.9 Gastro-esophageal reflux disease without esophagitis
CPT/HCPCS: 99214

== ENCOUNTER → 2024-05-27 11:50 | Outpatient (BNVA) | payer MEDICARE, OTHER, SELFPAY | PROVIDERS: PCP Internal Medicine; Visit Provider Surgery | DX: Z93.2 Ileostomy status (principal) | CPT/HCPCS: 99211 ==

== ENCOUNTER 2024-06-23 14:47 | Outpatient (AMB) | payer MEDICARE, OTHER, SELFPAY ==
[2024-06-23 14:49] VITALS: BP 122/62; PULSE 62; BMI 21.5
--- NOTE | 2024-06-23 14:49 | A.OFFVIS_ITS ---
Vital Signs 06/23/24 14:49 Height 6 ft 2 in Weight 167 lb 8.821 oz BMI 21.5 BP 122/62 Blood Pressure Location Lt brachial Position Sitting Pulse 62 Pulse Source Pulse Oximeter Intake Visit Reasons: 1 year follow up after testing Allergies No Known Allergies [No Known Allergies*] Allergy (Verified 05/27/24 10:49) Medication List - Last Reconciled 06/23/24 by Kishan Casanova MD apixaban (Eliquis) 5 mg PO BID atorvastatin 40 mg PO DAILY donepezil 5 mg PO BEDTIME ferrous sulfate (Feosol) 325 mg PO DAILY finasteride 5 mg PO DAILY 90 days gabapentin 300 mg PO BEDTIME levothyroxine 50 mcg PO DAILY@0630 multivitamin 1 tab PO DAILY sennosides-docusate sodium 8.6-50 mg (Senexon-S) 2 tabs PO BEDTIME sertraline 25 mg PO DAILY [Shoulder Immobilizer bilateral As directed] tamsulosin 0.4 mg PO BEDTIME HPI Comments Details: Luis Alberto returns for follow-up regarding atrial fibrillation as well as stroke. To recall, he had a stroke after elective hip surgery. Then sent to [facility] but improved spontaneously. Telemetry then had shown atrial fibrillation. Then, started anticoagulation. Overall, he states he is generally doing okay. From the cardiac standpoint he is not having any overt symptoms. [facility] Medical History (Updated 06/23/24 @ 15:35 by Kishan Casanova MD) Paroxysmal atrial fibrillation Sigmoid volvulus Prostate varices BPH (benign prostatic hyperplasia) Hypothyroid Volvulus of sigmoid colon Screening for diabetes mellitus Conjunctivitis, left eye Bruise Renal cyst Renal stones Gross hematuria Cerebrovascular accident Small bowel obstruction Hypertension Right renal stone Hypercholesterolemia Idiopathic peripheral autonomic neuropathy BPH (benign prostatic hyperplasia) GERD (gastroesophageal reflux disease) Peripheral vascular disease Low vitamin D level Anemia Surgical History Hx of surgical procedure (~01/01/24) History of arthroplasty of right hip History of removal of cyst History of knee replacement procedure of right knee History of prostate surgery History of inguinal hernia repair Family History Father No problems noted. Mother CVD (cardiovascular disease) Social History Household Members: Family Household Members Other:: son Housing: House Do you presently have visiting nurse or other home services: No Unable to assess alcohol history related to: Unknown Alcohol intake: never Patient Tobacco Use Status: Never used Tobacco Tobacco use type: Cigarette e-Cigarette/Vaping Use: Never Used Second Hand Smoke Exposure: No Advance Directives Date on File: 01/08/24 service: No Current occupational status: retired Cognitive needs: No Hearing needs: No Vision needs: Yes (glasses) Review of Systems Const Denies weakness ENT Denies dizziness Card Denies chest pain, Denies chest pain with activity, Denies syncope, Denies rapid heart rate, Denies pedal edema, Denies edema, Denies leg edema, Denies lightheadedness, Denies palpitations, Denies dyspnea, Denies dyspnea on exertion and Denies orthopnea Resp Denies cough, Denies dyspnea and Denies dyspnea on exertion GI Denies hematochezia and Denies change in stool character Musc Denies abnormal gait, Denies muscle cramps, Denies muscle weakness, Denies numbness, Denies radiating pain into limb and Denies tingling Neuro Denies abnormal gait, Denies dizziness, Denies syncope, Denies numbness, Denies tingling and Denies weakness Endo Denies palpitations Physical Exam Vital Signs: Last Vital Signs Pulse 62 06/23/24 14:49 BP 122/62 06/23/24 14:49 BMI result Body Mass Index 21.5 Const General: comfortable and no acute distress Orientation/consciousness: patient oriented x3 HEENT Other: Unremarkable Head: Yes normal to inspection Neck Neck: Yes normal visual inspection Chest Chest palpation & inspection: normal inspection of the chest Resp Auscultation: clear to auscultation bilaterally Cardio Palpation: normal PMI Heart sounds: S1 normal heart sound present, S2 normal heart sound present, no gallops, no murmurs and no rubs GI Palpation (GI): Soft to palpation Back/Spine/Pelvis Other: unremarkable Skin General skin exam: no rashes or lesions noted Neuro General: patient oriented x3 Extrem General: Yes normal to inspection Psych Mental Status: mental status grossly normal Assessment & Plan Assessment & Plan (1) Paroxysmal atrial fibrillation: Comment: February 2019 Code(s): I48.0 - Paroxysmal atrial fibrillation Category: Medical Plan: He remains on Eliquis. In the past, he was also on metoprolol but not in his list. Will need to check with pharmacy. In the last Holter monitor, he had underlying sinus rhythm with frequent sinus bradycardia. Unclear if the beta-blockers were stopped after that. (2) Atherosclerotic cardiovascular disease: Code(s): I25.10 - Atherosclerotic heart disease of [place] coronary artery without angina pectoris Category: Medical Plan: Patient had an EKG in December when he presented for noncardiac reasons. At that time, it seems he had T inversions in the inferior leads and also possibly subtle ST flattening in V1 to V3. Check myocardial perfusion imaging. (3) Cerebrovascular accident: Code(s): I63.9 - Cerebral infarction, unspecified Category: Medical Qualifiers: CVA mechanism: stenosis Laterality of affected vessel: left Precerebral and cerebral artery: middle cerebral artery Qualified Code(s): I63.512 - Cerebral infarction due to unspecified occlusion or stenosis of left middle cerebral artery Plan: No residual deficits. Continue anticoagulation. Orders: Orders CA echo transthoracic complete Today I25.10 - Atherosclerotic heart disease of [place] coronary artery without angina pectoris CA lexiscan stress w wenceslao Today I20.9 - Angina pectoris, unspecified NM cardiolite stress test Today R07.2 - Precordial pain Coding Level of Care Code Est Pt Level 4 (60556) Diagnoses Paroxysmal atrial fibrillation I48.0 Atherosclerotic cardiovascular disease I25.10 Cerebrovascular accident (CVA) due to stenosis of left middle cerebral artery I63.512 CVA mechanism: stenosis Laterality of affected vessel: left Precerebral and cerebral artery: middle cerebral artery
== END 2024-06-23 15:14 | disposition home or self-care (01) ==
PROVIDERS: PCP Internal Medicine; Visit Provider Internal Medicine
DX: I48.0 Paroxysmal atrial fibrillation (principal); I25.10 Atherosclerotic heart disease of native coronary artery without angina pectoris; I63.512 Cerebral infarction due to unspecified occlusion or stenosis of left middle cerebral artery
CPT/HCPCS: 99214

== ENCOUNTER → 2024-06-23 14:47 | Outpatient (BNVA) | payer MEDICARE, OTHER, SELFPAY | PROVIDERS: PCP Internal Medicine; Visit Provider Internal Medicine | DX: I48.0 Paroxysmal atrial fibrillation (principal); I25.10 Atherosclerotic heart disease of native coronary artery without angina pectoris; I10 Essential (primary) hypertension; I63.512 Cerebral infarction due to unspecified occlusion or stenosis of left middle cerebral artery; Z79.01 Long term (current) use of anticoagulants | CPT/HCPCS: 99212 ==

== ENCOUNTER 2024-07-22 14:04 | Outpatient (AMB) | payer MEDICARE, OTHER, SELFPAY ==
--- NOTE | 2024-07-22 14:12 | MHC.OFFVIS ---
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 Accompanied by: Self / Same As Patient Allergies No Known Allergies [No Known Allergies*] Allergy (Verified 07/22/24 14:24) Medication List - Last Reconciled 07/22/24 by Nestor Cummings MD apixaban (Eliquis) 5 mg PO BID atorvastatin 40 mg PO DAILY donepezil 5 mg PO BEDTIME ferrous sulfate (Feosol) 325 mg PO DAILY finasteride 5 mg PO DAILY 90 days gabapentin 300 mg PO BEDTIME levothyroxine 50 mcg PO DAILY@30 multivitamin 1 tab PO DAILY sennosides-docusate sodium 8.6-50 mg (Senexon-S) 2 tabs PO BEDTIME sertraline 25 mg PO DAILY [Shoulder Immobilizer bilateral As directed] tamsulosin 0.4 mg PO BEDTIME HPI HPI Colostomy complication, unspecified: Details: He is here for follow-up after Clau's procedure for sigmoid volvulus last December, He says the colostomy has been functioning well. His only complaint is that frequently, the colostomy appliance has not stay in place and leaks within 1 day. He otherwise seems to be doing very well. He has good oral intake.. He denies any abdominal pain. [facility] Medical History Paroxysmal atrial fibrillation Sigmoid volvulus Prostate varices BPH (benign prostatic hyperplasia) Hypothyroid Volvulus of sigmoid colon Screening for diabetes mellitus Conjunctivitis, left eye Bruise Renal cyst Renal stones Gross hematuria Cerebrovascular accident Small bowel obstruction Hypertension Right renal stone Hypercholesterolemia Idiopathic peripheral autonomic neuropathy BPH (benign prostatic hyperplasia) GERD (gastroesophageal reflux disease) Peripheral vascular disease Low vitamin D level Anemia Surgical History Hx of surgical procedure (~01/01/24) History of arthroplasty of right hip History of removal of cyst History of knee replacement procedure of right knee History of prostate surgery History of inguinal hernia repair Family History Father No problems noted. Mother CVD (cardiovascular disease) Social History Household Members: Family Household Members Other:: son Housing: House Do you presently have visiting nurse or other home services: No Unable to assess alcohol history related to: Unknown Alcohol intake: never Patient Tobacco Use Status: Never used Tobacco Tobacco use type: Cigarette e-Cigarette/Vaping Use: Never Used Second Hand Smoke Exposure: No Advance Directives Date on File: 01/08/24 service: No Current occupational status: retired Cognitive needs: No Hearing needs: No Vision needs: Yes (glasses) Review of Systems Const Denies chills and Denies fever(s) Card Denies chest pain with activity Resp Denies cough GI Details: Colostomy functioning Denies abdominal pain Physical Exam Vital Signs: Last Vital Signs Pulse 64 07/22/24 14:23 BP 126/72 07/22/24 14:23 Pulse Ox 98 07/22/24 14:23 Oxygen Delivery Method Room Air 07/22/24 14:23 BMI result Body Mass Index 23.0 Const General: comfortable and no acute distress Resp Effort & Inspection: normal respiratory effort Cardio Rate: regular rate GI Other: Colostomy functioning well, appliance in place Palpation (GI): Soft to palpation, not firm, nontender and no guarding Assessment & Plan Assessment & Plan (1) Colostomy in place: Code(s): Z93.3 - Colostomy status Category: Medical Plan: He continues to do well after resection of the sigmoid colon for a sigmoid volvulus last December,. His main complaint now is that his appliance frequently leaks. I had brought in [facility] office nurse to explain tips that will help keep the stoma appliance in place for longer periods of time. He understands that this should be in place for 3-5 days normally without any leakage Overall he is doing very well. He can therefore follow up with me on a p.r.n. basis. His son Dawood who is his primary caregiver at home was with him during the visit. Coding Level of Care Code Est Pt Level 3 (62393) Diagnoses Colostomy in place Z93.3
[2024-07-22 14:23] VITALS: BP 126/72; PULSE 64; O2SAT 98; BMI 23.0
== END 2024-07-22 15:47 | disposition home or self-care (01) ==
PROVIDERS: PCP Internal Medicine; Visit Provider Surgery
DX: Z93.3 Colostomy status (principal)
CPT/HCPCS: 99213

== ENCOUNTER → 2024-07-22 14:04 | Outpatient (BNVA) | payer MEDICARE, OTHER, SELFPAY | PROVIDERS: PCP Internal Medicine; Visit Provider Surgery | DX: K94.09 Other complications of colostomy (principal) | CPT/HCPCS: 99212 ==